=== PATIENT | female | born 1960 | race Caucasian/White ===

== ENCOUNTER 2019-11-29 07:00 | Outpatient (CLI) | payer MEDICAID, SELFPAY ==
[2019-11-29 13:14] LABS: ALT 32 U/L (14-59); AST 20 U/L (15-37); Alkaline Phosphatase 102 U/L (46-116); Anion Gap 11.1 mmol/L (3-11); BUN 34 mg/dL (7-18); Bilirubin, Total 0.4 mg/dL (0.2-1.0); CO2 23.9 mmol/L (21.0-32.0); CREATININE 2.77 mg/dL (0.55-1.02); Calcium 9.4 mg/dL (8.5-10.1); Calculated LDL 69 mg/dL (<100); Chloride 104 mmol/L (98-107); Cholesterol 154 mg/dL (<200); Estimated GFR 17.39 (mL/min/1.73m2); Glucose 96 mg/dL (74-106); HDL Cholesterol 57 mg/dL (40-60); Potassium 4.7 mmol/L (3.5-5.1); Sodium 139 mmol/L (136-145); TSH 0.34 uIU/mL (0.36-3.74); Triglyceride 143 mg/dL (<150)
[2019-11-29 13:17] LABS: COMMENT (LAB VIEW ONLY) 100.07 mg/dL
[2019-11-29 13:18] LABS: Microalb ug/mg Crea 177.1 ug/mg Cr
[2019-11-29 13:19] LABS: Hemoglobin A1C 7.1 % (3.8-5.6)
[2019-11-29 13:48] LABS: FREE T4 1.09 ng/dL (0.76-1.46)
[2019-11-29 17:48] LABS: T3, Total 135 ng/dL (97-169)
== END 2019-11-29 07:20 ==
PROVIDERS: PCP Family Medicine; Visit Provider Family Medicine
DX: E11.9 Type 2 diabetes mellitus without complications (principal); E04.2 Nontoxic multinodular goiter
CPT/HCPCS: 36415; 80053; 80061; 82043; 82570; 83036; 84439; 84443; 84480

== ENCOUNTER 2020-01-01 01:36 | Outpatient (CLI) | payer MEDICAID, SELFPAY ==
--- NOTE | 2020-01-01 13:45 | DI.MAMMO_ITS ---
EXAM: MG MAMMO SCREENING 60 MIN DUR CLINICAL HISTORY: PERSONAL H/O MALIGNANT NEOPLASM OF BREAST, Z85.3, BREAST CANCER SCREENING. COMPARISON: 2018 TECHNIQUE: Craniocaudal and mediolateral oblique Full Field Digital Mammography views of the left br east with Computer Aided Diagnosis followed by Tomosynthesis. FINDINGS: Mammography/Tomosynthesis: Breast Density - Category B - Scattered areas of fibroglandular density Masses/Architectural Distortion: None seen. Microcalcifications: No suspicious pleomorphic-type are seen. Skin Thickening/Nipple Retraction: None. IMPRESSION: 1. No evidence of malignancy is noted. 2. Unless there is more urgent need, follow-up screening mammography is recommended, as per [employer] guidelines. ACR BI-RAD Category- 1 Negative A negative radiographic report should not delay biopsy if a dominant or clinically suspicious mass is present. Up to ten percent of cancers are not identified on mammography. A negative report may reinforce clinical impression. Adenosis and dense breasts may obscure an underlying neoplasm. False positive reports average 6 to 10%. Patient will receive a letter notifying them of these results.
== END 2020-01-01 01:56 ==
PROVIDERS: PCP Family Medicine; Visit Provider Family Medicine
DX: Z12.31 Encounter for screening mammogram for malignant neoplasm of breast (principal); Z85.3 Personal history of malignant neoplasm of breast
CPT/HCPCS: 77063; 77067

== ENCOUNTER 2020-02-20 16:02 | Outpatient (REF) | payer MEDICAID, SELFPAY | END 2020-02-20 16:22 | LOC: LBN 16:02 | PROVIDERS: PCP Family Medicine; Visit Provider Surgery | DX: L72.3 Sebaceous cyst (principal) | CPT/HCPCS: 87070; 87205 ==

== ENCOUNTER 2020-05-27 03:34 | Outpatient (CLI) | payer MEDICAID, SELFPAY ==
[2020-05-27 11:50] LABS: Anion Gap 10.9 mmol/L (3-11); BUN 35 mg/dL (7-18); CO2 25.1 mmol/L (21.0-32.0); Calcium 9.3 mg/dL (8.5-10.1); Chloride 103 mmol/L (98-107); Estimated GFR 16.44 (mL/min/1.73m2); Glucose 174 mg/dL (74-106); Potassium 4.7 mmol/L (3.5-5.1); Sodium 139 mmol/L (136-145)
[2020-05-27 11:58] LABS: Hemoglobin A1C 7.1 % (3.8-5.6)
[2020-05-27 12:00] LABS: TSH 0.28 uIU/mL (0.36-3.74)
== END 2020-05-27 03:54 ==
PROVIDERS: PCP Family Medicine; Visit Provider Family Medicine
DX: E11.9 Type 2 diabetes mellitus without complications (principal); E04.2 Nontoxic multinodular goiter
CPT/HCPCS: 36415; 80048; 83036; 84443

== ENCOUNTER 2020-11-19 04:01 | Outpatient (CLI) | payer MEDICAID, SELFPAY ==
[2020-11-19 12:40] LABS: Abs Immature Grans 0.02 10^3/uL (0.0-0.06); Absolute Basophil Count 0.08 10^3/uL (0.0-0.2); Absolute Lymphocyte Count 1.55 10^3/uL (1.2-3.4); Absolute Monocyte Count 0.44 10^3/uL (0.1-0.8); Absolute Neutrophil Count 5.17 10^3/uL (1.2-6.7); Eosinophils % 5.2; HCT 36.2 % (36.0-46.0); HGB 11.4 g/dL (11.2-15.7); Immature Grans % 0.3; Lymphocytes % 20.2; MCHC 31.5 % (32.0-36.0); MCV 88.9 fL (80-95); MPV 11.9 fL (8.0-11.0); Monocytes % 5.7; Neutrophils % 67.6; Nucleated RBC 0 %; Platelet Count 249 10^3/uL (130-400); RBC 4.07 10^6/uL (3.93-5.22); RDW 13.3 % (11.7-14.6); RDW-SD 43.2 fL; WBC 7.66 10^3/uL (4.4-10.8)
[2020-11-19 12:41] LABS: Bilirubin Negative (Negative); Blood Trace-intact (Negative); Clarity Sl Cloudy (Clear); Glucose Negative (Negative); Ketones Negative (Negative); Leukocyte Esterase Large (Negative); Nitrite Positive (Negative); Urobilinogen 0.2 EU/dL (Up TO 0.2)
[2020-11-19 12:53] LABS: WBC >50 HPF (0-5)
[2020-11-19 12:54] LABS: C & S Indicated? Yes
[2020-11-19 12:59] LABS: ALT 33 U/L (14-59); AST 25 U/L (15-37); Albumin 4.1 g/dL (3.4-5.0); Alkaline Phosphatase 98 U/L (46-116); Anion Gap 13.9 mmol/L (3-11); BUN 34 mg/dL (7-18); Bilirubin, Total 0.3 mg/dL (0.2-1.0); CO2 22.1 mmol/L (21.0-32.0); CREATININE 3.06 mg/dL (0.55-1.02); Calcium 9.4 mg/dL (8.5-10.1); Calculated LDL 70 mg/dL (<100); Chloride 105 mmol/L (98-107); Cholesterol 158 mg/dL (<200); Estimated GFR 15.45 (mL/min/1.73m2); Glucose 113 mg/dL (74-106); HDL Cholesterol 56 mg/dL (40-60); Potassium 4.8 mmol/L (3.5-5.1); Sodium 141 mmol/L (136-145); TSH 0.01 uIU/mL (0.36-3.74); Total Protein 8.1 g/dL (6.4-8.2); Triglyceride 161 mg/dL (<150)
[2020-11-19 13:08] LABS: COMMENT (LAB VIEW ONLY) 94.84 mg/dL
[2020-11-19 13:10] LABS: Microalb ug/mg Crea 288.7 ug/mg Cr
== END 2020-11-19 04:21 ==
PROVIDERS: PCP Family Medicine; Visit Provider Family Medicine
DX: E11.9 Type 2 diabetes mellitus without complications (principal); E03.9 Hypothyroidism, unspecified; N18.9 Chronic kidney disease, unspecified
CPT/HCPCS: 36415; 80053; 80061; 87077; 81003; 81015; 82043; 82570; 83036; 84443; 85025; 87086; 87186

== ENCOUNTER 2021-01-28 03:29 | Outpatient (CLI) | payer MEDICAID, SELFPAY ==
[2021-01-28 11:37] LABS: Abs Immature Grans 0.05 10^3/uL (0.0-0.06); Absolute Basophil Count 0.07 10^3/uL (0.0-0.2); Absolute Eosinophil Count 0.27 10^3/uL (0.0-0.7); Absolute Lymphocyte Count 1.29 10^3/uL (1.2-3.4); Absolute Monocyte Count 0.46 10^3/uL (0.1-0.8); Absolute Neutrophil Count 7.28 10^3/uL (1.2-6.7); Basophils % 0.7; Eosinophils % 2.9; HCT 36.2 % (36.0-46.0); HGB 11.4 g/dL (11.2-15.7); Immature Grans % 0.5; Lymphocytes % 13.7; MCH 28.5 pg (27.0-33.0); MCHC 31.5 % (32.0-36.0); MCV 90.5 fL (80-95); MPV 10.5 fL (8.0-11.0); Monocytes % 4.9; Neutrophils % 77.3; Nucleated RBC 0 %; Platelet Count 327 10^3/uL (130-400); RDW 13.8 % (11.7-14.6); RDW-SD 45.9 fL; WBC 9.42 10^3/uL (4.4-10.8)
[2021-01-28 13:11] LABS: ALT 29 U/L (14-59); AST 21 U/L (15-37); Alkaline Phosphatase 116 U/L (46-116); BUN 40 mg/dL (7-18); Bilirubin, Total 0.3 mg/dL (0.2-1.0); CREATININE 2.9 mg/dL (0.55-1.02); Calcium 9.9 mg/dL (8.5-10.1); Chloride 108 mmol/L (98-107); Estimated GFR 16.44 (mL/min/1.73m2); Glucose 104 mg/dL (74-106); Potassium 5.8 mmol/L (3.5-5.1); Sodium 142 mmol/L (136-145); Total Protein 8.4 g/dL (6.4-8.2)
[2021-01-28 13:25] LABS: PHOSPHORUS 4.5 mg/dL (2.6-4.7); Uric Acid 8.4 mg/dL (2.6-6.0)
[2021-01-29 09:10] LABS: Parathyroid Hormone,Intact 57 pg/mL (19-88)
== END 2021-01-28 03:30 | disposition home or self-care (01) ==
LOC: LBO 03:30
PROVIDERS: PCP Family Medicine; Visit Provider Internal Medicine Nephrology
DX: N18.4 Chronic kidney disease, stage 4 (severe) (principal); E11.9 Type 2 diabetes mellitus without complications; N13.8 Other obstructive and reflux uropathy
CPT/HCPCS: 36415; 80053; 83970; 84100; 84550; 85025

== ENCOUNTER 2021-02-16 01:06 | Outpatient (CLI) | payer MEDICAID, SELFPAY ==
--- NOTE | 2021-02-16 07:00 | DI.US_ITS ---
EXAM: US RENAL CLINICAL HISTORY: CHRONIC KIDNEY DISEASE,N18.4 TECHNIQUE: Ultrasound of both kidneys performed using standard protocol. COMPARISON: CT ABD PELVIS WO CONTRAST from 02/11/2017 FINDINGS: RIGHT KIDNEY: Measures 9 cm in length. No cysts evident. There is some uniform cortical thinning No intrarenal calculi nor hydronephrosis. LEFT KIDNEY: Measures 8.6 cm in length. No cysts evident. There is some uniform cortical thinning. No intrarenal calculi nor hydonephrosis. URINARY BLADDER: Prevoid volume is 347 cc Postvoid volume is 14.3 cc There is a Reyes catheter in urinary bladder. Ureterovesical jets: Right ureterovesical jet was identified. Left was not. IMPRESSION: 1. Both kidneys appear mildly atrophic with symmetrical cortical thinning and slightly decreased siz e. 2. No cysts or solid masses seen in either kidney. No obvious calculi evident. No hydronephrosis. 3. there is a Reyes catheter in the urinary bladder. DATA REPOSITORY:
== END 2021-02-16 01:26 ==
PROVIDERS: PCP Family Medicine; Visit Provider Family Medicine
DX: N18.4 Chronic kidney disease, stage 4 (severe) (principal); N26.1 Atrophy of kidney (terminal)
CPT/HCPCS: 76770

== ENCOUNTER 2021-03-26 02:32 | Outpatient (CLI) | payer MEDICAID, SELFPAY ==
[2021-03-26 13:16] LABS: Anion Gap 12.4 mmol/L (3-11); BUN 42 mg/dL (7-18); CO2 22.6 mmol/L (21.0-32.0); Calcium 9.4 mg/dL (8.5-10.1); Chloride 106 mmol/L (98-107); Estimated GFR 15.76 (mL/min/1.73m2); Glucose 119 mg/dL (74-106); Sodium 141 mmol/L (136-145); Uric Acid 8.8 mg/dL (2.6-6.0)
[2021-03-26 13:30] LABS: Vitamin D 25 Total 14.6 ng/mL (30-100)
== END 2021-03-26 02:33 | disposition home or self-care (01) ==
LOC: LOS 02:33
PROVIDERS: PCP Family Medicine; Visit Provider Family Medicine
DX: N18.4 Chronic kidney disease, stage 4 (severe) (principal); M10.9 Gout, unspecified; E55.9 Vitamin D deficiency, unspecified
CPT/HCPCS: 36415; 80048; 82306; 84550

== ENCOUNTER 2021-06-03 03:16 | Outpatient (CLI) | payer MEDICAID, SELFPAY ==
[2021-06-03 13:21] LABS: Anion Gap 14.3 mmol/L (3-11); BUN 37 mg/dL (7-18); CO2 20.7 mmol/L (21.0-32.0); CREATININE 3.1 mg/dL (0.55-1.02); Calcium 9.5 mg/dL (8.5-10.1); Chloride 105 mmol/L (98-107); Estimated GFR 15.18 (mL/min/1.73m2); Glucose 141 mg/dL (74-106); Potassium 4.8 mmol/L (3.5-5.1); Sodium 140 mmol/L (136-145); TSH 0.02 uIU/mL (0.36-3.74); Uric Acid 7.3 mg/dL (2.6-6.0)
== END 2021-06-03 03:17 | disposition home or self-care (01) ==
LOC: LOS 03:17
PROVIDERS: PCP Family Medicine; Visit Provider Family Medicine
DX: E11.9 Type 2 diabetes mellitus without complications (principal); E04.2 Nontoxic multinodular goiter; E55.9 Vitamin D deficiency, unspecified; N18.4 Chronic kidney disease, stage 4 (severe); M10.9 Gout, unspecified
CPT/HCPCS: 36415; 80048; 82306; 83036; 84443; 84550

== ENCOUNTER 2021-07-24 02:38 | Outpatient (CLI) | payer MEDICAID, SELFPAY ==
[2021-07-24 10:25] LABS: Source Nasal/Nares
[2021-07-24 13:56] LABS: COVID-19 PCR Negative (Negative)
== END 2021-07-24 02:39 | disposition home or self-care (01) ==
LOC: LBO 02:38
PROVIDERS: PCP Family Medicine; Visit Provider Surgery
DX: Z20.822 Contact with and (suspected) exposure to COVID-19 (principal); Z01.818 Encounter for other preprocedural examination
CPT/HCPCS: 87635

== ENCOUNTER 2021-07-27 06:02 | Day surgery (SDC) | payer MEDICAID, SELFPAY ==
--- NOTE | 2021-07-26 18:28 | ANES.PREOP_ITS ---
General Info Date of Service Date Performed: 07/27/21 Height: 5 ft 3 in Weight: 72.802 kg Body Mass Index (BMI): 28.4 Surgical Procedure: Operation Date: 07/27/21 07:35 Proposed Procedures Side Surgeon p Colonoscopy Tessie Shane MD Meds Allergies and Home Medications Allergies Allergy/AdvReac Type Severity Reaction Status Date / Time amoxicillin [From Augmentin] AdvReac Intermediate Severe Verified 07/24/21 13:23 dry mouth clavulanic acid AdvReac Intermediate Severe Verified 07/24/21 13:23 [From Augmentin] dry mouth Sulfa (Sulfonamide AdvReac Intermediate SLURRED Verified 07/24/21 13:23 Antibiotics) SPEECH, DIZZY Home Medication Medication Instructions Recorded Blood Glucose Test #100 02/15/13 Lancets 1 ea MISCELLANEOUS DAILY #100 ea 02/15/13 aspirin [Aspir-81] 81 mg PO DAILY #100 tablet. 01/29/17 enalapril maleate 5 mg tablet 5 mg PO DAILY #90 tab-cap 10/08/20 amitriptyline 100 mg tablet 100 mg PO DAILY #90 tab-cap 04/27/21 amlodipine 10 mg tablet 10 mg PO DAILY #90 tab-cap 04/27/21 glipizide 5 mg tablet 5 mg PO DAILY #90 tab-cap 04/27/21 pravastatin 80 mg tablet 80 mg PO DAILY #90 tab-cap 04/27/21 allopurinol 100 mg tablet 50 mg PO DAILY #90 tab 06/08/21 cholecalciferol (vitamin D3) 25 50 mcg PO DAILY #180 cap 06/08/21 mcg (1,000 unit) capsule levothyroxine 88 mcg tablet 88 mcg PO DAILY #30 tab 06/08/21 bisacodyl 5 mg tablet,delayed 5 mg PO ONCE #4 tab 06/26/21 release polyethylene glycol 3350 17 238 g PO ONCE #238 g 06/26/21 gram/dose oral powder Current Visit Medications: Current Medications Generic Name Dose Route Start Last Admin Trade Name Freq PRN Reason Stop Dose Admin Sodium Chloride 500 mls @ 30 mls/hr 07/24/21 14:30 Saline 500ml Bag IV INFUSION STARR Ringer's Solution 1,000 mls @ 80 mls/hr 07/27/21 06:00 IV 08/23/21 23:59 INFUSION STARR IV Miscellaneous Supplies 1 each 07/27/21 06:00 Iv Access IV 08/23/21 23:59 DIRECTED STARR Sodium Chloride 0 ml 07/27/21 06:00 Normal Saline Flush 10 Ml Syr IV 08/23/21 23:59 PRN PRN Sodium Chloride 0 ml 07/27/21 06:00 Normal Saline 10 Ml Vial IJ 08/23/21 23:59 DIRECTED PRN Sterile Water 0 ml 07/27/21 06:00 Water,Injection,Sterile 10 Ml Vial IJ 08/23/21 23:59 DIRECTED PRN PFSH Active Problems Active Problems: Problem Status Onset Code Positive colorectal cancer screening using Cologuard test R19.5 Hyperuricemia E79.0 Hypothyroidism E03.9 Vitamin D deficiency E55.9 CKD (chronic kidney disease) stage 4, GFR 15-29 ml/min N18.4 Malignant neoplasm of right breast in female, estrogen receptor positive C50.911, Z17.0 Infected sebaceous cyst of skin L72.3, L08.9 Urinary retention 02/08/17 R33.9 Multinodular goiter 02/26/18 E04.2 Intramural leiomyoma of uterus 05/05/17 D25.1 Hyperlipidemia 02/21/13 E78.5 History of tobacco use Z87.891 Gout M10.9 Essential hypertension I10 Erythromelalgia 01/09/15 I73.81 Diabetes mellitus E11.9 Chronic kidney disease, unspecified N18.9 Acute renal failure superimposed on chronic kidney disease 02/04/17 N17.9, N18.9 Urinary retention R33.9 Medical History Medical History Chronic kidney disease CKD (chronic kidney disease) stage 4, GFR 15-29 ml/min Diabetes Erythromelalgia Gout Hyperlipidemia Hypertension Hyperuricemia Hypothyroidism Infected sebaceous cyst of skin Leiomyoma of uterus Malignant neoplasm of right breast in female, estrogen receptor positive [facility] biopsy: invasive ductal carcinoma/ductal carcinoma in situ - Urinary retention Vitamin D deficiency Tobacco Smoking/Tobacco Use Status: Former Tobacco Use Passive smoking exposure: Yes Second hand exposure: Yes Alcohol Alcohol Intake: never Substance Use Substance use: Never Substance use type: does not use Vital Signs and Lab Results Lab Results Blood Type / Crossmatch: No Data to Display Complete Blood Count: No Data to Display Complete Metabolic Panel: No Data to Display Liver Function Panel: No Data to Display Coagulation Panel: No Data to Display Cardiac Panel: No Data to Display Arterial Blood Gas: No Data to Display Venous Blood Gas: No Data to Display Pancreas Panel: No Data to Display Thyroid Panel: No Data to Display Infectious Disease: Coronavirus (COVID-19)(PCR) Negative (Negative) 07/24/21 08:37 07/24/21 Coronavirus 2019 Source Nasal/Nares 07/24/21 08:37 07/24/21 Blood Cultures: No Data to Display Toxicology Panel: No Data to Display Anesthesia Assessment and Plan Anesthesia History Personal History: No History of Anesthesia Complications Family History: No Family History of Anesthesia Complications Exercise Tolerance Exercise Tolerance: Metabolic Equivalents>4 Cardiac & Pulmonary Exam Cardiac Exam: Normal S1/S2 Heart Sounds Pulmonary Exam: Clear Bilateral Breath Sounds Airway Exam Known Difficult Airway: No Mallampati Class: 3 Mouth Opening: Narrow (< 3cm) Thyromental Distance: Less than 3 cm Neck Range of Motion: Full ROM Neck Circumference: Normal Teeth Condition: Removable Dentures/Plates Upper ASA Classification ASA Score: ASA 3 Emergency Case?: No NPO Status NPO Status: NPO Clears >2 hours, Solids >8 hours Anesthesia Plan Resuscitation Status: Full Code Anesthesia Technique: General Anesthesia Airway Planned: Natural Airway Monitors Used: Standard Monitors Preoperative Comments:: 61 yo female for colonoscopy due to positive cologuard and constipation. Sig PMHx: CKD (GFR 15), HTN (enalapril/amlodipine), DM (glipizide), hypothyroid (on replacement) Plan: propofol.
--- NOTE | 2021-07-27 06:28 | W.COLOREPORT ---
Colonoscopy Report Date of procedure: 07/27/21 Pre-op diagnosis general: Positive Cologuard Post-op diagnosis procedure note: other (diverticulosis and polyp) Procedure: Colonoscopy with polypectomy Surgeon: Tessie Shane Anesthesia Type: General:No Airway (Geo Montoya, STARLA) Estimated blood loss (mL): 3 Pathology: other (sigmoid colon polyp) Complications: None Disposition: same day Indications: The patient is here for Colonoscopy pre-op following a (+) colo-guard. She has no family history of colon cancer. She has had chronic constipation. -Discussed colonoscopy bowel prep as well as the procedure. Discussed possible complications of the procedure to include bleeding, pain, perforation, missed small lesion/polyp, sore throat, aspiration and adverse reaction to the medications. Questions were answered to patient?s satisfaction. No guarantees were implied or given. Prep: Miralax/Dulcolax Procedure Start Time: 07:24 Procedure End Time: 07:54 Retraction Time: 13 minutes Findings: Severe bhatia-diverticulosis One small sessile polyp in the sigmoid colon Procedure Description: After informed consent was obtained the patient was taken to the procedure room and placed in a left decubitous position. Monitors were applied and a time out was done. The patients name, date of , procedure, allergies to medications and metal in their body was reviewed. The patient was then sedated. Once sedated and comfortable a rectal exam was done. External exam was normal. Internal exam revealed a normal sphincter tone and no palpable masses. The scope was then introduced and retro-flexed. No internal hemorrhoids, polyps or masses were identified on retro-flexion. The scope was then advanced to the cecum with some difficulty due to a tortuous colon and severe diverticulosis. The ileocecal vlave and appendiceal orifice were identified. The prep was adequate. The scope was then slowly retracted over 13 minutes back into the rectum. Polyps were removed with cold forceps in the sigmoid colon. There was severe bhatia- diverticulosis noted. The scope was removed and the patient was woken up and taken back to Same day surgery in stable condition. The patient tolerated the procedure well and there were no immediate complications. Follow up: The patient should follow up in 5-10 years unless they develop changes in bowel habits or other new gastrointestinal complaints.
[2021-07-27 06:29] VITALS: BP 109/61; PULSE 93; RESP 18; TEMP 36.5; O2SAT 97
--- NOTE | 2021-07-27 06:29 | W.PM.DSUDISC ---
Discharge Plan Disposition Patient Disposition: HOME Condition: Good Discharge Details Reason For Visit: Colonoscopy Attending Provider: Tessie Shane Primary Care Provider: Agustina Jasso Home Meds and New Rx's Prescriptions: Continued allopurinol 100 mg tablet 50 mg PO DAILY Qty: 90 RF: 1 levothyroxine 88 mcg tablet 88 mcg PO DAILY Qty: 30 RF: 2 cholecalciferol (vitamin D3) 25 mcg (1,000 unit) capsule 50 mcg PO DAILY Qty: 180 RF: 4 (DME) Blood Glucose Test 1 EACH strip 1 ea Miscellaneous DAILY Qty: 100 RF: 4 LANCETS 1 EACH EACH 1 ea Miscellaneous DAILY Qty: 100 RF: 4 enalapril maleate 5 mg tablet 5 mg PO DAILY Qty: 90 RF: 3 amitriptyline 100 mg tablet 100 mg PO DAILY Qty: 90 RF: 4 amlodipine 10 mg tablet 10 mg PO DAILY Qty: 90 RF: 4 glipizide 5 mg tablet 5 mg PO DAILY Qty: 90 RF: 4 pravastatin 80 mg tablet 80 mg PO DAILY Qty: 90 RF: 4 aspirin [Aspir-81] 81 MG tablet,delayed release (DR/EC) 81 mg PO DAILY Qty: 100 RF: 0 Discontinued polyethylene glycol 3350 17 gram/dose powder 238 g PO ONCE Qty: 238 RF: 0 bisacodyl [Dulcolax (bisacodyl)] 5 mg tablet,delayed release (DR/EC) 5 mg PO ONCE Qty: 4 RF: 0 Discharge Instructions Instructions: Diverticulosis (DC) Additional Instructions: Findings: severe diverticulosis one polyp Follow up: depends on final pathology. I will send a letter. Please call if you develop: fevers >101.5 Nausea or Vomiting Abdominal pain that is not transient Rectal bleeding that is more then a tbsp A hard abdomen and inability to pass gas DAY SURGERY UNIT POST ENDOSCOPY INSTRUCTIONS Instructions for everyone who is given Anesthesia: For your safety, please do the following for the next 24 Hours: a. Do not drive or operate dangerous equipment b. Do not drink alcohol beverages or use any recreational drugs for the first 24 hours or while taking pain medications. The medications in your body may have a reaction that can be dangerous. c. Do not make any important decisions or sign any important papers 1. Generally there are no restrictions on your activity after a day or so has gone by, but you may feel a bit fatigued for a few days. 2. After you arrive home you may have a light meal and return to a normal diet as you can tolerate it without feeling sick to your stomach. 3. After surgery, you may feel pain or discomfort. This should be only transient, but if it persists please contact your doctor. 4. If there are any questions regarding the findings of your procedure, please feel free to contact your doctor. 6. If you are unable to contact your doctor with a problem, contact the hospital at [phone]. 7. Continue all your regular medications unless directed otherwise. I understand the above instructions and have no questions. Signature of Patient or Responsible Adult Escort Date/Time Name of Responsible Adult Escort Signature of Nurse Date/Time Activity:: Activity as Tolerated Diet:: high fiber diet Discharge Orders Discharge Orders: Discharge Order (Routine); Ordered 07/27/21 Ordered By: Tessie Shane
[2021-07-27 06:45] VITALS: BMI 28.4
[2021-07-27] MEDS: Lactated Ringers 1,000 ML 30 ML IV (06:48)
--- NOTE | 2021-07-27 07:49 | BOWEL_PTH ---
PATIENT: Olinda Villalobos LOC: [facility] U#:[id number] AGE/SX: 61/F ROOM: RE07/27/[address]: Tessie Shane MD : 1960 BED: DIS: 07/27/2021 SPEC #: [id number] RECD: 07/27/21 12:49 STATUS: AUBREE REOsmani #: [id number] MIROSLAVA: 07/27/21 07:[address]: Tessie Shane DEPT: Surgical Specimen RECD BY: Fatmata Garcia ENTERED: 07/27/21 12:51 SP TYPE: Bowel OTHR DR: Agustina Jasso MD Tissues: 1 - BIOPSY BOWEL Procedures: GROSS AND MICRO LEVEL 4 Comments: [id number]
[2021-07-27 08:00] VITALS: BP 104/57; PULSE 85; RESP 18; TEMP 36.5; O2SAT 93
--- NOTE | 2021-07-27 08:11 | W.ANESPOSTOP ---
Postoperative Evaluation Date, Time and Location Date Performed: 07/27/21 Time Performed: 08:12 Patient Location: Day Surgery Unit Vital Signs Most Recent Imported Vital Signs: Most Recent Vital Signs Temp Pulse Resp BP Pulse Ox 36.5 C 85 18 104/57 L 93 07/27/21 08:00 07/27/21 08:00 07/27/21 08:00 07/27/21 08:00 07/27/21 08:00 Pain Score Most Recent Pain Score: Most Recent Pain Score Pain Level 0 07/27/21 08:00 Assessment Mental Status: Awake (Alert & Oriented to Patient Baseline) Airway and Respiratory Function: Patent airway with normal (patient baseline) respiratory exam Cardiovascular Function: Hemodynamically Stable Hydration Status: Adequately Hydrated Nausea & Vomiting: No Nausea or Vomiting Pain: Pt. Denies Any Pain Peripheral Nerve Block: Patient did not receive a nerve block
[2021-07-27 08:25] VITALS: BP 113/61; PULSE 80; RESP 18; TEMP 36.5; O2SAT 96
== END 2021-07-27 09:05 | disposition home or self-care (01) ==
PROVIDERS: PCP Family Medicine; Visit Provider Surgery
PROC: 0DJD8ZZ Inspection of Lower Intestinal Tract, Via Natural or Artificial Opening Endoscopic (ICD-10-PCS; CPT 45378; principal; 2021-07-27 07:30)
DX: Z12.11 Encounter for screening for malignant neoplasm of colon (principal); R19.5 Other fecal abnormalities; K63.5 Polyp of colon; K57.30 Diverticulosis of large intestine without perforation or abscess without bleeding
CPT/HCPCS: 45380; 88305; J2001

== ENCOUNTER 2021-08-11 03:18 | Inpatient (IN) | payer MEDICAID, SELFPAY ==
[2021-08-11] VITALS (150 sets, daily range): BP systolic 81–124; BP diastolic 31–93; PULSE 84–144; RESP 14–40; TEMP 35.9–36.6; O2SAT 91–100
--- NOTE | 2021-08-11 | DI.CT_ITS ---
Exam(s) CT CHEST/ABD/PEL WO EXAM: CT CHEST/ABD/PEL WO CLINICAL HISTORY: hypotensive, recent procedure, abd pain. ? aorta disection. TECHNIQUE: Imaging Protocol: Axial computed tomography images with coronal and sagittal reformatted images were created and reviewed CONTRAST MATERIAL: Intravenous: none Oral: None COMPARISON: CT ABD PELVIS WO CONTRAST from 02/11/2017 FINDINGS: CHEST: There appears to been right mastectomy. LUNGS: Mild infiltrate in the posterior basal segment of the left lower lobe. No other pulmonary fin dings. There are no pleural effusions. No significant focal findings in trachea and mainstem bronch i. MEDIASTINUM: No obvious hilar nor mediastinal adenopathy. Visualized thyroid unremarkable. CARDIAC: Heart size is normal. There is no pericardial effusion.Coronary artery calcification noted. Caliber thoracic aorta is within normal limits. OSSEOUS: Subtle area of lucency in the posterior aspect of the left 6 rib. Also multiple lucencies a nd sclerotic densities within the spinal column vertebrae. Suspicious for possible metastatic diseas e. ABDOMEN: Motion artifact There is no ascites. LIVER: There are no obvious focal hepatic lesions evident of this noninfused study. GALLBLADDER/BILIARY: Small gallstones noted. No evidence of gallbladder wall edema nor pericholecyst ic fluid. CBD is not dilated. PANCREAS: Blurred from motion artifact but no obvious focal findings. SPLEEN: Spleen is not enlarged. No obvious intrasplenic lesions. ADRENALS: There are no significant adrenal masses. KIDNEYS: Mild hydronephrosis and hydroureter again noted, unchanged. No cysts nor obvious solid mass es in the kidneys. No calculi. Vascular calcification in the right kidney is again noted. The uret ers are dilated. No calculi seen at the ureterovesical junctions. A suprapubic catheter is noted in the urinary bladder. ABDOMINAL AORTA: Calcified but not enlarged. LYMPH NODES: There is no retroperitoneal nor para-aortic adenopathy. ABDOMINAL WALL/GI: No evidence of significant anterior abdominal wall nor inguinal hernia. No evidence of bowel obstruction. PELVIS: LYMPH NODES: There is no intrapelvic nor inguinal adenopathy. GI: No evidence of appendicitis.There are multiple sigmoid diverticuli but no evidence of obvious acu te diverticulitis. URINARY BLADDER: Suprapubic catheter is noted. REPRODUCTIVE: Age appropriate. No abnormal adnexal masses. No free fluid. OSSEOUS: Sclerosis noted in multiple vertebral bodies, including L5, L2, T10, and T11. Most probably metastatic. IMPRESSION: 1. Quality of this study somewhat limited by motion artifact. 2. There is evidence of previous right mastectomy. Mild infiltrate is noted in the left lower lobe, not associated with pleural effusions. There are no pulmonary nodules nor intrathoracic adenopathy. 3. Cholelithiasis. No dilatation of the biliary tree 4. Chronic dilatation of the urinary tracts. Suprapubic catheter is noted in the urinary bladder. Bladder is mildly distended. 5. Diverticulosis but no evidence of acute diverticulitis. 6. There appears to be diffuse metastatic osseous disease. RADIATION DOSE DELIVERED: 1,634.16mGy.cm Total DLP DATA REPOSITORY: All CT scans at this facility are submitted to the National Radiology Data Registry (NRDR) Dose Index Registry (DIR) with the [employer] (ACR). RADIATION OPTIMIZATION: All CT scans at this facility use at least one of these dose optimization te chniques: automated exposure control; mA and/or kV adjustment per patient size (includes targeted exa ms where dose is matched to clinical indication); or iterative reconstruction.
--- NOTE | 2021-08-11 | DI.US_ITS ---
Exam(s) US ABDOMEN EXAM: US ABDOMEN CLINICAL HISTORY: Severe hepatic steatosis TECHNIQUE: Ultrasound of complete upper abdomen performed using standard protocol. COMPARISON: No exams were available for comparison FINDINGS: There is no ascites evident. LIVER: Liver is hyperechoic indicating steatosis. No discrete focal hepatic lesions evident GALLBLADDER/BILIARY: Multiple small mobile gallstones.. Gallbladder wall is not thickened or [place] us. There is no pericholecystic fluid. The common hepatic duct isnot dilated, measuring 3-4mm at the level of jonh hepatis. PANCREAS: There is no evidence of pancreatic mass nor dilatation of the pancreatic duct. SPLEEN: The spleen is not enlarged and there are no intrasplenic lesions evident. KIDNEYS:Kidneys exhibit normal size with no evidence of solid mass, calculus, nor hydronephrosis. No cortical cysts evident. ABDOMINAL AORTA: There is no evidence of abdominal aortic aneurysm. IVC: Normal diameter where visualized. IMPRESSION: 1. Cholelithiasis. There are multiple mobile small gallstones in the gallbladder lumen. No gallbla dder wall edema or pericholecystic fluid. No dilatation of the CBD. Patient was apparently not tend er over this area during scanning today. 2. Hepatic steatosis. Correlation appropriate hepatic blood work is recommended. 3. There is no ascites. DATA REPOSITORY:
--- NOTE | 2021-08-11 03:00 | RT.EKG_ITS ---
APPROVED REPORT Exam: Resting ECG Reason for Exam: altered mental status Patient Location: E HR:89 bpm ECG Measurements Heart Rate 89 AXIS GA 271 P 22 QRSd 111 QRS 45 QT 375 T 44 QTc 456 Conclusion Sinus rhythm...normal P axis, V-rate 60- 99 Prolonged GA interval...GA >220, V-rate 50- 90 Low voltage, extremity leads...all extremity leads <0.5mV Physician: no stemi
--- NOTE | 2021-08-11 03:30 | DI.CT_ITS ---
Exam(s) CT HEAD WO EXAM: CT HEAD WO CLINICAL HISTORY: fall, hit head altered. TECHNIQUE: Imaging Protocol: Axial computed tomography images with coronal and sagittal reformatted images were created and reviewed COMPARISON: No exams were available for comparison FINDINGS: There are no skull fractures nor fluid in the visualized paranasal sinuses. There is no evidence of intracranial hemorrhage, mass effect, or shift of midline structures. There are no extra-axial fluid collections. The ventricles are not enlarged or shifted and there is no blo od within the ventricular system nor within the basal cisterns. IMPRESSION: No acute intracranial findings on this noninfused CT scan of the brain. RADIATION DOSE DELIVERED: 724.24mGy.cm Total DLP DATA REPOSITORY: All CT scans at this facility are submitted to the National Radiology Data Registry (NRDR) Dose Index Registry (DIR) with the [employer] (ACR). RADIATION OPTIMIZATION: All CT scans at this facility use at least one of these dose optimization te chniques: automated exposure control; mA and/or kV adjustment per patient size (includes targeted exa ms where dose is matched to clinical indication); or iterative reconstruction.
[2021-08-11 03:50] LABS: Lactate 0.6 mmol/L (0.6-1.4)
[2021-08-11 03:50] LABS: Source Nasal/Nares
[2021-08-11 04:01] LABS: Abs Immature Grans 0.12 10^3/uL (0.0-0.06); Absolute Basophil Count 0.02 10^3/uL (0.0-0.2); Absolute Eosinophil Count 0.01 10^3/uL (0.0-0.7); Absolute Lymphocyte Count 0.36 10^3/uL (1.2-3.4); Absolute Monocyte Count 0.63 10^3/uL (0.1-0.8); Absolute Neutrophil Count 6.52 10^3/uL (1.2-6.7); Basophils % 0.3; Eosinophils % 0.1; Immature Grans % 1.6; Lymphocytes % 4.7; MCHC 31.4 % (32.0-36.0); MCV 92.5 fL (80-95); MPV 10.1 fL (8.0-11.0); Monocytes % 8.2; Neutrophils % 85.1; Nucleated RBC 0 %; Platelet Count 261 10^3/uL (130-400); RDW 14.5 % (11.7-14.6); WBC 7.66 10^3/uL (4.4-10.8)
[2021-08-11 04:03] LABS: HGB 5.8 g/dL (11.2-15.7)
[2021-08-11 04:04] LABS: HCT 18.5 % (36.0-46.0)
--- NOTE | 2021-08-11 04:09 | ED.GENADUL_ITS ---
Discharge Plan Disposition Patient Disposition: [facility] INPATIENT Condition: Serious Discharge Details Clinical Impression: Acute anemia, Hypomagnesemia, Hypokalemia, Hypocalcemia, Hypoalbuminemia, Weakness, Altered mental status, Hypovolemic shock, Bone lesion Primary Care Provider: Agustina Jasso ED Provider: Yuri Cole Home Meds and New Rx's Prescriptions: No Action allopurinol 100 mg tablet 50 mg PO DAILY Qty: 90 RF: 1 levothyroxine 88 mcg tablet 88 mcg PO DAILY Qty: 30 RF: 2 cholecalciferol (vitamin D3) 25 mcg (1,000 unit) capsule 50 mcg PO DAILY Qty: 180 RF: 4 (DME) Blood Glucose Test 1 EACH strip 1 ea Miscellaneous DAILY Qty: 100 RF: 4 LANCETS 1 EACH EACH 1 ea Miscellaneous DAILY Qty: 100 RF: 4 enalapril maleate 5 mg tablet 5 mg PO DAILY Qty: 90 RF: 3 amitriptyline 100 mg tablet 100 mg PO DAILY Qty: 90 RF: 4 amlodipine 10 mg tablet 10 mg PO DAILY Qty: 90 RF: 4 glipizide 5 mg tablet 5 mg PO DAILY Qty: 90 RF: 4 pravastatin 80 mg tablet 80 mg PO DAILY Qty: 90 RF: 4 aspirin [Aspir-81] 81 MG tablet,delayed release (DR/EC) 81 mg PO DAILY Qty: 100 RF: 0 Medical Decision Making This is a 61-year-old female with a past medical history of previous breast cancer in the right breast with subsequent removal, chronic kidney disease, chronic indwelling suprapubic Reyes catheter, high cholesterol, hypothyroidism, diabetes, who takes a daily aspirin, who presents today for evaluation of altered mental status. Patient had a colonoscopy about 2 weeks ago. states that since then she has not had a single bowel movement. She has not been eating much at all throughout the day, but has been drinking water. He also states that over the last 3 days she has gotten in balance, and has had difficulty ambulating. She has been confused, and stating nonsensical things. He also states that she has fallen twice, is uncertain if she hit her head. Yesterday she had fallen and was in the shower for 4 hours. Patient is not on any blood thinners aside for daily aspirin. Patient has no complaints of chest pain, headache, or abdominal pain whatsoever. No vomiting. states that she has never been like this before. No other complaints at this time. No other modifying factors. Physical exam is notably unremarkable. No abdominal tenderness, suprapubic catheter is in place, no evidence of cranial trauma. Minimal crackle in the bases of the lung. Upon EMS arrival the patient's blood pressure was in the 70s. She was given [address] here, and this brought her up to the mid 80s for systolic BP. Heart rate is in the 90s to low 100s. Uncertain as to the exact cause of her symptoms. Bedside ultrasound was performed at arrival, there is no large pericardial effusion. Ejection fraction appears to be appropriate. Inferior vena cava is 1 to 1.5 cm, with minimal collapse with inspiration. It does appear to be an atypical finding around the patient's aorta and IVC in general. Uncertain as to what the etiology is on ultrasound. With the patient's recent colonoscopy and concern for atypical intra-abdominal pathology including perforation but this appears unlikely given her lack of tenderness. Dissection is on the differential but this would certainly be atypical with her lack of pain. Pulses are intact in her lower extremities. We will rehydrate, perform laboratory work-up, get a CT scan of the head to evaluate for acute process as well as the abdomen and pelvis. Will monitor closely and reassess. Infectious etiology is also in the differential, we will check for Covid and potential pneumonia with the crackles that she has. 4:46 AM Laboratory work-up is returned, patient's hemoglobin is notably diminished compared to normal, hemoglobin is 5.8. Patient has been typed and screened and will give 2 units of PRBCs now. Platelets are stable. INR slightly elevated at 1.6, PTT high at 52, and PT high at 15. Lactate is normal though. Potassium elevated at 2.6, notable chronic renal insufficiency with a creatinine of 2.8 and GFR of 17. Calcium is low at 5.1 however the patient's albumin is 1.5 which would lead to a calculated calcium of 7.1. Ammonia unremarkable, troponin unremarkable, TSH notably low at 0.03, pending free T4. proBNP normal suggesting no evidence of significant heart strain from PE. The patient's low hemoglobin, the diagnosis certainly she has 2 intra-abdominal GI bleed. Less likely PE. With the patient atrocious renal function, CTA would not be appropriate currently as she has become hemodynamically stable. We will get a CT scan of the head chest abdomen pelvis without contrast, monitor closely and reassess. Blood pressure is now in the high 90s systolic. 6:04 AM Electrolytes are being actively repleted. The patient has been given 2 units of PRBCs. With blood products, multiple electrolytes, and the need for additional fluids, the decision was made to place a right IJ central line. Discussed risks and benefits were discussed with the patient as well as her . They agreed to the plan. Central line was placed without complication. CT scan of the head is negative for acute process, CT of the abdomen and pelvis demonstrates some patchy sclerotic changes in the thoracic, lumbar vertebra. No significant abnormality otherwise CT scan. No clear evidence but because of the patient's anemia. Rectal exam demonstrates no stool. Patient has not had a bowel movement or bloody bowel movements or melena. I suspect most likely has evaluated small contained internal primary GI bleed. Patient blood pressure is now stabilized to the low 100s systolic. Will admit to the ICU for further management. Discussed the case with Dr. Poon. He agrees with the assessment and plan. I have extensively reviewed the treatment plan with the patient. I have addressed all patient concerns at this time. I have also discussed the plan with the admitting physician and they agree with the current assessment and plan and have agreed to assume responsibility for the patient. All parties demonstrate verbal understanding and agreement with our assessment and plan at this time. The documentation in this chart was dictated using [employer] dictation software. Please excuse any dictation errors. FINDINGS: Lungs: Dependent subsegmental atelectasis. Pleuroparenchymal scarring in left lung base. Pleural spaces: Unremarkable. No pneumothorax. No pleural effusion. Heart: Heart normal in size.There are coronary artery calcifications. No pericardial effusion.There is diminished attenuation of the cardiac chambers in comparison to the myocardium which can be seen with anemia. Correlate clinically. Aorta: No aortic aneurysm. Lymph nodes: No adenopathy. Diaphragm: Small hiatal hernia. Elevated right hemidiaphragm. Bones/joints: New, patchy sclerotic change in several vertebrae.The spine demonstrates mild degenerative changes at multiple levels. Soft tissues: Prior at least partial right mastectomy. IMPRESSION: 1. Anemia suspected. 2. Coronary artery disease. 3. Hiatal hernia. 4. Prior at least partial right mastectomy. 5. New, patchy sclerotic change in several thoracolumbar vertebrae. Blastic metastases are a differential consideration in the proper clinical setting. Correlate clinically FINDINGS: Tubes, catheters and devices: Suprapubic bladder catheter again demonstrated. Liver: There is diffuse decrease in hepatic parenchymal density, consistent with severe fatty infiltration. Minimal hepatomegaly. No mass. Gallbladder and bile ducts: Gallstones. No biliary ductal dilatation. Pancreas: Normal. No ductal dilation. Spleen: Normal. No splenomegaly. Adrenal glands: Normal. No mass. Kidneys and ureters: No radiopaque renal or ureteric calculi. Renal pelves remain prominent. No hydronephrosis. Stomach and bowel: No dilated loops of small bowel or colonic dilatation. Scattered colonic diverticula. There is a moderate to large amount of stool in right colon. Appendix: No evidence of appendicitis. Intraperitoneal space: Unremarkable. No free air. No significant fluid collection. Vasculature: Atherosclerosis. No abdominal aortic aneurysm. Lymph nodes: Unremarkable. No enlarged lymph nodes. Urinary bladder: Minimally distended without wall thickening. Reproductive: Retroverted uterus. Bones/joints: Patchy sclerosis in several vertebrae.The spine demonstrates mild degenerative changes at multiple levels. Soft tissues: No retroperitoneal or abdominal wall hematomas. IMPRESSION: 1. Urinary bladder is minimally distended. Correlate clinically for possible obstructed suprapubic tube. 2. Severe hepatic steatosis. 3. Hepatomegaly. 4. Gallstones. 5. Colonic diverticula. Thank you for allowing us to participate in the care of your patient. Dictated and Authenticated by: Galen Magana DO 08/11/2021 5:29 AM Eastern Time ([place] & [place]) FINDINGS: Brain: Normal. No hemorrhage. Unremarkable white matter. No mass effect. Cerebral ventricles: No ventriculomegaly. Paranasal sinuses: Visualized sinuses are unremarkable. No fluid levels. Mastoid air cells: Visualized mastoid air cells are well aerated. Bones/joints: Unremarkable. No acute fracture. Soft tissues: Unremarkable. IMPRESSION: No acute intracranial abnormality. ASSESSMENT: ASPECTS ([place] Stroke Program Early CT Score) is 10. Thank you for allowing us to participate in the care of your patient. Dictated and Authenticated by: Galen Magana DO 08/11/2021 4:55 AM Eastern Time ([place] & [place]) FINDINGS: Tubes, catheters and devices: Small bore right central line tip projects over superior cavoatrial junction. Lungs: Scarring and/or subsegmental atelectasis in lower left lung. No consolidation. Pleural spaces: Unremarkable. No pleural effusion. No pneumothorax. Heart/Mediastinum: Unremarkable. No cardiomegaly. Bones/joints: Unremarkable. IMPRESSION: No acute findings. Thank you for allowing us to participate in the care of your patient. Dictated and Authenticated by: Galen Magana DO 08/11/2021 6:01 AM Eastern Time ([place] & [place]) HPI General Date/Time Provider Initiated Documentation: 08/11/21 03:42 . HPI Narrative: This is a 61-year-old female with a past medical history of previous breast cancer in the right breast with subsequent removal, chronic kidney disease, chronic indwelling suprapubic Reyes catheter, high cholesterol, hypothyroidism, diabetes, who takes a daily aspirin, who presents today for evaluation of altered mental status. Patient had a colonoscopy about 2 weeks ago. states that since then she has not had a single bowel movement. She has not been eating much at all throughout the day, but has been drinking water. He also states that over the last 3 days she has gotten in balance, and has had difficulty ambulating. She has been confused, and stating nonsensical things. He also states that she has fallen twice, is uncertain if she hit her head. Yesterday she had fallen and was in the shower for 4 hours. Patient is not on any blood thinners aside for daily aspirin. Patient has no complaints of chest pain, headache, or abdominal pain whatsoever. No vomiting. states that she has never been like this before. No other complaints at this time. No other modifying factors. Related Data Home Medications Medication Instructions Recorded Confirmed Blood Glucose Test #100 02/15/13 08/11/21 Lancets 1 ea MISCELLANEOUS DAILY #100 ea 02/15/13 08/11/21 aspirin [Aspir-81] 81 mg PO DAILY #100 tablet. 01/29/17 08/11/21 enalapril maleate 5 mg tablet 5 mg PO DAILY #90 tab-cap 10/08/20 08/11/21 amitriptyline 100 mg tablet 100 mg PO DAILY #90 tab-cap 04/27/21 08/11/21 amlodipine 10 mg tablet 10 mg PO DAILY #90 tab-cap 04/27/21 08/11/21 glipizide 5 mg tablet 5 mg PO DAILY #90 tab-cap 04/27/21 08/11/21 pravastatin 80 mg tablet 80 mg PO DAILY #90 tab-cap 04/27/21 08/11/21 allopurinol 100 mg tablet 50 mg PO DAILY #90 tab 06/08/21 08/11/21 cholecalciferol (vitamin D3) 25 50 mcg PO DAILY #180 cap 06/08/21 08/11/21 mcg (1,000 unit) capsule levothyroxine 88 mcg tablet 88 mcg PO DAILY #30 tab 06/08/21 08/11/21 Previous Rx's Medication Instructions Recorded aspirin [Aspir-81] 81 mg PO DAILY #100 tablet. 01/29/17 enalapril maleate 5 mg tablet 5 mg PO DAILY #90 tab-cap 10/08/20 amitriptyline 100 mg tablet 100 mg PO DAILY #90 tab-cap 04/27/21 amlodipine 10 mg tablet 10 mg PO DAILY #90 tab-cap 04/27/21 glipizide 5 mg tablet 5 mg PO DAILY #90 tab-cap 04/27/21 pravastatin 80 mg tablet 80 mg PO DAILY #90 tab-cap 04/27/21 allopurinol 100 mg tablet 50 mg PO DAILY #90 tab 06/08/21 cholecalciferol (vitamin D3) 25 50 mcg PO DAILY #180 cap 06/08/21 mcg (1,000 unit) capsule levothyroxine 88 mcg tablet 88 mcg PO DAILY #30 tab 06/08/21 Allergies Allergy/AdvReac Type Severity Reaction Status Date / Time amoxicillin [From Augmentin] AdvReac Intermediate Severe Verified 08/11/21 03:26 dry mouth clavulanic acid AdvReac Intermediate Severe Verified 08/11/21 03:26 [From Augmentin] dry mouth Sulfa (Sulfonamide AdvReac Intermediate SLURRED Verified 08/11/21 03:26 Antibiotics) SPEECH, DIZZY General Stated Complaint: GenMedical XUAN: 2 Review of Systems All systems reviewed & are unremarkable except as noted in HPI and below PFSH Medical History Chronic kidney disease CKD (chronic kidney disease) stage 4, GFR 15-29 ml/min Diabetes Erythromelalgia Gout Hyperlipidemia Hypertension Hyperuricemia Hypothyroidism Infected sebaceous cyst of skin Leiomyoma of uterus Malignant neoplasm of right breast in female, estrogen receptor positive [facility] [place]: invasive ductal carcinoma/ductal carcinoma in situ - Urinary retention Vitamin D deficiency Surgical History History of suprapubic catheter Hx of breast lump removal R , entire breast Hx of thyroidectomy Family History Mother , 86 age Diabetes Hypertension Father , 67 age Cancer Sister , 63 Heart disease Sister , 55 age Dementia Brother , 59 age Cancer Lung Cancer Brother , 69 age Diabetes Heart disease Hypertension Daughter No problems noted. Daughter No problems noted. Social History Smoking/Tobacco Use Status: Former Tobacco Use tobacco type: cigarettes Quit Date: 05/31/11 Second Hand Exposure: Yes Smoking risk assessment performed?: Yes Alcohol Intake: never Drug use: Never Substance use type: does not use Household members: spouse Housing: house Communication Needs: None Do you need help understanding health information?: Never Pets and animals: No Sexually active: No Do you think of yourself as: straight/heterosexual Current gender identity: female What is your relationship status?: How often do you talk on the phone with friends or family?: twice per week How often do you get together with friends or relatives?: twice per week Do you belong to any clubs or organized social groups?: no Panel score (0-1 are the most socially isolated patients): 2 What type of physical activity do you participate in: none Seatbelt use: always Helmet use: No Drive intox 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 3.ENT: Atraumatic external nose and ears. Moist MM. Neck: Symmetric, trachea midline, No thyromegaly. 4.CVS: +S1/S2, No murmurs or gallops. Peripheral pulses 2+ and equal in all extremities. Brisk capillary refill in all extremities. 5.RESP: Unlabored respiratory effort. Mild crackles in the bases 6.GI: Soft, Nontender/Nondistended, No hepatosplenomegaly. No guarding or rebound. Suprapubic Reyes catheter is in place 7.MSK: Normocephalic/Atraumatic, Extremities w/o deformity or ttp No cyanosis or clubbing, Normal movement of all extremities 8.Skin: Warm, Dry. No rashes or lesions. 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 Sensation grossly intact, no focal neurologic deficits. 10.Psych: (AAO) x3. Appropriate mood and affect Course Vital Signs Vital signs: Vital Signs Temperature 36.5 C 08/11/21 03:17 Pulse 91 H 08/11/21 03:17 Respiratory Rate 20 08/11/21 03:17 Blood Pressure 87/43 L 08/11/21 03:17 Pulse Oximetry 99 08/11/21 03:17 Temperature 36.5 C 08/11/21 03:17 Temperature Source Temporal Artery Scan 08/11/21 03:17 Pulse 88 08/11/21 03:46 Pulse 89 08/11/21 03:50 Respiratory Rate 24 08/11/21 03:50 Respiratory Effort Non-Labored 08/11/21 03:30 Respiratory Depth Normal 08/11/21 03:30 Respiratory Pattern Normal 08/11/21 03:30 Blood Pressure 106/55 L 08/11/21 03:46 Blood Pressure Mean 65 08/11/21 03:46 Blood Pressure Position Supine 08/11/21 03:17 Pulse Oximetry 100 08/11/21 03:50 Oxygen Delivery Method Room Air 08/11/21 03:17 Oxygen Flow Rate 0 08/11/21 03:17 Pain Level 0 08/11/21 03:17 Lab/Test Results Lab/Test Results: 08/11/21 03:43 Blood Blood Culture - Pending 08/11/21 03:37 Blood Blood Culture - Pending Laboratory Tests Range/Units 08/11/21 08/11/21 08/11/21 03:43 03:43 03:44 WBC (4.4-10.8) 10^3/uL 7.66 RBC (3.93-5.22) 10^6/uL 2.00 L Hgb (11.2-15.7) g/dL 5.8 L* Hct (36.0-46.0) % 18.5 L* MCV (80-95) fL 92.5 MCH (27.0-33.0) pg 29.0 MCHC (32.0-36.0) % 31.4 L RDW (11.7-14.6) % 14.5 Plt Count (130-400) 10^3/uL 261 MPV (8.0-11.0) fL 10.1 Immature Gran % 1.6 Neutrophils % 85.1 Lymphocytes % 4.7 Monocytes % 8.2 Eosinophils % 0.1 Basophils % 0.3 Nucleated RBC % % 0 Absolute Neutrophils (1.2-6.7) 10^3/uL 6.52 Absolute Lymphocytes (1.2-3.4) 10^3/uL 0.36 L Absolute Monocytes (0.1-0.8) 10^3/uL 0.63 Absolute Eosinophils (0.0-0.7) 10^3/uL 0.01 Absolute Basophils (0.0-0.2) 10^3/uL 0.02 VBG Lactate (0.6-1.4) mmol/L 0.6 COVID-19 Source Nasal/Nares Crossmatch Range/Units 08/11/21 04:03 WBC (4.4-10.8) 10^3/uL RBC (3.93-5.22) 10^6/uL Hgb (11.2-15.7) g/dL Hct (36.0-46.0) % MCV (80-95) fL MCH (27.0-33.0) pg MCHC (32.0-36.0) % RDW (11.7-14.6) % Plt Count (130-400) 10^3/uL MPV (8.0-11.0) fL Immature Gran % Neutrophils % Lymphocytes % Monocytes % Eosinophils % Basophils % Nucleated RBC % % Absolute Neutrophils (1.2-6.7) 10^3/uL Absolute Lymphocytes (1.2-3.4) 10^3/uL Absolute Monocytes (0.1-0.8) 10^3/uL Absolute Eosinophils (0.0-0.7) 10^3/uL Absolute Basophils (0.0-0.2) 10^3/uL VBG Lactate (0.6-1.4) mmol/L COVID-19 Source Crossmatch See Detail Procedures Central Line Placement Right IJ: Time Out Performed: Yes Patient Placed on Monitor/Pulse Ox: Yes MD Prep: mask, gown and gloves Central Line Prep: Chlorhexidine scrub Local Anesthetic: Lidocaine 1% Amount of anesthesia used (mL): 3 Ultrasound Used for Placement: Yes Central Line Lumen Inserted: triple Post Procedure: good blood return, all ports aspirated, flushed, capped and sutured in place with 3-0 nylon Post Procedure X-Ray: tip of catheter in good position Patient Tolerated Procedure: well Complications: none Critical Care Time Critical Care Time Critical Care Time: Yes Total Critical Care Time: 45 Attestation: Upon my evaluation, this patient had a high probability of imminent or life-threatening deterioration, which required my direct attention, intervention, and personal management. I have personally provided 45 minutes of critical care time exclusive of time spent on separately billable procedures. Time includes review of laboratory data, radiology results, discussion with consultants, and monitoring for potential decompensation. Interventions were performed as documented.
[2021-08-11 04:15] LABS: Bilirubin Negative (Negative); Blood Trace-lysed (Negative); Clarity Sl Cloudy (Clear); Glucose Negative (Negative); Ketones Negative (Negative); Leukocyte Esterase Small (Negative); Nitrite Positive (Negative); Urobilinogen 0.2 EU/dL (Up TO 0.2)
[2021-08-11 04:16] LABS: Ammonia < 10 umol/L (11-32)
[2021-08-11 04:17] LABS: ALT 11 U/L (14-59); AST 34 U/L (15-37); Albumin 1.5 g/dL (3.4-5.0); Alkaline Phosphatase 74 U/L (46-116); Anion Gap 15.9 mmol/L (3-11); Anisocytosis 1+; BUN 50 mg/dL (7-18); Bilirubin, Total 0.2 mg/dL (0.2-1.0); CO2 11.1 mmol/L (21.0-32.0); CREATININE 2.8 mg/dL (0.55-1.02); Chloride 116 mmol/L (98-107); Estimated GFR 17.07 (mL/min/1.73m2); Glucose 95 mg/dL (74-106); NT-proBNP 249 pg/mL (<300); Poikilocytes 2+; Sodium 143 mmol/L (136-145); TSH (W/Ref FT4) 0.03 uIU/mL (0.36-3.74); Total Protein 4.4 g/dL (6.4-8.2)
[2021-08-11 04:19] LABS: INR 1.6 (0.9-1.1); PTT Activated 52.3 sec (21.0-27.5); Prothrombin Time 15.5 sec (9.3-11.0)
[2021-08-11 04:22] LABS: Bacteria Few HPF (Negative); Epithelial Cells Few HPF (Negative)
[2021-08-11 04:23] LABS: C & S Indicated? Yes; Casts Negative LPF (Negative); Crystals Negative HPF (Negative); Mucus Negative (Negative)
[2021-08-11 04:24] LABS: Calcium 5.1 mg/dL (8.5-10.1); Troponin I < 0.05 ng/mL (<0.06)
[2021-08-11 04:25] LABS: Potassium 2.6 mmol/L (3.5-5.1)
[2021-08-11 04:43] LABS: COVID-19 PCR Negative (Negative)
[2021-08-11 04:54] LABS: Magnesium 1.1 mg/dL (1.8-2.4)
--- NOTE | 2021-08-11 04:56 | DI.VRAD_ITS ---
Addendum created by Galen Magana DO on 08/11/2021 4:59:41 AM EDT: THIS REPORT CONTAINS FINDINGS THAT MAY BE CRITICAL TO PATIENT CARE. The findings were verbally communicated via telephone conference with Dr. Cole 08/11/2021 4:58 AM EDT. The findings were acknowledged and understood. Reportedly, patient has had several falls recently. Lab studies demonstrate the presence of anemia. Initial report created on 08/11/2021 4:55:43 AM EDT: PROCEDURE INFORMATION: Exam: CT Head Without Contrast Exam date and time: 08/11/2021 3:41 AM Age: 61 years old Clinical indication: Injury or trauma; Blunt trauma (contusions or hematomas); Consciousness not specified; Altered mental status/memory loss; Confusion or disorientation; Injury date: 08/11/21; Injury details: Fall, hit head altered TECHNIQUE: Imaging protocol: Computed tomography of the head without contrast. Radiation optimization: All CT scans at this facility use at least one of these dose optimization techniques: automated exposure control; mA and/or kV adjustment per patient size (includes targeted exams where dose is matched to clinical indication); or iterative reconstruction. Other technique: STROKE PROTOCOL was implemented. COMPARISON: No relevant prior studies available. FINDINGS: Brain: Normal. No hemorrhage. Unremarkable white matter. No mass effect. Cerebral ventricles: No ventriculomegaly. Paranasal sinuses: Visualized sinuses are unremarkable. No fluid levels. Mastoid air cells: Visualized mastoid air cells are well aerated. Bones/joints: Unremarkable. No acute fracture. Soft tissues: Unremarkable. IMPRESSION: No acute intracranial abnormality. ASSESSMENT: ASPECTS ([place] Stroke Program Early CT Score) is 10. Dictated and Authenticated by: Galen Magana MD. Ordering:SCOOTER Welch MD
[2021-08-11] MEDS: POTASSIUM CHLORIDE 20 MEQ/100 ML BAG 25 MEQ IVPB (05:04)
[2021-08-11 05:11] LABS: FREE T4 1.15 ng/dL (0.76-1.46)
[2021-08-11] MEDS: MAGNESIUM SULFATE 2 GM/50 ML BAG IVPB ×2 (05:12→10:58)
--- NOTE | 2021-08-11 05:29 | DI.VRAD_ITS ---
PROCEDURE INFORMATION: Exam: CT Chest Without Contrast; Diagnostic Exam date and time: 08/11/2021 4:28 AM Age: 61 years old Clinical indication: Other: AMS, hypotension, ; prior surgery; Surgery date: 6+ months; Surgery type: Suprapubic cath, breast lumpectomy; Patient HX: AMS, hypotensive, recent colonoscopy procedure, abd pain. ? Aorta dissection. Without contrast due to labs TECHNIQUE: Imaging protocol: Diagnostic computed tomography of the chest without contrast. Radiation optimization: All CT scans at this facility use at least one of these dose optimization techniques: automated exposure control; mA and/or kV adjustment per patient size (includes targeted exams where dose is matched to clinical indication); or iterative reconstruction. COMPARISON: CT ABD PELVIS WO CONTRAST 02/11/2017 9:18 AM FINDINGS: Lungs: Dependent subsegmental atelectasis. Pleuroparenchymal scarring in left lung base. Pleural spaces: Unremarkable. No pneumothorax. No pleural effusion. Heart: Heart normal in size.There are coronary artery calcifications. No pericardial effusion.There is diminished attenuation of the cardiac chambers in comparison to the myocardium which can be seen with anemia. Correlate clinically. Aorta: No aortic aneurysm. Lymph nodes: No adenopathy. Diaphragm: Small hiatal hernia. Elevated right hemidiaphragm. Bones/joints: New, patchy sclerotic change in several vertebrae.The spine demonstrates mild degenerative changes at multiple levels. Soft tissues: Prior at least partial right mastectomy. Other findings: The PROCEDURE INFORMATION: IMPRESSION: 1. Anemia suspected. 2. Coronary artery disease. 3. Hiatal hernia. 4. Prior at least partial right mastectomy. 5. New, patchy sclerotic change in several thoracolumbar vertebrae. Blastic metastases are a differential consideration in the proper clinical setting. Correlate clinically. PROCEDURE INFORMATION: Exam: CT Abdomen And Pelvis Without Contrast Exam date and time: 08/11/2021 4:28 AM Age: 61 years old Clinical indication: Other: AMS, hypotension, ; prior surgery; Surgery date: 6+ months; Surgery type: Suprapubic cath, breast lumpectomy; Patient HX: AMS, hypotensive, recent colonoscopy procedure, abd pain. ? Aorta dissection. Without contrast due to labs TECHNIQUE: Imaging protocol: Computed tomography of the abdomen and pelvis without contrast. Radiation optimization: All CT scans at this facility use at least one of these dose optimization techniques: automated exposure control; mA and/or kV adjustment per patient size (includes targeted exams where dose is matched to clinical indication); or iterative reconstruction. COMPARISON: CT ABD PELVIS WO CONTRAST 02/11/2017 9:18 AM FINDINGS: Tubes, catheters and devices: Suprapubic bladder catheter again demonstrated. Liver: There is diffuse decrease in hepatic parenchymal density, consistent with severe fatty infiltration. Minimal hepatomegaly. No mass. Gallbladder and bile ducts: Gallstones. No biliary ductal dilatation. Pancreas: Normal. No ductal dilation. Spleen: Normal. No splenomegaly. Adrenal glands: Normal. No mass. Kidneys and ureters: No radiopaque renal or ureteric calculi. Renal pelves remain prominent. No hydronephrosis. Stomach and bowel: No dilated loops of small bowel or colonic dilatation. Scattered colonic diverticula. There is a moderate to large amount of stool in right colon. Appendix: No evidence of appendicitis. Intraperitoneal space: Unremarkable. No free air. No significant fluid collection. Vasculature: Atherosclerosis. No abdominal aortic aneurysm. Lymph nodes: Unremarkable. No enlarged lymph nodes. Urinary bladder: Minimally distended without wall thickening. Reproductive: Retroverted uterus. Bones/joints: Patchy sclerosis in several vertebrae.The spine demonstrates mild degenerative changes at multiple levels. Soft tissues: No retroperitoneal or abdominal wall hematomas. IMPRESSION: 1. Urinary bladder is minimally distended. Correlate clinically for possible obstructed suprapubic tube. 2. Severe hepatic steatosis. 3. Hepatomegaly. 4. Gallstones. 5. Colonic diverticula. Dictated and Authenticated by: Galen Magana MD. Ordering:SCOOTER Welch MD
--- NOTE | 2021-08-11 05:31 | DI.RAD_ITS ---
Exam(s) XR PORTABLE CHEST AP POST LINE EXAM: XR PORTABLE CHEST AP POST LINE CLINICAL HISTORY: central line placement. TECHNIQUE: 2D digital imaging was performed. COMPARISON: CR CHEST 2 VIEWS PA,LAT from 01/30/2018 FINDINGS: Heart size is upper normal. The mediastinum is not widened. Distal tip of the right supra clavi in central line is in the upper RA Right lung is clear. There is some mild infiltrate in the left lower lobe. No pleural effusions. N o pneumothorax. IMPRESSION: There is mild infiltrate in the left lower lobe. No pleural effusions. Distal tip of central line is in the upper right atrium. DATA REPOSITORY: RADIATION DOSE DELIVERED: All CT scans at this facility use at least one of these dose optimization techniques: automated exposure control; mA and/or kV adjustment per patient size (includes targeted e xams where dose is matched to clinical indication); or iterative reconstruction.
--- NOTE | 2021-08-11 06:01 | DI.VRAD_ITS ---
PROCEDURE INFORMATION: Exam: XR Chest Exam date and time: 08/11/2021 5:33 AM Age: 61 years old Clinical indication: Other vascular access device placement or adjustment; Patient HX: Central line placement TECHNIQUE: Imaging protocol: XR of the chest. Views: 1 view. COMPARISON: CT CHEST/ABD/PEL WO 08/11/2021 4:45 AM FINDINGS: Tubes, catheters and devices: Small bore right central line tip projects over superior cavoatrial junction. Lungs: Scarring and/or subsegmental atelectasis in lower left lung. No consolidation. Pleural spaces: Unremarkable. No pleural effusion. No pneumothorax. Heart/Mediastinum: Unremarkable. No cardiomegaly. Bones/joints: Unremarkable. IMPRESSION: No acute findings. Dictated and Authenticated by: Galen Magana MD. Ordering:SCOOTER Welch MD
--- NOTE | 2021-08-11 06:03 | NUR.NOTE ---
Nursing Note: Dr. Poon at bedside to evaluate patient for admission.
--- NOTE | 2021-08-11 06:20 | HPE_ITS ---
Date of service: 08/11/21 Time of Service: 06:20 Assessment and Plan Assessment and plan (1) Hypotension: Status: Acute Assessment and plan: Hypotension, appears to be a matter of hypovolemia, whether from inanition, anemia or both. No suggestion of infectious or cardiogenic cause. Has responded well to fluids.The anemia in turn is the most striking finding but unclear yet whether this acute or subacute; no evidence of bleed at this point but the acute presentation suggests this possibility. The l ow normal bili would tend to exclude hemolysis. The various electrolyte abnormalities are likely nutritional in origin. The elevated INR and low albumin are likely too nutritional in origin as the n ormal bili would exclude primary liver failure. The low TSH is evidently overcorrection of known hypothyroid as she is on supplements. The sclerotic vertebral lesions are possible manifestation of metastatic disease, possibly responsible or related to the variety of other issues. Finally I note the h/o dysphagia to solids and I wonder if an esophageal lesion may be responsible for all, and perhaps bleeding. Plan: 1. Anemia: stool guiacs, consider EGD; check retics, iron studies, transfuse, t rend H/H 2. Electrolytes: replace and trend 3. INR: trial vitamin K 4. TSH: hold Synthroid 5. Vertebral lesions: consider IR for biopsy or bone scan History of Present Illness History of Present Illness Chief Complaint: weakness Narrative: 61 female here with several days of weakness, confusion, trouble walking. On arrival EMS reported BP in 60s per ER. Got 1L IVF en route with increase BP 80s. In ER findings of note for initial BP 80s, pulse approx 100; Hct 18 (last known 36 01/18); K 2.6, Mg 1.5, Ca 5.1 (corrects to 7.4), T Bili 0.2. INR 1.6, Albumin 1.5, TSH 0.03. CT chest and abdomen of note for several sclerotic vertebral lesions and fatty liver. Patient has or is receiving K, Mg and pRBC at this time. Patient does report some dyphagia to solids for over a year. No abd pain, no melena. Had colonoscopy 2 weeks ago, no BM since, or very little. States she has lost 10 pounds over last few weeks. States she is feeling better at this time, back to herself. Review of Systems All systems reviewed & are unremarkable except as noted in HPI and below PFSH Medical History Chronic kidney disease CKD (chronic kidney disease) stage 4, GFR 15-29 ml/min Diabetes Erythromelalgia Gout Hyperlipidemia Hypertension Hyperuricemia Hypothyroidism Infected sebaceous cyst of skin Leiomyoma of uterus Malignant neoplasm of right breast in female, estrogen receptor positive [facility] [place] biopsy: invasive ductal carcinoma/ductal carcinoma in situ - Urinary retention Vitamin D deficiency Surgical History History of suprapubic catheter Hx of breast lump removal R , entire breast Hx of thyroidectomy Family History Mother , 86 age Diabetes Hypertension Father , 67 age Cancer Sister , 63 Heart disease Sister , 55 age Dementia Brother , 59 age Cancer Lung Cancer Brother , 69 age Diabetes Heart disease Hypertension Daughter No problems noted. Daughter No problems noted. Social History Smoking/Tobacco Use Status: Former Tobacco Use tobacco type: cigarettes Quit Date: 05/31/11 Second Hand Exposure: Yes Smoking risk assessment performed?: Yes Alcohol Intake: never Drug use: Never Substance use type: does not use Household members: spouse Housing: house Communication Needs: None Do you need help understanding health information?: Never Pets and animals: No Sexually active: No Do you think of yourself as: straight/heterosexual Current gender identity: female What is your relationship status?: How often do you talk on the phone with friends or family?: twice per week How often do you get together with friends or relatives?: twice per week Do you belong to any clubs or organized social groups?: no Panel score (0-1 are the most socially isolated patients): 2 What type of physical activity do you participate in: none Seatbelt use: always Helmet use: No Drive intox or ride w/intox automation driver: No Do you feel safe at home: Yes Do you feel safe in your relationship?: Yes Meds Allergies and Home Medications Allergies Allergy/AdvReac Type Severity Reaction Status Date / Time amoxicillin [From Augmentin] AdvReac Intermediate Severe Verified 08/11/21 03:26 dry mouth clavulanic acid AdvReac Intermediate Severe Verified 08/11/21 03:26 [From Augmentin] dry mouth Sulfa (Sulfonamide AdvReac Intermediate SLURRED Verified 08/11/21 03:26 Antibiotics) SPEECH, DIZZY Home Medications Medication Instructions Recorded Confirmed Type Blood Glucose Test #100 02/15/13 08/11/21 History Lancets 1 ea MISCELLANEOUS DAILY #100 ea 02/15/13 08/11/21 History aspirin [Aspir-81] 81 mg PO DAILY #100 tablet. 01/29/17 08/11/21 Rx enalapril maleate 5 mg tablet 5 mg PO DAILY #90 tab-cap 10/08/20 08/11/21 Rx amitriptyline 100 mg tablet 100 mg PO DAILY #90 tab-cap 04/27/21 08/11/21 Rx amlodipine 10 mg tablet 10 mg PO DAILY #90 tab-cap 04/27/21 08/11/21 Rx glipizide 5 mg tablet 5 mg PO DAILY #90 tab-cap 04/27/21 08/11/21 Rx pravastatin 80 mg tablet 80 mg PO DAILY #90 tab-cap 04/27/21 08/11/21 Rx allopurinol 100 mg tablet 50 mg PO DAILY #90 tab 06/08/21 08/11/21 Rx cholecalciferol (vitamin D3) 25 50 mcg PO DAILY #180 cap 06/08/21 08/11/21 Rx mcg (1,000 unit) capsule levothyroxine 88 mcg tablet 88 mcg PO DAILY #30 tab 06/08/21 08/11/21 Rx Exam Narrative Exam Narrative: 107/48, 88, afebrile, 20 97% RA. HEENT atraumatic; neck supple; lungs clear; heart RRR; abdomen soft and NT; extremities w/o edema; rectal no stool, glove heme negative; neuro Ox3, lucid, moves all 4s Results Labs Result diagrams: 08/11/21 03:43 08/11/21 03:43 Labs: Laboratory Results - last 24 hr 08/11/21 08/11/21 08/11/21 03:40 03:43 03:43 WBC RBC Hgb Hct MCV MCH MCHC RDW Plt Count MPV Immature Gran % Neutrophils % Lymphocytes % Monocytes % Eosinophils % Basophils % Nucleated RBC % Absolute Neutrophils Absolute Lymphocytes Absolute Monocytes Absolute Eosinophils Absolute Basophils RBC Morphology Poikilocytosis Anisocytosis PT INR APTT VBG Lactate Sodium 143 Potassium 2.6 L* Chloride 116 H Carbon Dioxide 11.1 L Anion Gap 15.9 H BUN 50 H Creatinine 2.8 H Estimated GFR/1.73 m2 17.07 Glucose 95 Calcium 5.1 L* Magnesium 1.1 L Total Bilirubin 0.2 AST 34 ALT 11 L Alkaline Phosphatase 74 Ammonia < 10 L Troponin I < 0.05 NT-Pro-B Natriuret Pep 249 Total Protein 4.4 L Albumin 1.5 L TSH 0.03 L Free T4 1.15 Urine Color Urine Clarity Urine pH Ur Specific Stella Urine Protein Urine Ketones Urine Blood Urine Nitrite Urine Bilirubin Urine Urobilinogen Ur Leukocyte Esterase Urine RBC Urine WBC Ur Epithelial Cells Urine Crystals Urine Bacteria Urine Casts Urine Mucus Ur Culture Indicated? Urine Glucose COVID-19 Source SARS-CoV-2 (PCR) Patient ABO/Rh Antibody Screen Crossmatch 08/11/21 08/11/21 08/11/21 03:43 03:43 03:43 WBC 7.66 RBC 2.00 L Hgb 5.8 L* Hct 18.5 L* MCV 92.5 MCH 29.0 MCHC 31.4 L RDW 14.5 Plt Count 261 MPV 10.1 Immature Gran % 1.6 Neutrophils % 85.1 Lymphocytes % 4.7 Monocytes % 8.2 Eosinophils % 0.1 Basophils % 0.3 Nucleated RBC % 0 Absolute Neutrophils 6.52 Absolute Lymphocytes 0.36 L Absolute Monocytes 0.63 Absolute Eosinophils 0.01 Absolute Basophils 0.02 RBC Morphology See Below Poikilocytosis 2+ Anisocytosis 1+ PT 15.5 H INR 1.6 H APTT 52.3 H VBG Lactate 0.6 Sodium Potassium Chloride Carbon Dioxide Anion Gap BUN Creatinine Estimated GFR/1.73 m2 Glucose Calcium Magnesium Total Bilirubin AST ALT Alkaline Phosphatase Ammonia Troponin I NT-Pro-B Natriuret Pep Total Protein Albumin TSH Free T4 Urine Color Urine Clarity Urine pH Ur Specific Stella Urine Protein Urine Ketones Urine Blood Urine Nitrite Urine Bilirubin Urine Urobilinogen Ur Leukocyte Esterase Urine RBC Urine WBC Ur Epithelial Cells Urine Crystals Urine Bacteria Urine Casts Urine Mucus Ur Culture Indicated? Urine Glucose COVID-19 Source SARS-CoV-2 (PCR) Patient ABO/Rh Antibody Screen Crossmatch 08/11/21 08/11/21 08/11/21 03:44 03:50 04:10 WBC RBC Hgb Hct MCV MCH MCHC RDW Plt Count MPV Immature Gran % Neutrophils % Lymphocytes % Monocytes % Eosinophils % Basophils % Nucleated RBC % Absolute Neutrophils Absolute Lymphocytes Absolute Monocytes Absolute Eosinophils Absolute Basophils RBC Morphology Poikilocytosis Anisocytosis PT INR APTT VBG Lactate Sodium Potassium Chloride Carbon Dioxide Anion Gap BUN Creatinine Estimated GFR/1.73 m2 Glucose Calcium Magnesium Total Bilirubin AST ALT Alkaline Phosphatase Ammonia Troponin I NT-Pro-B Natriuret Pep Total Protein Albumin TSH Free T4 Urine Color Yellow Urine Clarity Sl Cloudy Urine pH 6.0 Ur Specific Stella 1.020 Urine Protein Trace H Urine Ketones Negative Urine Blood Trace-lysed H Urine Nitrite Positive H Urine Bilirubin Negative Urine Urobilinogen 0.2 Ur Leukocyte Esterase Small H Urine RBC 10-20 H Urine WBC 3-5 Ur Epithelial Cells Few Urine Crystals Negative Urine Bacteria Few Urine Casts Negative Urine Mucus Negative Ur Culture Indicated? Yes Urine Glucose Negative COVID-19 Source Nasal/Nares SARS-CoV-2 (PCR) Negative Patient ABO/Rh O Positive Antibody Screen NEGATIVE Crossmatch See Detail Last Vital Signs Temp 36.5 C 08/11/21 06:10 Pulse 90 08/11/21 06:15 Resp 22 08/11/21 06:15 BP 112/52 L 08/11/21 06:15 Pulse Ox 98 08/11/21 06:15
[2021-08-11] MEDS: PHYTONADIONE 10 MG in Normal Saline 50 ML 200 MG IVPB (07:18)
[2021-08-11] MEDS: POTASSIUM CHLORIDE/0.9% NACL 1,000 ML 125 MEQ IV (07:52)
--- NOTE | 2021-08-11 08:25 | INITIAL_ITS ---
- If Service Date Differs Date of service: 08/11/21 Time of Service: 08:25 Care Management Initial Assess REASON FOR HOSPITALIZATION:: hypotension and anemia PAST MEDICAL HISTORY/PAST SURGICAL HISTORY:: Medical History . Chronic kidney disease. CKD (chronic kidney disease) stage 4, GFR 15-29 ml/min. Diabetes. Erythromelalgia. Gout. Hyperlipidemia. Hypertension. Hyperuricemia. Hypothyroidism. Infected sebaceous cyst of skin. Leiomyoma of uterus. Malignant neoplasm of right breast in female, estrogen receptor positive. [facility] [place] invasive ductal carcinoma/ductal carcinoma in situ -. Urinary retention. Vitamin D deficiency. Surgical History . History of suprapubic catheter. Hx of breast lump removal. R , entire breast. Hx of thyroidectomy PREVIOUS FUNCTIONAL STATUS/SOCIAL/FAMILY SUPPORTS:: Olinda lives in [place], [place] with her Jose. They have 4 children and 6 grandchildren, all living in the area. She describes her family as close and supportive. 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 She is independent at baseline and continues to drive. She does not use any assistive devices nor does she receive any community services. CURRENT FUNCTIONAL STATUS:: Olinda was sitting up in bed when CM met with her. She had only arrived in the unit a couple of hours before but when asked, Olinda stated that she is doing OK. She does not seem to have a good understanding of her medical history. She was unable to identify why she has a suprapubic tube, in place for 9 years, or why she gets blood transfusions on an outpatient basis. Olinda informed CM that she will be glad to get some answers about what is going on with her. She did ask when she could have something to drink but she is currently NPO. ADVANCE DIRECTIVES:: Olinda does not have advanced directives and is not interested in completing them. Has patient been provided with info about the portal/API?: Yes Did the patient sign up for the portal?: No CODE STATUS:: Full Code INSURANCE COVERAGE / FINANCIAL ISSUES:: Medicaid CURRENT HOME/COMMUNITY SERVICES/EQUIPMENT:: none currently. PRIMARY CARE PHYSICIAN:: Agustina Jasso POTENTIAL DISCHARGE NEEDS:: Follow up with PCP and plan of care PATIENT/FAMILY EDUCATION NEEDS:: Review of discharge instructions, medications, activity, follow up plan, Ask Me Three TRANSPORTATION:: via private vehicle PLAN:: Olinda will likely be discharged home when medically cleared. It is unclear at this time if she will need any home health services or possibly transfer to tertiary care as it is very early in her hospital stay. She will follow up with her community providers and discharge plan of care and transport with family. CM will continue to support Olinda and assess for ongoing discharge concerns.
--- NOTE | 2021-08-11 08:32 | W.PULMCC ---
General Date of Service Date of service: 08/11/21 Time of Service: 08:15 Reason for Admission to ICU: Anemia, Hypotension Assessment and Plan Assessment and plan (1) Hypotension: Status: Acute Qualifiers: Hypotension type: hypotension due to hypovolemia Qualified Code(s): I95.89 - Other hypotension; E86.1 - Hypovolemia (2) Acute anemia: Status: Acute (3) Hypomagnesemia: Status: Acute (4) Hypokalemia: Status: Acute (5) Hypocalcemia: Status: Acute (6) Hypoalbuminemia: Status: Acute (7) Weakness: Status: Acute (8) Gout: Status: Acute Qualifiers: Chronicity: chronic Gout etiology: unspecified cause Gout site: unspecified site Presence of tophus: without tophus Qualified Code(s): [id number] - Chronic gout, unspecified, without tophus (tophi) (9) Multinodular goiter: Status: Acute (10) CKD (chronic kidney disease) stage 4, GFR 15-29 ml/min: Status: Acute (11) Bone lesion: Status: Acute Assessment and plan: This is a 61-year-old female with history of breast cancer status post lumpectomy without chemo or radiation in 2018 as well as CKD 4 in the setting of an obstructive uropathy and a recent negative colonoscopy who presents with anemia to 5.8 (baseline of 11). She does have some electrolyte abnormalities as well as a CAT scan showing several vertebral bone lesions that are concerning for malignancy. She does not have an obvious source of bleeding at this time however a UA will be performed. She will need to be further evaluated regarding these bony lesions. She does have hemorrhagic shock with a low blood pressure and hopefully this will resolve once she receives full resuscitation with blood products and fluids. Recommendations Pulmonary: No acute concerns Incentive spirometer Cardiac: h/o HTN - hold anti-hypertensives for now Hemorrhagic shock - s/p 2 U PRBC - repeat H/H q8 hr until stability achieved - unclear etiology - agree with LR 125cc/hr Renal: CKD 4 due to obstructive uropathy - monitor UOP closely - may need to match UOP with IVF Obstructive uropathy with suprapubic catheter - s/p catheter change on 07/29/21 and again today by urology - agree with UA Hypomagnesemia - replete to 2.0 Hypokalemia - replete to 4.0 Hypocalcemia - corrected calcium is 7.10 - she is s.p thyroidectomy so her parathyroid glands could be compromised, but her levels were previously normal. - recommend obtaining PTH level, vitamin D level, SPEP, UPEP - s/p replacement with IV calcium - repeat Ca, Mg, Phos and electrolytes q8hrs until stable - spot urine calcium I&O: Intake & Output 08/08/21 08/09/21 08/10/21 08/11/21 23:59 23:59 23:59 23:59 Intake Total 261.000 / 261.000 Output Total 850 / 850 Balance -589.000 / -589.000 Weight 68.039 kg Daily Fluid Goal:: even to slightly positive GI Nutrition: OK for PO diet Infectious Disease: No acute concerns, no clear signs of infection - UA to be checked - on empiric ceftriaxone Hematologic: Anemia - s/p 2 UPRBC - as above check H/H q8hrs until stable - if a total of 6 U PRBC has been given please also give 6 U FFP and 1 bag of platelets - s/p vitamin K Coagulopathy - can consider a thromboelastogram (TEG) Neurologic: Falls - CT head clear - would recommend MRI brain given bony lesions seen (small brain lesions can be easily missed on CT head) Endocrine: Diabetes - hold PO diabetes meds - SSI for coverage - fingersticks q6hr if not eating, qchs if eating Lines: R IJ CVC suprapubic catheter Prophylaxis: SCD's for DVT ppx given anemia of unknown cause on Protonix Code Status: Resuscitation Status Full Code Subjective Critical and life-threatening events over the past 24 hours: This is a 61-year-old female with a history of stage I right-sided breast cancer status post lumpectomy in February 2018 (ER positive, HER-2 negative, negative sentinel lymph node). Required chemotherapy or radiation for this malignancy. She also has a history of a total thyroidectomy for a benign multinodular goiter in March 2020 maintained on thyroxine. She [place] [facility] [place] kidney disease as well as being status post suprapubic catheter in 2015 when she presented with bilateral hydronephrosis, RAMYA, bladder outlet obstruction. Per this note the catheter is changed monthly. The last time there is documentation of her catheter being changed is July 29, 2021. 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 The patient tells me today that she receives monthly infusions however I do not see evidence of this in the charts and I am wondering if she is confused this with monthly catheter changes. The patient states she started feeling dizzy and fell this morning which is what prompted her to visit the emergency department. She was found to have hemoglobin of 5.8 with her last most recent hemoglobin being 11.4 in December 2020. She denied weight loss to me however going through her history in April 2020 she weighed 75 kg and today is weighing in at 68 kg. She had a recent positive Cologuard test which prompted her to have a colonoscopy completed. She had a colonoscopy completed June 26, 2021 and no masses or lesions were seen. She had a CT of her chest abdomen and pelvis performed which did show a small infiltrate in the left lower lobe with no nodules or adenopathy however did show osseous disease that was thought to be metastatic in appearance. On my assessment of the imaging the infiltrates seen in the left lower lobe is more consistent with linear atelectasis, I do not believe this to be an infectious infiltrate. Agree there is no hilar or mediastinal lymphadenopathy pulmonary nodules that I can see. I am also able to visualize sclerotic lesions in the vertebral bodies of T10, T9 11, L2 and L5. At the time of my assessment the patient had received 1 unit packed red blood cells and stated she was feeling much improved. She denies pain anywhere. She denies seeing blood from her suprapubic catheter. She denies any bloody bowel movements or hematemesis. Exam Const General: no acute distress Nutritional Appearance: well nourished [facility] Head: normocephalic Ears: external ears normal and no periauricular adenopathy General nose exam: nasal mucous membranes and turbinates normal Face and sinus: sinuses nontender Mouth: oropharynx normal and moist mucous membranes Teeth and gingiva: dentition normal Eyes General: appearance normal, both eyes and all related structures Pupils: PERRL Neck Neck: normal visual inspection and no lymphadenopathy Chest Chest: normal inspection of the chest Resp Effort & Inspection: normal respiratory effort Auscultation: clear to auscultation bilaterally, no rales, no rhonchi and no wheezes Cardio Rate: regular rate Rhythm: regular rhythm Heart Sounds: S1 normal, S2 normal and no murmurs Pulses: radial pulses present bilaterally GI Inspection: normal to inspection Palpation: soft Skin General skin exam: no rashes or lesions noted Neuro General: patient alert, patient awake and patient oriented x3 Extrem General: no clubbing, cyanosis or edema Psych Mental Status: mental status grossly normal Affect: normal affect Attitude: cooperative Most Recent VS/Results Last Vital Signs Temp 36.6 C 08/11/21 07:55 Pulse 89 08/11/21 07:55 Resp 18 08/11/21 07:55 BP 107/41 L 08/11/21 07:55 Pulse Ox 92 08/11/21 07:55 Laboratory Results - last 24 hr 08/11/21 08/11/21 08/11/21 03:40 03:43 03:43 WBC RBC Hgb Hct MCV MCH MCHC RDW Plt Count MPV Reticulocyte % (Auto) Immature Gran % Neutrophils % Lymphocytes % Monocytes % Eosinophils % Basophils % Nucleated RBC % Absolute Neutrophils Absolute Lymphocytes Absolute Monocytes Absolute Eosinophils Absolute Basophils RBC Morphology Poikilocytosis Anisocytosis PT INR APTT VBG Lactate Sodium 143 Potassium 2.6 L* Chloride 116 H Carbon Dioxide 11.1 L Anion Gap 15.9 H BUN 50 H Creatinine 2.8 H Estimated GFR/1.73 m2 17.07 Glucose 95 Calcium 5.1 L* Magnesium 1.1 L Total Bilirubin 0.2 AST 34 ALT 11 L Alkaline Phosphatase 74 Ammonia < 10 L Troponin I < 0.05 NT-Pro-B Natriuret Pep 249 Total Protein 4.4 L Albumin 1.5 L TSH 0.03 L Free T4 1.15 Urine Color Urine Clarity Urine pH Ur Specific [place] Urine Protein Urine Ketones Urine Blood Urine Nitrite Urine Bilirubin Urine Urobilinogen Ur Leukocyte Esterase Urine RBC Urine WBC Ur Epithelial Cells Urine Crystals Urine Bacteria Urine Casts Urine Mucus Ur Culture Indicated? Urine Glucose COVID-19 Source SARS-CoV-2 (PCR) Patient ABO/Rh Antibody Screen Crossmatch 08/11/21 08/11/21 08/11/21 03:43 03:43 03:43 WBC 7.66 RBC 2.00 L Hgb 5.8 L* Hct 18.5 L* MCV 92.5 MCH 29.0 MCHC 31.4 L RDW 14.5 Plt Count 261 MPV 10.1 Reticulocyte % (Auto) Immature Gran % 1.6 Neutrophils % 85.1 Lymphocytes % 4.7 Monocytes % 8.2 Eosinophils % 0.1 Basophils % 0.3 Nucleated RBC % 0 Absolute Neutrophils 6.52 Absolute Lymphocytes 0.36 L Absolute Monocytes 0.63 Absolute Eosinophils 0.01 Absolute Basophils 0.02 RBC Morphology See Below Poikilocytosis 2+ Anisocytosis 1+ PT 15.5 H INR 1.6 H APTT 52.3 H VBG Lactate 0.6 Sodium Potassium Chloride Carbon Dioxide Anion Gap BUN Creatinine Estimated GFR/1.73 m2 Glucose Calcium Magnesium Total Bilirubin AST ALT Alkaline Phosphatase Ammonia Troponin I NT-Pro-B Natriuret Pep Total Protein Albumin TSH Free T4 Urine Color Urine Clarity Urine pH Ur Specific [place] Urine Protein Urine Ketones Urine Blood Urine Nitrite Urine Bilirubin Urine Urobilinogen Ur Leukocyte Esterase Urine RBC Urine WBC Ur Epithelial Cells Urine Crystals Urine Bacteria Urine Casts Urine Mucus Ur Culture Indicated? Urine Glucose COVID-19 Source SARS-CoV-2 (PCR) Patient ABO/Rh Antibody Screen Crossmatch 08/11/21 08/11/21 08/11/21 03:43 03:44 03:50 WBC RBC Hgb Hct MCV MCH MCHC RDW Plt Count MPV Reticulocyte % (Auto) 1.0 Immature Gran % Neutrophils % Lymphocytes % Monocytes % Eosinophils % Basophils % Nucleated RBC % Absolute Neutrophils Absolute Lymphocytes Absolute Monocytes Absolute Eosinophils Absolute Basophils RBC Morphology Poikilocytosis Anisocytosis PT INR APTT VBG Lactate Sodium Potassium Chloride Carbon Dioxide Anion Gap BUN Creatinine Estimated GFR/1.73 m2 Glucose Calcium Magnesium Total Bilirubin AST ALT Alkaline Phosphatase Ammonia Troponin I NT-Pro-B Natriuret Pep Total Protein Albumin TSH Free T4 Urine Color Yellow Urine Clarity Sl Cloudy Urine pH 6.0 Ur Specific [place] 1.020 Urine Protein Trace H Urine Ketones Negative Urine Blood Trace-lysed H Urine Nitrite Positive H Urine Bilirubin Negative Urine Urobilinogen 0.2 Ur Leukocyte Esterase Small H Urine RBC 10-20 H Urine WBC 3-5 Ur Epithelial Cells Few Urine Crystals Negative Urine Bacteria Few Urine Casts Negative Urine Mucus Negative Ur Culture Indicated? Yes Urine Glucose Negative COVID-19 Source Nasal/Nares SARS-CoV-2 (PCR) Negative Patient ABO/Rh Antibody Screen Crossmatch 08/11/21 04:10 WBC RBC Hgb Hct MCV MCH MCHC RDW Plt Count MPV Reticulocyte % (Auto) Immature Gran % Neutrophils % Lymphocytes % Monocytes % Eosinophils % Basophils % Nucleated RBC % Absolute Neutrophils Absolute Lymphocytes Absolute Monocytes Absolute Eosinophils Absolute Basophils RBC Morphology Poikilocytosis Anisocytosis PT INR APTT VBG Lactate Sodium Potassium Chloride Carbon Dioxide Anion Gap BUN Creatinine Estimated GFR/1.73 m2 Glucose Calcium Magnesium Total Bilirubin AST ALT Alkaline Phosphatase Ammonia Troponin I NT-Pro-B Natriuret Pep Total Protein Albumin TSH Free T4 Urine Color Urine Clarity Urine pH Ur Specific [place] Urine Protein Urine Ketones Urine Blood Urine Nitrite Urine Bilirubin Urine Urobilinogen Ur Leukocyte Esterase Urine RBC Urine WBC Ur Epithelial Cells Urine Crystals Urine Bacteria Urine Casts Urine Mucus Ur Culture Indicated? Urine Glucose COVID-19 Source SARS-CoV-2 (PCR) Patient ABO/Rh O Positive Antibody Screen NEGATIVE Crossmatch See Detail Review of Systems All systems reviewed & are unremarkable except as noted in HPI and below Time spent with patient Time spent in Critical Care: 45 Time spent in Critical care included: Coordination of care, Chart review, Documenting critically ill care, Time at immediate bedside and Discussing critically ill care with other medical staff
--- NOTE | 2021-08-11 08:32 | W.PM.PROGNOT ---
Date of Service Date of service: 08/11/21 Time of Service: 12:51 Assessment and Plan Assessment and plan (1) Acute on chronic blood loss anemia: Status: Acute Assessment and plan: Suspect upper GI source. Discussing with general surgery - the patient has RAMYA on CKD, probably related to hypoperfusion. The patient is not actively bleeding out - I think it would be acceptable to wait to perform the EGD once Cr is better/she is fully rescucitated. Continue PPI/Carafate. (2) Hypotension: Status: Acute Assessment and plan: LIkely due to symptomatic anemia. Will reassess after transfusion of the 2 units pRBCs and continue IVF. Qualifiers: Hypotension type: hypotension due to hypovolemia Qualified Code(s): I95.89 - Other hypotension; E86.1 - Hypovolemia (3) Coagulopathy: Status: Acute Assessment and plan: S/p Vitamin K. The patient has evidence of hepatic steatosis on CT. Obtain US RUQ. (4) Hepatic steatosis: Status: Acute Assessment and plan: As above Also check hepatitis panel. (5) Acute kidney injury superimposed on chronic kidney disease: Status: Acute Assessment and plan: In setting of hypotension/anemia/hypoperfusion. Continue IVF. 2 units pRBCs transfused so far today. Monitor I/O's, daily weights. Will try to match Ins and outs. (6) UTI (urinary tract infection): Status: Acute Assessment and plan: Continue empiric ceftriaxone. Suprapubic catheter replaced. (7) Hypoalbuminemia: Status: Acute Assessment and plan: ?due to liver dysfunction vs lossess in the urine. Check urine and serum protein electrophoresis. (8) Hypokalemia: Status: Acute Assessment and plan: Replete. Replace magnesium. (9) Hypomagnesemia: Status: Acute Assessment and plan: Replete. Recheck in am (10) Lesion of vertebra: Status: Acute Assessment and plan: Metastatic disease in multiple vertebral bodies suspected based on appearance of CT. Await bone scan. Also check urine and serum protein electropharesis (11) DVT prophylaxis: Status: Acute Assessment and plan: SCDs Chemical DVT prophylaxis is contraindicated in setting of suspected GI bleeding (12) Discharge planning issues: Status: Acute Assessment and plan: Full code Keep in ICU Total Critical Care Time [address] Perla Subjective Subjective Interval history since last seen: Just arrived from ER from this morning. Feels better. Denies dizziness, chest pain, shortness of breath, nausea, vomiting, abdominal pain. States her last BM was 1.5 weeks ago and was red. Receiving her 2nd unit pRBCs. SBP up to 110s now, up from the 90s when she first arrived. Afebrile. jerky/ataxic movements in bed noted by the nursing. R IJ CVL in place Exam Narrative Exam Narrative: General: Pleasant middle-aged female who appears somewhat forgetful, A&Ox3 HEENT: EOMI, MMM Heart: RRR, no m/r/g Lungs: CTAB Abdomen: soft, nontender, nondistended Extremities: no edema BLE's Objective Last Vital Signs Temp 36.6 C 08/11/21 07:55 Pulse 89 08/11/21 07:55 Resp 18 08/11/21 07:55 BP 107/41 L 08/11/21 07:55 Pulse Ox 92 08/11/21 07:55 Laboratory Results - last 24 hr 08/11/21 08/11/21 08/11/21 03:40 03:43 03:43 WBC RBC Hgb Hct MCV MCH MCHC RDW Plt Count MPV Reticulocyte % (Auto) Immature Gran % Neutrophils % Lymphocytes % Monocytes % Eosinophils % Basophils % Nucleated RBC % Absolute Neutrophils Absolute Lymphocytes Absolute Monocytes Absolute Eosinophils Absolute Basophils RBC Morphology Poikilocytosis Anisocytosis PT INR APTT VBG Lactate Sodium 143 Potassium 2.6 L* Chloride 116 H Carbon Dioxide 11.1 L Anion Gap 15.9 H BUN 50 H Creatinine 2.8 H Estimated GFR/1.73 m2 17.07 Glucose 95 Calcium 5.1 L* Magnesium 1.1 L Total Bilirubin 0.2 AST 34 ALT 11 L Alkaline Phosphatase 74 Ammonia < 10 L Troponin I < 0.05 NT-Pro-B Natriuret Pep 249 Total Protein 4.4 L Albumin 1.5 L TSH 0.03 L Free T4 1.15 Urine Color Urine Clarity Urine pH Ur Specific [place] Urine Protein Urine Ketones Urine Blood Urine Nitrite Urine Bilirubin Urine Urobilinogen Ur Leukocyte Esterase Urine RBC Urine WBC Ur Epithelial Cells Urine Crystals Urine Bacteria Urine Casts Urine Mucus Ur Culture Indicated? Urine Glucose COVID-19 Source SARS-CoV-2 (PCR) Patient ABO/Rh Antibody Screen Crossmatch 08/11/21 08/11/21 08/11/21 03:43 03:43 03:43 WBC 7.66 RBC 2.00 L Hgb 5.8 L* Hct 18.5 L* MCV 92.5 MCH 29.0 MCHC 31.4 L RDW 14.5 Plt Count 261 MPV 10.1 Reticulocyte % (Auto) Immature Gran % 1.6 Neutrophils % 85.1 Lymphocytes % 4.7 Monocytes % 8.2 Eosinophils % 0.1 Basophils % 0.3 Nucleated RBC % 0 Absolute Neutrophils 6.52 Absolute Lymphocytes 0.36 L Absolute Monocytes 0.63 Absolute Eosinophils 0.01 Absolute Basophils 0.02 RBC Morphology See Below Poikilocytosis 2+ Anisocytosis 1+ PT 15.5 H INR 1.6 H APTT 52.3 H VBG Lactate 0.6 Sodium Potassium Chloride Carbon Dioxide Anion Gap BUN Creatinine Estimated GFR/1.73 m2 Glucose Calcium Magnesium Total Bilirubin AST ALT Alkaline Phosphatase Ammonia Troponin I NT-Pro-B Natriuret Pep Total Protein Albumin TSH Free T4 Urine Color Urine Clarity Urine pH Ur Specific [place] Urine Protein Urine Ketones Urine Blood Urine Nitrite Urine Bilirubin Urine Urobilinogen Ur Leukocyte Esterase Urine RBC Urine WBC Ur Epithelial Cells Urine Crystals Urine Bacteria Urine Casts Urine Mucus Ur Culture Indicated? Urine Glucose COVID-19 Source SARS-CoV-2 (PCR) Patient ABO/Rh Antibody Screen Crossmatch 08/11/21 08/11/21 08/11/21 03:43 03:44 03:50 WBC RBC Hgb Hct MCV MCH MCHC RDW Plt Count MPV Reticulocyte % (Auto) 1.0 Immature Gran % Neutrophils % Lymphocytes % Monocytes % Eosinophils % Basophils % Nucleated RBC % Absolute Neutrophils Absolute Lymphocytes Absolute Monocytes Absolute Eosinophils Absolute Basophils RBC Morphology Poikilocytosis Anisocytosis PT INR APTT VBG Lactate Sodium Potassium Chloride Carbon Dioxide Anion Gap BUN Creatinine Estimated GFR/1.73 m2 Glucose Calcium Magnesium Total Bilirubin AST ALT Alkaline Phosphatase Ammonia Troponin I NT-Pro-B Natriuret Pep Total Protein Albumin TSH Free T4 Urine Color Yellow Urine Clarity Sl Cloudy Urine pH 6.0 Ur Specific [place] 1.020 Urine Protein Trace H Urine Ketones Negative Urine Blood Trace-lysed H Urine Nitrite Positive H Urine Bilirubin Negative Urine Urobilinogen 0.2 Ur Leukocyte Esterase Small H Urine RBC 10-20 H Urine WBC 3-5 Ur Epithelial Cells Few Urine Crystals Negative Urine Bacteria Few Urine Casts Negative Urine Mucus Negative Ur Culture Indicated? Yes Urine Glucose Negative COVID-19 Source Nasal/Nares SARS-CoV-2 (PCR) Negative Patient ABO/Rh Antibody Screen Crossmatch 08/11/21 04:10 WBC RBC Hgb Hct MCV MCH MCHC RDW Plt Count MPV Reticulocyte % (Auto) Immature Gran % Neutrophils % Lymphocytes % Monocytes % Eosinophils % Basophils % Nucleated RBC % Absolute Neutrophils Absolute Lymphocytes Absolute Monocytes Absolute Eosinophils Absolute Basophils RBC Morphology Poikilocytosis Anisocytosis PT INR APTT VBG Lactate Sodium Potassium Chloride Carbon Dioxide Anion Gap BUN Creatinine Estimated GFR/1.73 m2 Glucose Calcium Magnesium Total Bilirubin AST ALT Alkaline Phosphatase Ammonia Troponin I NT-Pro-B Natriuret Pep Total Protein Albumin TSH Free T4 Urine Color Urine Clarity Urine pH Ur Specific [place] Urine Protein Urine Ketones Urine Blood Urine Nitrite Urine Bilirubin Urine Urobilinogen Ur Leukocyte Esterase Urine RBC Urine WBC Ur Epithelial Cells Urine Crystals Urine Bacteria Urine Casts Urine Mucus Ur Culture Indicated? Urine Glucose COVID-19 Source SARS-CoV-2 (PCR) Patient ABO/Rh O Positive Antibody Screen NEGATIVE Crossmatch See Detail
[2021-08-11] MEDS: Senna TAB 1 TAB PO (09:02)
[2021-08-11] MEDS: Allopurinol 100 MG TAB 50 MG PO (09:03)
[2021-08-11] MEDS: Docusate Sodium 100 MG CAP PO ×2 (09:03→19:50)
[2021-08-11] MEDS: Pantoprazole 40 MG VIAL IVP (09:03)
[2021-08-11] MEDS: Normal Saline Flush 10 ML SYR ×3 (09:04→19:02)
[2021-08-11] MEDS: cefTRIAXone 1 GM/50 ML BAG IVPB (09:05)
[2021-08-11] MEDS: POTASSIUM CHLORIDE 20 MEQ/100 ML BAG 50 MEQ IVPB ×3 (09:05→13:21)
--- NOTE | 2021-08-11 09:08 | UCONE_ITS ---
Date of service: 08/11/21 Time of Service: 09:59 Assessment and Plan Assessment and plan (1) Urinary retention: Status: Chronic Assessment and plan: We will readjust her catheter change appointment to dimple mijares today's catheter change History of Present Illness Narrative: Chief complaint:: Urinary retention Olinda is a 61-year-old female with history of urinary retention. She is maintained by using a suprapubic catheter. Her most recent catheter change was 07/29/2021. I have been asked to change her catheter while she is an inpatient. She is here with hypotension and anemia. [facility] Medical History (Updated 08/11/21 @ 14:47 by Alice Manuel DO) Chronic kidney disease CKD (chronic kidney disease) stage 4, GFR 15-29 ml/min Diabetes Erythromelalgia Gout Hyperlipidemia Hypertension Hyperuricemia Hypothyroidism Infected sebaceous cyst of skin Leiomyoma of uterus Malignant neoplasm of right breast in female, estrogen receptor positive [facility] [place] biopsy: invasive ductal carcinoma/ductal carcinoma in situ - Urinary retention Vitamin D deficiency Surgical History History of suprapubic catheter Hx of breast lump removal R , entire breast Hx of thyroidectomy Family History Mother , 86 age Diabetes Hypertension Father , 67 age Cancer Sister , 63 Heart disease Sister , 55 age Dementia Brother , 59 age Cancer Lung Cancer Brother , 69 age Diabetes Heart disease Hypertension Daughter No problems noted. Daughter No problems noted. Social History Smoking/Tobacco Use Status: Former Tobacco Use tobacco type: cigarettes Quit Date: 05/31/11 Second Hand Exposure: Yes Smoking risk assessment performed?: Yes Alcohol Intake: never Drug use: Never Substance use type: does not use Household members: spouse Housing: house Communication Needs: None Do you need help understanding health information?: Never Pets and animals: No Sexually active: No Do you think of yourself as: straight/heterosexual Current gender identity: female What is your relationship status?: How often do you talk on the phone with friends or family?: twice per week How often do you get together with friends or relatives?: twice per week Do you belong to any clubs or organized social groups?: no Panel score (0-1 are the most socially isolated patients): 2 What type of physical activity do you participate in: none Seatbelt use: always Helmet use: No 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 Do you feel safe at home: Yes Do you feel safe in your relationship?: Yes Results Last Vital Signs Temp 36.6 C 08/11/21 07:55 Pulse 89 08/11/21 07:55 Resp 18 08/11/21 07:55 BP 107/41 L 08/11/21 07:55 Pulse Ox 92 08/11/21 07:55 Labs Result diagrams: 08/11/21 11:05 08/11/21 11:05 Labs: Laboratory Results - last 24 hr 08/11/21 08/11/21 08/11/21 03:40 03:43 03:43 WBC RBC Hgb Hct MCV MCH MCHC RDW Plt Count MPV Reticulocyte % (Auto) Immature Gran % Neutrophils % Lymphocytes % Monocytes % Eosinophils % Basophils % Nucleated RBC % Absolute Neutrophils Absolute Lymphocytes Absolute Monocytes Absolute Eosinophils Absolute Basophils RBC Morphology Poikilocytosis Anisocytosis PT INR APTT VBG Lactate Sodium 143 Potassium 2.6 L* Chloride 116 H Carbon Dioxide 11.1 L Anion Gap 15.9 H BUN 50 H Creatinine 2.8 H Estimated GFR/1.73 m2 17.07 Glucose 95 Calcium 5.1 L* Magnesium 1.1 L Total Bilirubin 0.2 AST 34 ALT 11 L Alkaline Phosphatase 74 Ammonia < 10 L Troponin I < 0.05 NT-Pro-B Natriuret Pep 249 Total Protein 4.4 L Albumin 1.5 L TSH 0.03 L Free T4 1.15 Urine Color Urine Clarity Urine pH Ur Specific [place] Urine Protein Urine Ketones Urine Blood Urine Nitrite Urine Bilirubin Urine Urobilinogen Ur Leukocyte Esterase Urine RBC Urine WBC Ur Epithelial Cells Urine Crystals Urine Bacteria Urine Casts Urine Mucus Ur Culture Indicated? Urine Glucose COVID-19 Source SARS-CoV-2 (PCR) Patient ABO/Rh Antibody Screen Crossmatch 08/11/21 08/11/21 08/11/21 03:43 03:43 03:43 WBC 7.66 RBC 2.00 L Hgb 5.8 L* Hct 18.5 L* MCV 92.5 MCH 29.0 MCHC 31.4 L RDW 14.5 Plt Count 261 MPV 10.1 Reticulocyte % (Auto) Immature Gran % 1.6 Neutrophils % 85.1 Lymphocytes % 4.7 Monocytes % 8.2 Eosinophils % 0.1 Basophils % 0.3 Nucleated RBC % 0 Absolute Neutrophils 6.52 Absolute Lymphocytes 0.36 L Absolute Monocytes 0.63 Absolute Eosinophils 0.01 Absolute Basophils 0.02 RBC Morphology See Below Poikilocytosis 2+ Anisocytosis 1+ PT 15.5 H INR 1.6 H APTT 52.3 H VBG Lactate 0.6 Sodium Potassium Chloride Carbon Dioxide Anion Gap BUN Creatinine Estimated GFR/1.73 m2 Glucose Calcium Magnesium Total Bilirubin AST ALT Alkaline Phosphatase Ammonia Troponin I NT-Pro-B Natriuret Pep Total Protein Albumin TSH Free T4 Urine Color Urine Clarity Urine pH Ur Specific [place] Urine Protein Urine Ketones Urine Blood Urine Nitrite Urine Bilirubin Urine Urobilinogen Ur Leukocyte Esterase Urine RBC Urine WBC Ur Epithelial Cells Urine Crystals Urine Bacteria Urine Casts Urine Mucus Ur Culture Indicated? Urine Glucose COVID-19 Source SARS-CoV-2 (PCR) Patient ABO/Rh Antibody Screen Crossmatch 08/11/21 08/11/21 08/11/21 03:43 03:44 03:50 WBC RBC Hgb Hct MCV MCH MCHC RDW Plt Count MPV Reticulocyte % (Auto) 1.0 Immature Gran % Neutrophils % Lymphocytes % Monocytes % Eosinophils % Basophils % Nucleated RBC % Absolute Neutrophils Absolute Lymphocytes Absolute Monocytes Absolute Eosinophils Absolute Basophils RBC Morphology Poikilocytosis Anisocytosis PT INR APTT VBG Lactate Sodium Potassium Chloride Carbon Dioxide Anion Gap BUN Creatinine Estimated GFR/1.73 m2 Glucose Calcium Magnesium Total Bilirubin AST ALT Alkaline Phosphatase Ammonia Troponin I NT-Pro-B Natriuret Pep Total Protein Albumin TSH Free T4 Urine Color Yellow Urine Clarity Sl Cloudy Urine pH 6.0 Ur Specific [place] 1.020 Urine Protein Trace H Urine Ketones Negative Urine Blood Trace-lysed H Urine Nitrite Positive H Urine Bilirubin Negative Urine Urobilinogen 0.2 Ur Leukocyte Esterase Small H Urine RBC 10-20 H Urine WBC 3-5 Ur Epithelial Cells Few Urine Crystals Negative Urine Bacteria Few Urine Casts Negative Urine Mucus Negative Ur Culture Indicated? Yes Urine Glucose Negative COVID-19 Source Nasal/Nares SARS-CoV-2 (PCR) Negative Patient ABO/Rh Antibody Screen Crossmatch 08/11/21 04:10 WBC RBC Hgb Hct MCV MCH MCHC RDW Plt Count MPV Reticulocyte % (Auto) Immature Gran % Neutrophils % Lymphocytes % Monocytes % Eosinophils % Basophils % Nucleated RBC % Absolute Neutrophils Absolute Lymphocytes Absolute Monocytes Absolute Eosinophils Absolute Basophils RBC Morphology Poikilocytosis Anisocytosis PT INR APTT VBG Lactate Sodium Potassium Chloride Carbon Dioxide Anion Gap BUN Creatinine Estimated GFR/1.73 m2 Glucose Calcium Magnesium Total Bilirubin AST ALT Alkaline Phosphatase Ammonia Troponin I NT-Pro-B Natriuret Pep Total Protein Albumin TSH Free T4 Urine Color Urine Clarity Urine pH Ur Specific [place] Urine Protein Urine Ketones Urine Blood Urine Nitrite Urine Bilirubin Urine Urobilinogen Ur Leukocyte Esterase Urine RBC Urine WBC Ur Epithelial Cells Urine Crystals Urine Bacteria Urine Casts Urine Mucus Ur Culture Indicated? Urine Glucose COVID-19 Source SARS-CoV-2 (PCR) Patient ABO/Rh O Positive Antibody Screen NEGATIVE Crossmatch See Detail Change Bladder Catheter Procedure performed by: Fozia Lance Indication for procedure: Urinary retention Informed consent given: Yes Consent signed: No Position of patient: supine Inplace catheter size (Fr): 16 Inplace catheter type: supra pubic Water amount removed from catheter balloon: 10 cc Catheter removed: without difficulty Catheter intact: Yes Sterilizing agent: Yes Type of anesthesia: topical gel Catheter size (Fr): 16 Catheter type: supra pubic Lubrication: Yes Catheter inserted: without difficulty Volume instilled into catheter balloon: 10 cc Amount of urine out: 15 Urine color: yellow Urine clarity: clear Clots present: No Catheter attached to: bedside drainage bag Patient tolerated procedure: well Complications: No Text: This procedure was performed under my supervision.
[2021-08-11 11:19] LABS: HCT 29.4 % (36.0-46.0); HGB 9.5 g/dL (11.2-15.7)
[2021-08-11 11:32] LABS: Anion Gap 13.6 mmol/L (3-11); BUN 72 mg/dL (7-18); CO2 15.4 mmol/L (21.0-32.0); Calcium 8.7 mg/dL (8.5-10.1); Chloride 106 mmol/L (98-107); Glucose 119 mg/dL (74-106); Potassium 4.9 mmol/L (3.5-5.1); Sodium 135 mmol/L (136-145)
[2021-08-11 11:41] LABS: CREATININE 4.3 mg/dL (0.55-1.02)
[2021-08-11 13:20] LABS: Anion Gap 16.1 mmol/L (3-11); BUN 73 mg/dL (7-18); CO2 14.9 mmol/L (21.0-32.0); Calcium 8.5 mg/dL (8.5-10.1); Chloride 106 mmol/L (98-107); Estimated GFR 10.13 (mL/min/1.73m2); Glucose 115 mg/dL (74-106); Potassium 5.3 mmol/L (3.5-5.1); Sodium 137 mmol/L (136-145)
[2021-08-11 13:22] LABS: CREATININE 4.4 mg/dL (0.55-1.02)
--- NOTE | 2021-08-11 14:15 | SCONE_ITS ---
Date of service: 08/11/21 Time of Service: 14:15 Assessment and Plan Assessment and plan (1) Acute kidney injury superimposed on chronic kidney disease: Status: Acute Assessment and plan: I did d/w Dr. Shane. cont PPI plan on EGD in pm 10. consent signed Informed consent is obtained for the procedural (explained in simple layman's terms that the pt and/or family could understand) explaining risks vs benefits and alternatives to the procedure and consequences if we do not do the procedure and need/rational for the procedure. Risks include but are not limited to: bleeding, infection, perforation of esophagus, stomach, colon, small intestines, bronchus or trachea, or PTX. This would necessitate emergency surgery to repair the damage w/ possible ostomy; and other associated complications w/ the required surgery. Also complications of anesthesia including aspiration, [place]/CVA/. (2) Acute on chronic blood loss anemia: Status: Acute (3) Hypoalbuminemia: Status: Acute (4) UTI (urinary tract infection): Status: Acute (5) Hepatic steatosis: Status: Acute (6) Coagulopathy: Status: Acute (7) Diabetes mellitus: Status: Acute (8) Essential hypertension: Status: Acute (9) History of tobacco use: Status: Acute (10) Gout: Status: Acute Qualifiers: Gout site: unspecified site Gout etiology: unspecified cause Chronicity: chronic Presence of tophus: without tophus Qualified Code(s): [id number] - Chronic gout, unspecified, without tophus (tophi) (11) Hyperlipidemia: Status: Acute (12) Multinodular goiter: Status: Acute (13) Positive colorectal cancer screening using Cologuard test: Status: Acute (14) CKD (chronic kidney disease) stage 4, GFR 15-29 ml/min: Status: Acute (15) Malignant neoplasm of right breast in female, estrogen receptor positive: Status: Acute (16) Hyperkalemia, diminished renal excretion: Status: Acute History of Present Illness Narrative: Patient seen at the request of the hospitalist service regarding acute GI bleed. Patient presented in the ER with hypotension and confusion. She ws found to have a HGB of 5.9. She does have chronic anemia/CKD- stage4. She says she is on chronic steriods, but I don't see that in the chart. As I am seeing, her BP's are in the 90's. She is denying any abdominal pain,H/I, etc. She is still feeling week adn dizzy. She has a hx of chronic constipation. She is not throwing up any blood. She is not having black tarry stools or bight red blood per rectum. Abdomen is soft and non tender case was reviewed w/ Dr. Kirby and anesthesia. Consults Consult date: 08/11/21 Requesting physician: Sammie Pearce Review of Systems All systems reviewed & are unremarkable except as noted in HPI and below PFSH Medical History (Updated 08/11/21 @ 14:47 by Alice Manuel DO) Chronic kidney disease CKD (chronic kidney disease) stage 4, GFR 15-29 ml/min Diabetes Erythromelalgia Gout Hyperlipidemia Hypertension Hyperuricemia Hypothyroidism Infected sebaceous cyst of skin Leiomyoma of uterus Malignant neoplasm of right breast in female, estrogen receptor positive [facility] [place] biopsy: invasive ductal carcinoma/ductal carcinoma in situ - Urinary retention Vitamin D deficiency Surgical History History of suprapubic catheter Hx of breast lump removal R , entire breast Hx of thyroidectomy Family History Mother , 86 age Diabetes Hypertension Father , 67 age Cancer Sister , 63 Heart disease Sister , 55 age Dementia Brother , 59 age Cancer Lung Cancer Brother , 69 age Diabetes Heart disease Hypertension Daughter No problems noted. Daughter No problems noted. Social History Smoking/Tobacco Use Status: Former Tobacco Use tobacco type: cigarettes Quit Date: 05/31/11 Second Hand Exposure: Yes Smoking risk assessment performed?: Yes Alcohol Intake: never Drug use: Never Substance use type: does not use Household members: spouse Housing: house Communication Needs: None Do you need help understanding health information?: Never Pets and animals: No Sexually active: No Do you think of yourself as: straight/heterosexual Current gender identity: female What is your relationship status?: How often do you talk on the phone with friends or family?: twice per week How often do you get together with friends or relatives?: twice per week Do you belong to any clubs or organized social groups?: no Panel score (0-1 are the most socially isolated patients): 2 What type of physical activity do you participate in: none Seatbelt use: always Helmet use: No 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 Do you feel safe at home: Yes Do you feel safe in your relationship?: Yes Exam Const General: disheveled and ill appearing Nutritional Appearance: cachectic Other: pt has a pronounced tremor Resp Effort & Inspection: normal respiratory effort and able to speak in complete sentences Auscultation: clear to auscultation bilaterally Cardio Rate: regular rate Rhythm: regular rhythm GI Palpation: soft and nontender Auscultation: normal bowel sounds Results Last Vital Signs Temp 36.2 C L 08/11/21 13:05 Pulse 91 H 08/11/21 13:05 Resp 22 08/11/21 13:05 BP 98/49 L 08/11/21 13:05 Pulse Ox 97 08/11/21 13:05 Labs Result diagrams: 08/11/21 11:05 08/11/21 11:05 Labs: Laboratory Results - last 24 hr 08/11/21 08/11/21 08/11/21 03:40 03:43 03:43 WBC RBC Hgb Hct MCV MCH MCHC RDW Plt Count MPV Reticulocyte % (Auto) Immature Gran % Neutrophils % Lymphocytes % Monocytes % Eosinophils % Basophils % Nucleated RBC % Absolute Neutrophils Absolute Lymphocytes Absolute Monocytes Absolute Eosinophils Absolute Basophils RBC Morphology Poikilocytosis Anisocytosis PT INR APTT VBG Lactate Sodium 143 Potassium 2.6 L* Chloride 116 H Carbon Dioxide 11.1 L Anion Gap 15.9 H BUN 50 H Creatinine 2.8 H Estimated GFR/1.73 m2 17.07 Glucose 95 Calcium 5.1 L* Magnesium 1.1 L Total Bilirubin 0.2 AST 34 ALT 11 L Alkaline Phosphatase 74 Ammonia < 10 L Troponin I < 0.05 NT-Pro-B Natriuret Pep 249 Total Protein 4.4 L Albumin 1.5 L TSH 0.03 L Free T4 1.15 Urine Color Urine Clarity Urine pH Ur Specific [place] Urine Protein Urine Ketones Urine Blood Urine Nitrite Urine Bilirubin Urine Urobilinogen Ur Leukocyte Esterase Urine RBC Urine WBC Ur Epithelial Cells Urine Crystals Urine Bacteria Urine Casts Urine Mucus Ur Culture Indicated? Urine Glucose COVID-19 Source SARS-CoV-2 (PCR) Patient ABO/Rh Antibody Screen Crossmatch 08/11/21 08/11/21 08/11/21 03:43 03:43 03:43 WBC 7.66 RBC 2.00 L Hgb 5.8 L* Hct 18.5 L* MCV 92.5 MCH 29.0 MCHC 31.4 L RDW 14.5 Plt Count 261 MPV 10.1 Reticulocyte % (Auto) Immature Gran % 1.6 Neutrophils % 85.1 Lymphocytes % 4.7 Monocytes % 8.2 Eosinophils % 0.1 Basophils % 0.3 Nucleated RBC % 0 Absolute Neutrophils 6.52 Absolute Lymphocytes 0.36 L Absolute Monocytes 0.63 Absolute Eosinophils 0.01 Absolute Basophils 0.02 RBC Morphology See Below Poikilocytosis 2+ Anisocytosis 1+ PT 15.5 H INR 1.6 H APTT 52.3 H VBG Lactate 0.6 Sodium Potassium Chloride Carbon Dioxide Anion Gap BUN Creatinine Estimated GFR/1.73 m2 Glucose Calcium Magnesium Total Bilirubin AST ALT Alkaline Phosphatase Ammonia Troponin I NT-Pro-B Natriuret Pep Total Protein Albumin TSH Free T4 Urine Color Urine Clarity Urine pH Ur Specific [place] Urine Protein Urine Ketones Urine Blood Urine Nitrite Urine Bilirubin Urine Urobilinogen Ur Leukocyte Esterase Urine RBC Urine WBC Ur Epithelial Cells Urine Crystals Urine Bacteria Urine Casts Urine Mucus Ur Culture Indicated? Urine Glucose COVID-19 Source SARS-CoV-2 (PCR) Patient ABO/Rh Antibody Screen Crossmatch 08/11/21 08/11/21 08/11/21 03:43 03:44 03:50 WBC RBC Hgb Hct MCV MCH MCHC RDW Plt Count MPV Reticulocyte % (Auto) 1.0 Immature Gran % Neutrophils % Lymphocytes % Monocytes % Eosinophils % Basophils % Nucleated RBC % Absolute Neutrophils Absolute Lymphocytes Absolute Monocytes Absolute Eosinophils Absolute Basophils RBC Morphology Poikilocytosis Anisocytosis PT INR APTT VBG Lactate Sodium Potassium Chloride Carbon Dioxide Anion Gap BUN Creatinine Estimated GFR/1.73 m2 Glucose Calcium Magnesium Total Bilirubin AST ALT Alkaline Phosphatase Ammonia Troponin I NT-Pro-B Natriuret Pep Total Protein Albumin TSH Free T4 Urine Color Yellow Urine Clarity Sl Cloudy Urine pH 6.0 Ur Specific [place] 1.020 Urine Protein Trace H Urine Ketones Negative Urine Blood Trace-lysed H Urine Nitrite Positive H Urine Bilirubin Negative Urine Urobilinogen 0.2 Ur Leukocyte Esterase Small H Urine RBC 10-20 H Urine WBC 3-5 Ur Epithelial Cells Few Urine Crystals Negative Urine Bacteria Few Urine Casts Negative Urine Mucus Negative Ur Culture Indicated? Yes Urine Glucose Negative COVID-19 Source Nasal/Nares SARS-CoV-2 (PCR) Negative Patient ABO/Rh Antibody Screen Crossmatch 08/11/21 08/11/21 08/11/21 04:10 11:05 11:05 WBC RBC Hgb 9.5 L D Hct 29.4 L D MCV MCH MCHC RDW Plt Count MPV Reticulocyte % (Auto) Immature Gran % Neutrophils % Lymphocytes % Monocytes % Eosinophils % Basophils % Nucleated RBC % Absolute Neutrophils Absolute Lymphocytes Absolute Monocytes Absolute Eosinophils Absolute Basophils RBC Morphology Poikilocytosis Anisocytosis PT INR APTT VBG Lactate Sodium 135 L Potassium 4.9 D Chloride 106 Carbon Dioxide 15.4 L Anion Gap 13.6 H BUN 72 H D Creatinine 4.3 H* D Estimated GFR/1.73 m2 10.40 Glucose 119 H Calcium 8.7 Magnesium Total Bilirubin AST ALT Alkaline Phosphatase Ammonia Troponin I NT-Pro-B Natriuret Pep Total Protein Albumin TSH Free T4 Urine Color Urine Clarity Urine pH Ur Specific [place] Urine Protein Urine Ketones Urine Blood Urine Nitrite Urine Bilirubin Urine Urobilinogen Ur Leukocyte Esterase Urine RBC Urine WBC Ur Epithelial Cells Urine Crystals Urine Bacteria Urine Casts Urine Mucus Ur Culture Indicated? Urine Glucose COVID-19 Source SARS-CoV-2 (PCR) Patient ABO/Rh O Positive Antibody Screen NEGATIVE Crossmatch See Detail 08/11/21 11:05 WBC RBC Hgb Hct MCV MCH MCHC RDW Plt Count MPV Reticulocyte % (Auto) Immature Gran % Neutrophils % Lymphocytes % Monocytes % Eosinophils % Basophils % Nucleated RBC % Absolute Neutrophils Absolute Lymphocytes Absolute Monocytes Absolute Eosinophils Absolute Basophils RBC Morphology Poikilocytosis Anisocytosis PT INR APTT VBG Lactate Sodium 137 Potassium 5.3 H Chloride 106 Carbon Dioxide 14.9 L Anion Gap 16.1 H BUN 73 H Creatinine 4.4 H* Estimated GFR/1.73 m2 10.13 Glucose 115 H Calcium 8.5 Magnesium Total Bilirubin AST ALT Alkaline Phosphatase Ammonia Troponin I NT-Pro-B Natriuret Pep Total Protein Albumin TSH Free T4 Urine Color Urine Clarity Urine pH Ur Specific [place] Urine Protein Urine Ketones Urine Blood Urine Nitrite Urine Bilirubin Urine Urobilinogen Ur Leukocyte Esterase Urine RBC Urine WBC Ur Epithelial Cells Urine Crystals Urine Bacteria Urine Casts Urine Mucus Ur Culture Indicated? Urine Glucose COVID-19 Source SARS-CoV-2 (PCR) Patient ABO/Rh Antibody Screen Crossmatch
[2021-08-11] MEDS: Lactated Ringers 1,000 ML 1000 ML IV (14:39)
--- NOTE | 2021-08-11 14:41 | CHAPLAIN ---
Slo was visiting with her and daughter when I visited. She was pleasant, but seemed unsure about what to make of my visit. I explained that I try to check in with most patients, so they know there are chaplains available to them. Her told me they live in [place]. I will continue to visit.
[2021-08-11 19:12] LABS: HCT 33.9 % (36.0-46.0)
--- NOTE | 2021-08-11 19:19 | NUR.NOTE ---
Pt said she lost her pen in her blankets, I helped her look for it but there was no pen to be found. There was a pen on the shelf and she said yes. I handed her the pen and Pt then said she now had to find the check she had to write.
[2021-08-11] MEDS: Lactated Ringers 1,000 ML 125 ML IV (23:23)
[2021-08-12] VITALS (95 sets, daily range): BP systolic 71–118; BP diastolic 33–65; PULSE 83–102; RESP 12–39; TEMP 36.2–37.2; O2SAT 93–98
--- NOTE | 2021-08-12 | DI.MRI_ITS ---
Exam(s) MR BRAIN WO EXAM: MR BRAIN WO CLINICAL HISTORY: concern for metastatic disease TECHNIQUE: Multiplanar multisequence MRI of the brain was performed. COMPARISON: CT CT HEAD WO from 08/11/2021 FINDINGS: Images are degraded by motion artifact. CEREBRAL PARENCHYMA: There is no evidence of intracranial hemorrhage, mass effect, or shift of midline structures. There are no extra-axial fluid collections. Ventricles are not enlarged or shifted. There is no significant focal signal abnormality in the cerebellar hemispheres nor within the samantha, m idbrain, and thalami. On FLAIR imaging there is a small subcentimeter focus of white matter signal abnormality adjacent to the frontal horn of the right lateral ventricle. This is a nonspecific finding. There is no significant focal signal abnormality evident on diffusion imaging to suggest acute ischem ic event. Diffusion imaging: No evidence of restricted motion PITUITARY GLAND: No mass nor parasellar abnormality. No obvious abnormality in the cavernous sinuses. FLOW VOIDS: The expected flow void are noted. No evidence of obvious aneurysm nor obvious vascular ma lformation. PARANASAL SINUSES: The visualized paranasal sinuses appear unremarkable. No obvious finding ORBITS: No obvious findings. IMPRESSION: Study is limited by motion artifact. For, no obvious acute intracranial findings on this noninfused MRI scan of the brain. DATA REPOSITORY:
[2021-08-12] MEDS: Normal Saline Flush 10 ML SYR (01:26)
[2021-08-12 07:28] LABS: INR 1.1 (0.9-1.1); Prothrombin Time 11.1 sec (9.3-11.0)
--- NOTE | 2021-08-12 07:30 | W.PULMCC ---
General Date of Service Date of service: 08/12/21 Time of Service: 07:30 Reason for Admission to ICU: Anemia, Hypotension Assessment and Plan Assessment and plan (1) Hypotension: Status: Acute Qualifiers: Hypotension type: hypotension due to hypovolemia Qualified Code(s): I95.89 - Other hypotension; E86.1 - Hypovolemia (2) Acute anemia: Status: Acute (3) Hypomagnesemia: Status: Acute (4) Hypokalemia: Status: Acute (5) Hypocalcemia: Status: Acute (6) Hypoalbuminemia: Status: Acute (7) Weakness: Status: Acute (8) Gout: Status: Acute Qualifiers: Chronicity: chronic Gout etiology: unspecified cause Gout site: unspecified site Presence of tophus: without tophus Qualified Code(s): [id number].[id number] - Chronic gout, unspecified, without tophus (tophi) (9) Multinodular goiter: Status: Acute (10) CKD (chronic kidney disease) stage 4, GFR 15-29 ml/min: Status: Acute (11) Bone lesion: Status: Acute Assessment and plan: This is a 61-year-old female with history of breast cancer status post lumpectomy without chemo or radiation in 2018 as well as CKD 4 in the setting of an obstructive uropathy and a recent negative colonoscopy who presents with anemia to 5.8 (baseline of 11). She does have some electrolyte abnormalities as well as a CAT scan showing several vertebral bone lesions that are concerning for malignancy. She does not have an obvious source of bleeding at this time however a UA will be performed. She will need to be further evaluated regarding these bony lesions. Her hemorrhagic shock has resolved with resuscitation of blood products and fluids. She did develop RAMYA on her CKD. That is likely a result of her transient hypotension that has improved today. She is planned for an EGD, and bone scan today. Recommendations Pulmonary: No acute concerns Incentive spirometer Cardiac: h/o HTN - hold anti-hypertensives for now Hemorrhagic shock - s/p 2 U PRBC - can walk back H/H to q12hr given stability and can change to daily tomorrow is stable today - unclear etiology - agree with LR 125cc/hr to achieve even fluid status - can likely be stopped tomorrow morning Renal: CKD 4 due to obstructive uropathy - monitor UOP closely - match UOP with IVF Obstructive uropathy with suprapubic catheter - s/p catheter change on 08/11/21 Hypomagnesemia - replete to 2.0 Hypokalemia - replete to 4.0 Hypocalcemia, resolved - pending PTH level, vitamin D level, SPEP, UPEP - s/p replacement with IV calcium - repeat Ca, Mg, Phos and electrolytes q8hrs until stable - spot urine calcium pending I&O: Intake & Output 08/09/21 08/10/21 08/11/21 08/12/21 23:59 23:59 23:59 23:59 Intake Total 2981.834 / 2981.834 Output Total 3550 / 3550 1000 / 1000 Balance -568.166 / -568.166 -1000 / -1000 Weight 77.7 kg 77.9 kg Daily Fluid Goal:: Even - would D/C fluids if she begins to become positive GI Nutrition: NPO for EGD - can resume diet afterwards Date of Last Bowel Movement: 08/05/21 Infectious Disease: Complicated UTI vs bladder colonization - on ceftriaxone - urine cultures pending - prior K. pneumoniae UTI sensitive to ceftriaxone - given chronic bladder catheter she may be colonized with bacteria that are not causing pathologic infection, however given her clinical picture would still treat her Hematologic: Anemia - s/p 2 UPRBC - H/H q12 hrs and then daily tomorrow if remains stable - if a total of 6 U PRBC has been given please also give 6 U FFP and 1 bag of platelets - s/p vitamin K Coagulopathy - can consider a thromboelastogram (TEG) Neurologic: Falls - CT head clear - would recommend MRI brain given bony lesions seen (small brain lesions can be easily missed on CT head) Visual hallucinations - could be delerium vs metastatic disease? - again recommend MRI brain to further assess this Endocrine: Diabetes - hold PO diabetes meds - SSI for coverage - fingersticks q6hr if not eating, qchs if eating Lines: R IJ CVC suprapubic catheter Prophylaxis: SCD's for DVT pps given anemia and possible bleed on Protonix Code Status: Resuscitation Status Full Code Subjective Critical and life-threatening events over the past 24 hours: Olinda states she is doing well this morning. She denies any pain or trouble breathing. She does state that she is seeing things such as squirrels. She believes these truly be present. I did explain to her that although they seem real to her they are not real to everyone else, she seemed to understand this. Exam Const General: no acute distress Nutritional Appearance: well nourished [facility] Head: normocephalic Ears: external ears normal and no periauricular adenopathy General nose exam: nasal mucous membranes and turbinates normal Face and sinus: sinuses nontender Mouth: oropharynx normal and moist mucous membranes Teeth and gingiva: dentition normal Eyes General: appearance normal, both eyes and all related structures Pupils: PERRL Neck Neck: normal visual inspection and no lymphadenopathy Chest Chest: normal inspection of the chest Resp Effort & Inspection: normal respiratory effort Auscultation: rales on the right, no rhonchi and no wheezes Cardio Rate: regular rate Rhythm: regular rhythm Heart Sounds: S1 normal, S2 normal and no murmurs Pulses: radial pulses present bilaterally GI Inspection: normal to inspection Palpation: soft Skin General skin exam: no rashes or lesions noted Neuro General: patient alert, patient awake and patient oriented x3 Extrem General: no clubbing, cyanosis or edema Psych Mental Status: mental status grossly normal Affect: normal affect Attitude: cooperative Most Recent VS/Results Last Vital Signs Temp 36.8 C 08/12/21 04:15 Pulse 90 08/12/21 04:15 Resp 18 08/12/21 06:10 BP 94/44 L 08/12/21 04:15 Pulse Ox 93 08/12/21 05:10 Laboratory Results - last 24 hr 08/11/21 08/11/21 08/11/21 04:10 11:05 11:05 Hgb 9.5 L D Hct 29.4 L D Sodium 135 L Potassium 4.9 D Chloride 106 Carbon Dioxide 15.4 L Anion Gap 13.6 H BUN 72 H D Creatinine 4.3 H* D Estimated GFR/1.73 m2 10.40 Glucose 119 H Calcium 8.7 Patient ABO/Rh O Positive Antibody Screen NEGATIVE Crossmatch See Detail 08/11/21 08/11/21 11:05 19:00 Hgb 11.0 L Hct 33.9 L Sodium 137 Potassium 5.3 H Chloride 106 Carbon Dioxide 14.9 L Anion Gap 16.1 H BUN 73 H Creatinine 4.4 H* Estimated GFR/1.73 m2 10.13 Glucose 115 H Calcium 8.5 Patient ABO/Rh Antibody Screen Crossmatch Review of Systems All systems reviewed & are unremarkable except as noted in HPI and below
[2021-08-12 07:34] LABS: Anion Gap 12.9 mmol/L (3-11); BUN 53 mg/dL (7-18); CO2 18.1 mmol/L (21.0-32.0); CREATININE 3.2 mg/dL (0.55-1.02); Calcium 9.2 mg/dL (8.5-10.1); Chloride 108 mmol/L (98-107); Estimated GFR 14.63 (mL/min/1.73m2); Glucose 79 mg/dL (74-106); Potassium 4.4 mmol/L (3.5-5.1); Sodium 139 mmol/L (136-145)
[2021-08-12 07:38] LABS: Magnesium 2.8 mg/dL (1.8-2.4)
[2021-08-12 07:40] LABS: PHOSPHORUS 4.5 mg/dL (2.6-4.7)
[2021-08-12] MEDS: Lactated Ringers 1,000 ML 125 ML IV (07:48)
[2021-08-12] MEDS: Normal Saline Flush 10 ML SYR IVP (07:48)
[2021-08-12] MEDS: Pantoprazole 40 MG VIAL IVP (07:49)
[2021-08-12] MEDS: cefTRIAXone 1 GM/50 ML BAG IVPB (07:50)
[2021-08-12 08:06] LABS: Abs Immature Grans 0.17 10^3/uL (0.0-0.06); Absolute Basophil Count 0.05 10^3/uL (0.0-0.2); Absolute Lymphocyte Count 0.86 10^3/uL (1.2-3.4); Absolute Monocyte Count 0.89 10^3/uL (0.1-0.8); Basophils % 0.5; Eosinophils % 1.6; HCT 33.6 % (36.0-46.0); HGB 10.8 g/dL (11.2-15.7); Immature Grans % 1.6; Lymphocytes % 8.3; MCH 28.1 pg (27.0-33.0); MCHC 32.1 % (32.0-36.0); MCV 87.5 fL (80-95); MPV 10.8 fL (8.0-11.0); Monocytes % 8.6; Neutrophils % 79.4; Nucleated RBC 0 %; Platelet Count 405 10^3/uL (130-400); RBC 3.84 10^6/uL (3.93-5.22); RDW 15.9 % (11.7-14.6); RDW-SD 51.1 fL; WBC 10.31 10^3/uL (4.4-10.8)
[2021-08-12 08:12] LABS: Absolute Eosinophil Count 0.16 10^3/uL (0.0-0.7); Absolute Neutrophil Count 8.19 10^3/uL (1.2-6.7)
--- NOTE | 2021-08-12 08:29 | W.PM.PROGNOT ---
Date of Service Date of service: 08/12/21 Time of Service: 11:22 Assessment and Plan Assessment and plan (1) Acute on chronic blood loss anemia: Status: Acute Assessment and plan: Suspect upper GI source. s/p 2 units pRBCs yesterday. H/H now stable. Expect EGD this afternoon. Continue PPI/Carafate. (2) Hypotension: Status: Resolved Assessment and plan: Likely due to symptomatic anemia. Continue IVF as BPs are not yet at baseline. Qualifiers: Hypotension type: hypotension due to hypovolemia Qualified Code(s): I95.89 - Other hypotension; E86.1 - Hypovolemia (3) Encephalopathy acute: Status: Acute Assessment and plan: Ruling out metastatic disease - MRI brain is getting done today. Continue treatment of UTI. (4) Coagulopathy: Status: Acute Assessment and plan: S/p Vitamin K. The patient has evidence of hepatic steatosis on CT. Obtain US RUQ. (5) Hepatic steatosis: Status: Acute Assessment and plan: As above Evidence of cholelithiasis, but no cholecystitis. Await hepatitis panel. LFTs wnl. (6) Acute kidney injury superimposed on chronic kidney disease: Status: Resolved Assessment and plan: Creatinine is back to baseline. I wonder if the large UOP could be due to diuresing phase of ATN due to hypotension/anemia/hypoperfusion. Monitor I/O's, daily weights. Continue IVF, trying to match ins and outs. (7) UTI (urinary tract infection): Status: Acute Assessment and plan: Continue empiric ceftriaxone. Suprapubic catheter replaced. Blood cultures are with NGTD. (8) Hypoalbuminemia: Status: Acute Assessment and plan: ?due to liver dysfunction vs lossess in the urine. Await urine and serum protein electrophoresis. (9) Hypokalemia: Status: Resolved Assessment and plan: Recheck in am. (10) Hypomagnesemia: Status: Resolved Assessment and plan: Recheck in am (11) Lesion of vertebra: Status: Acute Assessment and plan: Metastatic disease in multiple vertebral bodies suspected based on appearance of CT. Await bone scan. Also check urine and serum protein electropharesis (12) DVT prophylaxis: Status: Acute Assessment and plan: Patient refuses SCDs. Trial TEDs. Chemical DVT prophylaxis is contraindicated in setting of suspected GI bleeding (13) Discharge planning issues: Status: Acute Assessment and plan: Full code Can likely transfer out of the ICU later today - preferably after the EGD. Total Critical Care Time 35 minutes. Subjective Subjective Interval history since last seen: No bleeding but also no BM. Getting a suppository today. The patient has been hallucinating. Per nursing, this is getting better. Denies dizziness, headache, chest pain, shortness of breath, nausea, abdominal pain. Getting bone scan/MRI brain. Depending on her BP, she might also get an EGD. SBPs were in the 90s this morning - now up to 110s. Cr back to baseline. UOP 3200 cc yesterday (-420 cc overall). Exam Narrative Exam Narrative: General: Pleasant middle-aged female who appears somewhat forgetful, A&Ox3 (thinks it's 08/10 and not 08/12/21), tremulous, talks about moving images on the wallpaper (when there is no wallpaper in the room). HEENT: EOMI, MMM Heart: RRR, no m/r/g Lungs: crackles L base (L side was dependent on the time of the exam) Abdomen: soft, nontender, nondistended Extremities: no edema BLE's Objective Last Vital Signs Temp 36.8 C 08/12/21 04:15 Pulse 90 08/12/21 04:15 Resp 18 08/12/21 06:10 BP 94/44 L 08/12/21 04:15 Pulse Ox 93 08/12/21 05:10 Laboratory Results - last 24 hr 08/11/21 08/11/21 08/11/21 04:10 11:05 11:05 WBC RBC Hgb 9.5 L D Hct 29.4 L D MCV MCH MCHC RDW Plt Count MPV Immature Gran % Neutrophils % Lymphocytes % Monocytes % Eosinophils % Basophils % Nucleated RBC % Absolute Neutrophils Absolute Lymphocytes Absolute Monocytes Absolute Eosinophils Absolute Basophils PT INR Sodium 135 L Potassium 4.9 D Chloride 106 Carbon Dioxide 15.4 L Anion Gap 13.6 H BUN 72 H D Creatinine 4.3 H* D Estimated GFR/1.73 m2 10.40 Glucose 119 H Calcium 8.7 Phosphorus Magnesium Patient ABO/Rh O Positive Antibody Screen NEGATIVE Crossmatch See Detail 08/11/21 08/11/21 08/12/21 11:05 19:00 06:05 WBC RBC Hgb 11.0 L Hct 33.9 L MCV MCH MCHC RDW Plt Count MPV Immature Gran % Neutrophils % Lymphocytes % Monocytes % Eosinophils % Basophils % Nucleated RBC % Absolute Neutrophils Absolute Lymphocytes Absolute Monocytes Absolute Eosinophils Absolute Basophils PT INR Sodium 137 Potassium 5.3 H Chloride 106 Carbon Dioxide 14.9 L Anion Gap 16.1 H BUN 73 H Creatinine 4.4 H* Estimated GFR/1.73 m2 10.13 Glucose 115 H Calcium 8.5 Phosphorus Magnesium 2.8 H Patient ABO/Rh Antibody Screen Crossmatch 08/12/21 08/12/21 08/12/21 06:05 06:05 06:05 WBC RBC Hgb Hct MCV MCH MCHC RDW Plt Count MPV Immature Gran % Neutrophils % Lymphocytes % Monocytes % Eosinophils % Basophils % Nucleated RBC % Absolute Neutrophils Absolute Lymphocytes Absolute Monocytes Absolute Eosinophils Absolute Basophils PT 11.1 H D INR 1.1 Sodium 139 Potassium 4.4 Chloride 108 H Carbon Dioxide 18.1 L Anion Gap 12.9 H BUN 53 H D Creatinine 3.2 H D Estimated GFR/1.73 m2 14.63 Glucose 79 Calcium 9.2 Phosphorus 4.5 Magnesium Patient ABO/Rh Antibody Screen Crossmatch 08/12/21 06:05 WBC 10.31 D RBC 3.84 L Hgb 10.8 L Hct 33.6 L MCV 87.5 MCH 28.1 MCHC 32.1 RDW 15.9 H Plt Count 405 H MPV 10.8 Immature Gran % 1.6 Neutrophils % 79.4 Lymphocytes % 8.3 Monocytes % 8.6 Eosinophils % 1.6 Basophils % 0.5 Nucleated RBC % 0 Absolute Neutrophils 8.19 H Absolute Lymphocytes 0.86 L Absolute Monocytes 0.89 H Absolute Eosinophils 0.16 Absolute Basophils 0.05 PT INR Sodium Potassium Chloride Carbon Dioxide Anion Gap BUN Creatinine Estimated GFR/1.73 m2 Glucose Calcium Phosphorus Magnesium Patient ABO/Rh Antibody Screen Crossmatch
--- NOTE | 2021-08-12 08:30 | DI.NM_ITS ---
Exam(s) NM BONE SCAN 3 PHASE EXAM: NM BONE SCAN 3 PHASE CLINICAL HISTORY: sclerotic vertebral lseions, h/o breast cancer. TECHNIQUE: Injected Dose: 20 mCi Tc-99m MDP COMPARISON: CR,XR XR PORTABLE CHEST AP POST LINE from 08/11/2021 CR,XR XR PORTABLE CHEST AP POST LINE from 08/11/[address] CHEST/ABD/PEL WO from 08/11/2021 FINDINGS: Immediate [id number] phase: No abnormal findings. No focal hyperemia. Equilibrium images: No abnormal uptake Delayed images: There is a focus of increased uptake in the subtrochanteric region of the left hip, suspicious for po ssible metastatic lesion. Plain from this area recommended. Also subtle focus of increased uptake in the mid aspect of the opposite-right femur, possibly signifi cant. There are no areas of osseous uptake in the lower extremities below this level. In the lower lumbar spine there is uptake seen on the left side which does correspond to some bony fi ndings at this level on recent CT scan but there is sacralization of the L5 segment at this level on this may be related to altered biomechanics and degenerative change in this facet joint. Other areas higher up of abnormal findings on the recent CT scan do not appear to exhibit significant uptake in the lumbar spine on this nuclear study. However, on the right side of T9 there is a small focus of i ncreased uptake corresponds to 1 of the findings on recent CT scan possibly significant. Respect to the rib cages, there appears to be very subtle increased uptake seen in the multiple poste rior left-sided ribs. There very subtle sclerotic findings in these ribs on the recent CT scan. IMPRESSION: 1. There 2 levels of findings on this nuclear scan... Firstly, there is concerning focus of increased uptake in the subtrochanteric region of the left hip and more subtle focus of increased uptake in the midshaft of the right femur. Plain films of these 2 areas should be performed as the next step. 2. Very subtle findings on nuclear bone scan in the spine and rib cages; those in the spine less deyanira n expected, given the findings on the CT scan. DATA REPOSITORY:
[2021-08-12] MEDS: Lactated Ringers 1,000 ML 1000 ML IV (09:00)
--- NOTE | 2021-08-12 09:07 | IN_ITS ---
Date of service: 08/12/21 Time of Service: 10:59 PT Notes Visit Reasons: Anemia,Hypotension Physical Therapy Inpatient Initial Evaluation Date: 08/12/2021 Referring Doctor: Sammie Pearce MD PT Orders: PT CONSULT: Limited ability Precautions: Fall. Standard. Activity as tolerated. Lymphedema alert on the R upper extremity. Patient Profile/Admitting Diagnosis: Patient ia a 61-year-old female who presented to the ED on 08/11/2021 due to difficulty with GI bleed, hypotension, and confusion. Patient is diagnosed with hypotension, anemia, and vertebral lesions. Social History/Home Situation: Lives with in a private home. Independent with all mobility ADLs prior to admission without AD. Equipment Owned/DME: [facility] Subjective: Agreeable to PT consult. Expresses how she has not been out of bed and now feels so weak. Denies headache, chest pain, and dizziness. Did report some shakiness while walking. Objective: General Observation: Supine in bed. Telemetry monitoring. Central line in place. Reyes catheter in place. Mental Status: Alert and oriented as to person. Unsure about today's date and time. Unable to tell where she was when asked. Able to pay attention, focus, and respond appropriately. Pain: Denies ROM: Right Upper Extremity: Shoulder Flexion WFL. Shoulder abduction WFL. Elbow flexion WFL. Wrist flexion WFL. Functional opening and closing of hand WFL. Left Upper Extremity: Shoulder Flexion WFL. Shoulder abduction WFL. Elbow flexion WFL. Wrist flexion WFL. Functional opening and closing of hand WFL. Right Lower Extremity: Hip flexion WFL. Hip abduction WFL. Knee flexion WFL. Ankle dorsiflexion WFL. Ankle plantarflexion WFL. Left Lower Extremity: Hip flexion WFL. Hip abduction WFL. Knee flexion WFL. Ankle dorsiflexion WFL. Ankle plantarflexion WFL. Strength: Right Upper Extremity: Shoulder flexors 4/5. Shoulder abductors 4/5. Elbow flexors 4/5. Elbow extensors 4/5. Deicer Element Winder Machine strong. Left Upper Extremity: Shoulder flexors 4/5. Shoulder abductors 4/5. Elbow flexors 4/5. Elbow extensors 4/5. Deicer Element Winder Machine strong. Right Lower Extremity: Hip flexors 4/5. Hip abductors 4/5. Knee flexors 4/5. Knee extensors 4/5. Ankle dorsiflexors 4/5. Ankle plantarflexors 4/5. Left Lower Extremity: Hip flexors 4/5. Hip abductors 4/5. Knee flexors 4/5. Knee extensors 4/5. Ankle dorsiflexors 4/5. Ankle plantarflexors 4/5. Bed Mobility/Transfers: Supine to sit contact-guard assist with HOB at 45? Sit to stand contact-guard assist Stand to sit contact-guard assist you are Bed to reclining chair contact-guard assist Gait: Instructed patient with level surface ambulation of 8 steps forward and 8 steps backward requiring contact guard assist. Kary decreased. Step height decreased. Step length decreased. Appeared considerably unstable for her first walk after staying quite long in bed. Balance: Static Sitting: Normal Dynamic Sitting: Normal patient will highly benefit from use of straight cane in order to increase mobility, increase stability, maximize activity tolerance, and reduce overall fall risk at discharge destination. Static Standing: Dynamic Standing: Special Tests: Mobility Limitations Standardized Measure [facility] AM-PAC 6 clicks Basic Mobility Inpatient Short Form: Raw Score: 18 CMS Score: 47% deficit Informed Consent/Education: Patient was instructed in purpose of PT consult and plan of care. Agreeable to proceed with established PT POC to achieve personal goals. Assessment: Patient demonstrates generalized weakness, impaired balance, and significant functional mobility decline requiring with all transfers and ambulation task performance. Patient presents with clinical signs and symptoms consistent with current/admitting diagnoses that have resulted to mobility limitations, gait instability, generalized weakness, and overall ADL decline as demonstrated by the following impairment level findings: 1. Decreased strength to B UE/LE major muscle groups 2. Impaired sitting/standing balance 3. Impaired activity tolerance 4. Shortness of breath 5. Fatigue Impairments are contributing to the following functional limitations: 1. Decline in bed mobility skills 2. Decline in transfer skills 3. Difficulty with ambulation without assistive device and physical assistance 4. Increased completion time for mobility ADL performance 5. Increased risk for falls 6. Difficulty with managing steps alone safely Patient is assessed [place] a 14407 moderate complexity based on the following: History: 61-year-old female with past medical history as indicated above Examination: Demonstrable impairment in strength, balance, and mobility level with underlying impairments and functional limitations as exhibited above as well as deficit score of 47% utilizing the [facility] Mobility Inpatient Short Form Presentation: Evolving Decision Makin moderate complexity Goals: Goals X1 week 1. Supine-Sit independent 2. Sit-Supine independent 3. Sit-Stand independent 4. Stand-Sit independent with FWW 5. Bed-Chair independent with FWW 6. Chair-Bed independent with FWW 7. Independent gait on level surface with use of FWW for at least 200 feet without report of pain nor dyspnea 8. Independent stair negotiation while holding onto B rails for at least 5 steps without report of pain nor dyspnea 9. Good static and dynamic standing balance/tolerance Plan of Care/Treatment Plan: 1-2x/day, 7 days/week x 1 week. Plan of care has been reviewed with the CAGE MAKER MACHINE providing the service under Physical Therapy direction. Initiate Physical Therapy intervention for pain management as needed, strengthening, bed mobility, transfers, gait, stairs, balance training, and use of assistive device. DISCHARGE RECOMMENDATIONS: Patient will benefit from home health PT services in order to progress mobility level using least restrictive assistive ambulatory d evice, assess home safety, identify additional equipment needs, and establish a functional maintenance program that will increase ability of patient to remain at home. TREATMENT CODE/TIME: 80597 x 20 minutes, 75776 x 12 minutes beginning at 9:07 AM. Thank you for the opportunity to participate in the care of this patient. Oanh Bolivar PT, DPT, CLT [facility] [place], [place]
[2021-08-12] MEDS: Bisacodyl 10 MG SUPP PR (11:05)
--- NOTE | 2021-08-12 11:21 | PDOC.CMPRO ---
- If Service Date Differs Date of service: 08/12/21 Time of Service: 11:21 Care Management Progress Note S/O:Olinda has been hallucinating all day per provider. CM was unable to meet with her as she has been gone for tests much of the day. Olinda's H&H has stabilized and there is no evidence of bleeding. She remains somewhat hypotensive however with systolic pressures between 71 and 110, with most in the low 90's. She has been moved from the ICU to the Med-Surg unit. Olinda had a bone scan today to rule out bony metastasis as there is some question of this on prior studies. A: Olinda is a 61 year old woman admitted on 08/11/21 with Anemia and hypotension P:Olinda will likely be discharged home when medically cleared. It is unclear at this time if she will need any home health services or possibly transfer to tertiary care as it is very early in her hospital stay. She will follow up with her community providers and discharge plan of care and transport with family. CM will continue to support Olinda and assess for ongoing discharge concerns.
[2021-08-12] MEDS: LORazepam 2 MG/ML VIAL 0.5 MG IVP ×2 (12:56→18:00)
[2021-08-12 13:37] LABS: COMMENT (LAB VIEW ONLY) 123.68 mg/dL; Prot/Crea Ur Ratio 0.42
--- NOTE | 2021-08-12 15:57 | W.PM.PROGNOT ---
Date of Service Date of service: 08/12/21 Time of Service: 15:57 Assessment and Plan Assessment and plan (1) Acute anemia: Status: Acute Assessment and plan: Hgb has been stable. Due to her continued hypotension this am we decided to wait at least another day before attempting an EGD. She is on the schedule for tomorrow Will order some Miralax daily to help with constipation NPO after breakfast Subjective Subjective Interval history since last seen: Mrs Fritz has been hallucinating all day today. When I went to see her she was crying. She is overwhelmed with all the tests that were done today. He BP was low this morning in the 90's. It is slightly better this afternoon. Her Hgb has been stable No BM today. Patient states she hasn't had a BM in a while. CT scan shows some stool in the cecum and ascending colon. No stool in the descending or sigmoid colon. Exam GI Inspection: normal to inspection Palpation: soft, no hepatosplenomegaly, nontender and No ascites Auscultation: normal bowel sounds Objective Last Vital Signs Temp 97.2 F L 08/12/21 11:10 Pulse 86 08/12/21 11:14 Resp 24 08/12/21 12:00 BP 110/54 L 08/12/21 11:14 Pulse Ox 98 08/12/21 11:05 Laboratory Results - last 24 hr 08/11/21 08/11/21 08/11/21 03:50 04:10 19:00 WBC RBC Hgb 11.0 L Hct 33.9 L MCV MCH MCHC RDW Plt Count MPV Immature Gran % Neutrophils % Lymphocytes % Monocytes % Eosinophils % Basophils % Nucleated RBC % Absolute Neutrophils Absolute Lymphocytes Absolute Monocytes Absolute Eosinophils Absolute Basophils PT INR Sodium Potassium Chloride Carbon Dioxide Anion Gap BUN Creatinine Estimated GFR/1.73 m2 Glucose Calcium Phosphorus Magnesium Ur Random Creatinine 123.68 U Random Total Protein 52.0 U [place] Prot/Creat Ratio 0.42 Crossmatch See Detail 08/12/21 08/12/21 08/12/21 06:05 06:05 06:05 WBC RBC Hgb Hct MCV MCH MCHC RDW Plt Count MPV Immature Gran % Neutrophils % Lymphocytes % Monocytes % Eosinophils % Basophils % Nucleated RBC % Absolute Neutrophils Absolute Lymphocytes Absolute Monocytes Absolute Eosinophils Absolute Basophils PT INR Sodium 139 Potassium 4.4 Chloride 108 H Carbon Dioxide 18.1 L Anion Gap 12.9 H BUN 53 H D Creatinine 3.2 H D Estimated GFR/1.73 m2 14.63 Glucose 79 Calcium 9.2 Phosphorus 4.5 Magnesium 2.8 H Ur Random Creatinine U Random Total Protein U [place] Prot/Creat Ratio Crossmatch 08/12/21 08/12/21 06:05 06:05 WBC 10.31 D RBC 3.84 L Hgb 10.8 L Hct 33.6 L MCV 87.5 MCH 28.1 MCHC 32.1 RDW 15.9 H Plt Count 405 H MPV 10.8 Immature Gran % 1.6 Neutrophils % 79.4 Lymphocytes % 8.3 Monocytes % 8.6 Eosinophils % 1.6 Basophils % 0.5 Nucleated RBC % 0 Absolute Neutrophils 8.19 H Absolute Lymphocytes 0.86 L Absolute Monocytes 0.89 H Absolute Eosinophils 0.16 Absolute Basophils 0.05 PT 11.1 H D INR 1.1 Sodium Potassium Chloride Carbon Dioxide Anion Gap BUN Creatinine Estimated GFR/1.73 m2 Glucose Calcium Phosphorus Magnesium Ur Random Creatinine U Random Total Protein U [place] Prot/Creat Ratio Crossmatch
[2021-08-12 16:42] LABS: Albumin 45.2 % (55.8-66.1); Comment (See Note)
[2021-08-12] MEDS: OLANZapine 10 MG VIAL 5 MG IM (19:11)
[2021-08-12] MEDS: Water,Injection,Sterile 10 ML VIAL (19:11)
--- NOTE | 2021-08-12 21:11 | NUR.NOTE ---
Nursing Note: encouraged Rehana (daughter) to call and give us 30 mins notice when she gets ahold of a device that can facetime/zoom- she reports she thinks her sister will be bring her cell tomorrow and will call to let us know when she has access to facetime.
[2021-08-13] VITALS (9 sets, daily range): BP systolic 101–137; BP diastolic 58–88; PULSE 79–110; RESP 15–20; TEMP 36.5–37; O2SAT 95–99; BMI 30.4
[2021-08-13] MEDS: Lactated Ringers 1,000 ML 125 ML IV (03:03)
[2021-08-13 05:01] LABS: Vitamin D 25 Total 38.3 ng/mL (30-100)
[2021-08-13] MEDS: Levothyroxine 88 MCG TAB PO (06:35)
[2021-08-13 07:55] LABS: Abs Immature Grans 0.22 10^3/uL (0.0-0.06); Absolute Basophil Count 0.08 10^3/uL (0.0-0.2); Absolute Eosinophil Count 0.31 10^3/uL (0.0-0.7); Absolute Lymphocyte Count 1.14 10^3/uL (1.2-3.4); Absolute Monocyte Count 0.69 10^3/uL (0.1-0.8); Absolute Neutrophil Count 5.76 10^3/uL (1.2-6.7); Eosinophils % 3.8; HCT 34.1 % (36.0-46.0); Immature Grans % 2.7; Lymphocytes % 13.9; MCH 27.8 pg (27.0-33.0); MCHC 32.3 % (32.0-36.0); MCV 86.3 fL (80-95); MPV 10.3 fL (8.0-11.0); Monocytes % 8.4; Neutrophils % 70.2; Nucleated RBC 0 %; Platelet Count 428 10^3/uL (130-400); RBC 3.95 10^6/uL (3.93-5.22); RDW 15.5 % (11.7-14.6); RDW-SD 49.1 fL
[2021-08-13 08:04] LABS: Anion Gap 10.8 mmol/L (3-11); BUN 34 mg/dL (7-18); CO2 23.2 mmol/L (21.0-32.0); CREATININE 2.1 mg/dL (0.55-1.02); Calcium 9.4 mg/dL (8.5-10.1); Chloride 108 mmol/L (98-107); Estimated GFR 23.79 (mL/min/1.73m2); Glucose 66 mg/dL (74-106); Magnesium 1.9 mg/dL (1.8-2.4); Potassium 4.2 mmol/L (3.5-5.1); Sodium 142 mmol/L (136-145)
[2021-08-13] MEDS: Pantoprazole 40 MG VIAL IVP (08:16)
[2021-08-13] MEDS: Normal Saline 500 ML 100 ML IV (08:17)
[2021-08-13] MEDS: cefTRIAXone 1 GM/50 ML BAG IVPB (08:17)
[2021-08-13] MEDS: Normal Saline Flush 10 ML SYR IVP ×3 (08:17→20:15)
[2021-08-13 09:13] LABS: Calcium (Random Urine) 2.5 mg/dL (See Note)
--- NOTE | 2021-08-13 09:16 | PDOC.CMPRO ---
- If Service Date Differs Date of service: 08/13/21 Time of Service: 09:16 Care Management Progress Note S/O:Olinda was sitting up in a chair, waiting to go downstairs for her EGD, when CM met with her. She was calmer and much more alert and interactive today. She stated that she is feeling pretty good . CM discussed discharge plans with Olinda and she stated she did not feel she would need home health or any additional help at home. She informed CM that she had seen PT yesterday and felt that she had done well. Their assessment indicated that she could benefit from PT. A: Olinda is a 61 year old woman admitted on 08/11/21 with Anemia and hypotension P:Olinda will likely be discharged home when medically cleared. PT has recommended home health PT but Olinda is not interested at this time.She will follow up with her community providers and discharge plan of care and transport with family. CM will continue to support Olinda and assess for ongoing discharge concerns.
[2021-08-13 09:36] LABS: Immunotyping, Serum (See Note)
--- NOTE | 2021-08-13 10:16 | NUR.NOTE ---
Nursing Note: At 1000 on 08/13/21, this RN returned a call from Jeanie, the pt.'s daughter. Pt.'s daughter was updated regarding pt.'s mentation (decreased confusion/hallucinations), VS, pain level, head to toe assessment, plan of care, etc. Pt.'s daughter presented with a few questions that were answered. RN will reassess as necessary. At 1012 on 08/13/21, this RN returned a call from Rehana, the pt.'s daughter. Rehana was informed that the RN had just updated Jeanie and asked what the pt.'s daughter would like to be updated on. Pt.'s daughter stated, I guess I just want to know what's going on. Pt.'s daughter was updated regarding pt.'s mentation (decreased confusion/hallucinations), VS, pain level, head to toe assessment, plan of care, etc. Pt.'s daughter presented with a few questions that were answered. RN will reassess as necessary.
[2021-08-13] MEDS: DEXTROSE 5%-LACTATED RINGERS 1,000 ML 125 ML IV ×2 (10:27→18:13)
--- NOTE | 2021-08-13 10:46 | ANES.PREOP_ITS ---
General Info Date of Service Date Performed: 08/13/21 Height: 5 ft 3 in Weight: 77.9 kg Body Mass Index (BMI): 30.4 Surgical Procedure: Operation Date: 08/13/21 13:05 Proposed Procedures Side Surgeon p Gastroscopy Tessie Shane MD Meds Allergies and Home Medications Allergies Allergy/AdvReac Type Severity Reaction Status Date / Time amoxicillin [From Augmentin] AdvReac Intermediate Severe Verified 08/11/21 03:26 dry mouth clavulanic acid AdvReac Intermediate Severe Verified 08/11/21 03:26 [From Augmentin] dry mouth Sulfa (Sulfonamide AdvReac Intermediate SLURRED Verified 08/11/21 03:26 Antibiotics) SPEECH, DIZZY Home Medication Medication Instructions Recorded Blood Glucose Test #100 02/15/13 Lancets 1 ea MISCELLANEOUS DAILY #100 ea 02/15/13 aspirin [Aspir-81] 81 mg PO DAILY #100 tablet. 01/29/17 enalapril maleate 5 mg tablet 5 mg PO DAILY #90 tab-cap 10/08/20 amitriptyline 100 mg tablet 100 mg PO DAILY #90 tab-cap 04/27/21 amlodipine 10 mg tablet 10 mg PO DAILY #90 tab-cap 04/27/21 glipizide 5 mg tablet 5 mg PO DAILY #90 tab-cap 04/27/21 pravastatin 80 mg tablet 80 mg PO DAILY #90 tab-cap 04/27/21 allopurinol 100 mg tablet 50 mg PO DAILY #90 tab 06/08/21 cholecalciferol (vitamin D3) 25 50 mcg PO DAILY #180 cap 06/08/21 mcg (1,000 unit) capsule levothyroxine 88 mcg tablet 88 mcg PO DAILY #30 tab 06/08/21 Current Visit Medications: Current Medications Generic Name Dose Route Start Last Admin Trade Name Freq PRN Reason Stop Dose Admin Allopurinol 50 mg 08/11/21 08:30 08/13/21 08:17 Allopurinol 100 Mg Tab PO Not Given DAILY STARR Bisacodyl 5 mg 08/11/21 08:34 Bisacodyl 5 Mg Tabec PO DAILY PRN PRN Dimethicone/Zinc Oxide 0 gm 08/11/21 06:48 Lian Protect Cream 142 Gm Tube TP PRN PRN Docusate Sodium 100 mg 08/11/21 20:00 08/13/21 08:17 Docusate Sodium 100 Mg Cap PO Not Given BID STARR Ceftriaxone Sodium/Dextrose 1 gm in 50 mls @ 100 mls/hr 08/11/21 08:00 08/13/21 08:47 Rocephin IVPB Infused Q24H STARR Infusion Dextrose/Lactated Ringer's 1,000 mls @ 125 mls/hr 08/13/21 09:30 08/13/21 10:27 Dextrose 5%-Lr IV 125 mls/hr INFUSION STARR Administration Sodium Chloride 500 mls @ 0 mls/hr 08/13/21 10:36 08/13/21 09:17 Saline 500ml Bag IV 0 mls/hr PRN PRN Infusion As Directed Levothyroxine Sodium 88 mcg 08/13/21 06:00 08/13/21 06:35 Levothyroxine 88 Mcg Tab PO 88 mcg DAILY@0600 STARR Administration Pantoprazole Sodium 40 mg 08/11/21 08:00 08/13/21 08:16 Pantoprazole 40 Mg Vial IVP 40 mg Q24H STARR Administration Pravastatin Sodium 80 mg 08/12/21 20:00 08/12/21 19:57 Pravastatin 40 Mg Tab PO Not Given QPM [facility] Sennosides 1 tab 08/11/21 08:34 Senna Tab PO BID PRN PRN Sodium Chloride 0 ml 08/12/21 01:23 08/13/21 09:42 Normal Saline Flush 10 Ml Syr IVP 10 ml PRN PRN Administration PFSH Active Problems Active Problems: Problem Status Onset Code Encephalopathy acute G93.40 Hyperkalemia, diminished renal excretion E87.5 Discharge planning issues Z02.9 DVT prophylaxis Z29.9 Lesion of vertebra M89.9 Hypoalbuminemia E88.09 UTI (urinary tract infection) N39.0 Acute kidney injury superimposed on chronic kidney disease N17.9, N18.9 Hepatic steatosis K76.0 Coagulopathy D68.9 Acute on chronic blood loss anemia D62 Hypotension I95.9 Acute anemia D64.9 Hypomagnesemia E83.42 Hypokalemia E87.6 Hypocalcemia E83.51 Hypoalbuminemia E88.09 Weakness R53.1 Altered mental status R41.82 Hypovolemic shock R57.1 Bone lesion M89.9 Inflammatory polyps Urinary retention R33.9 Acute renal failure superimposed on chronic kidney disease 04/07/17 N17.9, N18.9 Chronic kidney disease, unspecified N18.9 Diabetes mellitus E11.9 Erythromelalgia 01/09/15 I73.81 Essential hypertension I10 Gout M10.9 History of tobacco use Z87.891 Hyperlipidemia 02/21/13 E78.5 Intramural leiomyoma of uterus 05/05/17 D25.1 Multinodular goiter 02/26/18 E04.2 Urinary retention 02/08/17 R33.9 Positive colorectal cancer screening using Cologuard test R19.5 Hyperuricemia E79.0 Hypothyroidism E03.9 Vitamin D deficiency E55.9 CKD (chronic kidney disease) stage 4, GFR 15-29 ml/min N18.4 Malignant neoplasm of right breast in female, estrogen receptor positive C50.911, Z17.0 Infected sebaceous cyst of skin L72.3, L08.9 Medical History Medical History (Updated 08/12/21 @ 11:39 by Sammie Pearce MD) Chronic kidney disease CKD (chronic kidney disease) stage 4, GFR 15-29 ml/min Diabetes Erythromelalgia Gout Hyperlipidemia Hypertension Hyperuricemia Hypothyroidism Infected sebaceous cyst of skin Leiomyoma of uterus Malignant neoplasm of right breast in female, estrogen receptor positive [facility] biopsy: invasive ductal carcinoma/ductal carcinoma in situ - Urinary retention Vitamin D deficiency Surgical History Surgical History History of suprapubic catheter Hx of breast lump removal R , entire breast Hx of thyroidectomy Tobacco Smoking/Tobacco Use Status: Former Tobacco Use Passive smoking exposure: Yes Second hand exposure: Yes Alcohol Alcohol Intake: never Substance Use Substance use: Never Substance use type: does not use Vital Signs and Lab Results Vital Signs Most Recent Vital Signs in EMR: Most Recent Vital Signs Temp Pulse Resp BP Pulse Ox 37.0 C 85 18 111/63 95 08/13/21 07:33 08/13/21 07:33 08/13/21 07:33 08/13/21 07:33 08/13/21 07:33 Lab Results Result Diagrams: 08/13/21 07:15 08/13/21 07:15 Blood Type / Crossmatch: Patient ABO/Rh O Positive 08/11/21 04:10 08/11/21 Antibody Screen NEGATIVE 08/11/21 04:10 08/11/21 Crossmatch See Detail 08/11/21 04:10 08/11/21 Complete Blood Count: White Blood Count 8.20 10^3/uL (4.4-10.8) 08/13/21 07:15 08/13/21 Red Blood Count 3.95 10^6/uL (3.93-5.22) 08/13/21 07:15 08/13/21 Hemoglobin 11.0 g/dL (11.2-15.7) L 08/13/21 07:15 08/13/21 Hematocrit 34.1 % (36.0-46.0) L 08/13/21 07:15 08/13/21 Platelet Count 428 10^3/uL (130-400) H 08/13/21 07:15 08/13/21 Venous Blood Lactate 0.6 mmol/L (0.6-1.4) 08/11/21 03:43 08/11/21 Complete Metabolic Panel: Sodium Level 142 mmol/L (136-145) 08/13/21 07:15 08/13/21 Potassium Level 4.2 mmol/L (3.5-5.1) 08/13/21 07:15 08/13/21 Chloride Level 108 mmol/L (98-107) H 08/13/21 07:15 08/13/21 Carbon Dioxide Level 23.2 mmol/L (21.0-32.0) 08/13/21 07:15 08/13/21 Blood Urea Nitrogen 34 mg/dL (7-18) H 08/13/21 07:15 08/13/21 Creatinine 2.1 mg/dL (0.55-1.02) H 08/13/21 07:15 08/13/21 Estimated GFR/1.73 m2 23.79 (mL/min/1.73m2) 08/13/21 07:15 08/13/21 Magnesium Level 1.9 mg/dL (1.8-2.4) 08/13/21 07:15 08/13/21 Calcium Level 9.4 mg/dL (8.5-10.1) 08/13/21 07:15 08/13/21 Albumin 1.5 g/dL (3.4-5.0) L 08/11/21 03:43 08/11/21 Glucose Level 66 mg/dL (74-106) L 08/13/21 07:15 08/13/21 Liver Function Panel: Alanine Aminotransferase (ALT/SGPT) 11 U/L (14-59) L 08/11/21 03:43 08/11/21 Aspartate Amino Transf (AST/SGOT) 34 U/L (15-37) 08/11/21 03:43 08/11/21 Coagulation Panel: INR International Normalized Ratio 1.1 (0.9-1.1) 08/12/21 06:05 08/12/21 Prothrombin Time 11.1 sec (9.3-11.0) H 08/12/21 06:05 08/12/21 Activated Partial Thromboplast Time 52.3 sec (21.0-27.5) H 08/11/21 03:43 08/11/21 Cardiac Panel: Troponin I < 0.05 ng/mL (<0.06) 08/11/21 03:43 08/11/21 CH-Yry-F-Type Natriuretic Peptide 249 pg/mL (<300) 08/11/21 03:43 08/11/21 Arterial Blood Gas: No Data to Display Venous Blood Gas: No Data to Display Pancreas Panel: No Data to Display Thyroid Panel: Thyroid Stimulating Hormone (TSH) 0.03 uIU/mL (0.36-3.74) L 08/11/21 03:43 08/11/21 Infectious Disease: Coronavirus (COVID-19)(PCR) Negative (Negative) 08/11/21 03:44 08/11/21 Coronavirus 2019 Source Nasal/Nares 08/11/21 03:44 08/11/21 Hepatitis B Surface Antigen Pending 08/12/21 06:05 08/12/21 Hepatitis C Antibody Pending 08/12/21 06:05 08/12/21 Blood Cultures: No Data to Display Toxicology Panel: No Data to Display Imaging and Studies Imaging and Studies EKG Summary: 07/2021: Sinus rhythm, prolonged DC. Anesthesia Assessment and Plan Anesthesia History Personal History: No History of Anesthesia Complications Family History: No Family History of Anesthesia Complications Exercise Tolerance Exercise Tolerance: Metabolic Equivalents>4 Pertinent Negatives Pertinent Negatives: No Symptoms of GERD, No Major Cardiovascular Symptoms or Complaints, No Major Pulmonary Symptoms or Complaints and No History of CVA/TIA Cardiac & Pulmonary Exam Cardiac Exam: Normal S1/S2 Heart Sounds Pulmonary Exam: Clear Bilateral Breath Sounds Airway Exam Known Difficult Airway: No Mallampati Class: 3 Mouth Opening: Narrow (< 3cm) Thyromental Distance: Less than 3 cm Neck Range of Motion: Full ROM Neck Circumference: Normal Teeth Condition: Removable Dentures/Plates Upper ASA Classification ASA Score: ASA 3 Emergency Case?: No NPO Status NPO Status: NPO Clears >2 hours, Solids >8 hours Anesthesia Plan Resuscitation Status: Full Code Anesthesia Technique: General Anesthesia Airway Planned: Natural Airway Monitors Used: Standard Monitors Preoperative Comments:: 61 yo female with ? UGIB for EGD. Currently in pt with anemia, hypotension, has received 2 units PRBC. Sig PMHx: CKD (GFR 15), HTN (enalapril/amlodipine), DM (glipizide), hypothyroid (on replacement), breast cancer (lumpectomy). Plan: Propofol.
[2021-08-13 11:16] LABS: HBs Antibody, Qual Negative (See Note); HBs Antibody, Quant 6.6 mIU/mL (See Note); Hepatitis B Core Antibody Negative (Negative); Hepatitis B surface Ag Negative (Negative); Hepatitis C Ab w Rflx HCV PCR Negative (Negative)
--- NOTE | 2021-08-13 13:18 | ENDO_ITS ---
Date of service: 08/13/21 Time of Service: 13:18 Endoscopy Report DATE OF PROCEDURE: 08/13/21 PRE-OP DIAGNOSIS: Anemia POST-OP DIAGNOSIS: same (gastritis and esophagitis) PROCEDURE: EGD SURGEON: Tessie Shane ANESTHESIA TYPE: General:No Airway ESTIMATED BLOOD LOSS: 0 PATHOLOGY: none sent COMPLICATIONS: None DISPOSITION: PACU INDICATIONS: Mrs Fritz was admitted to the hospital for anemia and UTI. She was hypotensive on admission. An EGD was recommended. Risks, benefits and complications were reviewed. Questions were entertained and answered to her satisfaction and she wished to proceed. FINDINGS: GAstritis and esophagitis PROCEDURE DESCRIPTION: After informed consent was obtained the patient was take to the operating room and placed in a supine position. Monitors were applied and a time out was done. The patients name, date of , procedure type, allergies to medications and metal in their body was reviewed. A bite block was placed and the patient was sedated. Once sedated and comfortable the gastroscope was advanced through the oropharynx which was grossly normal into the esophagus. The proximal and mid- esophagus were normal. In the distal esophagus there was moderate inflammation noted. The scope was advanced into the stomach and through the pylorus into the 3rd portion of the duodenum. The 3rd and second portion of the duodenum were normal. There was moderate inflammation in the 1st portion of the duodenum. The scope was retracted back into the stomach. There was moderate inflammation of the stomach. There was one ulcer noted at the pylorus. There was no evidence of bleeding. NO clots were noted. The scope was retroflexed. The cardia and fundus were noted to be normal. There was no hiatal hernia noted. The scope was retracted back into the esophagus. The Z line was slightly irregular. The GE junction was at 37 cm. The scope was removed and the patient was woken up and taken back to [facility] in stable condition. Follow up: NO signs of acute bleeding. Patient just underwent a colonoscopy in july. She should have another EGD in 1-2 months to make sure the inflammati on has resolved and the ulcer has fully healed. If there is continued bleeding then would recommend referal for capsule endoscopy. Patient also with possible lytic lesions in her bone which could cause anemia as well.
[2021-08-13 13:26] LABS: Parathyroid Hormone,Intact 21 pg/mL (19-88)
--- NOTE | 2021-08-13 14:10 | W.ANESPOSTOP ---
Postoperative Evaluation Date, Time and Location Date Performed: 08/13/21 Time Performed: 14:00 Patient Location: Med/Surg Vital Signs Most Recent Imported Vital Signs: Most Recent Vital Signs Temp Pulse Resp BP Pulse Ox 36.5 C 80 15 125/69 97 08/13/21 13:38 08/13/21 13:38 08/13/21 13:38 08/13/21 13:38 08/13/21 13:38 Pain Score Most Recent Pain Score: Most Recent Pain Score Pain Level 0 08/13/21 13:38 Assessment Mental Status: Awake (Alert & Oriented to Patient Baseline) Airway and Respiratory Function: Patent airway with normal (patient baseline) respiratory exam Cardiovascular Function: Hemodynamically Stable Hydration Status: Adequately Hydrated Nausea & Vomiting: No Nausea or Vomiting Pain: Pt. Denies Any Pain Peripheral Nerve Block: Patient did not receive a nerve block
[2021-08-13] MEDS: CIPROFLOXACIN 200 MG/100 ML BAG 100 MG IVPB (18:13)
--- NOTE | 2021-08-13 18:43 | W.PM.PROGNOT ---
Date of Service Date of service: 08/13/21 Time of Service: 18:44 Assessment and Plan Assessment and plan (1) Acute on chronic blood loss anemia: Status: Acute Assessment and plan: Suspect upper GI source, but no active bleeding was seen today. Will need to follow up with general surgery as outpatient for repeat EGD. Continue PPI/carafate. H/H stable. s/p 2 units pRBCs on this admission. (2) Hypotension: Status: Resolved Assessment and plan: D/c IVF. Qualifiers: Hypotension type: hypotension due to hypovolemia Qualified Code(s): I95.89 - Other hypotension; E86.1 - Hypovolemia (3) Encephalopathy acute: Status: Acute Assessment and plan: MRI brain negative (but done without contrast). Discussed urine C&S with microbiology: the patient is likely growing an enterobactor. For this reason, abx were changed to ciprofloxacin. Mental status is better today and this did precede the antibiotic change. (4) Coagulopathy: Status: Acute Assessment and plan: S/p Vitamin K. The patient has evidence of hepatic steatosis on CT and US. No other suspicious findings noted. (5) Hepatic steatosis: Status: Acute Assessment and plan: As above Evidence of cholelithiasis, but no cholecystitis. Await hepatitis panel. LFTs wnl. (6) Acute kidney injury superimposed on chronic kidney disease: Status: Resolved Assessment and plan: Creatinine is back to baseline. D/c IVF. (7) UTI (urinary tract infection): Status: Acute Assessment and plan: As above - enterobacter suspected. Abx changed to cipro. Suprapubic catheter replaced. Blood cultures are with NGTD. (8) Hypoalbuminemia: Status: Acute Assessment and plan: ?due to liver dysfunction vs lossess in the urine. Await urine and serum protein electrophoresis. (9) Hypokalemia: Status: Resolved Assessment and plan: Recheck in am. (10) Hypomagnesemia: Status: Resolved Assessment and plan: Recheck in am (11) Lesion of vertebra: Status: Acute Assessment and plan: Metastatic disease in multiple vertebral bodies suspected based on appearance of CT. These were not as prominent as expected on bone scan. Will need outpatient follow up. Await results urine and serum protein electropharesis. Also obtain XR of L hip and R femur as requested by radiology. (12) DVT prophylaxis: Status: Acute Assessment and plan: Patient refuses SCDs. TEDs Chemical DVT prophylaxis is contraindicated in setting of suspected GI bleeding (13) Discharge planning issues: Status: Acute Assessment and plan: Full code Anticipate discharge home tomorrow Subjective Subjective Interval history since last seen: The patient's mentation has completely cleared today. She is not having any more hallucinations. Denies dizziness, chest pain, shortness of breath, nausea. She had an EGD today which showed esophagitis, gastritis, mild duodenitis with a small ulcer, none of which was bleeding. She will need to follow up for a repeat upper endoscopy after discharge. Exam Narrative Exam Narrative: General: Pleasant middle-aged female, A&Ox3, feeling much better HEENT: EOMI, MMM Heart: RRR, no m/r/g Lungs: CTAB, dry cough Abdomen: soft, nontender, nondistended Extremities: no edema BLE's Objective Last Vital Signs Temp 36.5 C 08/13/21 14:55 Pulse 85 08/13/21 15:08 Resp 16 08/13/21 14:55 BP 125/70 08/13/21 14:55 Pulse Ox 96 08/13/21 14:55 Laboratory Results - last 24 hr 08/11/21 08/11/21 08/11/21 03:43 03:50 11:05 WBC RBC Hgb Hct MCV MCH MCHC RDW Plt Count MPV Immature Gran % Neutrophils % Lymphocytes % Monocytes % Eosinophils % Basophils % Nucleated RBC % Absolute Neutrophils Absolute Lymphocytes Absolute Monocytes Absolute Eosinophils Absolute Basophils Sodium Potassium Chloride Carbon Dioxide Anion Gap BUN Creatinine Estimated GFR/1.73 m2 Glucose Calcium Magnesium Total Protein (PEP) 6.0 L Albumin % (PEP) 45.2 L Hmoti-3-Qcithtvil (%) 10.9 H Dtvlq-8-Gmoeppavw (%) 16.3 H Beta Globulins (%) 14.2 H Gamma Globulins (%) 13.4 M-Wilbur % Not Applicable PEP Comment (See Note) 25-OH Vitamin D Total PTH Intact Ur Random Calcium 2.5 Serum Immunofixation (See Note) Hep Bs Antigen Hep Bs Antibody Hep Bs Antibody, Quant Hep B Core Total Ab Hepatitis C Antibody Path Cons Comment SEE COMMENT 08/11/21 08/12/21 08/12/21 11:05 06:05 06:05 WBC RBC Hgb Hct MCV MCH MCHC RDW Plt Count MPV Immature Gran % Neutrophils % Lymphocytes % Monocytes % Eosinophils % Basophils % Nucleated RBC % Absolute Neutrophils Absolute Lymphocytes Absolute Monocytes Absolute Eosinophils Absolute Basophils Sodium Potassium Chloride Carbon Dioxide Anion Gap BUN Creatinine Estimated GFR/1.73 m2 Glucose Calcium Magnesium Total Protein (PEP) Albumin % (PEP) Uaqwx-0-Vemimlabq (%) Celvg-3-Ayqkjxefc (%) Beta Globulins (%) Gamma Globulins (%) M-Wilbur % PEP Comment 25-OH Vitamin D Total 38.3 PTH Intact 21 Ur Random Calcium Serum Immunofixation Hep Bs Antigen Negative Hep Bs Antibody Negative Hep Bs Antibody, Quant 6.6 Hep B Core Total Ab Negative Hepatitis C Antibody Negative Path Cons Comment 08/13/21 08/13/21 07:15 07:15 WBC 8.20 RBC 3.95 Hgb 11.0 L Hct 34.1 L MCV 86.3 MCH 27.8 MCHC 32.3 RDW 15.5 H Plt Count 428 H MPV 10.3 Immature Gran % 2.7 Neutrophils % 70.2 Lymphocytes % 13.9 Monocytes % 8.4 Eosinophils % 3.8 Basophils % 1.0 Nucleated RBC % 0 Absolute Neutrophils 5.76 Absolute Lymphocytes 1.14 L Absolute Monocytes 0.69 Absolute Eosinophils 0.31 Absolute Basophils 0.08 Sodium 142 Potassium 4.2 Chloride 108 H Carbon Dioxide 23.2 Anion Gap 10.8 BUN 34 H D Creatinine 2.1 H D Estimated GFR/1.73 m2 23.79 Glucose 66 L Calcium 9.4 Magnesium 1.9 Total Protein (PEP) Albumin % (PEP) Jpwce-9-Eipepjjcb (%) Qjgsg-4-Rqfuxvzsq (%) Beta Globulins (%) Gamma Globulins (%) M-Wilbur % PEP Comment 25-OH Vitamin D Total PTH Intact Ur Random Calcium Serum Immunofixation Hep Bs Antigen Hep Bs Antibody Hep Bs Antibody, Quant Hep B Core Total Ab Hepatitis C Antibody Path Cons Comment Objective Narrative Objective Narrative: Bone scan: 1. There 2 levels of findings on this nuclear scan... Firstly, there is concerning focus of increased uptake in the subtrochanteric region of the left hip and more subtle focus of increased uptake in the midshaft of the right femur. Plain films of these 2 areas should be performed as the next step. 2. Very subtle findings on nuclear bone scan in the spine and rib cages; those in the spine less than expected, given the findings on the CT scan.
--- NOTE | 2021-08-13 19:56 | PT.INTREAT ---
Date of service: 08/13/21 Time of Service: 11:27 PT Notes Visit Reasons: Anemia,Hypotension Inpatient Physical Therapy Treatment Note [facility] Date: 08/13/2021 PRECAUTIONS: Activity as tolerated SUBJECTIVE: Olinda states that she is no longer confused, although does have questions regarding her treatment, as she does not have complete recall of the past several days. She states that she feels she is at her functional baseline at this time. OBJECTIVE: PAIN: No c/o pain BED MOBILITY/TRANSFERS Sit-stand: S Stand-sit: S GAIT Assistive Device: FWW No AD Weight bearing: Full Assist: S with FWW SBA without AD Distance: 30' with FWW 200' without AD Deviation: Minimal path deviation x1 without AD ASSESSMENT: Patient demonstrates tolerated session well without complaint. She was able to tolerate a progression in gait distance without assistive device support and with SBA. PLAN: Continue with general conditioning for improved mobility. TREATMENT CODE/TIME: 19 minutes; 11389 (11:27)
[2021-08-13] MEDS: Pravastatin 40 MG TAB 80 MG PO (20:12)
[2021-08-13] MEDS: Docusate Sodium 100 MG CAP PO (20:13)
[2021-08-14 00:06] VITALS: BP 127/74; PULSE 100; RESP 18; TEMP 36.8; O2SAT 96
[2021-08-14 03:31] VITALS: BP 123/74; PULSE 89; RESP 18; TEMP 36.6; O2SAT 97
[2021-08-14] MEDS: Normal Saline Flush 10 ML SYR IVP ×4 (05:19→08:54)
[2021-08-14] MEDS: CIPROFLOXACIN 200 MG/100 ML BAG 100 MG IVPB (05:19)
[2021-08-14] MEDS: Levothyroxine 88 MCG TAB PO (05:20)
[2021-08-14 07:31] LABS: Absolute Basophil Count 0.07 10^3/uL (0.0-0.2); Absolute Eosinophil Count 0.35 10^3/uL (0.0-0.7); Absolute Lymphocyte Count 1.27 10^3/uL (1.2-3.4); Absolute Monocyte Count 0.62 10^3/uL (0.1-0.8); Eosinophils % 4.8; HCT 34.8 % (36.0-46.0); HGB 11.2 g/dL (11.2-15.7); Immature Grans % 2.7; Lymphocytes % 17.4; MCH 27.9 pg (27.0-33.0); MCHC 32.2 % (32.0-36.0); MCV 86.6 fL (80-95); MPV 9.9 fL (8.0-11.0); Monocytes % 8.5; Neutrophils % 65.6; Nucleated RBC 0 %; Platelet Count 411 10^3/uL (130-400); RBC 4.02 10^6/uL (3.93-5.22); RDW 15.6 % (11.7-14.6); RDW-SD 49.7 fL; WBC 7.31 10^3/uL (4.4-10.8)
[2021-08-14 07:40] LABS: Anion Gap 7.6 mmol/L (3-11); BUN 28 mg/dL (7-18); CO2 27.4 mmol/L (21.0-32.0); Calcium 9.2 mg/dL (8.5-10.1); Chloride 105 mmol/L (98-107); Estimated GFR 25.16 (mL/min/1.73m2); Glucose 120 mg/dL (74-106); Magnesium 1.6 mg/dL (1.8-2.4); Potassium 3.9 mmol/L (3.5-5.1); Sodium 140 mmol/L (136-145)
[2021-08-14 07:44] VITALS: BP 123/72; PULSE 79; RESP 18; TEMP 36; O2SAT 95
[2021-08-14] MEDS: Pantoprazole 40 MG VIAL IVP (07:45)
[2021-08-14] MEDS: Allopurinol 100 MG TAB 50 MG PO (07:46)
[2021-08-14] MEDS: Docusate Sodium 100 MG CAP PO (07:46)
--- NOTE | 2021-08-14 08:34 | DI.RAD_ITS ---
Exam(s) XR HIP LT COMPLETE AP PELVIS EXAM: XR HIP LT COMPLETE AP PELVIS INDICATION: suspicious finding on bone scan. COMPARISON: CT CT CHEST/ABD/PEL WO from 08/11/[address] CHEST/ABD/PEL WO from 08/11/2021 NM NM BONE SCAN 3 PHASE from 08/12/2021 NM NM BONE SCAN 3 PHASE from 08/12/2021 TECHNIQUE: 2D digital imaging was performed. FINDINGS: Sclerotic focus inferior right ilium. No visible abnormality in the left proximal femur. Mild bilat eral acetabular spurring. IMPRESSION: Sclerotic focus inferior right ilium. No visible abnormality in the proximal left femur. DATA REPOSITORY: RADIATION DOSE DELIVERED: C
--- NOTE | 2021-08-14 08:34 | DI.RAD_ITS ---
Exam(s) XR FEMUR RT EXAM: XR FEMUR RT CLINICAL HISTORY: suspicious area on bone scan. TECHNIQUE: 2D digital imaging was performed. COMPARISON: CT CT CHEST/ABD/PEL WO from 08/11/[address] CHEST/ABD/PEL WO from 08/11/2021 NM NM BONE SCAN 3 PHASE from 08/12/2021 FINDINGS: BONES: No acute fracture is present. No bony destructive lesion is seen. Sclerotic area above the ri ght acetabulum. Visualized portion of knee and hip joints are unremarkable. SOFT TISSUE: Vascular calcification. IMPRESSION: Unremarkable radiographs of the right femur. Sclerotic focus lower right ilium. DATA REPOSITORY: RADIATION DOSE DELIVERED:
[2021-08-14] MEDS: MAGNESIUM SULFATE 2 GM/50 ML BAG IVPB (08:54)
[2021-08-14] MEDS: Magnesium Oxide 400 MG TAB PO (08:55)
--- NOTE | 2021-08-14 10:55 | PDOC.CMPRO ---
- If Service Date Differs Date of service: 08/14/21 Time of Service: 10:55 Care Management Progress Note S/O:Olinda A: Olinda is a 61 year old woman admitted on 08/11/21 with Anemia and hypotension P:Olinda will likely be discharged home when medically cleared. PT has recommended home health PT but Olinda is not interested at this time.She will follow up with her community providers and discharge plan of care and transport with family. CM will continue to support Olinda and assess for ongoing discharge concerns.
[2021-08-14 14:09] VITALS: BP 116/67; PULSE 76; RESP 18; TEMP 36.4; O2SAT 94
--- NOTE | 2021-08-14 14:22 | W.PM.DS.N ---
Date of service: 08/14/21 Time of Service: 14:23 DS: Diagnosis Discharge Diagnosis (1) Acute on chronic blood loss anemia: Status: Acute (2) UTI (urinary tract infection): Status: Acute Asessment and Plan: Due to GNR, present on admission, associated with a suprapubic catheter. (3) Hypotension: Status: Resolved (4) Encephalopathy acute: Status: Resolved (5) Coagulopathy: Status: Acute (6) Hepatic steatosis: Status: Resolved (7) Acute kidney injury superimposed on chronic kidney disease: Status: Resolved (8) Hypoalbuminemia: Status: Acute (9) Hypokalemia: Status: Resolved (10) Hypomagnesemia: Status: Resolved (11) Lesion of vertebra: Status: Acute (12) COVID-19 ruled out by laboratory testing: Status: Ruled-out Discharge Plan Disposition Patient Disposition: HOME Condition: Serious Discharge Details Reason For Visit: Anemia,Hypotension Admit Date/Time: 08/11/21 06:48 Admit Provider: Kelvin Poon Attending Provider: Kelvin Poon [facility] Course: Ms Villalobos is a 61 year old female with PMHx of frequent UTI's s/p suprapubic catheter, as well as h/o breast cancer thought to be in remission prior to this admission, NIDDM2, hypertension, who was admitted to [facility] ICU under the hospitalist service with sypmtomatic anemia and hemoglobin of 5.8. The patient reported seeing a very small amount of bright red blood per rectum a week and a half prior to admission, at the time of her last BM, as she reports frequent constipation. Of note, she had a colonoscopy with polypectomy on 07/27/21. She was admitted to the ICU for closer monitoring while receiving IVF and blood as she was hypotensive. She required a total of 2 units of pRBCs. Etiology of her bleeding was felt to be more likely upper GI bleed, and she was treated with IV protonix and carafate. She never had active bleeding on this admission. She underwent an EGD which revealed mild esophagitis, gastritis, duodenitis and a small non-bleeding duodenal ulcer. No biopsies were done, but she will need outpatient follow up with general surgery for a repeat EGD. Referral to Dr Shane is being sent. She was also found to have a UTI, and her suprapubic catheter was exchanged. She was treated with IV ceftriaxone. Her urine C&S grew two different GNR, the speciation and sensitivities of which are not available at the time of discharge. The patient was having hallucinations during her admission. Per my discussion with microbiology lab, she likely has an enterobacter growing in her urine, and empirically, before the culture results became final, she was switched to ciprofloxacin. With this change, her mental status did normalize. The patient is being discharged home with ciprofloxacin for 6 more days. Finally, her imaging on admission revealed diffuse metastatic osseous disease. Bone scan was obtained, in follow up of which XR of L hip and R femur were done, but results are not yet available. The patient will need follow up with oncology for these findings. Due to her confusion, we did obtain an MRI of the brain (without contrast due to her renal function). This was negative for metastatic disease to the brain. It is also possible that the patient's hallucinations were due to the patient's withdrawal from amitriptyline which was held while the patient was awaiting an EGD. It is being restarted at a lower dose at the time of discharge, and PCP is asked to titrate the dose up to control her symptoms in an outpatient settings. The patient never required BP medications on this admission and they are being held on discharge. Care for patient as well as completion of her discharge summary on day of discharge took 60 minutes. Home Meds and New Rx's Prescriptions: New magnesium oxide 400 mg (241.3 mg magnesium) Tablet 400 mg PO BID Qty: 20 RF: 0 docusate sodium [Colace] 100 mg Capsule 100 mg PO BID Qty: 60 RF: 0 sennosides [Senokot] 8.6 mg Tablet 8.6 mg PO BID Qty: 60 RF: 0 ciprofloxacin HCl [Cipro] 250 mg tablet 250 mg PO BID Qty: 12 RF: 0 amitriptyline 25 mg tablet 25 mg PO QHS Qty: 30 RF: 0 omeprazole 40 mg capsule,delayed release(DR/EC) 40 mg PO BID Qty: 30 RF: 0 bisacodyl [Dulcolax (bisacodyl)] 5 mg tablet,delayed release (DR/EC) 5 mg PO .q48h prn Qty: 10 RF: 0 Continued allopurinol 100 mg tablet 50 mg PO DAILY Qty: 90 RF: 1 levothyroxine 88 mcg tablet 88 mcg PO DAILY Qty: 30 RF: 2 cholecalciferol (vitamin D3) 25 mcg (1,000 unit) capsule 50 mcg PO DAILY Qty: 180 RF: 4 (DME) Blood Glucose Test 1 EACH strip 1 ea Miscellaneous DAILY Qty: 100 RF: 4 LANCETS 1 EACH EACH 1 ea Miscellaneous DAILY Qty: 100 RF: 4 glipizide 5 mg tablet 5 mg PO DAILY Qty: 90 RF: 4 pravastatin 80 mg tablet 80 mg PO DAILY Qty: 90 RF: 4 Discontinued enalapril maleate 5 mg tablet 5 mg PO DAILY Qty: 90 RF: 3 amitriptyline 100 mg tablet 100 mg PO DAILY Qty: 90 RF: 4 amlodipine 10 mg tablet 10 mg PO DAILY Qty: 90 RF: 4 aspirin [Aspir-81] 81 MG tablet,delayed release (DR/EC) 81 mg PO DAILY Qty: 100 RF: 0 Discharge Instructions Instructions: Ciprofloxacin (By mouth), Omeprazole (By mouth), Peptic Ulcer (DC), Constipation (DC), Diet for Stomach Ulcers and Gastritis (ED), Anemia (DC), Urinary Tract Infection in Older Adults (DC) Additional Instructions: Return to the hospital with any fever, bleeding, chest pain, or shortness of breath. Follow up with your PCP, with oncology, and with general surgery. Stand Alone Forms: Nursing Discharge Form Referrals: HEMATOLOGY/ONC,[facility] [place] [OTHER] - Agustina Jasso MD [Primary Care Provider] - 08/26/21 8:40 am Tessie Shane MD [ [facility] STAFF PHYSICIAN] - Activity:: Activity as Tolerated Equipment/Supplies:: No Equipment Needed Diet:: bland low acid Discharge Orders Discharge Orders: Discharge Order (Routine); Ordered 08/14/21 Ordered By: Sammie Pearce DS: Summary Time Spent with Patient providing and/or coordinating discharge services: Greater than 30 minutes Status at Discharge Functional status at discharge: independent ambulation Overall status at discharge: patient is back to baseline Mental Status: mental status grossly normal Speech and Movement: speech and movement normal Mood: congruent mood Affect: normal affect Exam Narrative Exam Narrative: General: Pleasant middle-aged female, A&Ox3, feeling much better HEENT: EOMI, MMM Heart: RRR, no m/r/g Lungs: CTAB Abdomen: soft, nontender, nondistended Extremities: no edema BLE's Psych Mental Status: mental status grossly normal Speech and Movement: speech and movement normal Mood: congruent mood Affect: normal affect DS: Data Vitals/I&O Vitals and I&O: Vital Signs Temperature 36.4 C L 08/14/21 14:09 Temperature Source Tympanic 08/14/21 14:09 Pulse 76 08/14/21 14:09 Pulse Rhythm Regular 08/14/21 08:20 Pulse 83 08/12/21 23:00 Respiratory Rate 18 08/14/21 14:09 Respiratory Effort Non-Labored 08/14/21 08:20 Respiratory Depth Normal 08/14/21 08:20 Respiratory Pattern Normal 08/14/21 08:20 Blood Pressure 116/67 08/14/21 14:09 Blood Pressure Mean 69 08/12/21 14:35 Blood Pressure Position Sitting 08/12/21 04:15 Pulse Oximetry 94 08/14/21 14:09 Oxygen Delivery Method Room Air 08/14/21 14:09 Oxygen Flow Rate 0 08/14/21 14:09 Pain Level 0 08/14/21 14:09 Comment 08/13/21 14:55 Intake & Output 08/13/21 08/14/21 08/14/21 23:59 11:59 23:59 Intake Total 1917.916 / 2703.750 Output Total 1500 / 3450 1160 / 1160 Balance 417.916 / -746.250 -1160 / -1160 Weight 67.6 kg Intake: IV 877.916 / 1663.750 Oral 1040 / 1040 Output: Urine 1500 / 3450 1150 / 1150 Stool Other: Urine Color Pale Pale Yellow Yellow Urine Appearance Clear Clear Sediment Stool Occult Blood Negative Stool Size Small Stool Characteristics Formed Data Completed and Pending Completed studies during hospitalization [Text1]: US RUQ: 1. Cholelithiasis. There are multiple mobile small gallstones in the gallbladder lumen. No gallbladder wall edema or pericholecystic fluid. No dilatation of the CBD. Patient was apparently not tender over this area during scanning today. 2. Hepatic steatosis. Correlation appropriate hepatic blood work is recommended. 3. There is no ascites. CT chest/abdomen/pelvis: 1. Quality of this study somewhat limited by motion artifact. 2. There is evidence of previous right mastectomy. Mild infiltrate is noted in the left lower lobe, not associated with pleural effusions. There are no pulmonary nodules nor intrathoracic adenopathy. 3. Cholelithiasis. No dilatation of the biliary tree 4. Chronic dilatation of the urinary tracts. Suprapubic catheter is noted in the urinary bladder. Bladder is mildly distended. 5. Diverticulosis but no evidence of acute diverticulitis. 6. There appears to be diffuse metastatic osseous disease. CT head w/o contrast: No acute intracranial findings on this noninfused CT scan of the brain. CXR: There is mild infiltrate in the left lower lobe. No pleural effusions. Distal tip of central line is in the upper right atrium. MRI brain; Study is limited by motion artifact. For, no obvious acute intracranial findings on this noninfused MRI scan of the brain. Bone scan: 1. There 2 levels of findings on this nuclear scan... Firstly, there is concerning focus of increased uptake in the subtrochanteric region of the left hip and more subtle focus of increased uptake in the midshaft of the right femur. Plain films of these 2 areas should be performed as the next step. 2. Very subtle findings on nuclear bone scan in the spine and rib cages; those in the spine less than expected, given the findings on the CT scan. Pending studies at discharge: Reads on XR L hip and R femur Urine culture results (2 different GNR, clinically responding to ciprofloxacin). Labs on day of discharge: Labs from last 24 hours 08/14/21 08/14/21 07:10 07:10 WBC 7.31 RBC 4.02 Hgb 11.2 Hct 34.8 L MCV 86.6 MCH 27.9 MCHC 32.2 RDW 15.6 H Plt Count 411 H MPV 9.9 Immature Gran % 2.7 Neutrophils % 65.6 Lymphocytes % 17.4 Monocytes % 8.5 Eosinophils % 4.8 Basophils % 1.0 Nucleated RBC % 0 Absolute Neutrophils 4.80 Absolute Lymphocytes 1.27 Absolute Monocytes 0.62 Absolute Eosinophils 0.35 Absolute Basophils 0.07 Sodium 140 Potassium 3.9 Chloride 105 Carbon Dioxide 27.4 Anion Gap 7.6 BUN 28 H Creatinine 2.0 H Estimated GFR/1.73 m2 25.16 Glucose 120 H Calcium 9.2 Magnesium 1.6 L Preliminary micro results at discharge 08/11/21 03:50 Urine Culture - Preliminary Urine - Reflex from Ua Gram Negative Evelio Gram Negative Evelio#2 08/11/21 05:15 Blood Culture - Preliminary Blood NO GROWTH 72 HOURS 08/11/21 03:43 Blood Culture - Preliminary Blood NO GROWTH 72 HOURS [facility] Medical History (Updated 08/14/21 @ 15:19 by Sammie Pearce MD) Chronic kidney disease CKD (chronic kidney disease) stage 4, GFR 15-29 ml/min Diabetes Erythromelalgia Gout Hyperlipidemia Hypertension Hyperuricemia Hypothyroidism Infected sebaceous cyst of skin Leiomyoma of uterus Malignant neoplasm of right breast in female, estrogen receptor positive [facility] biopsy: invasive ductal carcinoma/ductal carcinoma in situ - Urinary retention Vitamin D deficiency Surgical History History of suprapubic catheter Hx of breast lump removal R , entire breast Hx of thyroidectomy Family History Mother , 86 age Diabetes Hypertension Father , 67 age Cancer Sister , 63 Heart disease Sister , 55 age Dementia Brother , 59 age Cancer Lung Cancer Brother , 69 age Diabetes Heart disease Hypertension Daughter No problems noted. Daughter No problems noted. Social History Smoking/Tobacco Use Status: Former Tobacco Use tobacco type: cigarettes Quit Date: 05/31/11 Second Hand Exposure: Yes Smoking risk assessment performed?: Yes Alcohol Intake: never Drug use: Never Substance use type: does not use Household members: spouse Housing: house Communication Needs: None Do you need help understanding health information?: Never Pets and animals: No Sexually active: No Do you think of yourself as: straight/heterosexual Current gender identity: female What is your relationship status?: How often do you talk on the phone with friends or family?: twice per week How often do you get together with friends or relatives?: twice per week Do you belong to any clubs or organized social groups?: no Panel score (0-1 are the most socially isolated patients): 2 What type of physical activity do you participate in: none Seatbelt use: always Helmet use: No Drive intox or ride w/intox inventory associate and driver: No Do you feel safe at home: Yes Do you feel safe in your relationship?: Yes
[2021-08-14 15:53] LABS: Albumin, Urine % 27.2 %; Globulins, Urine % 72.8 %; Immunotyping, Urine (See Note); Total Protein Urine 32 mg/dL (See Note); Total Protein, Urine 24hrs 1024 mg/24hrs (<150); Urine Volume 3200 mL
--- NOTE | 2021-08-14 17:03 | PDOC.CMDIS ---
- If Service Date Differs Date of service: 08/14/21 Time of Service: 17:03 LACE Index Scoring Tool - Questions: Length of Stay (in days): 3 Acuity (Admit via E.D.?): Yes Comorbidities: Diabetes w/o Complication, Any Tumor, Liver or Renal Disease E.D. Visits: 1 - Answers: Total Score: 12 Risk of Readmission: High Risk Care Management Discharge Reason for Hospitalization: hypotension and anemia Discharge Plan: Olinda will be discharged home with no new services. PT has recommended home health PT but Olinda is not interested at this time.She will follow up with her community providers and discharge plan of care and transport with family. Patient/Family Education Needs: Review of discharge instructions, medications, activity, follow up plan, Ask Me Three
--- NOTE | 2021-08-18 17:56 | INDS_ITS ---
Date of service: 08/18/21 PT Notes Visit Reasons: Anemia,Hypotension Physical Therapy Inpatient Discharge Summary Date: 08/18/2021 Date of service: 08/12/2021 through 08/13/2021 This is a clinical summary of care provided for the duration of dates listed above. No charge was made in the completion of this documentation. Referring Doctor: Sammie Pearce MD PT Orders: PT CONSULT: Limited ability Precautions: Fall. Standard. Activity as tolerated. Lymphedema alert on the R upper extremity. Patient Profile/Admitting Diagnosis: Patient ia a 61-year-old female who presented to the ED on 08/11/2021 due to difficulty with GI bleed, hypotension, and confusion. Patient is diagnosed with hypotension, anemia, and vertebral lesions. Social History/Home Situation: Lives with in a private home. Independent with all mobility ADLs prior to admission without AD. Equipment Owned/DME: FWW Subjective: NT. See most recent [employer]OU[employer] M[employer]IS[employer] OPERATOR notes. Objective: General Observation: NT. See most recent [employer]OU[employer] M[employer]ISER OPERATOR notes. Mental Status: NT. See most recent [employer]OU[employer] MORTISER OPERATOR notes. Pain: NT. See most recent [employer]OU[employer] MORTISER OPERATOR notes. ROM: Right Upper Extremity: Shoulder Flexion WFL. Shoulder abduction WFL. Elbow flexion WFL. Wrist flexion WFL. Functional opening and closing of hand WFL. Left Upper Extremity: Shoulder Flexion WFL. Shoulder abduction WFL. Elbow flexion WFL. Wrist flexion WFL. Functional opening and closing of hand WFL. Right Lower Extremity: Hip flexion WFL. Hip abduction WFL. Knee flexion WFL. Ankle dorsiflexion WFL. Ankle plantarflexion WFL. Left Lower Extremity: Hip flexion WFL. Hip abduction WFL. Knee flexion WFL. Ankle dorsiflexion WFL. Ankle plantarflexion WFL. Strength: Right Upper Extremity: Shoulder flexors 4/5. Shoulder abductors 4/5. Elbow flexors 4/5. Elbow extensors 4/5. Healthcare Management Consultant strong. Left Upper Extremity: Shoulder flexors 4/5. Shoulder abductors 4/5. Elbow fl exors 4/5. Elbow extensors 4/5. Healthcare Management Consultant strong. Right Lower Extremity: Hip flexors 4/5. Hip abductors 4/5. Knee flexors 4/5. Knee extensors 4/5. Ankle dorsiflexors 4/5. Ankle plantarflexors 4/5. Left Lower Extremity: Hip flexors 4/5. Hip abductors 4/5. Knee flexors 4/5. Knee extensors 4/5. Ankle dorsiflexors 4/5. Ankle plantarflexors 4/5. Bed Mobility/Transfers: Supine to sit supervision Sit to stand supervision Stand to sit supervision Bed to reclining supervision Gait: Instructed patient with level surface ambulation of 30 feet requiring supervision. Kary decreased. Step height decreased. Step length decreased. Balance: Static Sitting: Normal Dynamic Sitting: Normal Static Standing: Fair Dynamic Standing: Fair Assessment: Patient demonstrates generalized weakness, impaired balance, and significant functional mobility decline requiring FWW with all transfers and ambulation task performance. Patient presents with clinical signs and symptoms consistent with current/admitting diagnoses that have resulted to mobility limitations, gait instability, generalized weakness, and overall ADL decline as demonstrated by the following impairment level findings: 1. Decreased strength to B UE/LE major muscle groups 2. Impaired sitting/standing balance 3. Impaired activity tolerance 4. Shortness of breath 5. Fatigue Impairments are contributing to the following functional limitations: 1. Decline in bed mobility skills 2. Decline in transfer skills 3. Difficulty with ambulation without assistive device and physical assistance 4. Increased completion time for mobility ADL performance 5. Increased risk for falls 6. Difficulty with managing steps alone safely Goals: Goals X1 week NOT MET 1. Supine-Sit independent NOT MET 2. Sit-Supine independent NOT MET 3. Sit-Stand independent NOT MET 4. Stand-Sit independent with FWW NOT MET 5. Bed-Chair independent with FWW NOT MET 6. Chair-Bed independent with FWW NOT MET 7. Independent gait on level surface with use of FWW for at least 200 feet without report of pain nor dyspnea NOT MET 8. Independent stair negotiation while holding onto B rails for at least 5 steps without report of pain nor dyspnea NOT MET 9. Good static and dynamic standing balance/tolerance NOT MET DISCHARGE RECOMMENDATIONS: Patient will benefit from home health PT services in order to progress mobility level using least restrictive assistive ambulatory device, assess home safety, identify additional equipment needs, and establish a functional maintenance program that will increase ability of patient to remain at home. TREATMENT CODE/TIME: PR Thank you for the opportunity to participate in the care of this patient. Oanh Boilvar PT, DPT, CLT [facility] [place], [place]
== END 2021-08-14 16:58 | disposition home or self-care (01) | DRG 698 ==
LOC: ER 07:50 → ICU 07:55 → MS 08-12 15:48 → ICU 08-12 16:17 → MS 08-13 00:02
PROVIDERS: Internal Medicine; Student in an Organized Health Care Education/Training Program; Surgery; Admitting Provider General Practice; Emergency Provider Student in an Organized Health Care Education/Training Program; PCP Family Medicine; Visit Provider General Practice
PROC: 0DJ68ZZ Inspection of Stomach, Via Natural or Artificial Opening Endoscopic (ICD-10-PCS; CPT 43235; principal; 2021-08-13 13:00)
DX: T83.510A Infection and inflammatory reaction due to cystostomy catheter, initial encounter (principal); K25.4 Chronic or unspecified gastric ulcer with hemorrhage; K29.61 Other gastritis with bleeding; K29.81 Duodenitis with bleeding; D62 Acute posthemorrhagic anemia; N18.4 Chronic kidney disease, stage 4 (severe); N17.9 Acute kidney failure, unspecified; C79.51 Secondary malignant neoplasm of bone; D68.9 Coagulation defect, unspecified; G93.40 Encephalopathy, unspecified; N39.0 Urinary tract infection, site not specified; Z85.3 Personal history of malignant neoplasm of breast; Z93.50 Unspecified cystostomy status; E78.00 Pure hypercholesterolemia, unspecified; E11.22 Type 2 diabetes mellitus with diabetic chronic kidney disease; Z79.82 Long term (current) use of aspirin; E86.1 Hypovolemia; E78.5 Hyperlipidemia, unspecified; I12.9 Hypertensive chronic kidney disease with stage 1 through stage 4 chronic kidney disease, or unspecified chronic kidney disease; R33.9 Retention of urine, unspecified; E55.9 Vitamin D deficiency, unspecified; I73.81 Erythromelalgia; Z87.891 Personal history of nicotine dependence; Z20.822 Contact with and (suspected) exposure to COVID-19; I95.89 Other hypotension; K76.0 Fatty (change of) liver, not elsewhere classified; E83.42 Hypomagnesemia; N13.9 Obstructive and reflux uropathy, unspecified; E83.51 Hypocalcemia; E89.0 Postprocedural hypothyroidism; E88.09 Other disorders of plasma-protein metabolism, not elsewhere classified; M1A.9XX0 Chronic gout, unspecified, without tophus (tophi); E87.5 Hyperkalemia; K59.09 Other constipation; R44.1 Visual hallucinations; K20.90 Esophagitis, unspecified without bleeding; B96.89 Other specified bacterial agents as the cause of diseases classified elsewhere
CPT/HCPCS: 43235; 51705; 36415; 36430; 36556; 36591; 71045; 71250; 73552; 80048; 80053; 82306; 84156; 84166; 86335; 86704; 86706; 86803; 86850; 86900; 86901; 86920; 87040; 87077; 87340; 87635; 93005; 96365; 96366; 96367; 96368; 97162; 97530; 99291; 70450; 70551; 73502; 74176; 76700; 78315; 81003; 81015; 81050; 82140; 82340; 82565; 83605; 83735; 83880; 83970; 84100; 84165; 84439; 84443; 84484; 85014; 85018; 85025; 85045; 85610; 85730; 86320; 87086; 87186; 93010; 99223; 99233; 99239; J0610; J0696; J0744; J2001; J2060; J3430; J3480; P9016

== ENCOUNTER 2021-10-09 01:00 | Outpatient (CLI) | payer MEDICAID, SELFPAY ==
[2021-10-09 14:25] LABS: Source Nasal/Nares
[2021-10-10 00:36] LABS: COVID-19 PCR Negative (Negative)
== END 2021-10-09 01:01 | disposition home or self-care (01) ==
LOC: LBO 01:00
PROVIDERS: PCP Family Medicine; Visit Provider Surgery
DX: Z20.822 Contact with and (suspected) exposure to COVID-19 (principal); Z01.818 Encounter for other preprocedural examination
CPT/HCPCS: 87635

== ENCOUNTER 2021-10-12 07:13 | Day surgery (SDC) | payer MEDICAID, SELFPAY ==
--- NOTE | 2021-10-12 06:20 | W.ANESPRE ---
General Info Date of Service Date Performed: 10/12/21 Height: 5 ft 3 in Weight: 69.4 kg Body Mass Index (BMI): 27.1 Surgical Procedure: Operation Date: 10/12/21 08:20 Proposed Procedures Side Surgeon p Gastroscopy Tessie Shane MD Meds Allergies and Home Medications Allergies Allergy/AdvReac Type Severity Reaction Status Date / Time amoxicillin [From Augmentin] AdvReac Intermediate Severe Verified 10/12/21 07:28 dry mouth clavulanic acid AdvReac Intermediate Severe Verified 10/12/21 07:28 [From Augmentin] dry mouth Sulfa (Sulfonamide AdvReac Intermediate SLURRED Verified 10/12/21 07:28 Antibiotics) SPEECH, DIZZY Home Medication Medication Instructions Recorded Blood Glucose Test #100 02/15/13 Lancets 1 ea MISCELLANEOUS DAILY #100 ea 02/15/13 glipizide 5 mg tablet 5 mg PO DAILY #90 tab-cap 04/27/21 pravastatin 80 mg tablet 80 mg PO DAILY #90 tab-cap 04/27/21 allopurinol 100 mg tablet 50 mg PO DAILY #90 tab 06/08/21 cholecalciferol (vitamin D3) 25 50 mcg PO DAILY #180 cap 06/08/21 mcg (1,000 unit) capsule bisacodyl [Dulcolax (bisacodyl)] 5 mg PO .q48h prn #10 tab 08/14/21 docusate sodium [Colace] 100 mg PO BID #60 cap 08/14/21 sennosides [Senokot] 8.6 mg PO BID #60 tab 08/14/21 levothyroxine 75 mcg capsule 75 mcg PO DAILY #30 cap 08/26/21 omeprazole 40 mg capsule,delayed 40 mg PO DAILY #60 cap 08/26/21 release amitriptyline 25 mg tablet 25 mg PO QHS #30 tab 09/07/21 enalapril maleate 5 mg tablet 5 mg PO DAILY #30 tab 09/23/21 magnesium oxide 400 mg (241.3 mg 400 mg PO BID #60 tab 09/23/21 magnesium) tablet Current Visit Medications: Current Medications Generic Name Dose Route Start Last Admin Trade Name Freq PRN Reason Stop Dose Admin Ringer's Solution 1,000 mls @ 80 mls/hr 10/12/21 06:00 IV 11/08/21 23:59 INFUSION [facility] IV Miscellaneous Supplies 1 each 10/12/21 06:00 Iv Access IV 11/08/21 23:59 DIRECTED STARR Sodium Chloride 0 ml 10/12/21 06:00 Normal Saline Flush 10 Ml Syr IV 11/08/21 23:59 PRN PRN Sodium Chloride 0 ml 10/12/21 06:00 Normal Saline 10 Ml Vial IJ 11/08/21 23:59 DIRECTED PRN Sterile Water 0 ml 10/12/21 06:00 Water,Injection,Sterile 10 Ml Vial IJ 11/08/21 23:59 DIRECTED PRN PFSH Active Problems Active Problems: Problem Status Onset Code Sepsis due to gram-negative UTI A41.50, N39.0 Encephalopathy acute G93.40 Hyperkalemia, diminished renal excretion E87.5 Lesion of vertebra M89.9 Hypoalbuminemia E88.09 UTI (urinary tract infection) N39.0 Acute kidney injury superimposed on chronic kidney disease N17.9, N18.9 Hepatic steatosis K76.0 Coagulopathy D68.9 Acute on chronic blood loss anemia D62 Hypotension I95.9 Hypomagnesemia E83.42 Hypokalemia E87.6 Hypocalcemia E83.51 Hypoalbuminemia E88.09 Hypovolemic shock R57.1 Bone lesion M89.9 Inflammatory polyps ~07/2021 Urinary retention R33.9 Acute renal failure superimposed on chronic kidney disease 02/04/17 N17.9, N18.9 Chronic kidney disease, unspecified N18.9 Diabetes mellitus E11.9 Erythromelalgia 01/09/15 I73.81 Essential hypertension I10 Gout M10.9 History of tobacco use Z87.891 Hyperlipidemia 02/21/13 E78.5 Intramural leiomyoma of uterus 05/05/17 D25.1 Multinodular goiter 02/26/18 E04.2 Urinary retention 02/08/17 R33.9 Positive colorectal cancer screening using Cologuard test R19.5 Hypothyroidism E03.9 Vitamin D deficiency E55.9 CKD (chronic kidney disease) stage 4, GFR 15-29 ml/min N18.4 Malignant neoplasm of right breast in female, estrogen receptor positive C50.911, Z17.0 Medical History Medical History Chronic kidney disease CKD (chronic kidney disease) stage 4, GFR 15-29 ml/min Diabetes Erythromelalgia Essential hypertension Gout Hepatic steatosis Hyperlipidemia Hypothyroidism Inflammatory polyps (~07/2021) Intramural leiomyoma of uterus (05/05/17) Leiomyoma of uterus Malignant neoplasm of right breast in female, estrogen receptor positive [facility] [place] biopsy: invasive ductal carcinoma/ductal carcinoma in situ - Multinodular goiter (02/26/18) [facility] [place] 02-16-2018 / tx= total thyroidectomy to be scheduled after tx of breast cancer - one nodule displaces left cartotid and causes tracheal compression (pt is asymptomatic) Urinary retention Vitamin D deficiency Surgical History Surgical History History of colonoscopy (~07/2021) History of suprapubic catheter Hx of breast lump removal R , entire breast Hx of thyroidectomy Tobacco Smoking/Tobacco Use Status: Former Tobacco Use Passive smoking exposure: Yes Second hand exposure: Yes Alcohol Alcohol Intake: never Substance Use Substance use: Never Substance use type: does not use Vital Signs and Lab Results Vital Signs Most Recent Vital Signs in EMR: Temp Pulse Resp BP Pulse Ox 36.7 C 92 H 18 161/86 H 97 10/12/21 07:42 10/12/21 07:42 10/12/21 07:42 10/12/21 07:42 10/12/21 07:42 Lab Results Blood Type / Crossmatch: No Data to Display Complete Blood Count: No Data to Display Complete Metabolic Panel: No Data to Display Liver Function Panel: No Data to Display Coagulation Panel: No Data to Display Cardiac Panel: No Data to Display Arterial Blood Gas: No Data to Display Venous Blood Gas: No Data to Display Pancreas Panel: No Data to Display Thyroid Panel: No Data to Display Infectious Disease: Coronavirus (COVID-19)(PCR) Negative (Negative) 10/09/21 10:53 10/09/21 Coronavirus 2019 Source Nasal/Nares 10/09/21 10:53 10/09/21 Blood Cultures: No Data to Display Toxicology Panel: No Data to Display Imaging and Studies Imaging and Studies Study information below may be from another EMR and interpreted by another provider. Please see original notes in EMR for more complete details. EKG Summary: 07/2021: Sinus rhythm, prolonged NH. Anesthesia Assessment and Plan Anesthesia History Personal History: No History of Anesthesia Complications Family History: No Family History of Anesthesia Complications Exercise Tolerance Exercise Tolerance: Metabolic Equivalents>4 Cardiac & Pulmonary Exam Cardiac Exam: Normal S1/S2 Heart Sounds Pulmonary Exam: Clear Bilateral Breath Sounds Implantable Cardiac Device Does patient have a Pacemaker or an ICD?: No Airway Exam Known Difficult Airway: No Mallampati Class: 3 Mouth Opening: Narrow (< 3cm) Thyromental Distance: Less than 3 cm Neck Range of Motion: Full ROM Neck Circumference: Normal Teeth Condition: Removable Dentures/Plates Upper ASA Classification ASA Score: ASA 2 Emergency Case?: No NPO Status NPO Status: NPO Clears >2 hours, Solids >8 hours Anesthesia Plan Resuscitation Status: Full Code Anesthesia Technique: General Anesthesia Airway Planned: Natural Airway Monitors Used: Standard Monitors Preoperative Comments:: 61 yo female with anemia and gastric ulcer. here for follow up EGD to see if ulcer has healed. Sig PMHx: CKD (GFR 15), HTN (enalapril/amlodipine), DM (glipizide), hypothyroid (on replacement), breast cancer (lumpectomy). Previous Anes: EGD with 50 of prop, and gtt at 200. Plan: Propofol.
--- NOTE | 2021-10-12 06:33 | HPE_ITS ---
Date of service: 10/12/21 Time of Service: 08:01 Assessment and Plan Assessment and plan (1) Anemia: Status: Chronic Assessment and plan: Ms Villalobos is a 58-year-old female who was admitted to the hospital with severe anemia and sepsis due to a urinary tract infection. She underwent upper endoscopy which showed some mild gastritis and a small ulcer. No active bleeding was identified. She had just undergone a colonoscopy a couple weeks prior to that. The patient never had melena or hematochezia. She has been on omeprazole 40 mg twice daily since admission to the hospital. Recommended a follow-up upper endoscopy just to make sure that her ulcer has healed. Risks, benefits and complications were reviewed with her as well as the procedure itself. Risks, benefits and complications have been reviewed. Complications include but are not limited to bleeding, pain, perforation, sore throat, aspiration, and adverse reaction to the medications. Questions were entertained and answered to their satisfaction and they wished to proceed. No guarantees were given or implied. Proceed with EGD under sedation Qualifiers: Anemia type: iron deficiency Iron deficiency anemia type: unspecified iron deficiency Qualified Code(s): D50.9 - Iron deficiency anemia, unspecified History of Present Illness Narrative: Ms Villalobos is back to see me today after being discharged from the hospital for a urinary tract infection and severe anemia. She underwent an upper endoscopy on August 13 which showed some gastritis and a small ulcer. There was no active bleeding at the time. The patient never had melena or hematochezia before or while in the hospital. She had undergone a colonoscopy in July of this year. The colonoscopy showed 1 polyp and some diverticulosis. She is feeling well at this time. She is not having any abdominal pain. She does not have any GERD symptoms. She continues to take omeprazole 40 mg twice a day as prescribed in the hospital. She is also being worked up for them some possible lytic lesions in her bone noted on CT scan. A referral was sent to oncology regarding these. She has not yet heard from oncology. I reviewed with the patient the upper endoscopy results. I am still not sure that her gastritis and small ulcer were the reason for a hemoglobin of 5.2 on admission. Because she did have an ulcer I do think it would be worthwhile doin g another upper endoscopy and this time do some biopsies to rule out H. pylori. I did review with the patient reasons for somebody to be anemic. Blood loss is the #1 cause but again she had a colonoscopy a couple of weeks prior to her admission which was really normal except for 1 polyp. She never had any melena or hematochezia. Her upper endoscopy really showed some mild inflammation and a small ulcer which I do not think caused her hemoglobin to drop like this. The other 2 reasons would be that she is breaking down her blood faster than she can make it or that her bone marrow is no longer making the blood cells. No changes since she was seen in the office Review of Systems Constitutional Constitutional: Denies fever(s) Cardiovascular Cardiovascular: Denies chest pain, Denies chest pain at rest, Denies irregular heart rhythm, Denies dyspnea and Denies dyspnea on exertion Respiratory Respiratory: Denies cough, Denies dyspnea and Denies dyspnea on exertion Gastrointestinal Gastrointestinal: Reports as per HPI Genitourinary Genitourinary: Denies dysuria, Denies urinary incontinence and Denies urinary urgency Endocrine Endocrine: Reports system reviewed and no additional complaints, except as documented Hematologic/Lymphatic Hematologic/Lymphatic: Denies easy bruising and Denies lymphadenopathy PFSH All Active Problems Anemia (Chronic) Sepsis due to gram-negative UTI (Acute) Hyperkalemia, diminished renal excretion (Acute) Lesion of vertebra (Acute) Hypoalbuminemia (Acute) UTI (urinary tract infection) (Acute) Coagulopathy (Acute) Acute on chronic blood loss anemia (Acute) Hypocalcemia (Acute) Hypoalbuminemia (Acute) Hypovolemic shock (Acute) Bone lesion (Acute) Urinary retention (Chronic) Acute renal failure superimposed on chronic kidney disease (Acute 02/04/17) Chronic kidney disease, unspecified (Acute) Diabetes mellitus (Acute) Erythromelalgia (Acute 01/09/15) Gout (Acute) History of tobacco use (Acute) Hyperlipidemia (Acute 02/21/13) Urinary retention (Acute 02/08/17) Positive colorectal cancer screening using Cologuard test (Acute) Medical History Chronic kidney disease CKD (chronic kidney disease) stage 4, GFR 15-29 ml/min Diabetes Erythromelalgia Essential hypertension Gout Hepatic steatosis Hyperlipidemia Hypothyroidism Inflammatory polyps (~07/2021) Intramural leiomyoma of uterus (05/05/17) Leiomyoma of uterus Malignant neoplasm of right breast in female, estrogen receptor positive [facility] [place]: invasive ductal carcinoma/ductal carcinoma in situ - Multinodular goiter (02/26/18) [facility] [place] 02-16-2018 / tx= total thyroidectomy to be scheduled after tx of breast cancer - one nodule displaces left cartotid and causes tracheal compression (pt is asymptomatic) Urinary retention Vitamin D deficiency Surgical History History of colonoscopy (~07/2021) History of suprapubic catheter Hx of breast lump removal R , entire breast Hx of thyroidectomy Family History Mother , 86 age Diabetes Hypertension Father , 67 age Cancer Sister , 63 Heart disease Sister , 55 age Dementia Brother , 59 age Cancer Lung Cancer Brother , 69 age Diabetes Heart disease Hypertension Daughter No problems noted. Daughter No problems noted. Social History Smoking/Tobacco Use Status: Former Tobacco Use tobacco type: cigarettes Quit Date: 05/31/11 Second Hand Exposure: Yes Smoking risk assessment performed?: Yes Alcohol Intake: never Drug use: Never Substance use type: does not use Household members: spouse Housing: house Communication Needs: None Do you need help understanding health information?: Never Pets and animals: No Sexually active: No Do you think of yourself as: straight/heterosexual Current gender identity: female What is your relationship status?: How often do you talk on the phone with friends or family?: twice per week How often do you get together with friends or relatives?: twice per week Do you belong to any clubs or organized social groups?: no Panel score (0-1 are the most socially isolated patients): 2 What type of physical activity do you participate in: none Seatbelt use: always Helmet use: No 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 Do you feel safe at home: Yes Do you feel safe in your relationship?: Yes Meds Allergies and Home Medications Allergies Allergy/AdvReac Type Severity Reaction Status Date / Time amoxicillin [From Augmentin] AdvReac Intermediate Severe Verified 10/12/21 07:28 dry mouth clavulanic acid AdvReac Intermediate Severe Verified 10/12/21 07:28 [From Augmentin] dry mouth Sulfa (Sulfonamide AdvReac Intermediate SLURRED Verified 10/12/21 07:28 Antibiotics) SPEECH, DIZZY Home Medications Medication Instructions Recorded Confirmed Type Blood Glucose Test #100 02/15/13 10/09/21 History Lancets 1 ea MISCELLANEOUS DAILY #100 ea 02/15/13 10/09/21 History glipizide 5 mg tablet 5 mg PO DAILY #90 tab-cap 04/27/21 10/12/21 Rx pravastatin 80 mg tablet 80 mg PO DAILY #90 tab-cap 04/27/21 10/12/21 Rx allopurinol 100 mg tablet 50 mg PO DAILY #90 tab 06/08/21 10/12/21 Rx cholecalciferol (vitamin D3) 25 50 mcg PO DAILY #180 cap 06/08/21 10/12/21 Rx mcg (1,000 unit) capsule bisacodyl [Dulcolax (bisacodyl)] 5 mg PO .q48h prn #10 tab 08/14/21 10/12/21 Rx docusate sodium [Colace] 100 mg PO BID #60 cap 08/14/21 10/12/21 Rx sennosides [Senokot] 8.6 mg PO BID #60 tab 08/14/21 10/12/21 Rx levothyroxine 75 mcg capsule 75 mcg PO DAILY #30 cap 08/26/21 10/12/21 Rx omeprazole 40 mg capsule,delayed 40 mg PO DAILY #60 cap 08/26/21 10/12/21 Rx release amitriptyline 25 mg tablet 25 mg PO QHS #30 tab 09/07/21 10/12/21 Rx enalapril maleate 5 mg tablet 5 mg PO DAILY #30 tab 09/23/21 10/12/21 Rx magnesium oxide 400 mg (241.3 mg 400 mg PO BID #60 tab 09/23/21 10/12/21 Rx magnesium) tablet Exam Const General: healthy appearing and comfortable Resp Effort & Inspection: normal respiratory effort Auscultation: clear to auscultation bilaterally Cardio Rate: regular rate Rhythm: regular rhythm Heart Sounds: no click, no gallops and no murmurs
--- NOTE | 2021-10-12 06:37 | ENDO_ITS ---
Date of service: 10/12/21 Time of Service: 08:29 Endoscopy Report DATE OF PROCEDURE: 10/12/21 PRE-OP DIAGNOSIS: Gastric ulcer, anemia POST-OP DIAGNOSIS: other (mild inflammation) PROCEDURE: EGD with biopsies SURGEON: Tessie Shane ANESTHESIA TYPE: General:No Airway (Geo Montoya CRNA) ESTIMATED BLOOD LOSS: 2 PATHOLOGY: other (Duodenum bx, antrum bx, GE junction bx) COMPLICATIONS: None DISPOSITION: same day INDICATIONS: Ms Villalobos is a 58-year-old female who was admitted to the hospital with severe anemia and sepsis due to a urinary tract infection. She underwent upper endoscopy which showed some mild gastritis and a small ulcer. No active bleeding was identified. She had just undergone a colonoscopy a couple weeks prior to that. The patient never had melena or hematochezia. She has been on omeprazole 40 mg twice daily since admission to the hospital. Recommended a follow-up upper endoscopy just to make sure that her ulcer has healed. Risks, benefits and complications were reviewed with her as well as the procedure itself. Risks, benefits and complications have been reviewed. Complications include but are not limited to bleeding, pain, perforation, sore throat, aspiration, and adverse reaction to the medications. Questions were entertained and answered to their satisfaction and they wished to proceed. No guarantees were given or implied. Proceed with EGD under sedation FINDINGS: Mild inflammation of the duodenum and antrum some retained food in the antrum PROCEDURE DESCRIPTION: After informed consent was obtained the patient was take to the procedure room and placed in a supine position. Monitors were applied and a time out was done. The patients name, date of , procedure type, allergies to medications and metal in their body was reviewed. A bite block was placed and the patient was sedated. Once sedated and comfortable the gastroscope was advanced through the oropharynx which was grossly normal into the esophagus. The proximal and mid- esophagus were normal. In the distal esophagus there was mild noted. The scope was advanced into the stomach and through the pylorus into the 3rd portion of the duodenum. The duodenum was noted to have mild inflammation. Biopsies were done. The scope was retracted back into the stomach. There was some retained food and mild inflammation. Biopsies were done to rule out H. pylori. There were no ulcers. The scope was retroflexed. The cardia and fundus were noted to be normal. There was no hiatal hernia noted. The scope was retracted back into the esophagus and biopsies were done of the GE junction to rule out Hawkins's. The Z line was regular. The GE junction was at 35 cm. The scope was removed and the patient was woken up and taken back to [facility] in stable condition. Follow up: I will call with results. Continue on current PPI
--- NOTE | 2021-10-12 06:38 | W.PM.DSUDISC ---
Discharge Plan Disposition Patient Disposition: HOME Condition: Good Discharge Details Reason For Visit: EGD Attending Provider: Tessie Shane Primary Care Provider: Remi Guillen Home Meds and New Rx's Prescriptions: Continued allopurinol 100 mg tablet 50 mg PO DAILY Qty: 90 RF: 1 cholecalciferol (vitamin D3) 25 mcg (1,000 unit) capsule 50 mcg PO DAILY Qty: 180 RF: 4 levothyroxine 75 mcg capsule 75 mcg PO DAILY Qty: 30 RF: 3 omeprazole 40 mg capsule,delayed release(DR/EC) 40 mg PO DAILY Qty: 60 RF: 3 enalapril maleate 5 mg tablet 5 mg PO DAILY Qty: 30 RF: 3 magnesium oxide 400 mg (241.3 mg magnesium) tablet 400 mg PO BID Qty: 60 RF: 0 (DME) Blood Glucose Test 1 EACH strip 1 ea Miscellaneous DAILY Qty: 100 RF: 4 LANCETS 1 EACH EACH 1 ea Miscellaneous DAILY Qty: 100 RF: 4 glipizide 5 mg tablet 5 mg PO DAILY Qty: 90 RF: 4 pravastatin 80 mg tablet 80 mg PO DAILY Qty: 90 RF: 4 amitriptyline 25 mg tablet 25 mg PO QHS Qty: 30 RF: 2 docusate sodium [Colace] 100 mg Capsule 100 mg PO BID Qty: 60 RF: 0 sennosides [Senokot] 8.6 mg Tablet 8.6 mg PO BID Qty: 60 RF: 0 Discontinued bisacodyl [Dulcolax (bisacodyl)] 5 mg tablet,delayed release (DR/EC) 5 mg PO .q48h prn Qty: 10 RF: 0 Discharge Instructions Additional Instructions: Findings: mild inflammation of the stomach and small bowel. NO ulcer noted Follow up: Continue with the omeprazole I will call you with results. No bleeding Please call if you develop: fevers >101.5 Nausea or Vomiting Abdominal pain that is not transient Rectal bleeding that is more then a tbsp A hard abdomen and inability to pass gas DAY SURGERY UNIT POST ENDOSCOPY INSTRUCTIONS Instructions for everyone who is given Anesthesia: For your safety, please do the following for the next 24 Hours: a. Do not drive or operate dangerous equipment b. Do not drink alcohol beverages or use any recreational drugs for the first 24 hours or while taking pain medications. The medications in your body may have a reaction that can be dangerous. c. Do not make any important decisions or sign any important papers 1. Generally there are no restrictions on your activity after a day or so has gone by, but you may feel a bit fatigued for a few days. 2. After you arrive home you may have a light meal and return to a normal diet as you can tolerate it without feeling sick to your stomach. 3. After surgery, you may feel pain or discomfort. This should be only transient, but if it persists please contact your doctor. 4. If there are any questions regarding the findings of your procedure, please feel free to contact your doctor. 6. If you are unable to contact your doctor with a problem, contact the hospital at [phone]. 7. Continue all your regular medications unless directed otherwise. I understand the above instructions and have no questions. Signature of Patient or Responsible Adult Escort Date/Time Name of Responsible Adult Escort Signature of Nurse Date/Time Activity:: Activity as Tolerated Diet:: As Tolerated Discharge Orders Discharge Orders: Discharge Order (Routine); Ordered 10/12/21 Ordered By: Tessie Shane DS: Diagnosis Discharge Diagnosis (1) Anemia: Status: Chronic
[2021-10-12 07:42] VITALS: BP 161/86; PULSE 92; RESP 18; TEMP 36.7; O2SAT 97
[2021-10-12 08:02] VITALS: BMI 27.1
[2021-10-12] MEDS: Lactated Ringers 1,000 ML 80 ML IV (08:02)
--- NOTE | 2021-10-12 08:20 | STOM_PTH ---
PATIENT: Olinda Villalobos LOC: [facility] U#:[id number] AGE/SX: 61/F ROOM: RE10/12/[address]: Tessie Shane MD : 1960 BED: DIS: 10/12/2021 SPEC #: [id number] RECD: 10/12/21 12:36 STATUS: AUBREE RE #: [id number] MIROSLAVA: 10/12/21 08:[address]: Tessie Shane DEPT: Surgical Specimen RECD BY: Fatmata Garcia ENTERED: 10/12/21 12:38 SP TYPE: STOMACH OTHR DR: Remi Guillen Tissues: 1 - BIOPSY BOWEL 2 - STOMACH BIOPSY 3 - STOMACH BIOPSY 4 - ESOPHAGUS BIOPSY Procedures: GROSS AND MICRO LEVEL 4 Comments: [id number]
[2021-10-12 08:30] VITALS: BP 130/80; PULSE 96; RESP 18; TEMP 36.9; O2SAT 95
--- NOTE | 2021-10-12 08:59 | W.ANESPOSTOP ---
Postoperative Evaluation Date, Time and Location Date Performed: 10/12/21 Time Performed: 08:45 Patient Location: Day Surgery Unit Vital Signs Most Recent Imported Vital Signs: Most Recent Vital Signs Temp Pulse Resp BP Pulse Ox 36.9 C 96 H 18 130/80 95 10/12/21 08:30 10/12/21 08:30 10/12/21 08:30 10/12/21 08:30 10/12/21 08:30 Pain Score Most Recent Pain Score: Most Recent Pain Score Pain Level 0 10/12/21 08:30 Assessment Mental Status: Awake (Alert & Oriented to Patient Baseline) Airway and Respiratory Function: Patent airway with normal (patient baseline) respiratory exam Cardiovascular Function: Hemodynamically Stable Hydration Status: Adequately Hydrated Nausea & Vomiting: No Nausea or Vomiting Pain: Pt. Denies Any Pain Peripheral Nerve Block: Patient did not receive a nerve block
[2021-10-12 09:00] VITALS: BP 154/85; PULSE 76; RESP 18; TEMP 36.5; O2SAT 99
[2021-10-12 09:07] LABS: HCT 33.9 % (36.0-46.0); HGB 10.8 g/dL (11.2-15.7); MCH 28.8 pg (27.0-33.0); MCHC 31.9 % (32.0-36.0); MCV 90.4 fL (80-95); MPV 10.1 fL (8.0-11.0); Nucleated RBC 0 %; Platelet Count 220 10^3/uL (130-400); RBC 3.75 10^6/uL (3.93-5.22); RDW 14.4 % (11.7-14.6); RDW-SD 47.2 fL; WBC 2.49 10^3/uL (4.4-10.8)
[2021-10-12 09:53] LABS: Absolute Neutrophil Count 1.17 10^3/uL (1.2-6.7)
[2021-10-12 09:54] LABS: Absolute Eosinophil Count 0.22 10^3/uL (0.0-0.7); Absolute Lymphocyte Count 0.95 10^3/uL (1.2-3.4); Absolute Monocyte Count 0.15 10^3/uL (0.1-0.8); Atypical Lymphocytes % 9; Diff Comment Manual Differential; RBC Morphology Normal
[2021-10-12 10:04] LABS: ALT 15 U/L (14-59); AST 13 U/L (15-37); Albumin 3.5 g/dL (3.4-5.0); Alkaline Phosphatase 132 U/L (46-116); Anion Gap 7.5 mmol/L (3-11); BUN 31 mg/dL (7-18); Bilirubin, Total 0.3 mg/dL (0.2-1.0); CO2 27.5 mmol/L (21.0-32.0); CREATININE 2.4 mg/dL (0.55-1.02); Calcium 8.8 mg/dL (8.5-10.1); Chloride 105 mmol/L (98-107); Estimated GFR 20.39 (mL/min/1.73m2); Glucose 176 mg/dL (74-106); Potassium 4.8 mmol/L (3.5-5.1); Sodium 140 mmol/L (136-145); TSH 3.74 uIU/mL (0.36-3.74); Total Protein 7.1 g/dL (6.4-8.2); Uric Acid 5.6 mg/dL (2.6-6.0)
[2021-10-13 15:10] LABS: Cancer Ag 15-3 35 U/mL (<30)
== END 2021-10-12 09:29 | disposition home or self-care (01) ==
LOC: SUR 07:14
PROVIDERS: Internal Medicine Hematology & Oncology; PCP Family Medicine; Visit Provider Surgery
PROC: 0DJ68ZZ Inspection of Stomach, Via Natural or Artificial Opening Endoscopic (ICD-10-PCS; CPT 43235; principal; 2021-10-12 08:15)
DX: Z09 Encounter for follow-up examination after completed treatment for conditions other than malignant neoplasm; D50.9 Iron deficiency anemia, unspecified; Z87.11 Personal history of peptic ulcer disease; E11.22 Type 2 diabetes mellitus with diabetic chronic kidney disease; N18.4 Chronic kidney disease, stage 4 (severe); I12.9 Hypertensive chronic kidney disease with stage 1 through stage 4 chronic kidney disease, or unspecified chronic kidney disease; Z85.3 Personal history of malignant neoplasm of breast; E89.0 Postprocedural hypothyroidism; K31.89 Other diseases of stomach and duodenum; K21.00 Gastro-esophageal reflux disease with esophagitis, without bleeding
CPT/HCPCS: 43239; 36415; 80053; 86304; 88305; 84443; 84550; 85025; 86300; J2704

== ENCOUNTER 2021-10-26 11:19 | Outpatient (CLI) | payer MEDICAID, SELFPAY ==
[2021-10-26 10:59] LABS: Absolute Eosinophil Count 0.07 10^3/uL (0.0-0.7); Absolute Lymphocyte Count 1.16 10^3/uL (1.2-3.4); MCH 30.1 pg (27.0-33.0); MCHC 33.3 % (32.0-36.0); MCV 90.4 fL (80-95); MPV 9.2 fL (8.0-11.0); Nucleated RBC 0 %; Platelet Count 226 10^3/uL (130-400); RBC 3.65 10^6/uL (3.93-5.22); RDW-SD 46.5 fL; WBC 2.19 10^3/uL (4.4-10.8)
[2021-10-26 11:14] LABS: Bands % 1
[2021-10-26 11:15] LABS: Absolute Basophil Count 0.07 10^3/uL (0.0-0.2); Diff Comment Manual Differential; RBC Morphology Normal
[2021-10-26 11:51] LABS: ALT 20 U/L (14-59); AST 16 U/L (15-37); Albumin 3.9 g/dL (3.4-5.0); Alkaline Phosphatase 133 U/L (46-116); Anion Gap 12.8 mmol/L (3-11); BUN 35 mg/dL (7-18); Bilirubin, Total 0.4 mg/dL (0.2-1.0); CO2 24.2 mmol/L (21.0-32.0); CREATININE 2.5 mg/dL (0.55-1.02); Chloride 102 mmol/L (98-107); Estimated GFR 19.45 (mL/min/1.73m2); Glucose 179 mg/dL (74-106); Potassium 4.3 mmol/L (3.5-5.1); Sodium 139 mmol/L (136-145); Total Protein 7.7 g/dL (6.4-8.2)
[2021-10-26 12:04] LABS: TSH 6.97 uIU/mL (0.36-3.74)
[2021-10-28 11:02] LABS: Cancer Ag 15-3 37 U/mL (<30)
== END 2021-10-26 11:20 | disposition home or self-care (01) ==
PROVIDERS: Family Medicine; PCP Family Medicine; Visit Provider Internal Medicine Hematology & Oncology
DX: E03.9 Hypothyroidism, unspecified (principal); C50.911 Malignant neoplasm of unspecified site of right female breast
CPT/HCPCS: 36415; 80048; 80053; 86304; 84443; 85025; 86300; 86301

== ENCOUNTER 2021-11-09 04:21 | Outpatient (CLI) | payer MEDICAID, SELFPAY ==
[2021-11-09 08:54] LABS: Absolute Basophil Count 0.09 10^3/uL (0.0-0.2); HCT 33.4 % (36.0-46.0); HGB 10.7 g/dL (11.2-15.7); MCH 30.6 pg (27.0-33.0); MCV 95.4 fL (80-95); MPV 9.8 fL (8.0-11.0); Nucleated RBC 0 %; Platelet Count 342 10^3/uL (130-400); RDW 16.6 % (11.7-14.6); WBC 2.27 10^3/uL (4.4-10.8)
[2021-11-09 09:08] LABS: Absolute Eosinophil Count 0.11 10^3/uL (0.0-0.7); Absolute Lymphocyte Count 1.04 10^3/uL (1.2-3.4); Absolute Monocyte Count 0.07 10^3/uL (0.1-0.8); Absolute Neutrophil Count 0.95 10^3/uL (1.2-6.7); Atypical Lymphocytes % 4; Diff Comment Manual Differential; RBC Morphology Normal
[2021-11-09 09:37] LABS: ALT 20 U/L (14-59); AST 16 U/L (15-37); Albumin 4.2 g/dL (3.4-5.0); Alkaline Phosphatase 138 U/L (46-116); Anion Gap 10.4 mmol/L (3-11); BUN 41 mg/dL (7-18); Bilirubin, Total 0.3 mg/dL (0.2-1.0); CO2 26.6 mmol/L (21.0-32.0); CREATININE 3.2 mg/dL (0.55-1.02); Calcium 9.2 mg/dL (8.5-10.1); Chloride 102 mmol/L (98-107); Estimated GFR 14.63 (mL/min/1.73m2); Glucose 134 mg/dL (74-106); Potassium 4.2 mmol/L (3.5-5.1); Sodium 139 mmol/L (136-145)
[2021-11-09 09:47] LABS: ALT 19 U/L (14-59); Calculated LDL 105 mg/dL (<100); Cholesterol 215 mg/dL (<200); HDL Cholesterol 64 mg/dL (40-60); Magnesium 2.2 mg/dL (1.8-2.4); TSH 9.42 uIU/mL (0.36-3.74); Triglyceride 230 mg/dL (<150)
[2021-11-09 10:18] LABS: FREE T4 0.91 ng/dL (0.76-1.46)
[2021-11-10 17:30] LABS: Cancer Ag 15-3 38 U/mL (<30)
== END 2021-11-09 04:22 | disposition home or self-care (01) ==
LOC: LBO 04:22
PROVIDERS: PCP Family Medicine; Visit Provider Internal Medicine Hematology & Oncology
DX: E03.9 Hypothyroidism, unspecified (principal); E78.5 Hyperlipidemia, unspecified; N18.4 Chronic kidney disease, stage 4 (severe); C50.911 Malignant neoplasm of unspecified site of right female breast
CPT/HCPCS: 36415; 80048; 80053; 80061; 86304; 83735; 84439; 84443; 84460; 85025; 86300

== ENCOUNTER 2021-11-23 03:34 | Outpatient (CLI) | payer MEDICAID, SELFPAY ==
[2021-11-23 11:05] LABS: Absolute Basophil Count 0.07 10^3/uL (0.0-0.2); Absolute Eosinophil Count 0.07 10^3/uL (0.0-0.7); Absolute Lymphocyte Count 0.98 10^3/uL (1.2-3.4); Absolute Monocyte Count 0.28 10^3/uL (0.1-0.8); Absolute Neutrophil Count 1.32 10^3/uL (1.2-6.7); Basophils % 2.6; Eosinophils % 2.6; HCT 31.2 % (36.0-46.0); HGB 10.6 g/dL (11.2-15.7); MCV 94.3 fL (80-95); MPV 9.7 fL (8.0-11.0); Monocytes % 10.3; Neutrophils % 48.5; Nucleated RBC 0 %; RBC 3.31 10^6/uL (3.93-5.22); RDW 17.4 % (11.7-14.6); RDW-SD 59.7 fL; WBC 2.72 10^3/uL (4.4-10.8)
[2021-11-23 11:08] LABS: Platelet Count 179 10^3/uL (130-400)
[2021-11-23 11:33] LABS: ALT 18 U/L (14-59); AST 14 U/L (15-37); Albumin 4.1 g/dL (3.4-5.0); Alkaline Phosphatase 120 U/L (46-116); BUN 37 mg/dL (7-18); Bilirubin, Total 0.4 mg/dL (0.2-1.0); CREATININE 2.7 mg/dL (0.55-1.02); Calcium 9.1 mg/dL (8.5-10.1); Chloride 103 mmol/L (98-107); Glucose 112 mg/dL (74-106); Potassium 4.1 mmol/L (3.5-5.1); Sodium 138 mmol/L (136-145); Total Protein 8.2 g/dL (6.4-8.2)
[2021-11-24 18:10] LABS: Cancer Ag 15-3 38 U/mL (<30)
== END 2021-11-23 03:35 | disposition home or self-care (01) ==
LOC: LBO 03:34
PROVIDERS: PCP Family Medicine; Visit Provider Internal Medicine Hematology & Oncology
DX: C50.911 Malignant neoplasm of unspecified site of right female breast (principal)
CPT/HCPCS: 36415; 80053; 86304; 85025; 86300

== ENCOUNTER 2021-12-07 03:37 | Outpatient (CLI) | payer MEDICAID, SELFPAY ==
[2021-12-07 11:07] LABS: HCT 30.5 % (36.0-46.0); HGB 10.2 g/dL (11.2-15.7); MCH 33.1 pg (27.0-33.0); MCHC 33.4 % (32.0-36.0); MPV 9.5 fL (8.0-11.0); Nucleated RBC 0 %; Platelet Count 367 10^3/uL (130-400); RBC 3.08 10^6/uL (3.93-5.22); RDW 18.1 % (11.7-14.6); RDW-SD 65.8 fL; WBC 2.82 10^3/uL (4.4-10.8)
[2021-12-07 11:20] LABS: Absolute Basophil Count 0.17 10^3/uL (0.0-0.2); Absolute Eosinophil Count 0.06 10^3/uL (0.0-0.7); Absolute Lymphocyte Count 1.02 10^3/uL (1.2-3.4); Absolute Monocyte Count 0.06 10^3/uL (0.1-0.8); Absolute Neutrophil Count 1.52 10^3/uL (1.2-6.7); Atypical Lymphocytes % 5; Diff Comment Manual Differential; RBC Morphology Normal
[2021-12-07 12:09] LABS: ALT 21 U/L (14-59); AST 19 U/L (15-37); Albumin 4.1 g/dL (3.4-5.0); Alkaline Phosphatase 127 U/L (46-116); Anion Gap 11.1 mmol/L (3-11); BUN 47 mg/dL (7-18); Bilirubin, Total 0.3 mg/dL (0.2-1.0); CO2 25.9 mmol/L (21.0-32.0); CREATININE 3.2 mg/dL (0.55-1.02); Calcium 9.3 mg/dL (8.5-10.1); Chloride 104 mmol/L (98-107); Estimated GFR 14.63 (mL/min/1.73m2); Glucose 120 mg/dL (74-106); Potassium 4.6 mmol/L (3.5-5.1); Sodium 141 mmol/L (136-145)
[2021-12-08 16:44] LABS: Cancer Ag 15-3 42 U/mL (<30)
== END 2021-12-07 03:38 | disposition home or self-care (01) ==
LOC: LBO 03:37
PROVIDERS: PCP Family Medicine; Visit Provider Internal Medicine Hematology & Oncology
DX: C50.911 Malignant neoplasm of unspecified site of right female breast (principal)
CPT/HCPCS: 36415; 80053; 86304; 85025; 86300

== ENCOUNTER 2021-12-17 02:32 | Outpatient (CLI) | payer MEDICAID, SELFPAY ==
[2021-12-17 10:16] LABS: Absolute Monocyte Count 0.11 10^3/uL (0.1-0.8); HCT 28.4 % (36.0-46.0); HGB 9.6 g/dL (11.2-15.7); MCH 33.6 pg (27.0-33.0); MCHC 33.8 % (32.0-36.0); MCV 99.3 fL (80-95); MPV 9.6 fL (8.0-11.0); Nucleated RBC 0 %; Platelet Count 201 10^3/uL (130-400); RBC 2.86 10^6/uL (3.93-5.22); RDW 17.3 % (11.7-14.6); RDW-SD 62.8 fL; WBC 2.13 10^3/uL (4.4-10.8)
[2021-12-17 10:30] LABS: Absolute Basophil Count 0.04 10^3/uL (0.0-0.2); Absolute Eosinophil Count 0.04 10^3/uL (0.0-0.7); Absolute Lymphocyte Count 1.26 10^3/uL (1.2-3.4); Absolute Neutrophil Count 0.68 10^3/uL (1.2-6.7); Atypical Lymphocytes % 2; Diff Comment Manual Differential; RBC Morphology Normal
[2021-12-17 10:31] LABS: ALT 22 U/L (14-59); AST 20 U/L (15-37); Albumin 3.8 g/dL (3.4-5.0); Alkaline Phosphatase 117 U/L (46-116); Anion Gap 9.3 mmol/L (3-11); BUN 36 mg/dL (7-18); Bilirubin, Total 0.4 mg/dL (0.2-1.0); CO2 24.7 mmol/L (21.0-32.0); CREATININE 2.9 mg/dL (0.55-1.02); Calcium 9.2 mg/dL (8.5-10.1); Chloride 104 mmol/L (98-107); Estimated GFR 16.39 (mL/min/1.73m2); Glucose 190 mg/dL (74-106); Potassium 4.3 mmol/L (3.5-5.1); Sodium 138 mmol/L (136-145)
[2021-12-19 11:13] LABS: Cancer Ag 15-3 38 U/mL (<30)
== END 2021-12-17 02:33 | disposition home or self-care (01) ==
LOC: LBO 02:33
PROVIDERS: PCP Family Medicine; Visit Provider Internal Medicine Hematology & Oncology
DX: C50.911 Malignant neoplasm of unspecified site of right female breast (principal)
CPT/HCPCS: 36415; 80053; 86304; 85025; 86300

== ENCOUNTER 2021-12-22 03:58 | Outpatient (CLI) | payer MEDICAID, SELFPAY ==
[2021-12-22 09:28] LABS: Abs Immature Grans 0.01 10^3/uL (0.0-0.06); Absolute Basophil Count 0.12 10^3/uL (0.0-0.2); Absolute Eosinophil Count 0.08 10^3/uL (0.0-0.7); Absolute Lymphocyte Count 0.98 10^3/uL (1.2-3.4); Absolute Monocyte Count 0.36 10^3/uL (0.1-0.8); Basophils % 3.7; Eosinophils % 2.5; HCT 30.1 % (36.0-46.0); HGB 10.5 g/dL (11.2-15.7); Immature Grans % 0.3; Lymphocytes % 30.2; MCH 34.7 pg (27.0-33.0); MCHC 34.9 % (32.0-36.0); MCV 99.3 fL (80-95); MPV 9.6 fL (8.0-11.0); Monocytes % 11.1; Neutrophils % 52.2; Nucleated RBC 0 %; Platelet Count 199 10^3/uL (130-400); RBC 3.03 10^6/uL (3.93-5.22); RDW 17.3 % (11.7-14.6); RDW-SD 62.1 fL; WBC 3.25 10^3/uL (4.4-10.8)
[2021-12-22 09:40] LABS: ALT 22 U/L (14-59); AST 19 U/L (15-37); Alkaline Phosphatase 119 U/L (46-116); Anion Gap 11.7 mmol/L (3-11); BUN 30 mg/dL (7-18); Bilirubin, Total 0.5 mg/dL (0.2-1.0); CO2 24.3 mmol/L (21.0-32.0); CREATININE 2.5 mg/dL (0.55-1.02); Calcium 9.2 mg/dL (8.5-10.1); Chloride 104 mmol/L (98-107); Estimated GFR 19.45 (mL/min/1.73m2); Glucose 166 mg/dL (74-106); Potassium 4.1 mmol/L (3.5-5.1); Sodium 140 mmol/L (136-145)
[2021-12-22 09:55] LABS: Total Protein 8.2 g/dL (6.4-8.2)
[2021-12-23 14:12] LABS: Cancer Ag 15-3 43 U/mL (<30)
== END 2021-12-22 03:59 | disposition home or self-care (01) ==
LOC: LBO 03:59
PROVIDERS: PCP Family Medicine; Visit Provider Internal Medicine Hematology & Oncology
DX: C50.911 Malignant neoplasm of unspecified site of right female breast (principal)
CPT/HCPCS: 36415; 80053; 86304; 85025; 86300

== ENCOUNTER 2021-12-29 00:15 | Outpatient (CLI) | payer MEDICAID, SELFPAY ==
--- NOTE | 2021-12-29 09:47 | DI.MAMMO_ITS ---
Exam(s) MG MAMMO SCREENING 60 MIN DUR EXAM: MG MAMMO SCREENING 60 MIN DUR CLINICAL HISTORY: breast cancer screening,personal h/o breast ca,z85.3. TECHNIQUE: Craniocaudal and mediolateral oblique Full Field Digital Mammography views of the left br east with Computer Aided Diagnosis followed by Tomosynthesis. COMPARISON: Comparison with prior examinations. FINDINGS: Mammography/Tomosynthesis: The patient is status post right mastectomy. Masses/Architectural Distortion: None seen. Microcalcifictions: No suspicious pleomorphic-type are seen. Skin Thickening/Nipple Retraction: None. IMPRESSION: 1. No evidence of malignancy is noted. 2. Unless there is more urgent need, follow-up screening mammography is recommended, as per [place] [employer] guidelines. 3. The findings were discussed with the patient on the date of the examination. BI-RADS Category 1 - Negative Breast Density - Category B - Scattered areas of fibroglandular density Breast density Category C or D implies that the patient has dense breast tissue. Dense breast tissue can make it harder to find cancer on a mammogram. Dense breast tissue is also associated with an incr eased risk of breast cancer. This information about the result of the mammogram report was provided to the patient to raise their awareness. Use this report when you speak with the patient about their risks for breast cancer, which includes their family history. At that time, you may recommend additional screening tests (Ultrasoun d or MRI) as these tests may add significant information. A negative radiographic report should not delay biopsy if a dominant or clinically suspicious mass is present. Up to ten percent of cancers are not identified on mammography. A negative report may reinforce clinical impression. Adenosis and dense breasts may obscure an underlying neoplasm. False positive reports average 6 to 10%. Patient will receive a letter notifying them of these results.
== END 2021-12-29 00:35 ==
PROVIDERS: PCP Family Medicine; Visit Provider Family Medicine
DX: Z12.31 Encounter for screening mammogram for malignant neoplasm of breast (principal); Z85.3 Personal history of malignant neoplasm of breast; Z90.11 Acquired absence of right breast and nipple
CPT/HCPCS: 77063; 77067

== ENCOUNTER 2021-12-29 03:31 | Outpatient (CLI) | payer MEDICAID, SELFPAY ==
[2021-12-29 10:46] LABS: Abs Immature Grans 0.01 10^3/uL (0.0-0.06); Absolute Basophil Count 0.18 10^3/uL (0.0-0.2); Absolute Eosinophil Count 0.16 10^3/uL (0.0-0.7); Absolute Lymphocyte Count 1.14 10^3/uL (1.2-3.4); Absolute Monocyte Count 0.17 10^3/uL (0.1-0.8); Absolute Neutrophil Count 1.83 10^3/uL (1.2-6.7); Basophils % 5.2; Eosinophils % 4.6; HGB 10.2 g/dL (11.2-15.7); Immature Grans % 0.3; Lymphocytes % 32.7; MCH 34.2 pg (27.0-33.0); MCV 100.7 fL (80-95); MPV 9.4 fL (8.0-11.0); Monocytes % 4.9; Neutrophils % 52.3; Nucleated RBC 0 %; Platelet Count 302 10^3/uL (130-400); RBC 2.98 10^6/uL (3.93-5.22); RDW 17.2 % (11.7-14.6); WBC 3.49 10^3/uL (4.4-10.8)
[2021-12-29 12:05] LABS: ALT 21 U/L (14-59); AST 21 U/L (15-37); Albumin 4.3 g/dL (3.4-5.0); Alkaline Phosphatase 125 U/L (46-116); Anion Gap 11.7 mmol/L (3-11); BUN 42 mg/dL (7-18); Bilirubin, Total 0.5 mg/dL (0.2-1.0); CO2 24.3 mmol/L (21.0-32.0); CREATININE 3.1 mg/dL (0.55-1.02); Calcium 9.6 mg/dL (8.5-10.1); Chloride 102 mmol/L (98-107); Estimated GFR 15.18 (mL/min/1.73m2); Glucose 119 mg/dL (74-106); Potassium 4.5 mmol/L (3.5-5.1); Sodium 138 mmol/L (136-145); Total Protein 8.1 g/dL (6.4-8.2)
[2021-12-31 10:08] LABS: Cancer Ag 15-3 42 U/mL (<30)
== END 2021-12-29 03:32 | disposition home or self-care (01) ==
LOC: LBO 03:31
PROVIDERS: PCP Family Medicine; Visit Provider Internal Medicine Hematology & Oncology
DX: C50.911 Malignant neoplasm of unspecified site of right female breast (principal)
CPT/HCPCS: 36415; 80053; 86304; 85025; 86300

== ENCOUNTER 2022-01-04 04:27 | Outpatient (CLI) | payer MEDICAID, SELFPAY ==
[2022-01-04 11:44] LABS: HCT 28.3 % (36.0-46.0); HGB 9.7 g/dL (11.2-15.7); MCH 35.1 pg (27.0-33.0); MCHC 34.3 % (32.0-36.0); MCV 102.5 fL (80-95); MPV 9.6 fL (8.0-11.0); Nucleated RBC 0 %; Platelet Count 332 10^3/uL (130-400); RBC 2.76 10^6/uL (3.93-5.22); RDW 16.7 % (11.7-14.6); RDW-SD 62.9 fL; WBC 2.54 10^3/uL (4.4-10.8)
[2022-01-04 12:03] LABS: Absolute Basophil Count 0.08 10^3/uL (0.0-0.2); Absolute Eosinophil Count 0.03 10^3/uL (0.0-0.7); Absolute Monocyte Count 0.15 10^3/uL (0.1-0.8); Absolute Neutrophil Count 0.99 10^3/uL (1.2-6.7); Atypical Lymphocytes % 9
[2022-01-04 12:04] LABS: Diff Comment Manual Differential; RBC Morphology Normal
[2022-01-04 13:13] LABS: ALT 25 U/L (14-59); AST 22 U/L (15-37); Alkaline Phosphatase 119 U/L (46-116); Anion Gap 11.6 mmol/L (3-11); BUN 37 mg/dL (7-18); Bilirubin, Total 0.4 mg/dL (0.2-1.0); CO2 26.4 mmol/L (21.0-32.0); CREATININE 2.9 mg/dL (0.55-1.02); Calcium 9.4 mg/dL (8.5-10.1); Chloride 107 mmol/L (98-107); Estimated GFR 16.39 (mL/min/1.73m2); Glucose 112 mg/dL (74-106); Potassium 4.9 mmol/L (3.5-5.1); Sodium 145 mmol/L (136-145); Total Protein 7.8 g/dL (6.4-8.2)
[2022-01-05 16:31] LABS: Cancer Ag 15-3 40 U/mL (<30)
== END 2022-01-04 04:28 | disposition home or self-care (01) ==
LOC: LBO 04:27
PROVIDERS: PCP Family Medicine; Visit Provider Internal Medicine Hematology & Oncology
DX: C50.911 Malignant neoplasm of unspecified site of right female breast (principal)
CPT/HCPCS: 36415; 80053; 86304; 85025; 86300

== ENCOUNTER 2022-01-11 01:31 | Outpatient (CLI) | payer MEDICAID, SELFPAY ==
[2022-01-11 11:47] LABS: HCT 27.2 % (36.0-46.0); HGB 9.4 g/dL (11.2-15.7); MCH 35.7 pg (27.0-33.0); MCHC 34.6 % (32.0-36.0); MCV 103.4 fL (80-95); MPV 9.5 fL (8.0-11.0); Nucleated RBC 0 %; Platelet Count 226 10^3/uL (130-400); RBC 2.63 10^6/uL (3.93-5.22); RDW 16.4 % (11.7-14.6); RDW-SD 62.2 fL; WBC 2.31 10^3/uL (4.4-10.8)
[2022-01-11 12:05] LABS: ALT 23 U/L (14-59); AST 19 U/L (15-37); Albumin 3.8 g/dL (3.4-5.0); Alkaline Phosphatase 121 U/L (46-116); BUN 37 mg/dL (7-18); Bilirubin, Total 0.5 mg/dL (0.2-1.0); CREATININE 3.1 mg/dL (0.55-1.02); Calcium 8.7 mg/dL (8.5-10.1); Chloride 105 mmol/L (98-107); Estimated GFR 15.18 (mL/min/1.73m2); Glucose 203 mg/dL (74-106); Potassium 4.1 mmol/L (3.5-5.1); Sodium 140 mmol/L (136-145); Total Protein 7.7 g/dL (6.4-8.2)
[2022-01-11 12:10] LABS: Absolute Neutrophil Count 1.13 10^3/uL (1.2-6.7)
[2022-01-11 12:11] LABS: Absolute Basophil Count 0.12 10^3/uL (0.0-0.2); Absolute Eosinophil Count 0.09 10^3/uL (0.0-0.7); Absolute Lymphocyte Count 0.92 10^3/uL (1.2-3.4); Absolute Monocyte Count 0.05 10^3/uL (0.1-0.8); Atypical Lymphocytes % 6; Diff Comment Manual Differential; Macrocytosis 2+
[2022-01-12 18:09] LABS: Cancer Ag 15-3 39 U/mL (<30)
== END 2022-01-11 01:32 | disposition home or self-care (01) ==
LOC: LBO 01:31
PROVIDERS: PCP Family Medicine; Visit Provider Internal Medicine Hematology & Oncology
DX: C50.911 Malignant neoplasm of unspecified site of right female breast (principal)
CPT/HCPCS: 36415; 80053; 86304; 85025; 86300

== ENCOUNTER 2022-01-14 03:41 | Outpatient (CLI) | payer MEDICAID, SELFPAY ==
[2022-01-14 08:59] LABS: Abs Immature Grans 0.01 10^3/uL (0.0-0.06); Absolute Monocyte Count 0.12 10^3/uL (0.1-0.8); HCT 27.6 % (36.0-46.0); HGB 9.7 g/dL (11.2-15.7); MCH 36.1 pg (27.0-33.0); MCHC 35.1 % (32.0-36.0); MCV 102.6 fL (80-95); MPV 9.8 fL (8.0-11.0); Nucleated RBC 0 %; Platelet Count 192 10^3/uL (130-400); RBC 2.69 10^6/uL (3.93-5.22); RDW 16.1 % (11.7-14.6); RDW-SD 59.4 fL; WBC 2.31 10^3/uL (4.4-10.8)
[2022-01-14 09:14] LABS: ALT 24 U/L (14-59); AST 24 U/L (15-37); Albumin 3.9 g/dL (3.4-5.0); Alkaline Phosphatase 117 U/L (46-116); Anion Gap 11.9 mmol/L (3-11); BUN 33 mg/dL (7-18); Bilirubin, Total 0.6 mg/dL (0.2-1.0); CO2 23.1 mmol/L (21.0-32.0); CREATININE 2.9 mg/dL (0.55-1.02); Calcium 9.1 mg/dL (8.5-10.1); Chloride 106 mmol/L (98-107); Estimated GFR 16.39 (mL/min/1.73m2); Glucose 140 mg/dL (74-106); Potassium 4.3 mmol/L (3.5-5.1); Sodium 141 mmol/L (136-145)
[2022-01-14 09:28] LABS: Absolute Basophil Count 0.16 10^3/uL (0.0-0.2); Absolute Eosinophil Count 0.07 10^3/uL (0.0-0.7); Absolute Neutrophil Count 1.29 10^3/uL (1.2-6.7); Atypical Lymphocytes % 1; Diff Comment Manual Differential; RBC Morphology Normal
[2022-01-15 14:58] LABS: Cancer Ag 15-3 43 U/mL (<30)
== END 2022-01-14 03:42 | disposition home or self-care (01) ==
LOC: LBO 03:41
PROVIDERS: PCP Family Medicine; Visit Provider Internal Medicine Hematology & Oncology
DX: C50.911 Malignant neoplasm of unspecified site of right female breast (principal)
CPT/HCPCS: 36415; 80053; 86304; 85025; 86300

== ENCOUNTER 2022-02-15 15:03 | Outpatient (CLI) | payer MEDICAID, SELFPAY ==
[2022-02-15 15:11] LABS: HCT 23.6 % (36.0-46.0); MCH 36.9 pg (27.0-33.0); MCHC 33.9 % (32.0-36.0); MCV 108.8 fL (80-95); MPV 9.7 fL (8.0-11.0); Platelet Count 150 10^3/uL (130-400); RBC 2.17 10^6/uL (3.93-5.22); RDW 13.7 % (11.7-14.6); RDW-SD 53.2 fL
[2022-02-15 15:37] LABS: WBC 1.91 10^3/uL (4.4-10.8)
[2022-02-15 15:42] LABS: Absolute Eosinophil Count 0.06 10^3/uL (0.0-0.7); Absolute Lymphocyte Count 0.61 10^3/uL (1.2-3.4); Absolute Monocyte Count 0.21 10^3/uL (0.1-0.8); Absolute Neutrophil Count 1.03 10^3/uL (1.2-6.7); Anisocytosis 1+; Diff Comment Manual Differential; Macrocytosis 1+; Microcytosis 1+
[2022-02-15 15:49] LABS: ALT 22 U/L (14-59); AST 18 U/L (15-37); Albumin 3.3 g/dL (3.4-5.0); Alkaline Phosphatase 101 U/L (46-116); Anion Gap 9.2 mmol/L (3-11); BUN 32 mg/dL (7-18); Bilirubin, Total 0.4 mg/dL (0.2-1.0); CO2 24.8 mmol/L (21.0-32.0); CREATININE 2.7 mg/dL (0.55-1.02); Calcium 8.8 mg/dL (8.5-10.1); Chloride 105 mmol/L (98-107); Estimated GFR 17.74 (mL/min/1.73m2); Glucose 205 mg/dL (74-106); Potassium 3.9 mmol/L (3.5-5.1); Sodium 139 mmol/L (136-145); Total Protein 7.4 g/dL (6.4-8.2)
[2022-02-17 18:43] LABS: Cancer Ag 15-3 48 U/mL (<30)
== END 2022-02-15 15:04 | disposition home or self-care (01) ==
LOC: LBO 15:06
PROVIDERS: PCP Family Medicine; Visit Provider Internal Medicine Hematology & Oncology
DX: C80.1 Malignant (primary) neoplasm, unspecified (principal); C79.81 Secondary malignant neoplasm of breast
CPT/HCPCS: 36415; 80053; 86304; 85025; 86300

== ENCOUNTER 2022-02-15 15:25 | Outpatient (REF) | payer MEDICAID, SELFPAY | END 2022-02-15 15:26 | disposition home or self-care (01) | LOC: LBN 15:25 | PROVIDERS: PCP Family Medicine; Visit Provider Internal Medicine Hematology & Oncology ==

== ENCOUNTER 2022-03-03 00:25 | Outpatient (CLI) | payer MEDICAID, SELFPAY ==
--- NOTE | 2022-03-03 | DI.NM_ITS ---
Exam(s) NM BONE SCAN WHOLE BODY GRP EXAM: [place] BONE SCAN WHOLE BODY GRP CLINICAL HISTORY: METASTATIC BREAST CA, C50.919, ASSESS TREATMENT RESPONSE. TECHNIQUE: Injected Dose: 25 mCi Tc-99m MDP Delayed Images: 2-3 hours. COMPARISON: CT CT HEAD WO from 08/11/[address] CHEST/ABD/PEL WO from 08/11/2021 MR MR BRAIN WO from 08/12/2021 NM NM BONE SCAN 3 PHASE from 08/12/2021 CR XR FEMUR RT from 08/14/2021 CR XR HIP LT COMPLETE AP PELVIS from 08/14/2021 FINDINGS: There is increased activity in the frontal region of the skull, not definitely changed from prior. 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 Scoliosis and degenerative changes are not ed in the spine. There is increased activity in the lower lumbar spine and upper sacrum which is mor e prominent when compared with the previous exam. Previously noted activity in the thoracic spine ap pears less evident when compared to the prior exam. The focus of increased activity in the subtrocha nteric region of the left femur is less evident on today's exam. There is increased activity around the left in the suspicious for degenerative changes. There is vaguely patchy increased activity in m ultiple ribs, not significantly changed.. Bilateral renal excretion is identified. IMPRESSION: Increase in activity in the lower lumbar spine and sacrum compared with prior. Decreased activity in the proximal left femur. DATA REPOSITORY:
== END 2022-03-03 00:45 ==
PROVIDERS: PCP Family Medicine; Visit Provider Internal Medicine Hematology & Oncology
DX: C50.911 Malignant neoplasm of unspecified site of right female breast (principal); M85.88 Other specified disorders of bone density and structure, other site
CPT/HCPCS: 78306

== ENCOUNTER 2022-03-15 03:20 | Outpatient (CLI) | payer MEDICAID, SELFPAY ==
[2022-03-15 09:22] LABS: HGB 8.9 g/dL (11.2-15.7); MCH 36.9 pg (27.0-33.0); MCHC 34.2 % (32.0-36.0); MCV 108 fL (80-95); MPV 10.6 fL (8.0-11.0); Platelet Count 171 10^3/uL (130-400); RBC 2.41 10^6/uL (3.93-5.22); RDW-SD 54.9 fL
[2022-03-15 09:30] LABS: WBC 1.89 10^3/uL (4.4-10.8)
[2022-03-15 09:38] LABS: ALT 23 U/L (14-59); AST 20 U/L (15-37); Absolute Basophil Count 0.06 10^3/uL (0.0-0.2); Absolute Eosinophil Count 0.08 10^3/uL (0.0-0.7); Absolute Lymphocyte Count 0.62 10^3/uL (1.2-3.4); Absolute Monocyte Count 0.13 10^3/uL (0.1-0.8); Absolute Neutrophil Count 0.93 10^3/uL (1.2-6.7); Albumin 3.7 g/dL (3.4-5.0); Alkaline Phosphatase 101 U/L (46-116); Anion Gap 13.4 mmol/L (3-11); BUN 41 mg/dL (7-18); Bilirubin, Total 0.4 mg/dL (0.2-1.0); CO2 20.6 mmol/L (21.0-32.0); CREATININE 2.9 mg/dL (0.55-1.02); Calcium 8.6 mg/dL (8.5-10.1); Chloride 106 mmol/L (98-107); Estimated GFR 16.34 (mL/min/1.73m2); Glucose 122 mg/dL (74-106); Potassium 4.6 mmol/L (3.5-5.1); Sodium 140 mmol/L (136-145); Total Protein 7.7 g/dL (6.4-8.2)
[2022-03-15 09:39] LABS: Diff Comment Manual Differential; Other Cells % 4; RBC Morphology Normal
[2022-03-15 09:59] LABS: Hemoglobin A1C 6.8 % (<5.7)
[2022-03-15 10:14] LABS: COMMENT (LAB VIEW ONLY) 169.18 mg/dL; Microalb ug/mg Crea 235.3 ug/mg Cr
[2022-03-15 10:36] LABS: ALT 25 U/L (14-59); Calculated LDL 50 mg/dL (<100); Cholesterol 124 mg/dL (<200); HDL Cholesterol 41 mg/dL (40-60); TSH (W/Ref FT4) 0.02 uIU/mL (0.36-3.74); Triglyceride 168 mg/dL (<150)
[2022-03-15 11:11] LABS: FREE T4 1.48 ng/dL (0.76-1.46)
[2022-03-18 12:39] LABS: Cancer Ag 15-3 54 U/mL (<30)
== END 2022-03-15 03:21 | disposition home or self-care (01) ==
LOC: LBO 03:20
PROVIDERS: PCP Family Medicine; Visit Provider Internal Medicine Hematology & Oncology
DX: C50.911 Malignant neoplasm of unspecified site of right female breast (principal)
CPT/HCPCS: 36415; 80053; 80061; 86304; 82043; 82570; 83036; 84439; 84443; 84460; 85025; 86300

== ENCOUNTER 2022-03-18 03:44 | Outpatient (CLI) | payer MEDICAID, SELFPAY ==
[2022-03-18 08:33] LABS: Abs Immature Grans 0.02 10^3/uL (0.0-0.06); Absolute Lymphocyte Count 0.71 10^3/uL (1.2-3.4); Absolute Monocyte Count 0.28 10^3/uL (0.1-0.8); Absolute Neutrophil Count 1.47 10^3/uL (1.2-6.7); Basophils % 3.7; Eosinophils % 3.7; HCT 25.8 % (36.0-46.0); HGB 8.7 g/dL (11.2-15.7); Immature Grans % 0.7; Lymphocytes % 26.5; MCH 36.7 pg (27.0-33.0); MCHC 33.7 % (32.0-36.0); MCV 109 fL (80-95); MPV 9.7 fL (8.0-11.0); Monocytes % 10.4; Platelet Count 162 10^3/uL (130-400); RBC 2.37 10^6/uL (3.93-5.22); RDW-SD 55.3 fL; WBC 2.68 10^3/uL (4.4-10.8)
[2022-03-18 08:46] LABS: ALT 24 U/L (14-59); AST 19 U/L (15-37); Albumin 3.5 g/dL (3.4-5.0); Alkaline Phosphatase 106 U/L (46-116); Anion Gap 11.7 mmol/L (3-11); BUN 31 mg/dL (7-18); Bilirubin, Total 0.4 mg/dL (0.2-1.0); CO2 22.3 mmol/L (21.0-32.0); CREATININE 2.6 mg/dL (0.55-1.02); Calcium 8.7 mg/dL (8.5-10.1); Chloride 105 mmol/L (98-107); Estimated GFR 18.53 (mL/min/1.73m2); Glucose 127 mg/dL (74-106); Potassium 4.1 mmol/L (3.5-5.1); Sodium 139 mmol/L (136-145); Total Protein 7.5 g/dL (6.4-8.2)
[2022-03-19 13:25] LABS: Cancer Ag 15-3 54 U/mL (<30)
== END 2022-03-18 03:45 | disposition home or self-care (01) ==
LOC: LBO 03:44
PROVIDERS: PCP Family Medicine; Visit Provider Internal Medicine Hematology & Oncology
DX: C50.911 Malignant neoplasm of unspecified site of right female breast (principal)
CPT/HCPCS: 36415; 80053; 86304; 85025; 86300

== ENCOUNTER 2022-04-01 02:54 | Outpatient (CLI) | payer MEDICAID, SELFPAY ==
[2022-04-01 11:18] LABS: HCT 26.7 % (36.0-46.0); HGB 9.2 g/dL (11.2-15.7); MCH 36.8 pg (27.0-33.0); MCHC 34.5 % (32.0-36.0); MCV 107 fL (80-95); MPV 9.9 fL (8.0-11.0); Platelet Count 268 10^3/uL (130-400); RDW 13.4 % (11.7-14.6); RDW-SD 52.7 fL; WBC 2.54 10^3/uL (4.4-10.8)
[2022-04-01 11:49] LABS: Absolute Eosinophil Count 0.13 10^3/uL (0.0-0.7); Absolute Lymphocyte Count 0.99 10^3/uL (1.2-3.4); Absolute Monocyte Count 0.08 10^3/uL (0.1-0.8); Absolute Neutrophil Count 1.22 10^3/uL (1.2-6.7); Atypical Lymphocytes % 2; Diff Comment Manual Differential; Other Cells % 1; RBC Morphology Normal
[2022-04-01 11:54] LABS: ALT 16 U/L (14-59); AST 7 U/L (15-37); Albumin 3.7 g/dL (3.4-5.0); Alkaline Phosphatase 101 U/L (46-116); Anion Gap 12.1 mmol/L (3-11); BUN 29 mg/dL (7-18); Bilirubin, Total 0.5 mg/dL (0.2-1.0); CO2 26.9 mmol/L (21.0-32.0); CREATININE 2.7 mg/dL (0.55-1.02); Calcium 8.5 mg/dL (8.5-10.1); Chloride 105 mmol/L (98-107); Estimated GFR 17.74 (mL/min/1.73m2); Glucose 130 mg/dL (74-106); Potassium 4.7 mmol/L (3.5-5.1); Sodium 144 mmol/L (136-145); Total Protein 7.1 g/dL (6.4-8.2)
[2022-04-02 18:43] LABS: Cancer Ag 15-3 51 U/mL (<30)
== END 2022-04-01 02:55 | disposition home or self-care (01) ==
LOC: LBO 02:54
PROVIDERS: PCP Nurse Practitioner; Visit Provider Internal Medicine Hematology & Oncology
DX: C50.911 Malignant neoplasm of unspecified site of right female breast (principal)
CPT/HCPCS: 36415; 80053; 86304; 85025; 86300

== ENCOUNTER 2022-04-15 03:57 | Outpatient (CLI) | payer MEDICAID, SELFPAY ==
[2022-04-15 10:53] LABS: Absolute Eosinophil Count 0.08 10^3/uL (0.0-0.7); HCT 28.5 % (36.0-46.0); HGB 9.9 g/dL (11.2-15.7); MCH 36.9 pg (27.0-33.0); MCHC 34.7 % (32.0-36.0); MCV 106 fL (80-95); MPV 10.7 fL (8.0-11.0); Platelet Count 148 10^3/uL (130-400); RBC 2.68 10^6/uL (3.93-5.22); RDW 14.6 % (11.7-14.6); RDW-SD 55.8 fL
[2022-04-15 11:08] LABS: ALT 19 U/L (14-59); AST 20 U/L (15-37); Albumin 3.7 g/dL (3.4-5.0); Alkaline Phosphatase 105 U/L (46-116); Anion Gap 11.3 mmol/L (3-11); BUN 26 mg/dL (7-18); Bilirubin, Total 0.6 mg/dL (0.2-1.0); CO2 23.7 mmol/L (21.0-32.0); CREATININE 2.3 mg/dL (0.55-1.02); Calcium 9.2 mg/dL (8.5-10.1); Chloride 107 mmol/L (98-107); Estimated GFR 21.35 (mL/min/1.73m2); Glucose 133 mg/dL (74-106); Potassium 4.1 mmol/L (3.5-5.1); Sodium 142 mmol/L (136-145); Total Protein 7.5 g/dL (6.4-8.2)
[2022-04-15 11:18] LABS: FREE T4 1.29 ng/dL (0.76-1.46); TSH 0.07 uIU/mL (0.36-3.74)
[2022-04-15 11:27] LABS: Absolute Basophil Count 0.06 10^3/uL (0.0-0.2); Absolute Lymphocyte Count 1.03 10^3/uL (1.2-3.4); Absolute Monocyte Count 0.18 10^3/uL (0.1-0.8); Absolute Neutrophil Count 0.56 10^3/uL (1.2-6.7); Atypical Lymphocytes % 1; WBC 1.99 10^3/uL (4.4-10.8)
[2022-04-15 11:28] LABS: Diff Comment Manual Differential; Macrocytosis 2+; Other Cells % 4
[2022-04-15 18:06] LABS: T3,Free 3.7 pg/mL (2.8-5.3)
[2022-04-16 18:36] LABS: Cancer Ag 15-3 52 U/mL (<30)
== END 2022-04-15 03:58 | disposition home or self-care (01) ==
LOC: LBO 03:57
PROVIDERS: Family Medicine; PCP Nurse Practitioner; Visit Provider Internal Medicine Hematology & Oncology
DX: E03.9 Hypothyroidism, unspecified (principal); C50.911 Malignant neoplasm of unspecified site of right female breast
CPT/HCPCS: 36415; 80048; 80053; 85027; 86304; 84439; 84443; 84481; 85025; 86300

== ENCOUNTER 2022-04-29 02:25 | Outpatient (CLI) | payer MEDICAID, SELFPAY ==
[2022-04-29 11:01] LABS: Abs Immature Grans 0.03 10^3/uL (0.0-0.06); Absolute Basophil Count 0.13 10^3/uL (0.0-0.2); Absolute Eosinophil Count 0.32 10^3/uL (0.0-0.7); Absolute Lymphocyte Count 1.17 10^3/uL (1.2-3.4); Absolute Monocyte Count 0.57 10^3/uL (0.1-0.8); Absolute Neutrophil Count 3.54 10^3/uL (1.2-6.7); Basophils % 2.3; Eosinophils % 5.6; HCT 33.2 % (36.0-46.0); HGB 11.3 g/dL (11.2-15.7); Immature Grans % 0.5; Lymphocytes % 20.3; MCH 35.5 pg (27.0-33.0); MCV 104 fL (80-95); MPV 10.8 fL (8.0-11.0); Monocytes % 9.9; Neutrophils % 61.4; Platelet Count 322 10^3/uL (130-400); RBC 3.18 10^6/uL (3.93-5.22); RDW 13.6 % (11.7-14.6); RDW-SD 52.5 fL; WBC 5.76 10^3/uL (4.4-10.8)
[2022-04-29 11:17] LABS: ALT 35 U/L (14-59); AST 29 U/L (15-37); Albumin 3.8 g/dL (3.4-5.0); Alkaline Phosphatase 107 U/L (46-116); Anion Gap 9.5 mmol/L (3-11); BUN 27 mg/dL (7-18); Bilirubin, Total 0.7 mg/dL (0.2-1.0); CO2 24.5 mmol/L (21.0-32.0); CREATININE 2.3 mg/dL (0.55-1.02); Calcium 9.2 mg/dL (8.5-10.1); Chloride 103 mmol/L (98-107); Estimated GFR 21.35 (mL/min/1.73m2); Glucose 282 mg/dL (74-106); Potassium 3.7 mmol/L (3.5-5.1); Sodium 137 mmol/L (136-145); Total Protein 7.6 g/dL (6.4-8.2)
[2022-05-04 12:08] LABS: Cancer Ag 15-3 58 U/mL (<30)
== END 2022-04-29 02:26 | disposition home or self-care (01) ==
LOC: LBO 02:25
PROVIDERS: PCP Nurse Practitioner; Visit Provider Internal Medicine Hematology & Oncology
DX: C50.911 Malignant neoplasm of unspecified site of right female breast (principal); Z17.0 Estrogen receptor positive status [ER+]
CPT/HCPCS: 36415; 80053; 86304; 85025; 86300

== ENCOUNTER 2022-05-13 09:33 | Outpatient (CLI) | payer MEDICAID, SELFPAY ==
[2022-05-13 09:55] LABS: HCT 34.4 % (36.0-46.0); HGB 11.7 g/dL (11.2-15.7); MCH 34.7 pg (27.0-33.0); MCV 102 fL (80-95); MPV 10.8 fL (8.0-11.0); Platelet Count 245 10^3/uL (130-400); RBC 3.37 10^6/uL (3.93-5.22); RDW 14.4 % (11.7-14.6); RDW-SD 54.4 fL; WBC 2.06 10^3/uL (4.4-10.8)
[2022-05-13 10:12] LABS: ALT 18 U/L (14-59); AST 19 U/L (15-37); Alkaline Phosphatase 112 U/L (46-116); Anion Gap 13.3 mmol/L (3-11); BUN 48 mg/dL (7-18); Bilirubin, Total 0.6 mg/dL (0.2-1.0); CO2 20.7 mmol/L (21.0-32.0); CREATININE 2.9 mg/dL (0.55-1.02); Calcium 9.2 mg/dL (8.5-10.1); Chloride 106 mmol/L (98-107); Estimated GFR 16.34 (mL/min/1.73m2); Glucose 159 mg/dL (74-106); Potassium 4.2 mmol/L (3.5-5.1); Sodium 140 mmol/L (136-145); Total Protein 7.8 g/dL (6.4-8.2)
[2022-05-13 10:22] LABS: Absolute Eosinophil Count 0.06 10^3/uL (0.0-0.7); Absolute Neutrophil Count 1.17 10^3/uL (1.2-6.7)
[2022-05-13 10:23] LABS: Absolute Basophil Count 0.02 10^3/uL (0.0-0.2); Diff Comment Manual Differential; RBC Morphology Normal
[2022-05-14 16:23] LABS: Cancer Ag 15-3 54 U/mL (<30)
== END 2022-05-13 09:34 | disposition home or self-care (01) ==
LOC: LBO 09:33
PROVIDERS: PCP Nurse Practitioner; Visit Provider Internal Medicine Hematology & Oncology
DX: C50.911 Malignant neoplasm of unspecified site of right female breast (principal)
CPT/HCPCS: 36415; 80053; 86304; 85025; 86300

== ENCOUNTER 2022-05-27 03:06 | Outpatient (CLI) | payer MEDICAID, SELFPAY ==
[2022-05-27 13:46] LABS: HCT 31.4 % (36.0-46.0); HGB 10.7 g/dL (11.2-15.7); MCH 34.2 pg (27.0-33.0); MCHC 34.1 % (32.0-36.0); MCV 100 fL (80-95); MPV 10.6 fL (8.0-11.0); Platelet Count 132 10^3/uL (130-400); RBC 3.13 10^6/uL (3.93-5.22); RDW-SD 54.4 fL
[2022-05-27 13:47] LABS: WBC 1.78 10^3/uL (4.4-10.8)
[2022-05-27 13:56] LABS: ALT 22 U/L (14-59); AST 20 U/L (15-37); Absolute Basophil Count 0.04 10^3/uL (0.0-0.2); Absolute Eosinophil Count 0.04 10^3/uL (0.0-0.7); Absolute Lymphocyte Count 0.71 10^3/uL (1.2-3.4); Absolute Monocyte Count 0.18 10^3/uL (0.1-0.8); Absolute Neutrophil Count 0.78 10^3/uL (1.2-6.7); Albumin 3.8 g/dL (3.4-5.0); Alkaline Phosphatase 101 U/L (46-116); Anion Gap 10.9 mmol/L (3-11); Atypical Lymphocytes % 8; BUN 30 mg/dL (7-18); Bilirubin, Total 0.4 mg/dL (0.2-1.0); CO2 23.1 mmol/L (21.0-32.0); CREATININE 2.4 mg/dL (0.55-1.02); Calcium 8.7 mg/dL (8.5-10.1); Chloride 104 mmol/L (98-107); Estimated GFR 20.32 (mL/min/1.73m2); Glucose 222 mg/dL (74-106); Potassium 3.9 mmol/L (3.5-5.1); Sodium 138 mmol/L (136-145); Total Protein 7.3 g/dL (6.4-8.2)
[2022-05-27 13:57] LABS: Diff Comment Manual Differential; Other Cells % 2; RBC Morphology Normal
[2022-05-28 12:36] LABS: Cancer Ag 15-3 46 U/mL (<30)
== END 2022-05-27 03:07 | disposition home or self-care (01) ==
LOC: LBO 03:06
PROVIDERS: Internal Medicine Hematology & Oncology; PCP Nurse Practitioner; Visit Provider Family Medicine
DX: C50.911 Malignant neoplasm of unspecified site of right female breast (principal)
CPT/HCPCS: 36415; 80053; 86304; 85025; 86300

== ENCOUNTER 2022-06-10 01:50 | Outpatient (CLI) | payer MEDICAID, SELFPAY ==
[2022-06-10 14:12] LABS: Abs Immature Grans 0.02 10^3/uL (0.0-0.06); Absolute Basophil Count 0.12 10^3/uL (0.0-0.2); Absolute Eosinophil Count 0.23 10^3/uL (0.0-0.7); Absolute Lymphocyte Count 1.35 10^3/uL (1.2-3.4); Absolute Monocyte Count 0.53 10^3/uL (0.1-0.8); Absolute Neutrophil Count 2.77 10^3/uL (1.2-6.7); Basophils % 2.4; Eosinophils % 4.6; HGB 11.9 g/dL (11.2-15.7); Immature Grans % 0.4; Lymphocytes % 26.9; MCH 33.4 pg (27.0-33.0); MCHC 33.1 % (32.0-36.0); MCV 101 fL (80-95); MPV 10.6 fL (8.0-11.0); Monocytes % 10.6; Neutrophils % 55.1; Platelet Count 290 10^3/uL (130-400); RBC 3.56 10^6/uL (3.93-5.22); RDW 15.1 % (11.7-14.6); RDW-SD 56.6 fL; WBC 5.02 10^3/uL (4.4-10.8)
[2022-06-10 14:33] LABS: ALT 29 U/L (14-59); AST 24 U/L (15-37); Albumin 3.8 g/dL (3.4-5.0); Alkaline Phosphatase 102 U/L (46-116); Anion Gap 12.7 mmol/L (3-11); BUN 30 mg/dL (7-18); Bilirubin, Total 0.6 mg/dL (0.2-1.0); CO2 23.3 mmol/L (21.0-32.0); CREATININE 2.6 mg/dL (0.55-1.02); Calcium 9.3 mg/dL (8.5-10.1); Chloride 103 mmol/L (98-107); Estimated GFR 18.53 (mL/min/1.73m2); Glucose 239 mg/dL (74-106); Potassium 4.1 mmol/L (3.5-5.1); Sodium 139 mmol/L (136-145); Total Protein 7.7 g/dL (6.4-8.2)
[2022-06-11 15:04] LABS: Cancer Ag 15-3 56 U/mL (<30)
== END 2022-06-10 01:51 | disposition home or self-care (01) ==
LOC: LBO 01:50
PROVIDERS: PCP Nurse Practitioner; Visit Provider Internal Medicine Hematology & Oncology
DX: C50.911 Malignant neoplasm of unspecified site of right female breast (principal)
CPT/HCPCS: 36415; 80053; 86304; 85025; 86300

== ENCOUNTER 2022-06-24 15:21 | Outpatient (CLI) | payer MEDICAID, SELFPAY ==
[2022-06-24 15:22] LABS: Abs Immature Grans 0.01 10^3/uL (0.0-0.06); HGB 11.5 g/dL (11.2-15.7); MCH 33.2 pg (27.0-33.0); MCHC 33.8 % (32.0-36.0); MCV 98 fL (80-95); Platelet Count 312 10^3/uL (130-400); RBC 3.46 10^6/uL (3.93-5.22); RDW 14.9 % (11.7-14.6); WBC 3.68 10^3/uL (4.4-10.8)
[2022-06-24 16:33] LABS: Absolute Basophil Count 0.04 10^3/uL (0.0-0.2); Absolute Eosinophil Count 0.55 10^3/uL (0.0-0.7); Absolute Lymphocyte Count 1.51 10^3/uL (1.2-3.4); Absolute Monocyte Count 0.07 10^3/uL (0.1-0.8); Absolute Neutrophil Count 1.47 10^3/uL (1.2-6.7); Atypical Lymphocytes % 2; Bands % 0; Diff Comment Manual Differential; Metamyelocytes % 1; RBC Morphology Normal
== END 2022-06-24 15:22 | disposition home or self-care (01) ==
LOC: LBO 15:22
PROVIDERS: PCP Nurse Practitioner; Visit Provider Internal Medicine Hematology & Oncology
DX: C79.81 Secondary malignant neoplasm of breast (principal)
CPT/HCPCS: 36415; 85025

== ENCOUNTER 2022-07-07 04:25 | Outpatient (CLI) | payer MEDICAID, SELFPAY ==
[2022-07-07 14:19] LABS: HCT 31.4 % (36.0-46.0); HGB 10.4 g/dL (11.2-15.7); MCH 32.8 pg (27.0-33.0); MCHC 33.1 % (32.0-36.0); MCV 99 fL (80-95); MPV 10.2 fL (8.0-11.0); Platelet Count 134 10^3/uL (130-400); RBC 3.17 10^6/uL (3.93-5.22); RDW 16.2 % (11.7-14.6); RDW-SD 57.1 fL; WBC 2.02 10^3/uL (4.4-10.8)
[2022-07-07 14:37] LABS: ALT 26 U/L (14-59); AST 24 U/L (15-37); Albumin 3.8 g/dL (3.4-5.0); Alkaline Phosphatase 106 U/L (46-116); Anion Gap 10.3 mmol/L (3-11); BUN 32 mg/dL (7-18); Bilirubin, Total 0.4 mg/dL (0.2-1.0); CO2 23.7 mmol/L (21.0-32.0); CREATININE 2.9 mg/dL (0.55-1.02); Calcium 9.2 mg/dL (8.5-10.1); Chloride 109 mmol/L (98-107); Estimated GFR 17.53 (mL/min/1.73m2); Glucose 174 mg/dL (74-106); Potassium 4.2 mmol/L (3.5-5.1); Sodium 143 mmol/L (136-145); Total Protein 7.7 g/dL (6.4-8.2)
[2022-07-07 14:43] LABS: Absolute Eosinophil Count 0.06 10^3/uL (0.0-0.7); Absolute Lymphocyte Count 0.97 10^3/uL (1.2-3.4); Absolute Monocyte Count 0.06 10^3/uL (0.1-0.8); Absolute Neutrophil Count 0.91 10^3/uL (1.2-6.7); Atypical Lymphocytes % 0; Bands % 0
[2022-07-07 14:44] LABS: Diff Comment Manual Differential; Metamyelocytes % 1; RBC Morphology Normal
[2022-07-08 13:25] LABS: Cancer Ag 15-3 40 U/mL (<30)
== END 2022-07-07 04:26 | disposition home or self-care (01) ==
LOC: LBO 04:25
PROVIDERS: PCP Nurse Practitioner; Visit Provider Internal Medicine Hematology & Oncology
DX: C50.911 Malignant neoplasm of unspecified site of right female breast (principal)
CPT/HCPCS: 80053; 86304; 85025; 86300

== ENCOUNTER 2022-07-22 03:48 | Outpatient (CLI) | payer MEDICAID, SELFPAY ==
[2022-07-22 14:36] LABS: Abs Immature Grans 0.03 10^3/uL (0.0-0.06); Absolute Basophil Count 0.11 10^3/uL (0.0-0.2); Absolute Eosinophil Count 0.23 10^3/uL (0.0-0.7); Absolute Lymphocyte Count 1.51 10^3/uL (1.2-3.4); Absolute Monocyte Count 0.57 10^3/uL (0.1-0.8); Absolute Neutrophil Count 3.24 10^3/uL (1.2-6.7); Basophils % 1.9; HGB 11.2 g/dL (11.2-15.7); Immature Grans % 0.5; Lymphocytes % 26.5; MCH 33.4 pg (27.0-33.0); MCHC 33.9 % (32.0-36.0); MCV 99 fL (80-95); Neutrophils % 57.1; Platelet Count 307 10^3/uL (130-400); RBC 3.35 10^6/uL (3.93-5.22); RDW 16.9 % (11.7-14.6); RDW-SD 61.1 fL; WBC 5.69 10^3/uL (4.4-10.8)
[2022-07-22 14:49] LABS: Hemoglobin A1C 7.7 % (<5.7)
[2022-07-22 14:50] LABS: ALT 34 U/L (14-59); AST 24 U/L (15-37); Albumin 3.7 g/dL (3.4-5.0); Alkaline Phosphatase 107 U/L (46-116); Anion Gap 12.5 mmol/L (3-11); BUN 35 mg/dL (7-18); Bilirubin, Total 0.5 mg/dL (0.2-1.0); CO2 24.5 mmol/L (21.0-32.0); CREATININE 2.4 mg/dL (0.55-1.02); Calcium 9.3 mg/dL (8.5-10.1); Chloride 102 mmol/L (98-107); Glucose 243 mg/dL (74-106); PHOSPHORUS 3.5 mg/dL (2.6-4.7); Potassium 3.9 mmol/L (3.5-5.1); Sodium 139 mmol/L (136-145); Total Protein 7.7 g/dL (6.4-8.2); Uric Acid 5.6 mg/dL (2.6-6.0)
[2022-07-22 16:10] LABS: Iron 61 ug/dL (50-170); Total Iron Binding Capacity 284 ug/dL (250-450); Transferrin Sat 21 % (15-50)
[2022-07-22 16:19] LABS: COMMENT (LAB VIEW ONLY) 89.04 mg/dL; PROTEIN 92.7 mg/dL; Prot/Crea Ur Ratio 1.04
[2022-07-23 09:48] LABS: Parathyroid Hormone,Intact 50 pg/mL (19-88)
[2022-07-23 15:02] LABS: Cancer Ag 15-3 49 U/mL (<30)
[2022-07-31 00:20] LABS: 25-Hydroxy D Total 49 ng/mL; 25-Hydroxy D2 <4.0 ng/mL; 25-Hydroxy D3 49 ng/mL
== END 2022-07-22 03:49 | disposition home or self-care (01) ==
LOC: LBO 03:48
PROVIDERS: Internal Medicine Nephrology; PCP Family Medicine; Visit Provider Internal Medicine Hematology & Oncology
DX: E11.22 Type 2 diabetes mellitus with diabetic chronic kidney disease (principal); I12.9 Hypertensive chronic kidney disease with stage 1 through stage 4 chronic kidney disease, or unspecified chronic kidney disease; N18.4 Chronic kidney disease, stage 4 (severe); I15.1 Hypertension secondary to other renal disorders; N28.89 Other specified disorders of kidney and ureter; N13.8 Other obstructive and reflux uropathy; C50.911 Malignant neoplasm of unspecified site of right female breast
CPT/HCPCS: 36415; 80053; 82306; 86304; 82565; 83036; 83540; 83550; 83970; 84100; 84156; 84550; 85025; 86300

== ENCOUNTER 2022-08-05 02:27 | Outpatient (CLI) | payer MEDICAID, SELFPAY ==
[2022-08-05 09:50] LABS: HCT 35.5 % (36.0-46.0); HGB 11.7 g/dL (11.2-15.7); MCH 32.6 pg (27.0-33.0); MCV 99 fL (80-95); MPV 10.1 fL (8.0-11.0); Platelet Count 296 10^3/uL (130-400); RBC 3.59 10^6/uL (3.93-5.22); RDW 16.7 % (11.7-14.6); RDW-SD 60.4 fL; WBC 2.67 10^3/uL (4.4-10.8)
[2022-08-05 10:05] LABS: ALT 20 U/L (14-59); AST 18 U/L (15-37); Albumin 3.9 g/dL (3.4-5.0); Alkaline Phosphatase 106 U/L (46-116); Anion Gap 14.3 mmol/L (3-11); BUN 39 mg/dL (7-18); Bilirubin, Total 0.7 mg/dL (0.2-1.0); CO2 20.7 mmol/L (21.0-32.0); CREATININE 2.8 mg/dL (0.55-1.02); Calcium 9.6 mg/dL (8.5-10.1); Chloride 105 mmol/L (98-107); Estimated GFR 18.29 (mL/min/1.73m2); Glucose 147 mg/dL (74-106); Sodium 140 mmol/L (136-145); Total Protein 7.8 g/dL (6.4-8.2)
[2022-08-05 10:23] LABS: Absolute Neutrophil Count 1.42 10^3/uL (1.2-6.7); Bands % 0
[2022-08-05 10:24] LABS: Absolute Eosinophil Count 0.05 10^3/uL (0.0-0.7); Absolute Lymphocyte Count 1.15 10^3/uL (1.2-3.4); Absolute Monocyte Count 0.05 10^3/uL (0.1-0.8); Atypical Lymphocytes % 1; Diff Comment Manual Differential; RBC Morphology Normal
[2022-08-06 14:19] LABS: Cancer Ag 15-3 51 U/mL (<30)
== END 2022-08-05 02:28 | disposition home or self-care (01) ==
LOC: LBO 02:27
PROVIDERS: PCP Family Medicine; Visit Provider Internal Medicine Hematology & Oncology
DX: C50.911 Malignant neoplasm of unspecified site of right female breast (principal)
CPT/HCPCS: 36415; 80053; 86304; 85025; 86300

== ENCOUNTER 2022-08-19 08:05 | Outpatient (CLI) | payer MEDICAID, SELFPAY ==
[2022-08-19 08:21] LABS: Abs Immature Grans 0.01 10^3/uL (0.0-0.06); Absolute Basophil Count 0.05 10^3/uL (0.0-0.2); Absolute Eosinophil Count 0.07 10^3/uL (0.0-0.7); Absolute Lymphocyte Count 0.77 10^3/uL (1.2-3.4); Absolute Monocyte Count 0.37 10^3/uL (0.1-0.8); Absolute Neutrophil Count 2.44 10^3/uL (1.2-6.7); Basophils % 1.3; Eosinophils % 1.9; HCT 32.7 % (36.0-46.0); Immature Grans % 0.3; Lymphocytes % 20.8; MCH 32.9 pg (27.0-33.0); MCHC 33.6 % (32.0-36.0); MCV 98 fL (80-95); Neutrophils % 65.7; Platelet Count 125 10^3/uL (130-400); RBC 3.34 10^6/uL (3.93-5.22); RDW 16.9 % (11.7-14.6); RDW-SD 61.1 fL; WBC 3.71 10^3/uL (4.4-10.8)
[2022-08-19 08:37] LABS: ALT 20 U/L (14-59); AST 21 U/L (15-37); Albumin 3.8 g/dL (3.4-5.0); Alkaline Phosphatase 98 U/L (46-116); Anion Gap 14.1 mmol/L (3-11); BUN 40 mg/dL (7-18); Bilirubin, Total 0.7 mg/dL (0.2-1.0); CO2 23.9 mmol/L (21.0-32.0); CREATININE 2.9 mg/dL (0.55-1.02); Calcium 9.4 mg/dL (8.5-10.1); Chloride 103 mmol/L (98-107); Estimated GFR 17.53 (mL/min/1.73m2); Glucose 155 mg/dL (74-106); Potassium 3.9 mmol/L (3.5-5.1); Sodium 141 mmol/L (136-145); Total Protein 8.1 g/dL (6.4-8.2)
[2022-08-20 15:56] LABS: Cancer Ag 15-3 41 U/mL (<30)
== END 2022-08-19 08:06 | disposition home or self-care (01) ==
LOC: LBO 08:05
PROVIDERS: PCP Family Medicine; Visit Provider Internal Medicine Hematology & Oncology
DX: C79.81 Secondary malignant neoplasm of breast (principal)
CPT/HCPCS: 36415; 80053; 86304; 85025; 86300

== ENCOUNTER → 2022-08-25 02:44 | Outpatient (CLI) | payer MEDICAID, SELFPAY ==
--- NOTE | 2022-08-25 | DI.NM_ITS ---
Exam(s) NM BONE SCAN WHOLE BODY GRP EXAM: [place] BONE SCAN WHOLE BODY GRP CLINICAL HISTORY: BREAST CANCER C50.811 Z17.0. COMPARISON: CR XR HIP LT COMPLETE AP PELVIS from 08/14/2021 [place] NM BONE SCAN WHOLE BODY GRP from 03/03/2022 TECHNIQUE: Whole body bone scan was performed with intravenous infusion of 18.5 millicuries of techn etium 99 labeled methylene diphosphonate. There is mildly increased uptake in the lower lumbar spine, consistent with known degenerative change s as seen on prior radiographs. Otherwise, there is no significant increased bony uptake identified on whole body images or lateral planar images of the thorax and pelvis. No significant interval bean ge in appearance comparison with examination of March 03 FINDINGS: No specific evidence of metastatic disease at this time. IMPRESSION: DATA REPOSITORY:
== END ==
PROVIDERS: PCP Family Medicine; Visit Provider Nurse Practitioner Family
DX: C50.811 Malignant neoplasm of overlapping sites of right female breast (principal)
CPT/HCPCS: 78306

== ENCOUNTER 2022-08-25 12:45 | Outpatient (CLI) | payer MEDICAID, SELFPAY ==
[2022-08-25 10:16] LABS: Abs Immature Grans 0.03 10^3/uL (0.0-0.06); Absolute Basophil Count 0.07 10^3/uL (0.0-0.2); Absolute Eosinophil Count 0.23 10^3/uL (0.0-0.7); Absolute Lymphocyte Count 1.02 10^3/uL (1.2-3.4); Absolute Monocyte Count 0.17 10^3/uL (0.1-0.8); Absolute Neutrophil Count 3.19 10^3/uL (1.2-6.7); Basophils % 1.5; Eosinophils % 4.9; HCT 30.6 % (36.0-46.0); HGB 10.1 g/dL (11.2-15.7); Immature Grans % 0.6; Lymphocytes % 21.7; MCH 32.7 pg (27.0-33.0); MCV 99 fL (80-95); MPV 9.6 fL (8.0-11.0); Monocytes % 3.6; Neutrophils % 67.7; Platelet Count 288 10^3/uL (130-400); RBC 3.09 10^6/uL (3.93-5.22); RDW 17.2 % (11.7-14.6); RDW-SD 61.6 fL; WBC 4.71 10^3/uL (4.4-10.8)
[2022-08-25 10:40] LABS: ALT 16 U/L (14-59); AST 17 U/L (15-37); Albumin 3.5 g/dL (3.4-5.0); Alkaline Phosphatase 96 U/L (46-116); BUN 36 mg/dL (7-18); Bilirubin, Total 0.5 mg/dL (0.2-1.0); CREATININE 3.1 mg/dL (0.55-1.02); Calcium 9.4 mg/dL (8.5-10.1); Chloride 105 mmol/L (98-107); Estimated GFR 16.18 (mL/min/1.73m2); Glucose 118 mg/dL (74-106); Potassium 3.8 mmol/L (3.5-5.1); Sodium 140 mmol/L (136-145); Total Protein 7.8 g/dL (6.4-8.2)
[2022-08-26 19:57] LABS: Cancer Ag 15-3 40 U/mL (<30)
== END 2022-08-25 12:46 | disposition home or self-care (01) ==
LOC: LBO 12:45
PROVIDERS: PCP Family Medicine; Visit Provider Internal Medicine Hematology & Oncology
DX: C50.911 Malignant neoplasm of unspecified site of right female breast (principal)
CPT/HCPCS: 36415; 80053; 86304; 85025; 86300

== ENCOUNTER 2022-09-16 03:17 | Outpatient (CLI) | payer MEDICAID, SELFPAY ==
[2022-09-16 07:21] LABS: HCT 29.8 % (36.0-46.0); HGB 9.9 g/dL (11.2-15.7); MCH 33.3 pg (27.0-33.0); MCHC 33.2 % (32.0-36.0); MCV 100 fL (80-95); MPV 10.2 fL (8.0-11.0); Platelet Count 156 10^3/uL (130-400); RBC 2.97 10^6/uL (3.93-5.22); RDW 17.4 % (11.7-14.6); RDW-SD 64.8 fL; WBC 2.02 10^3/uL (4.4-10.8)
[2022-09-16 07:37] LABS: ALT 25 U/L (14-59); AST 25 U/L (15-37); Albumin 3.8 g/dL (3.4-5.0); Alkaline Phosphatase 88 U/L (46-116); Anion Gap 12.8 mmol/L (3-11); BUN 36 mg/dL (7-18); Bilirubin, Total 0.6 mg/dL (0.2-1.0); CO2 22.2 mmol/L (21.0-32.0); CREATININE 3.2 mg/dL (0.55-1.02); Calcium 9.2 mg/dL (8.5-10.1); Chloride 102 mmol/L (98-107); Estimated GFR 15.58 (mL/min/1.73m2); Glucose 198 mg/dL (74-106); Potassium 3.6 mmol/L (3.5-5.1); Sodium 137 mmol/L (136-145)
[2022-09-16 08:26] LABS: Absolute Eosinophil Count 0.16 10^3/uL (0.0-0.7); Absolute Lymphocyte Count 0.69 10^3/uL (1.2-3.4); Absolute Neutrophil Count 0.97 10^3/uL (1.2-6.7); Atypical Lymphocytes % 3; Bands % 0; Diff Comment Manual Differential; RBC Morphology Normal
[2022-09-17 17:15] LABS: Cancer Ag 15-3 44 U/mL (<30)
== END 2022-09-16 03:18 | disposition home or self-care (01) ==
LOC: LBO 03:19
PROVIDERS: PCP Family Medicine; Visit Provider Internal Medicine Hematology & Oncology
DX: N18.32 Chronic kidney disease, stage 3b (principal); D63.1 Anemia in chronic kidney disease
CPT/HCPCS: 36415; 80053; 86304; 85025; 86300

== ENCOUNTER 2022-10-14 02:52 | Outpatient (CLI) | payer MEDICAID, SELFPAY ==
[2022-10-14 11:09] LABS: Abs Immature Grans 0.01 10^3/uL (0.0-0.06); Absolute Eosinophil Count 0.09 10^3/uL (0.0-0.7); Absolute Lymphocyte Count 1.09 10^3/uL (1.2-3.4); Absolute Monocyte Count 0.31 10^3/uL (0.1-0.8); Absolute Neutrophil Count 1.81 10^3/uL (1.2-6.7); Basophils % 2.9; Eosinophils % 2.6; HCT 30.9 % (36.0-46.0); HGB 10.5 g/dL (11.2-15.7); Immature Grans % 0.3; MCV 103 fL (80-95); MPV 10.2 fL (8.0-11.0); Monocytes % 9.1; Neutrophils % 53.1; Platelet Count 165 10^3/uL (130-400); RDW 15.8 % (11.7-14.6); RDW-SD 59.5 fL; WBC 3.41 10^3/uL (4.4-10.8)
[2022-10-14 11:26] LABS: ALT 20 U/L (14-59); AST 20 U/L (15-37); Albumin 4.1 g/dL (3.4-5.0); Alkaline Phosphatase 98 U/L (46-116); Anion Gap 9.8 mmol/L (3-11); BUN 37 mg/dL (7-18); Bilirubin, Total 0.5 mg/dL (0.2-1.0); CO2 26.2 mmol/L (21.0-32.0); CREATININE 2.6 mg/dL (0.55-1.02); Calcium 9.4 mg/dL (8.5-10.1); Chloride 103 mmol/L (98-107); Estimated GFR 19.99 (mL/min/1.73m2); Glucose 148 mg/dL (74-106); Potassium 3.9 mmol/L (3.5-5.1); Sodium 139 mmol/L (136-145)
[2022-10-16 11:35] LABS: Cancer Ag 15-3 45 U/mL (<30)
== END 2022-10-14 02:53 | disposition home or self-care (01) ==
PROVIDERS: PCP Family Medicine; Visit Provider Internal Medicine Hematology & Oncology
DX: N18.32 Chronic kidney disease, stage 3b (principal); D63.1 Anemia in chronic kidney disease; C50.911 Malignant neoplasm of unspecified site of right female breast
CPT/HCPCS: 36415; 80053; 86304; 85025; 86300

== ENCOUNTER 2022-11-11 04:00 | Outpatient (CLI) | payer MEDICAID, SELFPAY ==
[2022-11-11 10:35] LABS: Abs Immature Grans 0.01 10^3/uL (0.0-0.06); Absolute Basophil Count 0.11 10^3/uL (0.0-0.2); Absolute Lymphocyte Count 1.03 10^3/uL (1.2-3.4); Absolute Monocyte Count 0.22 10^3/uL (0.1-0.8); Absolute Neutrophil Count 1.08 10^3/uL (1.2-6.7); Basophils % 4.3; Eosinophils % 3.9; HCT 30.7 % (36.0-46.0); HGB 10.4 g/dL (11.2-15.7); Immature Grans % 0.4; Lymphocytes % 40.4; MCH 35.7 pg (27.0-33.0); MCHC 33.9 % (32.0-36.0); MCV 106 fL (80-95); MPV 10.3 fL (8.0-11.0); Monocytes % 8.6; Neutrophils % 42.4; Platelet Count 169 10^3/uL (130-400); RBC 2.91 10^6/uL (3.93-5.22); RDW 14.2 % (11.7-14.6); WBC 2.55 10^3/uL (4.4-10.8)
[2022-11-11 10:47] LABS: ALT 19 U/L (14-59); AST 21 U/L (15-37); Alkaline Phosphatase 111 U/L (46-116); Anion Gap 9.8 mmol/L (3-11); BUN 36 mg/dL (7-18); Bilirubin, Total 0.5 mg/dL (0.2-1.0); CO2 26.2 mmol/L (21.0-32.0); CREATININE 2.6 mg/dL (0.55-1.02); Calcium 9.4 mg/dL (8.5-10.1); Chloride 104 mmol/L (98-107); Estimated GFR 19.99 (mL/min/1.73m2); Glucose 158 mg/dL (74-106); Potassium 3.7 mmol/L (3.5-5.1); Sodium 140 mmol/L (136-145)
[2022-11-13 12:40] LABS: Cancer Ag 15-3 45 U/mL (<30)
== END 2022-11-11 04:01 | disposition home or self-care (01) ==
PROVIDERS: PCP Family Medicine; Visit Provider Internal Medicine Hematology & Oncology
DX: C50.811 Malignant neoplasm of overlapping sites of right female breast (principal); N18.32 Chronic kidney disease, stage 3b; D63.1 Anemia in chronic kidney disease
CPT/HCPCS: 36415; 80053; 86304; 85025; 86300

== ENCOUNTER 2022-12-09 13:04 | Outpatient (CLI) | payer MEDICAID, SELFPAY ==
[2022-12-09 08:34] LABS: Abs Immature Grans 0.01 10^3/uL (0.0-0.06); Absolute Basophil Count 0.06 10^3/uL (0.0-0.2); Absolute Eosinophil Count 0.07 10^3/uL (0.0-0.7); Absolute Lymphocyte Count 0.66 10^3/uL (1.2-3.4); Absolute Neutrophil Count 1.59 10^3/uL (1.2-6.7); Basophils % 2.3; Eosinophils % 2.7; HCT 31.2 % (36.0-46.0); HGB 10.5 g/dL (11.2-15.7); Immature Grans % 0.4; Lymphocytes % 25.5; MCH 35.8 pg (27.0-33.0); MCHC 33.7 % (32.0-36.0); MCV 107 fL (80-95); MPV 10.3 fL (8.0-11.0); Monocytes % 7.7; Neutrophils % 61.4; Platelet Count 188 10^3/uL (130-400); RBC 2.93 10^6/uL (3.93-5.22); RDW 13.3 % (11.7-14.6); RDW-SD 52.2 fL; WBC 2.59 10^3/uL (4.4-10.8)
[2022-12-09 08:47] LABS: ALT 18 U/L (14-59); AST 22 U/L (15-37); Albumin 3.9 g/dL (3.4-5.0); Alkaline Phosphatase 100 U/L (46-116); Anion Gap 13.3 mmol/L (3-11); BUN 35 mg/dL (7-18); Bilirubin, Total 0.7 mg/dL (0.2-1.0); CO2 23.7 mmol/L (21.0-32.0); CREATININE 2.9 mg/dL (0.55-1.02); Calcium 9.6 mg/dL (8.5-10.1); Chloride 103 mmol/L (98-107); Estimated GFR 17.53 (mL/min/1.73m2); Glucose 177 mg/dL (74-106); Potassium 4.3 mmol/L (3.5-5.1); Sodium 140 mmol/L (136-145); Total Protein 7.9 g/dL (6.4-8.2)
[2022-12-09 09:03] LABS: Diff Comment Diff Reviewed; Macrocytosis 1+
[2022-12-10 18:04] LABS: Cancer Ag 15-3 47 U/mL (<30)
== END 2022-12-09 13:05 | disposition home or self-care (01) ==
LOC: LBO 13:05
PROVIDERS: PCP Family Medicine; Visit Provider Internal Medicine Hematology & Oncology
DX: N18.32 Chronic kidney disease, stage 3b (principal); D63.1 Anemia in chronic kidney disease; C79.81 Secondary malignant neoplasm of breast
CPT/HCPCS: 36415; 80053; 86304; 85025; 86300

== ENCOUNTER 2023-01-06 03:11 | Outpatient (CLI) | payer MEDICAID, SELFPAY ==
[2023-01-06 11:39] LABS: Abs Immature Grans 0.01 10^3/uL (0.0-0.06); Absolute Basophil Count 0.07 10^3/uL (0.0-0.2); Absolute Lymphocyte Count 0.75 10^3/uL (1.2-3.4); Absolute Monocyte Count 0.25 10^3/uL (0.1-0.8); Absolute Neutrophil Count 1.07 10^3/uL (1.2-6.7); Basophils % 3.1; Eosinophils % 4.4; HCT 29.1 % (36.0-46.0); HGB 9.9 g/dL (11.2-15.7); Immature Grans % 0.4; Lymphocytes % 33.3; MCH 36.1 pg (27.0-33.0); MCV 106 fL (80-95); Monocytes % 11.1; Neutrophils % 47.7; Platelet Count 180 10^3/uL (130-400); RBC 2.74 10^6/uL (3.93-5.22); RDW 13.7 % (11.7-14.6); RDW-SD 52.9 fL; WBC 2.25 10^3/uL (4.4-10.8)
[2023-01-06 11:57] LABS: ALT 24 U/L (14-59); AST 21 U/L (15-37); Albumin 3.9 g/dL (3.4-5.0); Alkaline Phosphatase 94 U/L (46-116); Anion Gap 13.1 mmol/L (3-11); BUN 29 mg/dL (7-18); Bilirubin, Total 0.5 mg/dL (0.2-1.0); CO2 23.9 mmol/L (21.0-32.0); CREATININE 2.6 mg/dL (0.55-1.02); Calcium 9.5 mg/dL (8.5-10.1); Chloride 106 mmol/L (98-107); Estimated GFR 19.99 (mL/min/1.73m2); Glucose 203 mg/dL (74-106); Potassium 4.3 mmol/L (3.5-5.1); Sodium 143 mmol/L (136-145); Total Protein 7.6 g/dL (6.4-8.2)
[2023-01-08 14:47] LABS: Cancer Ag 15-3 45 U/mL (<30)
== END 2023-01-06 03:12 | disposition home or self-care (01) ==
LOC: LBO 03:11
PROVIDERS: PCP Family Medicine; Visit Provider Internal Medicine Hematology & Oncology
DX: C50.811 Malignant neoplasm of overlapping sites of right female breast (principal); N18.32 Chronic kidney disease, stage 3b; D63.1 Anemia in chronic kidney disease
CPT/HCPCS: 36415; 80053; 86304; 85025; 86300

== ENCOUNTER 2023-02-03 03:23 | Outpatient (CLI) | payer MEDICAID, SELFPAY ==
[2023-02-03 08:08] LABS: Abs Immature Grans 0.01 10^3/uL (0.0-0.06); Absolute Basophil Count 0.08 10^3/uL (0.0-0.2); Absolute Eosinophil Count 0.09 10^3/uL (0.0-0.7); Absolute Monocyte Count 0.27 10^3/uL (0.1-0.8); Absolute Neutrophil Count 1.32 10^3/uL (1.2-6.7); Basophils % 3.1; Eosinophils % 3.5; HCT 31.3 % (36.0-46.0); HGB 10.9 g/dL (11.2-15.7); Immature Grans % 0.4; Lymphocytes % 31.1; MCH 36.2 pg (27.0-33.0); MCHC 34.8 % (32.0-36.0); MCV 104 fL (80-95); MPV 10.2 fL (8.0-11.0); Monocytes % 10.5; Neutrophils % 51.4; Platelet Count 151 10^3/uL (130-400); RBC 3.01 10^6/uL (3.93-5.22); RDW 13.2 % (11.7-14.6); RDW-SD 49.9 fL; WBC 2.57 10^3/uL (4.4-10.8)
[2023-02-03 08:24] LABS: ALT 24 U/L (14-59); AST 19 U/L (15-37); Alkaline Phosphatase 92 U/L (46-116); BUN 25 mg/dL (7-18); Bilirubin, Total 0.6 mg/dL (0.2-1.0); CREATININE 2.6 mg/dL (0.55-1.02); Calcium 9.6 mg/dL (8.5-10.1); Chloride 105 mmol/L (98-107); Estimated GFR 19.99 (mL/min/1.73m2); Glucose 184 mg/dL (74-106); Potassium 3.9 mmol/L (3.5-5.1); Sodium 140 mmol/L (136-145); Total Protein 7.7 g/dL (6.4-8.2)
[2023-02-05 12:45] LABS: Cancer Ag 15-3 43 U/mL (<30)
== END 2023-02-03 03:24 | disposition home or self-care (01) ==
LOC: LBO 03:23
PROVIDERS: PCP Family Medicine; Visit Provider Internal Medicine Hematology & Oncology
DX: C50.919 Malignant neoplasm of unspecified site of unspecified female breast (principal); N18.30 Chronic kidney disease, stage 3 unspecified; D63.1 Anemia in chronic kidney disease
CPT/HCPCS: 36415; 80053; 86304; 85025; 86300

== ENCOUNTER 2023-02-25 00:16 | Outpatient (CLI) | payer MEDICAID, SELFPAY ==
--- NOTE | 2023-02-25 | DI.CT_ITS ---
Exam(s) CT CHEST/ABD/PEL WO EXAM: CT CHEST/ABD/PEL WO CLINICAL HISTORY: METSTATIC BREAST CA,C50.919. TECHNIQUE: Imaging Protocol: Axial computed tomography images with coronal and sagittal reformatted images were created and reviewed CONTRAST MATERIAL: Intravenous: Not administered due to poor GFR. Oral: yes COMPARISON: CT ABD PELVIS WO CONTRAST from 02/11/[address] CHEST/ABD/PEL WO from 08/11/2021 MR MR BRAIN WO from 08/12/2021 NM NM BONE SCAN WHOLE BODY GRP from 03/03/2022 NM NM BONE SCAN WHOLE BODY GRP from 08/25/2022 FINDINGS: CHEST: Tracheobronchial tree: Patent where visualized. Pulmonary parenchyma: No consolidation or dominant measurable mass. 4 millimeter nodule posterior le ft lung base unchanged from 2017. A few other scattered calcifications are noted, consistent with gr anulomas. Pleura: No effusion or pneumothorax. Lymph nodes: Within normal limits. Aorta: Thoracic portion non-dilated. Atherosclerotic calcifications. Heart: Normal size. Moderate to severe coronary artery calcifications. Bones: Scoliosis. Mixed lytic and sclerotic lesions throughout the spine. Findings are similar to p rior.No compression fractures. Soft tissues: Status post right mastectomy. ABDOMEN: Liver: Normal density. No measurable mass. Gallbladder and biliary tract: Few tiny calcified stones are noted. No gallbladder wall thickening. No biliary dilation. Pancreas: Normal density, no abnormal calcifications or inflammatory process. Spleen: Normal. Kidneys: Mildly atrophic. Improvement in previously noted bilateral renal pelvic dilatation. Normal c ontour and axis. No radiodense stones or obstructive uropathy. No suspicious masses seen. Adrenal glands: No masses seen. Aorta: Abdominal portion non-dilated. Severe atherosclerotic changes. Lymph nodes: Within normal limits. Soft tissues: Unremarkable. PELVIS: Bladder: Suprapubic catheter. Diffuse wall thickening. No visible focal mass. Bowel: Diverticulosis. No obstruction or bowel wall thickening. Peritoneal cavity: No ascites, collection or mesenteric inflammatory response. Bones: Stable appearance of mixed lytic and sclerotic lesions. Reproductive organs: Retroverted uterus with posterior fibroid. IMPRESSION: Stable appearance of sclerotic bony lesions. No other sites metastases identified. Improvement in bilateral hydronephrosis. Suprapubic catheter noted in urinary bladder. Diffuse bladde r wall thickening. RADIATION DOSE DELIVERED: 1,150.36mGy.cm Total DLP DATA REPOSITORY: All CT scans at this facility are submitted to the National Radiology Data Registry (NRDR) Dose Index Registry (DIR) with the [employer] (ACR). RADIATION OPTIMIZATION: All CT scans at this facility use at least one of these dose optimization te chniques: automated exposure control; mA and/or kV adjustment per patient size (includes targeted exa ms where dose is matched to clinical indication); or iterative reconstruction.
--- NOTE | 2023-02-25 08:30 | DI.NM_ITS ---
Exam(s) [place] BONE SCAN WHOLE BODY GRP EXAM: [place] BONE SCAN WHOLE BODY GRP CLINICAL HISTORY: METASTATIC BREAST CA,C50.919. TECHNIQUE: Injected Dose: 25 mCi Tc-99m MDP Delayed Images: 2-3 hours. COMPARISON: [facility] BONE SCAN 3 PHASE from 08/12/2021 [facility] BONE SCAN WHOLE BODY GRP from 08/25/[address] CHEST/ABD/PEL WO from 02/25/2023 FINDINGS: Skull activity is again noted. stable from prior. There is no trick activity in the region of the s acroiliac joints. There are stable increased activity in the lower lumbar spine. No new areas of ab normal labeling. IMPRESSION: 1. Stable areas of increased activity in the skull, lower lumbar spine and region of the SI joints. DATA REPOSITORY:
[2023-02-25 08:39] LABS: Abs Immature Grans 0.01 10^3/uL (0.0-0.06); Absolute Basophil Count 0.07 10^3/uL (0.0-0.2); Absolute Lymphocyte Count 0.76 10^3/uL (1.2-3.4); HCT 30.6 % (36.0-46.0); HGB 10.6 g/dL (11.2-15.7); MCH 36.1 pg (27.0-33.0); MCHC 34.6 % (32.0-36.0); MCV 104 fL (80-95); MPV 10.2 fL (8.0-11.0); Platelet Count 213 10^3/uL (130-400); RBC 2.94 10^6/uL (3.93-5.22); RDW 13.3 % (11.7-14.6); RDW-SD 50.2 fL; WBC 2.36 10^3/uL (4.4-10.8)
[2023-02-25 09:00] LABS: ALT 23 U/L (14-59); AST 21 U/L (15-37); Alkaline Phosphatase 101 U/L (46-116); Anion Gap 11.2 mmol/L (3-11); BUN 36 mg/dL (7-18); Bilirubin, Total 0.6 mg/dL (0.2-1.0); CO2 23.8 mmol/L (21.0-32.0); CREATININE 3.1 mg/dL (0.55-1.02); Calcium 9.1 mg/dL (8.5-10.1); Chloride 105 mmol/L (98-107); Estimated GFR 16.08 (mL/min/1.73m2); Glucose 161 mg/dL (74-106); Potassium 3.7 mmol/L (3.5-5.1); Sodium 140 mmol/L (136-145)
[2023-02-25] MEDS: Barium Sulfate 2% W/V-Berry Smoothie 450 ML BTL 900 ML PO (09:00)
[2023-02-25 09:29] LABS: Absolute Neutrophil Count 1.32 10^3/uL (1.2-6.7)
[2023-02-25 09:30] LABS: Absolute Eosinophil Count 0.12 10^3/uL (0.0-0.7); Absolute Monocyte Count 0.09 10^3/uL (0.1-0.8); Diff Comment Manual Differential; RBC Morphology Normal
[2023-02-28 12:10] LABS: Cancer Ag 15-3 50 U/mL (<30)
== END 2023-02-25 00:36 ==
LOC: DI 00:16
PROVIDERS: PCP Family Medicine; Visit Provider Nurse Practitioner Family
DX: C50.919 Malignant neoplasm of unspecified site of unspecified female breast (principal)
CPT/HCPCS: 71250; 78306; 80053; 86304; 74176; 85025; 86300

== ENCOUNTER 2023-03-03 01:44 | Outpatient (CLI) | payer MEDICARE, MEDICAID, SELFPAY ==
[2023-03-03 09:07] LABS: Abs Immature Grans 0.01 10^3/uL (0.0-0.06); Absolute Basophil Count 0.09 10^3/uL (0.0-0.2); Absolute Eosinophil Count 0.09 10^3/uL (0.0-0.7); Absolute Lymphocyte Count 0.96 10^3/uL (1.2-3.4); Absolute Monocyte Count 0.24 10^3/uL (0.1-0.8); Absolute Neutrophil Count 1.12 10^3/uL (1.2-6.7); Basophils % 3.6; Eosinophils % 3.6; HCT 31.5 % (36.0-46.0); HGB 11.1 g/dL (11.2-15.7); Immature Grans % 0.4; Lymphocytes % 38.2; MCH 36.9 pg (27.0-33.0); MCHC 35.2 % (32.0-36.0); MCV 105 fL (80-95); MPV 10.4 fL (8.0-11.0); Monocytes % 9.6; Neutrophils % 44.6; Platelet Count 155 10^3/uL (130-400); RBC 3.01 10^6/uL (3.93-5.22); RDW 13.2 % (11.7-14.6); RDW-SD 49.5 fL; WBC 2.51 10^3/uL (4.4-10.8)
[2023-03-03 09:17] LABS: ALT 23 U/L (14-59); AST 18 U/L (15-37); Albumin 3.9 g/dL (3.4-5.0); Alkaline Phosphatase 116 U/L (46-116); Anion Gap 9.3 mmol/L (3-11); BUN 28 mg/dL (7-18); Bilirubin, Total 0.5 mg/dL (0.2-1.0); CO2 26.7 mmol/L (21.0-32.0); CREATININE 2.6 mg/dL (0.55-1.02); Calcium 9.2 mg/dL (8.5-10.1); Chloride 105 mmol/L (98-107); Estimated GFR 19.86 (mL/min/1.73m2); Glucose 165 mg/dL (74-106); Potassium 4.1 mmol/L (3.5-5.1); Sodium 141 mmol/L (136-145); Total Protein 7.9 g/dL (6.4-8.2)
[2023-03-04 17:17] LABS: Cancer Ag 15-3 50 U/mL (<30)
== END 2023-03-03 01:45 | disposition home or self-care (01) ==
LOC: LBO 01:44
PROVIDERS: PCP Family Medicine; Visit Provider Internal Medicine Hematology & Oncology
DX: C50.811 Malignant neoplasm of overlapping sites of right female breast (principal); N18.32 Chronic kidney disease, stage 3b; D63.1 Anemia in chronic kidney disease
CPT/HCPCS: 36415; 80053; 86304; 85025; 86300

== ENCOUNTER 2023-03-31 04:34 | Outpatient (CLI) | payer MEDICARE, MEDICAID, SELFPAY ==
[2023-03-31 08:35] LABS: HCT 29.7 % (36.0-46.0); HGB 10.2 g/dL (11.2-15.7); MCH 35.9 pg (27.0-33.0); MCHC 34.3 % (32.0-36.0); MCV 105 fL (80-95); MPV 10.2 fL (8.0-11.0); Platelet Count 147 10^3/uL (130-400); RBC 2.84 10^6/uL (3.93-5.22); RDW 13.6 % (11.7-14.6); RDW-SD 52.1 fL; WBC 2.71 10^3/uL (4.4-10.8)
[2023-03-31 08:51] LABS: ALT 18 U/L (14-59); AST 19 U/L (15-37); Absolute Neutrophil Count 1.22 10^3/uL (1.2-6.7); Albumin 3.6 g/dL (3.4-5.0); Alkaline Phosphatase 92 U/L (46-116); Anion Gap 11.4 mmol/L (3-11); BUN 28 mg/dL (7-18); Bilirubin, Total 0.8 mg/dL (0.2-1.0); CO2 24.6 mmol/L (21.0-32.0); Calcium 9.1 mg/dL (8.5-10.1); Chloride 102 mmol/L (98-107); Estimated GFR 16.73 (mL/min/1.73m2); Glucose 186 mg/dL (74-106); Potassium 3.4 mmol/L (3.5-5.1); Sodium 138 mmol/L (136-145); Total Protein 7.6 g/dL (6.4-8.2)
[2023-03-31 08:52] LABS: Absolute Basophil Count 0.11 10^3/uL (0.0-0.2); Absolute Eosinophil Count 0.14 10^3/uL (0.0-0.7); Absolute Monocyte Count 0.16 10^3/uL (0.1-0.8); Atypical Lymphocytes % 1; Diff Comment Manual Differential; RBC Morphology Normal
[2023-03-31 09:13] LABS: Absolute Lymphocyte Count 1.08 10^3/uL (1.2-3.4)
[2023-04-01 18:00] LABS: Cancer Ag 15-3 47 U/mL (<30)
== END 2023-03-31 04:35 | disposition home or self-care (01) ==
LOC: LBO 04:34
PROVIDERS: PCP Family Medicine; Visit Provider Internal Medicine Hematology & Oncology
DX: C50.911 Malignant neoplasm of unspecified site of right female breast (principal); N18.32 Chronic kidney disease, stage 3b; D63.1 Anemia in chronic kidney disease
CPT/HCPCS: 36415; 80053; 86304; 85025; 86300

== ENCOUNTER → 2023-04-18 09:51 | Outpatient (BNVA) | payer MEDICARE, MEDICAID, SELFPAY | PROVIDERS: PCP Family Medicine; Referring Provider Family Medicine; Visit Provider Nurse Practitioner Gerontology | DX: Z43.5 Encounter for attention to cystostomy (principal); R33.9 Retention of urine, unspecified | CPT/HCPCS: 99211 ==

== ENCOUNTER 2023-04-28 03:48 | Outpatient (CLI) | payer MEDICARE, MEDICAID, SELFPAY ==
[2023-04-28 08:43] LABS: Abs Immature Grans 0.01 10^3/uL (0.0-0.06); HCT 30.2 % (36.0-46.0); HGB 10.4 g/dL (11.2-15.7); Immature Grans % 0.4; MCH 36.1 pg (27.0-33.0); MCHC 34.4 % (32.0-36.0); MCV 105 fL (80-95); MPV 10.6 fL (8.0-11.0); Platelet Count 149 10^3/uL (130-400); RBC 2.88 10^6/uL (3.93-5.22); RDW 13.3 % (11.7-14.6); RDW-SD 50.2 fL; WBC 2.35 10^3/uL (4.4-10.8)
[2023-04-28 08:53] LABS: ALT 18 U/L (14-59); AST 19 U/L (15-37); Albumin 3.9 g/dL (3.4-5.0); Alkaline Phosphatase 106 U/L (46-116); Anion Gap 12.4 mmol/L (3-11); BUN 26 mg/dL (7-18); Bilirubin, Total 0.7 mg/dL (0.2-1.0); CO2 25.6 mmol/L (21.0-32.0); CREATININE 2.4 mg/dL (0.55-1.02); Chloride 103 mmol/L (98-107); Estimated GFR 21.87 (mL/min/1.73m2); Glucose 143 mg/dL (74-106); Potassium 3.7 mmol/L (3.5-5.1); Sodium 141 mmol/L (136-145); Total Protein 7.9 g/dL (6.4-8.2)
[2023-04-28 09:30] LABS: RBC Morphology Normal
[2023-04-28 09:31] LABS: Absolute Eosinophil Count 0.16 10^3/uL (0.0-0.7); Absolute Monocyte Count 0.07 10^3/uL (0.1-0.8); Absolute Neutrophil Count 1.03 10^3/uL (1.2-6.7); Diff Comment Manual Differential
[2023-04-28 09:32] LABS: Absolute Basophil Count 0.14 10^3/uL (0.0-0.2); Absolute Lymphocyte Count 0.94 10^3/uL (1.2-3.4); Atypical Lymphocytes % 3
[2023-04-29 18:27] LABS: Cancer Ag 15-3 47 U/mL (<30)
== END 2023-04-28 03:49 | disposition home or self-care (01) ==
LOC: LBO 04:00
PROVIDERS: PCP Family Medicine; Visit Provider Internal Medicine Hematology & Oncology
DX: C50.911 Malignant neoplasm of unspecified site of right female breast (principal); N18.31 Chronic kidney disease, stage 3a; D63.1 Anemia in chronic kidney disease
CPT/HCPCS: 36415; 80053; 86304; 85025; 86300

== ENCOUNTER → 2023-05-16 10:03 | Outpatient (BNVA) | payer MEDICARE, MEDICAID, SELFPAY | PROVIDERS: PCP Family Medicine; Visit Provider Nurse Practitioner Gerontology | DX: Z43.5 Encounter for attention to cystostomy (principal); R33.9 Retention of urine, unspecified | CPT/HCPCS: 51705 ==

== ENCOUNTER 2023-05-26 04:01 | Outpatient (CLI) | payer MEDICARE, MEDICAID, SELFPAY ==
[2023-05-26 08:24] LABS: HCT 30.7 % (36.0-46.0); HGB 10.4 g/dL (11.2-15.7); MCH 35.7 pg (27.0-33.0); MCHC 33.9 % (32.0-36.0); MCV 106 fL (80-95); MPV 10.3 fL (8.0-11.0); Platelet Count 144 10^3/uL (130-400); RBC 2.91 10^6/uL (3.93-5.22); RDW-SD 54.1 fL; WBC 2.43 10^3/uL (4.4-10.8)
[2023-05-26 08:39] LABS: ALT 23 U/L (14-59); AST 25 U/L (15-37); Alkaline Phosphatase 92 U/L (46-116); Anion Gap 9.5 mmol/L (3-11); BUN 38 mg/dL (7-18); Bilirubin, Total 0.8 mg/dL (0.2-1.0); CO2 26.5 mmol/L (21.0-32.0); CREATININE 3.2 mg/dL (0.55-1.02); Calcium 9.2 mg/dL (8.5-10.1); Chloride 103 mmol/L (98-107); Estimated GFR 15.48 (mL/min/1.73m2); Glucose 138 mg/dL (74-106); Potassium 3.7 mmol/L (3.5-5.1); Sodium 139 mmol/L (136-145); Total Protein 7.7 g/dL (6.4-8.2)
[2023-05-26 09:15] LABS: Absolute Basophil Count 0.15 10^3/uL (0.0-0.2); Absolute Lymphocyte Count 0.85 10^3/uL (1.2-3.4); Absolute Monocyte Count 0.15 10^3/uL (0.1-0.8); Absolute Neutrophil Count 1.19 10^3/uL (1.2-6.7); Atypical Lymphocytes % 3; Diff Comment Manual Differential; Macrocytosis 2+
[2023-05-26 09:17] LABS: Polychromasia Present
[2023-05-27 17:05] LABS: Cancer Ag 15-3 51 U/mL (<30)
== END 2023-05-26 04:02 | disposition home or self-care (01) ==
LOC: LBO 04:01
PROVIDERS: PCP Family Medicine; Visit Provider Internal Medicine Hematology & Oncology
DX: C50.411 Malignant neoplasm of upper-outer quadrant of right female breast (principal); N18.32 Chronic kidney disease, stage 3b; D63.1 Anemia in chronic kidney disease
CPT/HCPCS: 36415; 80053; 86304; 85025; 86300

== ENCOUNTER 2023-06-07 14:50 | Outpatient (REF) | payer MEDICARE, MEDICAID, SELFPAY ==
[2023-06-07 14:01] LABS: Bilirubin Negative (Negative); Blood Large (Negative); Clarity Cloudy (Clear); Glucose >=1000 mg/dL (Negative); Ketones Negative (Negative); Leukocyte Esterase Small (Negative); Nitrite Positive (Negative); Specific Gravity 1.015 (1.005-1.025); Urobilinogen 0.2 mg/dL (Up to 0.2)
[2023-06-07 14:46] LABS: WBC >50 HPF (0-5)
[2023-06-07 14:47] LABS: Bacteria Many HPF (Negative); C & S Indicated? Yes; Casts Negative LPF (Negative); Crystals Negative HPF (Negative); Epithelial Cells Negative HPF (Negative); Mucus Negative (Negative); Other Cells Negative (Negative); RBC >50 HPF (0-2)
== END 2023-06-07 14:51 | disposition home or self-care (01) ==
LOC: LBN 14:50
PROVIDERS: PCP Family Medicine; Visit Provider Family Medicine
DX: R35.0 Frequency of micturition (principal)
CPT/HCPCS: 87077; 81003; 81015; 87086; 87186

== ENCOUNTER → 2023-06-13 10:01 | Outpatient (BNVA) | payer MEDICARE, MEDICAID, SELFPAY | PROVIDERS: PCP Family Medicine; Visit Provider Nurse Practitioner Gerontology | DX: Z43.5 Encounter for attention to cystostomy (principal); R33.9 Retention of urine, unspecified | CPT/HCPCS: 99211 ==

== ENCOUNTER 2023-06-23 04:08 | Outpatient (CLI) | payer MEDICARE, MEDICAID, SELFPAY ==
[2023-06-23 08:03] LABS: HCT 29.7 % (36.0-46.0); HGB 10.2 g/dL (11.2-15.7); MCHC 34.3 % (32.0-36.0); MCV 108 fL (80-95); MPV 9.9 fL (8.0-11.0); Platelet Count 142 10^3/uL (130-400); RBC 2.76 10^6/uL (3.93-5.22); RDW 13.8 % (11.7-14.6); RDW-SD 54.8 fL
[2023-06-23 08:16] LABS: Absolute Basophil Count 0.04 10^3/uL (0.0-0.2); Absolute Eosinophil Count 0.07 10^3/uL (0.0-0.7); Absolute Lymphocyte Count 0.68 10^3/uL (1.2-3.4); Absolute Monocyte Count 0.31 10^3/uL (0.1-0.8)
[2023-06-23 08:17] LABS: Diff Comment Manual Differential; Macrocytosis 1+
[2023-06-23 08:26] LABS: ALT 18 U/L (14-59); AST 17 U/L (15-37); Albumin 3.6 g/dL (3.4-5.0); Alkaline Phosphatase 104 U/L (46-116); Anion Gap 10.3 mmol/L (3-11); BUN 39 mg/dL (7-18); Bilirubin, Total 0.5 mg/dL (0.2-1.0); CO2 24.7 mmol/L (21.0-32.0); CREATININE 3.1 mg/dL (0.55-1.02); Calcium 9.1 mg/dL (8.5-10.1); Chloride 104 mmol/L (98-107); Estimated GFR 16.08 (mL/min/1.73m2); Glucose 158 mg/dL (74-106); Potassium 4.4 mmol/L (3.5-5.1); Sodium 139 mmol/L (136-145); Total Protein 7.3 g/dL (6.4-8.2)
[2023-06-24 18:10] LABS: Cancer Ag 15-3 46 U/mL (<30)
== END 2023-06-23 04:09 | disposition home or self-care (01) ==
LOC: LBO 04:08
PROVIDERS: PCP Family Medicine; Visit Provider Internal Medicine Hematology & Oncology
DX: C50.411 Malignant neoplasm of upper-outer quadrant of right female breast (principal); N18.32 Chronic kidney disease, stage 3b; D63.1 Anemia in chronic kidney disease
CPT/HCPCS: 36415; 80053; 86304; 85025; 86300

== ENCOUNTER → 2023-07-11 09:58 | Outpatient (BNVA) | payer MEDICARE, MEDICAID, SELFPAY | PROVIDERS: PCP Family Medicine; Visit Provider Nurse Practitioner Gerontology | DX: Z43.1 Encounter for attention to gastrostomy (principal); R33.9 Retention of urine, unspecified | CPT/HCPCS: 51705 ==

== ENCOUNTER 2023-07-21 03:36 | Outpatient (CLI) | payer MEDICARE, MEDICAID, SELFPAY ==
[2023-07-21 08:11] LABS: HCT 29.1 % (36.0-46.0); HGB 9.9 g/dL (11.2-15.7); MCH 36.5 pg (27.0-33.0); MCV 107 fL (80-95); MPV 9.6 fL (8.0-11.0); Platelet Count 136 10^3/uL (130-400); RBC 2.71 10^6/uL (3.93-5.22); RDW 13.5 % (11.7-14.6); RDW-SD 52.6 fL; WBC 2.03 10^3/uL (4.4-10.8)
[2023-07-21 08:23] LABS: Absolute Basophil Count 0.08 10^3/uL (0.0-0.2); Absolute Eosinophil Count 0.06 10^3/uL (0.0-0.7); Absolute Lymphocyte Count 0.61 10^3/uL (1.2-3.4); Absolute Monocyte Count 0.18 10^3/uL (0.1-0.8); Absolute Neutrophil Count 0.99 10^3/uL (1.2-6.7); Atypical Lymphocytes % 4; Bands % 1
[2023-07-21 08:24] LABS: Diff Comment Manual Differential; Macrocytosis 2+; Other Cells % 5
[2023-07-21 08:45] LABS: ALT 24 U/L (14-59); AST 22 U/L (15-37); Albumin 3.7 g/dL (3.4-5.0); Alkaline Phosphatase 96 U/L (46-116); Anion Gap 13.4 mmol/L (3-11); BUN 39 mg/dL (7-18); Bilirubin, Total 0.6 mg/dL (0.2-1.0); CO2 24.6 mmol/L (21.0-32.0); CREATININE 3.1 mg/dL (0.55-1.02); Calcium 9.4 mg/dL (8.5-10.1); Chloride 104 mmol/L (98-107); Estimated GFR 16.08 (mL/min/1.73m2); Glucose 134 mg/dL (74-106); Potassium 3.7 mmol/L (3.5-5.1); Sodium 142 mmol/L (136-145); Total Protein 7.8 g/dL (6.4-8.2)
[2023-07-22 17:32] LABS: Cancer Ag 15-3 48 U/mL (<30)
== END 2023-07-21 03:37 | disposition home or self-care (01) ==
LOC: LBO 03:36
PROVIDERS: PCP Family Medicine; Visit Provider Internal Medicine Hematology & Oncology
DX: C50.411 Malignant neoplasm of upper-outer quadrant of right female breast (principal); N18.32 Chronic kidney disease, stage 3b; D63.1 Anemia in chronic kidney disease
CPT/HCPCS: 36415; 80053; 86304; 85025; 86300

== ENCOUNTER → 2023-08-04 09:18 | Outpatient (CLI) | payer MEDICARE, MEDICAID, SELFPAY ==
--- NOTE | 2023-08-04 | DI.NM_ITS ---
Exam(s) NM BONE SCAN WHOLE BODY GRP EXAM: [place] BONE SCAN WHOLE BODY GRP CLINICAL HISTORY: MALIGNANT NEOPLASM RT BREAST, ESTROGEN RECEPTOR +. TECHNIQUE: Injected Dose: 25 mCi Tc-99m MDP Delayed Images: 2-3 hours. COMPARISON: CT CT HEAD WO from 08/11/2021 NM NM BONE SCAN WHOLE BODY GRP from 08/25/2022 NM [place] BONE SCAN WHOLE BODY GRP from 02/25/[address] CHEST/ABD/PEL WO from 02/25/2023 FINDINGS: No significant change compared to the prior nuclear bone scan of 02/26/2020. Increased radiopharmaceutical uptake is seen in the right-side of the lower lumbar spine which I feel corresponds to the asymmetric right-sided facet arthropathy evident at L4-[address] scan of 02/25/2023. Increased uptake is also seen lower down on the left side of the lumbosacral spine, unchanged, and mo st probably corresponding to the asymmetric facet arthropathy on the left side at L5-S1 level. Uptake in the spinal column does not exhibit findings typical of osseous metastatic disease. There i s no abnormal uptake in the rib cages. Symmetrical increased uptake in both sides of the anterior skull most probably correspond to the hype rostosis frontalis interna evident on the CT scan of July 2021. No new abnormal uptake in the pelvis and hips and long bones of the lower extremities and upper extre mities. Previously present increased uptake seen in the left 5th toe is no longer seen. There is presently n o abnormal uptake in either foot. IMPRESSION: 1. All the areas of increased skeletal uptake described above correspond to benign-appearing findings on prior CT scans, as described individually above.. 2. no obvious evidence of osseous metastatic disease on this nuclear bone scan study. DATA REPOSITORY:
== END ==
PROVIDERS: PCP Family Medicine; Visit Provider Nurse Practitioner Family
DX: C50.411 Malignant neoplasm of upper-outer quadrant of right female breast (principal); Z17.0 Estrogen receptor positive status [ER+]
CPT/HCPCS: 78306

== ENCOUNTER → 2023-08-09 14:14 | Outpatient (BNVA) | payer MEDICARE, MEDICAID, SELFPAY | PROVIDERS: PCP Family Medicine; Visit Provider Nurse Practitioner Gerontology | DX: Z43.5 Encounter for attention to cystostomy (principal); R33.9 Retention of urine, unspecified | CPT/HCPCS: 99211 ==

== ENCOUNTER 2023-08-18 04:44 | Outpatient (CLI) | payer MEDICARE, MEDICAID, SELFPAY ==
[2023-08-18 09:39] LABS: Abs Immature Grans 0.02 10^3/uL (0.0-0.06); Absolute Eosinophil Count 0.12 10^3/uL (0.0-0.7); Absolute Lymphocyte Count 0.78 10^3/uL (1.2-3.4); Absolute Monocyte Count 0.29 10^3/uL (0.1-0.8); Absolute Neutrophil Count 1.26 10^3/uL (1.2-6.7); Basophils % 3.9; Eosinophils % 4.7; HCT 28.1 % (36.0-46.0); HGB 9.9 g/dL (11.2-15.7); Immature Grans % 0.8; Lymphocytes % 30.4; MCH 37.2 pg (27.0-33.0); MCHC 35.2 % (32.0-36.0); MPV 10.1 fL (8.0-11.0); Monocytes % 11.3; Neutrophils % 48.9; Platelet Count 149 10^3/uL (130-400); RBC 2.66 10^6/uL (3.93-5.22); RDW 13.4 % (11.7-14.6); RDW-SD 51.8 fL; WBC 2.57 10^3/uL (4.4-10.8)
[2023-08-18 09:48] LABS: MCV 106 fL (80-95)
[2023-08-18 09:57] LABS: ALT 21 U/L (14-59); AST 22 U/L (15-37); Albumin 3.9 g/dL (3.4-5.0); Alkaline Phosphatase 108 U/L (46-116); Anion Gap 9.8 mmol/L (3-11); BUN 31 mg/dL (7-18); Bilirubin, Total 0.7 mg/dL (0.2-1.0); CO2 25.2 mmol/L (21.0-32.0); CREATININE 2.8 mg/dL (0.55-1.02); Calcium 9.5 mg/dL (8.5-10.1); Chloride 105 mmol/L (98-107); Estimated GFR 18.17 (mL/min/1.73m2); Glucose 126 mg/dL (74-106); Potassium 3.5 mmol/L (3.5-5.1); Sodium 140 mmol/L (136-145); Total Protein 7.7 g/dL (6.4-8.2)
[2023-08-22 13:52] LABS: Cancer Ag 15-3 49 U/mL (<30)
== END 2023-08-18 04:45 | disposition home or self-care (01) ==
LOC: LBO 04:44
PROVIDERS: PCP Family Medicine; Visit Provider Internal Medicine Hematology & Oncology
DX: C50.919 Malignant neoplasm of unspecified site of unspecified female breast (principal); N18.32 Chronic kidney disease, stage 3b; D63.1 Anemia in chronic kidney disease
CPT/HCPCS: 36415; 80053; 86304; 85025; 86300

== ENCOUNTER 2023-08-24 12:57 | Outpatient (REF) | payer MEDICARE, MEDICAID, SELFPAY ==
[2023-08-24 13:10] LABS: COMMENT (LAB VIEW ONLY) 139.24 mg/dL
[2023-08-24 13:54] LABS: Microalb ug/mg Crea 697.7 ug/mg Cr
== END 2023-08-24 12:58 | disposition home or self-care (01) ==
LOC: LBN 12:57
PROVIDERS: PCP Family Medicine; Visit Provider Family Medicine
DX: E11.9 Type 2 diabetes mellitus without complications (principal)
CPT/HCPCS: 82043; 82570

== ENCOUNTER → 2023-09-05 09:52 | Outpatient (BNVA) | payer MEDICARE, MEDICAID, SELFPAY | PROVIDERS: PCP Family Medicine; Visit Provider Nurse Practitioner Gerontology | DX: Z46.6 Encounter for fitting and adjustment of urinary device (principal); R33.8 Other retention of urine | CPT/HCPCS: 51705 ==

== ENCOUNTER 2023-09-15 04:40 | Outpatient (CLI) | payer MEDICARE, MEDICAID, SELFPAY ==
[2023-09-15 13:12] LABS: Abs Immature Grans 0.01 10^3/uL (0.0-0.06); Absolute Basophil Count 0.09 10^3/uL (0.0-0.2); Absolute Monocyte Count 0.24 10^3/uL (0.1-0.8); Absolute Neutrophil Count 1.61 10^3/uL (1.2-6.7); Basophils % 3.3; Eosinophils % 3.6; HCT 30.1 % (36.0-46.0); HGB 10.6 g/dL (11.2-15.7); Immature Grans % 0.4; Lymphocytes % 25.5; MCH 36.9 pg (27.0-33.0); MCHC 35.2 % (32.0-36.0); MCV 105 fL (80-95); MPV 9.8 fL (8.0-11.0); Monocytes % 8.7; Neutrophils % 58.5; Platelet Count 147 10^3/uL (130-400); RBC 2.87 10^6/uL (3.93-5.22); RDW 13.2 % (11.7-14.6); RDW-SD 50.3 fL; WBC 2.75 10^3/uL (4.4-10.8)
[2023-09-15 13:27] LABS: ALT 18 U/L (14-59); AST 22 U/L (15-37); Albumin 3.9 g/dL (3.4-5.0); Alkaline Phosphatase 107 U/L (46-116); Anion Gap 10.3 mmol/L (3-11); BUN 34 mg/dL (7-18); Bilirubin, Total 0.6 mg/dL (0.2-1.0); CO2 25.7 mmol/L (21.0-32.0); CREATININE 2.8 mg/dL (0.55-1.02); Calcium 9.8 mg/dL (8.5-10.1); Chloride 104 mmol/L (98-107); Estimated GFR 18.17 (mL/min/1.73m2); Glucose 158 mg/dL (74-106); Potassium 3.8 mmol/L (3.5-5.1); Sodium 140 mmol/L (136-145); Total Protein 7.9 g/dL (6.4-8.2)
[2023-09-21 14:51] LABS: Cancer Ag 15-3 56 U/mL (<30)
== END 2023-09-15 04:41 | disposition home or self-care (01) ==
LOC: LBO 04:40
PROVIDERS: PCP Family Medicine; Visit Provider Internal Medicine Hematology & Oncology
DX: N18.32 Chronic kidney disease, stage 3b; D63.1 Anemia in chronic kidney disease
CPT/HCPCS: 36415; 80053; 86304; 85025; 86300

== ENCOUNTER → 2023-10-03 14:15 | Outpatient (BNVA) | payer MEDICARE, MEDICAID, SELFPAY | PROVIDERS: PCP Family Medicine; Visit Provider Nurse Practitioner Gerontology | DX: Z46.6 Encounter for fitting and adjustment of urinary device (principal); R33.8 Other retention of urine | CPT/HCPCS: 51705 ==

== ENCOUNTER 2023-10-13 02:00 | Outpatient (CLI) | payer MEDICARE, MEDICAID, SELFPAY ==
[2023-10-13 12:53] LABS: Absolute Eosinophil Count 0.09 10^3/uL (0.0-0.7); Absolute Lymphocyte Count 0.76 10^3/uL (1.2-3.4); Absolute Monocyte Count 0.24 10^3/uL (0.1-0.8); Absolute Neutrophil Count 0.98 10^3/uL (1.2-6.7); Basophils % 4.6; Eosinophils % 4.1; HCT 30.3 % (36.0-46.0); HGB 10.3 g/dL (11.2-15.7); MCH 36.9 pg (27.0-33.0); Monocytes % 11.1; Neutrophils % 45.2; Platelet Count 128 10^3/uL (130-400); RBC 2.79 10^6/uL (3.93-5.22); RDW 14.2 % (11.7-14.6); RDW-SD 55.8 fL; WBC 2.17 10^3/uL (4.4-10.8)
[2023-10-13 13:11] LABS: MCV 109 fL (80-95)
[2023-10-13 13:12] LABS: Diff Comment Diff Reviewed; RBC Morphology Normal
[2023-10-13 13:16] LABS: ALT 20 U/L (14-59); AST 20 U/L (15-37); Albumin 3.7 g/dL (3.4-5.0); Alkaline Phosphatase 99 U/L (46-116); Anion Gap 7.4 mmol/L (3-11); BUN 31 mg/dL (7-18); Bilirubin, Total 0.6 mg/dL (0.2-1.0); CO2 28.6 mmol/L (21.0-32.0); CREATININE 2.9 mg/dL (0.55-1.02); Chloride 105 mmol/L (98-107); Estimated GFR 17.42 (mL/min/1.73m2); Glucose 198 mg/dL (74-106); PHOSPHORUS 3.2 mg/dL (2.6-4.7); Potassium 3.9 mmol/L (3.5-5.1); Sodium 141 mmol/L (136-145); Total Protein 7.5 g/dL (6.4-8.2); Uric Acid 4.6 mg/dL (2.6-6.0)
[2023-10-13 23:42] LABS: Parathyroid Hormone,Intact 59 pg/mL (19-88)
== END 2023-10-13 02:01 | disposition home or self-care (01) ==
PROVIDERS: PCP Family Medicine; Visit Provider Internal Medicine Nephrology
DX: N18.4 Chronic kidney disease, stage 4 (severe) (principal)
CPT/HCPCS: 36415; 80053; 83970; 84100; 84550; 85025

== ENCOUNTER 2023-10-20 02:51 | Outpatient (CLI) | payer MEDICARE, MEDICAID, SELFPAY ==
[2023-10-20 10:25] LABS: Abs Immature Grans 0.02 10^3/uL (0.0-0.06); Absolute Basophil Count 0.11 10^3/uL (0.0-0.2); Absolute Eosinophil Count 0.13 10^3/uL (0.0-0.7); Absolute Lymphocyte Count 0.96 10^3/uL (1.2-3.4); Absolute Monocyte Count 0.38 10^3/uL (0.1-0.8); Absolute Neutrophil Count 1.35 10^3/uL (1.2-6.7); Basophils % 3.7; Eosinophils % 4.4; HCT 33.9 % (36.0-46.0); HGB 11.5 g/dL (11.2-15.7); Immature Grans % 0.7; Lymphocytes % 32.5; MCH 36.5 pg (27.0-33.0); MCHC 33.9 % (32.0-36.0); MCV 108 fL (80-95); MPV 9.5 fL (8.0-11.0); Monocytes % 12.9; Neutrophils % 45.8; Nucleated RBC 0.7 % (0.0-0.3); Platelet Count 227 10^3/uL (130-400); RBC 3.15 10^6/uL (3.93-5.22); RDW 14.3 % (11.7-14.6); RDW-SD 55.8 fL; WBC 2.95 10^3/uL (4.4-10.8)
[2023-10-20 10:53] LABS: Diff Comment RBC Morph Reviewed; Macrocytosis 1+; Polychromasia Present
[2023-10-20 11:11] LABS: ALT 59 U/L (14-59); AST 54 U/L (15-37); Albumin 3.8 g/dL (3.4-5.0); Alkaline Phosphatase 103 U/L (46-116); Anion Gap 11.6 mmol/L (3-11); BUN 30 mg/dL (7-18); Bilirubin, Total 0.8 mg/dL (0.2-1.0); CO2 26.4 mmol/L (21.0-32.0); CREATININE 2.7 mg/dL (0.55-1.02); Calcium 10.1 mg/dL (8.5-10.1); Chloride 104 mmol/L (98-107); Estimated GFR 18.98 (mL/min/1.73m2); Glucose 160 mg/dL (74-106); Potassium 3.7 mmol/L (3.5-5.1); Sodium 142 mmol/L (136-145); Total Protein 7.9 g/dL (6.4-8.2)
[2023-10-21 17:08] LABS: Cancer Ag 15-3 68 U/mL (<30)
== END 2023-10-20 02:52 | disposition home or self-care (01) ==
PROVIDERS: PCP Family Medicine; Visit Provider Nurse Practitioner Family
DX: N18.4 Chronic kidney disease, stage 4 (severe) (principal); C50.911 Malignant neoplasm of unspecified site of right female breast
CPT/HCPCS: 36415; 80053; 86304; 85025; 86300

== ENCOUNTER → 2023-11-02 08:23 | Outpatient (BNVA) | payer MEDICARE, SELFPAY | PROVIDERS: PCP Family Medicine; Visit Provider Nurse Practitioner Gerontology | DX: Z46.6 Encounter for fitting and adjustment of urinary device (principal); R33.8 Other retention of urine | CPT/HCPCS: 51705 ==

== ENCOUNTER 2023-11-10 03:20 | Outpatient (CLI) | payer MEDICARE, SELFPAY ==
[2023-11-10 10:40] LABS: Absolute Basophil Count 0.08 10^3/uL (0.0-0.2); Absolute Lymphocyte Count 0.64 10^3/uL (1.2-3.4); Absolute Monocyte Count 0.17 10^3/uL (0.1-0.8); Basophils % 3.5; Eosinophils % 4.4; HCT 35.8 % (36.0-46.0); HGB 11.9 g/dL (11.2-15.7); Lymphocytes % 27.9; MCH 35.8 pg (27.0-33.0); MCHC 33.2 % (32.0-36.0); MPV 10.5 fL (8.0-11.0); Monocytes % 7.4; Neutrophils % 56.8; Platelet Count 129 10^3/uL (130-400); RBC 3.32 10^6/uL (3.93-5.22); RDW-SD 54.4 fL; WBC 2.29 10^3/uL (4.4-10.8)
[2023-11-10 10:42] LABS: MCV 108 fL (80-95)
[2023-11-10 11:19] LABS: ALT 18 U/L (14-59); AST 23 U/L (15-37); Albumin 3.9 g/dL (3.4-5.0); Alkaline Phosphatase 107 U/L (46-116); Anion Gap 10.5 mmol/L (3-11); BUN 35 mg/dL (7-18); Bilirubin, Total 0.8 mg/dL (0.2-1.0); CO2 26.5 mmol/L (21.0-32.0); CREATININE 2.9 mg/dL (0.55-1.02); Calcium 9.8 mg/dL (8.5-10.1); Chloride 104 mmol/L (98-107); Estimated GFR 17.42 (mL/min/1.73m2); Glucose 131 mg/dL (74-106); Sodium 141 mmol/L (136-145); Total Protein 7.6 g/dL (6.4-8.2)
[2023-11-12 12:57] LABS: Cancer Ag 15-3 60 U/mL (<30)
== END 2023-11-10 03:21 | disposition home or self-care (01) ==
PROVIDERS: PCP Family Medicine; Visit Provider Nurse Practitioner Family
DX: N18.4 Chronic kidney disease, stage 4 (severe) (principal); C50.911 Malignant neoplasm of unspecified site of right female breast
CPT/HCPCS: 36415; 80053; 86300; 85025

== ENCOUNTER 2023-11-17 04:13 | Outpatient (CLI) | payer MEDICARE, SELFPAY ==
[2023-11-17 08:28] LABS: HGB 10.8 g/dL (11.2-15.7); MCH 35.3 pg (27.0-33.0); MCHC 33.8 % (32.0-36.0); MCV 105 fL (80-95); MPV 10.2 fL (8.0-11.0); Platelet Count 184 10^3/uL (130-400); RBC 3.06 10^6/uL (3.93-5.22); RDW 14.1 % (11.7-14.6); RDW-SD 53.2 fL; WBC 3.47 10^3/uL (4.4-10.8)
[2023-11-17 08:41] LABS: Absolute Eosinophil Count 0.14 10^3/uL (0.0-0.7); Absolute Monocyte Count 0.07 10^3/uL (0.1-0.8); Absolute Neutrophil Count 2.26 10^3/uL (1.2-6.7); Atypical Lymphocytes % 8; Diff Comment Manual Differential; RBC Morphology Normal
[2023-11-17 08:47] LABS: ALT 19 U/L (14-59); AST 19 U/L (15-37); Albumin 3.7 g/dL (3.4-5.0); Alkaline Phosphatase 112 U/L (46-116); Anion Gap 11.2 mmol/L (3-11); BUN 38 mg/dL (7-18); Bilirubin, Total 0.6 mg/dL (0.2-1.0); CO2 24.8 mmol/L (21.0-32.0); CREATININE 3.2 mg/dL (0.55-1.02); Calcium 9.4 mg/dL (8.5-10.1); Chloride 104 mmol/L (98-107); Estimated GFR 15.48 (mL/min/1.73m2); Glucose 132 mg/dL (74-106); Sodium 140 mmol/L (136-145); Total Protein 7.7 g/dL (6.4-8.2)
[2023-11-19 09:37] LABS: Cancer Ag 15-3 54 U/mL (<30)
== END 2023-11-17 04:14 | disposition home or self-care (01) ==
PROVIDERS: PCP Family Medicine; Visit Provider Nurse Practitioner Family
DX: N18.4 Chronic kidney disease, stage 4 (severe) (principal); C50.911 Malignant neoplasm of unspecified site of right female breast
CPT/HCPCS: 36415; 80053; 86300; 85025

== ENCOUNTER → 2023-11-28 09:47 | Outpatient (BNVA) | payer MEDICARE, SELFPAY | PROVIDERS: PCP Family Medicine; Visit Provider Nurse Practitioner Gerontology | DX: Z46.6 Encounter for fitting and adjustment of urinary device (principal); R33.8 Other retention of urine | CPT/HCPCS: 51705 ==

== ENCOUNTER 2023-12-08 02:09 | Outpatient (CLI) | payer MEDICARE, SELFPAY ==
[2023-12-08 12:00] LABS: Abs Immature Grans 0.01 10^3/uL (0.0-0.06); Absolute Basophil Count 0.11 10^3/uL (0.0-0.2); Absolute Eosinophil Count 0.08 10^3/uL (0.0-0.7); Absolute Lymphocyte Count 0.72 10^3/uL (1.2-3.4); Absolute Monocyte Count 0.21 10^3/uL (0.1-0.8); Absolute Neutrophil Count 1.29 10^3/uL (1.2-6.7); Basophils % 4.5; Eosinophils % 3.3; HCT 32.3 % (36.0-46.0); HGB 11.2 g/dL (11.2-15.7); Immature Grans % 0.4; Lymphocytes % 29.8; MCH 35.6 pg (27.0-33.0); MCHC 34.7 % (32.0-36.0); MCV 103 fL (80-95); MPV 10.1 fL (8.0-11.0); Monocytes % 8.7; Neutrophils % 53.3; Platelet Count 187 10^3/uL (130-400); RBC 3.15 10^6/uL (3.93-5.22); RDW 14.5 % (11.7-14.6); WBC 2.42 10^3/uL (4.4-10.8)
[2023-12-08 12:30] LABS: ALT 20 U/L (14-59); AST 20 U/L (15-37); Alkaline Phosphatase 92 U/L (46-116); Anion Gap 13.9 mmol/L (3-11); BUN 30 mg/dL (7-18); Bilirubin, Total 0.9 mg/dL (0.2-1.0); CO2 26.1 mmol/L (21.0-32.0); CREATININE 2.8 mg/dL (0.55-1.02); Calcium 9.6 mg/dL (8.5-10.1); Chloride 102 mmol/L (98-107); Estimated GFR 18.17 (mL/min/1.73m2); Glucose 143 mg/dL (74-106); Potassium 3.9 mmol/L (3.5-5.1); Sodium 142 mmol/L (136-145); Total Protein 7.9 g/dL (6.4-8.2)
[2023-12-09 20:11] LABS: Cancer Ag 15-3 51 U/mL (<30)
== END 2023-12-08 02:10 | disposition home or self-care (01) ==
PROVIDERS: Internal Medicine Hematology & Oncology; PCP Family Medicine; Visit Provider Nurse Practitioner Family
DX: N18.4 Chronic kidney disease, stage 4 (severe) (principal); C50.911 Malignant neoplasm of unspecified site of right female breast
CPT/HCPCS: 36415; 80053; 86300; 85025

== ENCOUNTER → 2023-12-26 09:47 | Outpatient (BNVA) | payer MEDICARE, SELFPAY | PROVIDERS: PCP Family Medicine; Visit Provider Nurse Practitioner Gerontology | DX: Z46.6 Encounter for fitting and adjustment of urinary device (principal); R33.8 Other retention of urine | CPT/HCPCS: 51705 ==

== ENCOUNTER 2024-01-05 03:25 | Outpatient (CLI) | payer MEDICARE, SELFPAY ==
[2024-01-05 13:00] LABS: Abs Immature Grans 0.01 10^3/uL (0.0-0.06); Absolute Basophil Count 0.11 10^3/uL (0.0-0.2); Absolute Eosinophil Count 0.12 10^3/uL (0.0-0.7); Absolute Lymphocyte Count 1.07 10^3/uL (1.2-3.4); Absolute Monocyte Count 0.29 10^3/uL (0.1-0.8); Absolute Neutrophil Count 1.42 10^3/uL (1.2-6.7); Basophils % 3.6; HCT 33.1 % (36.0-46.0); HGB 11.1 g/dL (11.2-15.7); Immature Grans % 0.3; Lymphocytes % 35.4; MCH 34.4 pg (27.0-33.0); MCHC 33.5 % (32.0-36.0); MCV 103 fL (80-95); MPV 10.3 fL (8.0-11.0); Monocytes % 9.6; Neutrophils % 47.1; Platelet Count 176 10^3/uL (130-400); RBC 3.23 10^6/uL (3.93-5.22); RDW 13.5 % (11.7-14.6); RDW-SD 50.7 fL; WBC 3.02 10^3/uL (4.4-10.8)
[2024-01-05 13:15] LABS: ALT 23 U/L (14-59); AST 24 U/L (15-37); Alkaline Phosphatase 106 U/L (46-116); Anion Gap 11.4 mmol/L (3-11); BUN 32 mg/dL (7-18); Bilirubin, Total 0.5 mg/dL (0.2-1.0); CO2 25.6 mmol/L (21.0-32.0); CREATININE 2.6 mg/dL (0.55-1.02); Calcium 9.6 mg/dL (8.5-10.1); Chloride 105 mmol/L (98-107); Estimated GFR 19.86 (mL/min/1.73m2); Glucose 95 mg/dL (74-106); Potassium 3.9 mmol/L (3.5-5.1); Sodium 142 mmol/L (136-145)
[2024-01-06 17:58] LABS: Cancer Ag 15-3 50 U/mL (<30)
== END 2024-01-05 03:26 | disposition home or self-care (01) ==
PROVIDERS: PCP Family Medicine; Visit Provider Nurse Practitioner Family
DX: Z17.0 Estrogen receptor positive status [ER+] (principal); C50.911 Malignant neoplasm of unspecified site of right female breast
CPT/HCPCS: 36415; 80053; 86300; 85025

== ENCOUNTER → 2024-01-23 10:01 | Outpatient (BNVA) | payer MEDICARE, SELFPAY | PROVIDERS: PCP Family Medicine; Visit Provider Nurse Practitioner Gerontology | DX: Z46.6 Encounter for fitting and adjustment of urinary device (principal); R33.8 Other retention of urine | CPT/HCPCS: 51705 ==

== ENCOUNTER → 2024-01-30 01:24 | Outpatient (CLI) | payer MEDICARE, SELFPAY ==
--- NOTE | 2024-01-30 07:30 | DI.MAMMO_ITS ---
Exam(s) MG MAMMO SCREENING 60 MIN DUR EXAM: MG MAMMO SCREENING 60 MIN DUR CLINICAL HISTORY: breast cancer screening,s/p rt mastectomy for breast ca,z85.3,r92.0 TECHNIQUE: Left full field digital CC and MLO mammographic images were obtained with 3D tomosynthesi s and utilizing computer aided detection (CAD). COMPARISON: Available for comparison. FINDINGS: The patient is status post right mastectomy. Masses/Architectural Distortion: None seen. Microcalcifications: No suspicious pleomorphic-type are seen. Skin Thickening/Nipple Retraction: None. IMPRESSION: 1. No significant interval change with no specific features of malignancy noted. 2. Unless there is more urgent need, screening mammography is recommended, as per [place] [employer] guidelines. BI-RADS Category 1 - Negative Breast Density - Category B - Scattered areas of fibroglandular density Breast density category C or D implies that the patient has dense breast tissue. Dense breast tissue is very common and is not abnormal but dense breast tissue can make it harder to find cancer on a ma mmogram. Also, dense breast tissue may increase their breast cancer risk. This information about the result of the mammogram report was provided to the patient to raise their awareness. Use this report when you speak with the patient about their risks for breast cancer, which includes their family hist ory. At that time, you may recommend for more screening tests (Ultrasound or MRI) as they might be us eful based on their risk. A negative radiographic report should not delay biopsy if a dominant or clinically suspicious mass is present. Up to ten percent of cancers are not identified on mammography. A negative report may reinforce clinical impression. Adenosis and dense breasts may obscure an underlying neoplasm. False positive reports average 6 to 10%. Patient will receive a letter notifying them of these results.
== END ==
PROVIDERS: PCP Family Medicine; Visit Provider Family Medicine
DX: Z85.3 Personal history of malignant neoplasm of breast (principal); R92.0 Mammographic microcalcification found on diagnostic imaging of breast; Z12.31 Encounter for screening mammogram for malignant neoplasm of breast
CPT/HCPCS: 77063; 77067

== ENCOUNTER 2024-02-02 04:51 | Outpatient (CLI) | payer MEDICARE, SELFPAY ==
[2024-02-02 12:41] LABS: Abs Immature Grans 0.01 10^3/uL (0.0-0.06); Absolute Basophil Count 0.07 10^3/uL (0.0-0.2); Absolute Eosinophil Count 0.09 10^3/uL (0.0-0.7); Absolute Lymphocyte Count 0.84 10^3/uL (1.2-3.4); Absolute Monocyte Count 0.22 10^3/uL (0.1-0.8); Basophils % 2.8; Eosinophils % 3.6; HCT 33.4 % (36.0-46.0); HGB 11.3 g/dL (11.2-15.7); Immature Grans % 0.4; Lymphocytes % 33.2; MCH 35.2 pg (27.0-33.0); MCHC 33.8 % (32.0-36.0); MCV 104 fL (80-95); Monocytes % 8.7; Neutrophils % 51.3; Platelet Count 162 10^3/uL (130-400); RBC 3.21 10^6/uL (3.93-5.22); RDW 13.7 % (11.7-14.6); RDW-SD 52.6 fL; WBC 2.53 10^3/uL (4.4-10.8)
[2024-02-02 13:42] LABS: ALT 21 U/L (14-59); AST 20 U/L (15-37); Albumin 3.9 g/dL (3.4-5.0); Alkaline Phosphatase 103 U/L (46-116); Anion Gap 12.2 mmol/L (3-11); BUN 36 mg/dL (7-18); Bilirubin, Total 0.6 mg/dL (0.2-1.0); CO2 26.8 mmol/L (21.0-32.0); CREATININE 2.8 mg/dL (0.55-1.02); Calcium 9.6 mg/dL (8.5-10.1); Chloride 105 mmol/L (98-107); Estimated GFR 18.17 (mL/min/1.73m2); Glucose 126 mg/dL (74-106); Potassium 3.7 mmol/L (3.5-5.1); Sodium 144 mmol/L (136-145); Total Protein 7.6 g/dL (6.4-8.2)
[2024-02-03 19:24] LABS: Cancer Ag 15-3 51 U/mL (<30)
== END 2024-02-02 04:52 | disposition home or self-care (01) ==
LOC: LBO 04:51
PROVIDERS: PCP Family Medicine; Visit Provider Internal Medicine Hematology & Oncology
DX: N18.4 Chronic kidney disease, stage 4 (severe) (principal); C50.911 Malignant neoplasm of unspecified site of right female breast
CPT/HCPCS: 36415; 80053; 86300; 85025

== ENCOUNTER → 2024-02-16 01:27 | Outpatient (CLI) | payer MEDICARE, SELFPAY ==
[2024-02-16] MEDS: Barium Sulfate 2% W/V-Berry Smoothie 450 ML BTL PO ×2 (11:07→11:08)
[2024-02-16 11:09] LABS: HGB 11.4 g/dL (11.2-15.7); MCH 34.9 pg (27.0-33.0); MCHC 33.5 % (32.0-36.0); MCV 104 fL (80-95); MPV 9.6 fL (8.0-11.0); Platelet Count 274 10^3/uL (130-400); RBC 3.27 10^6/uL (3.93-5.22); RDW 13.9 % (11.7-14.6); RDW-SD 52.4 fL; WBC 2.28 10^3/uL (4.4-10.8)
[2024-02-16 11:32] LABS: Absolute Neutrophil Count 1.28 10^3/uL (1.2-6.7)
[2024-02-16 11:33] LABS: Absolute Basophil Count 0.05 10^3/uL (0.0-0.2); Absolute Eosinophil Count 0.07 10^3/uL (0.0-0.7); Absolute Monocyte Count 0.09 10^3/uL (0.1-0.8); Atypical Lymphocytes % 6; Diff Comment Manual Differential; RBC Morphology Normal
[2024-02-16 11:34] LABS: ALT 24 U/L (14-59); AST 21 U/L (15-37); Albumin 3.9 g/dL (3.4-5.0); Alkaline Phosphatase 108 U/L (46-116); Anion Gap 12.9 mmol/L (3-11); BUN 35 mg/dL (7-18); Bilirubin, Total 0.7 mg/dL (0.2-1.0); CO2 26.1 mmol/L (21.0-32.0); CREATININE 3.4 mg/dL (0.55-1.02); Calcium 9.5 mg/dL (8.5-10.1); Chloride 105 mmol/L (98-107); Estimated GFR 14.31 (mL/min/1.73m2); Glucose 165 mg/dL (74-106); Potassium 3.9 mmol/L (3.5-5.1); Sodium 144 mmol/L (136-145); Total Protein 7.6 g/dL (6.4-8.2)
--- NOTE | 2024-02-16 13:10 | DI.CT_ITS ---
Exam(s) CT CHEST/ABD/PEL WO EXAM: CT CHEST/ABD/PEL WO CLINICAL HISTORY: C50.911,Z17.0 Rt breast CA, Mets DX evaluation, ? aortic aneurysm TECHNIQUE: Imaging Protocol: Axial computed tomography images with coronal and sagittal reformatted images were created and reviewed. Due to the patient's decreased renal function, IV contrast was not administered at that time. The pa tient did have oral contrast. COMPARISON: CT ABD PELVIS WO CONTRAST from 02/11/[address] CHEST/ABD/PEL WO from 08/11/[address] CHEST/ABD/PEL WO from 02/25/2023 FINDINGS: CHEST: Tracheobronchial tree: Patent where visualized. Pulmonary parenchyma: No consolidation or dominant measurable mass. There is a 4 mm stable nodule in the posterior aspect of the right lower lobe. Calcified granuloma are present. No new pulmonary nod ules are seen. Mediastinum and [place]: No dominant adenopathy or fluid collection. The esophagus is unremarkable. Thyroid gland: The thyroid gland is not visualized on this examination. Pleura: No effusion or pneumothorax. Heart: The heart is not dilated. Coronary artery calcifications and/or stents are present. No perica rdial effusion. Aorta: Thoracic aorta non-dilated. Atherosclerotic calcification is seen. No evidence of a thoracic aortic aneurysm. Lymph nodes: Within normal limits. Bones:Within normal limits for the patient's age. There is a stable sclerotic focus in the right carolyn um. There is a lucency seen in the L1 vertebral body which was present on the prior examination from 02/25/2023. Soft tissues: The patient has had a prior right mastectomy. ABDOMEN: Liver: Normal density. No measurable mass. Gallbladder and Biliary Tract: Cholelithiasis. No biliary ductal dilatation. Pancreas: Normal density, no abnormal calcifications or inflammatory process. Spleen: Normal. Adrenals: No masses seen. Kidneys: Mild bilateral renal cortical atrophy. No radiodense stones or obstructive uropathy. No mas ses seen. Abdominal Aorta: Abdominal portion non-dilated. Atherosclerotic calcification. No evidence of an ane urysm. Bowel: There is diverticulosis of the colon without evidence of acute diverticulitis. There is no ev idence of bowel wall thickening or obstructive obstruction. Appendix is unremarkable. Peritoneal Cavity: No ascites, collection or mesenteric inflammatory response. No free air. Lymph Nodes: Within normal limits. Bones: Within normal limits for the patient's age. There again seen sclerosis of several of vertebra l bodies most notably L2, L5 T10 and T11. These findings appears stable but osseous metastatic diseas e should be considered. Bone scan should be considered for further evaluation. Soft Tissues: Unremarkable. PELVIS: Bladder: The patient has a suprapubic catheter. There is air seen within the urinary bladder which li марина reflects catheter present. There is diffuse thickening of the wall of the urinary bladder. Reproductive Organs: Unremarkable as visualized. Lymph Nodes: Within normal limits. Bones: Within normal limits for the patient's age. IMPRESSION: 1. Noncontrast examination was performed. 2. No evidence of pulmonary metastatic disease. 3. Stable areas of osseous sclerosis. 4. Cholelithiasis. No biliary ductal dilatation. 5. Diffuse thickening of the wall of the urinary bladder. This may be chronic. Acute infection cannot be excluded. RADIATION DOSE DELIVERED: 1,288.01mGy.cm Total DLP 1,288.01mGy.cm Total DLP DATA REPOSITORY: All CT scans at this facility are submitted to the National Radiology Data Registry (NRDR) Dose Index Registry (DIR) with the [employer] (ACR). RADIATION OPTIMIZATION: All CT scans at this facility use at least one of these dose optimization te chniques: automated exposure control; mA and/or kV adjustment per patient size (includes targeted exa ms where dose is matched to clinical indication); or iterative reconstruction.
[2024-02-17 22:16] LABS: Cancer Ag 15-3 53 U/mL (<30)
== END ==
PROVIDERS: PCP Family Medicine; Visit Provider Nurse Practitioner Family
DX: C50.911 Malignant neoplasm of unspecified site of right female breast (principal); Z17.0 Estrogen receptor positive status [ER+]; K80.80 Other cholelithiasis without obstruction; N32.89 Other specified disorders of bladder
CPT/HCPCS: 71250; 80053; 86300; 74176; 85025

== ENCOUNTER → 2024-02-20 10:04 | Outpatient (BNVA) | payer MEDICARE, SELFPAY | PROVIDERS: PCP Family Medicine; Visit Provider Nurse Practitioner Gerontology | DX: Z46.6 Encounter for fitting and adjustment of urinary device (principal); R33.8 Other retention of urine | CPT/HCPCS: 51705 ==

== ENCOUNTER → 2024-02-28 02:08 | Outpatient (CLI) | payer MEDICARE, SELFPAY ==
--- NOTE | 2024-02-28 | DI.NM_ITS ---
Exam(s) [place] BONE SCAN WHOLE BODY GRP EXAM: [place] BONE SCAN WHOLE BODY GRP CLINICAL HISTORY: RT BREAST CANCER C50.811 Z17.0 CARCINOMA OF BREAST METS TO BONE C50.919. TECHNIQUE: Injected Dose: 25 mCi Tc-99m MDP Delayed Images: 2-3 hours. COMPARISON: [facility] BONE SCAN WHOLE BODY GRP from 08/04/2023 FINDINGS: Able areas mildly increased activity in the thoracic spine. Stable areas of increased activity in th e lower lumbar spine, consistent with degenerative changes. Stable activity in the skull consistent with hyperostosis frontalis interna. Bilateral renal excretion is identified. No focal area of inten se suspicious uptake is seen. IMPRESSION: 1. No evidence of metastatic disease. 2. Findings consistent with degenerative changes in the spine. DATA REPOSITORY:
== END ==
PROVIDERS: PCP Family Medicine; Visit Provider Internal Medicine Hematology & Oncology
DX: C50.811 Malignant neoplasm of overlapping sites of right female breast (principal); Z17.0 Estrogen receptor positive status [ER+]
CPT/HCPCS: 78306

== ENCOUNTER 2024-03-01 05:08 | Outpatient (CLI) | payer MEDICARE, SELFPAY ==
[2024-03-01 12:33] LABS: Absolute Basophil Count 0.09 10^3/uL (0.0-0.2); HCT 32.8 % (36.0-46.0); HGB 11.1 g/dL (11.2-15.7); MCH 35.2 pg (27.0-33.0); MCHC 33.8 % (32.0-36.0); MCV 104 fL (80-95); MPV 9.9 fL (8.0-11.0); Platelet Count 169 10^3/uL (130-400); RBC 3.15 10^6/uL (3.93-5.22); RDW 13.7 % (11.7-14.6); RDW-SD 52.5 fL; WBC 2.97 10^3/uL (4.4-10.8)
[2024-03-01 12:47] LABS: ALT 23 U/L (14-59); AST 19 U/L (15-37); Albumin 3.9 g/dL (3.4-5.0); Alkaline Phosphatase 102 U/L (46-116); Anion Gap 12.3 mmol/L (3-11); BUN 28 mg/dL (7-18); Bilirubin, Total 0.7 mg/dL (0.2-1.0); CO2 23.7 mmol/L (21.0-32.0); CREATININE 2.9 mg/dL (0.55-1.02); Calcium 9.2 mg/dL (8.5-10.1); Chloride 106 mmol/L (98-107); Estimated GFR 17.32 (mL/min/1.73m2); Glucose 145 mg/dL (74-106); Potassium 3.9 mmol/L (3.5-5.1); Sodium 142 mmol/L (136-145); Total Protein 7.6 g/dL (6.4-8.2)
[2024-03-01 12:50] LABS: Absolute Eosinophil Count 0.15 10^3/uL (0.0-0.7); Absolute Lymphocyte Count 1.25 10^3/uL (1.2-3.4); Absolute Monocyte Count 0.15 10^3/uL (0.1-0.8); Absolute Neutrophil Count 1.34 10^3/uL (1.2-6.7); Atypical Lymphocytes % 1 %; Diff Comment Manual Differential; RBC Morphology Normal
[2024-03-02 18:52] LABS: Cancer Ag 15-3 47 U/mL (<30)
== END 2024-03-01 05:09 | disposition home or self-care (01) ==
LOC: LBO 05:08
PROVIDERS: Nurse Practitioner Family; PCP Family Medicine; Visit Provider Internal Medicine Hematology & Oncology
DX: N18.4 Chronic kidney disease, stage 4 (severe) (principal); C50.911 Malignant neoplasm of unspecified site of right female breast
CPT/HCPCS: 36415; 80053; 86300; 85025

== ENCOUNTER → 2024-03-19 10:16 | Outpatient (BNVA) | payer MEDICARE, SELFPAY | PROVIDERS: PCP Family Medicine; Visit Provider Nurse Practitioner Gerontology | DX: R33.8 Other retention of urine (principal) | CPT/HCPCS: 51705 ==

== ENCOUNTER 2024-03-29 04:13 | Outpatient (CLI) | payer MEDICARE, SELFPAY ==
[2024-03-29 12:36] LABS: HGB 10.8 g/dL (11.2-15.7); MCH 35.4 pg (27.0-33.0); MCHC 33.8 % (32.0-36.0); MCV 105 fL (80-95); Platelet Count 185 10^3/uL (130-400); RBC 3.05 10^6/uL (3.93-5.22); RDW 13.6 % (11.7-14.6); WBC 2.35 10^3/uL (4.4-10.8)
[2024-03-29 12:56] LABS: ALT 19 U/L (14-59); AST 20 U/L (15-37); Alkaline Phosphatase 93 U/L (46-116); BUN 28 mg/dL (7-18); Bilirubin, Total 0.9 mg/dL (0.2-1.0); CREATININE 2.7 mg/dL (0.55-1.02); Calcium 9.2 mg/dL (8.5-10.1); Chloride 105 mmol/L (98-107); Estimated GFR 18.87 (mL/min/1.73m2); Glucose 119 mg/dL (74-106); Potassium 3.7 mmol/L (3.5-5.1); Sodium 141 mmol/L (136-145); Total Protein 7.6 g/dL (6.4-8.2)
[2024-03-29 12:59] LABS: Absolute Basophil Count 0.02 10^3/uL (0.0-0.2); Absolute Eosinophil Count 0.09 10^3/uL (0.0-0.7); Absolute Lymphocyte Count 0.82 10^3/uL (1.2-3.4); Absolute Monocyte Count 0.19 10^3/uL (0.1-0.8); Absolute Neutrophil Count 1.22 10^3/uL (1.2-6.7); Atypical Lymphocytes % 5 %; Diff Comment Manual Differential; RBC Morphology Normal
[2024-04-02 12:46] LABS: Cancer Ag 15-3 48 U/mL (<30)
== END 2024-03-29 04:14 | disposition home or self-care (01) ==
PROVIDERS: PCP Family Medicine; Visit Provider Nurse Practitioner Family
DX: C50.911 Malignant neoplasm of unspecified site of right female breast (principal); N18.4 Chronic kidney disease, stage 4 (severe); Z17.0 Estrogen receptor positive status [ER+]
CPT/HCPCS: 36415; 80053; 86300; 85025

== ENCOUNTER → 2024-04-16 09:57 | Outpatient (BNVA) | payer MEDICARE, SELFPAY | PROVIDERS: PCP Family Medicine; Visit Provider Nurse Practitioner Gerontology | DX: Z46.6 Encounter for fitting and adjustment of urinary device (principal); R33.8 Other retention of urine | CPT/HCPCS: 51705 ==

== ENCOUNTER 2024-04-26 01:32 | Outpatient (CLI) | payer MEDICARE, SELFPAY ==
[2024-04-26 13:08] LABS: Abs Immature Grans 0.01 10^3/uL (0.0-0.06); Absolute Lymphocyte Count 0.88 10^3/uL (1.2-3.4); Absolute Monocyte Count 0.18 10^3/uL (0.1-0.8); Absolute Neutrophil Count 0.94 10^3/uL (1.2-6.7); Basophils % 4.5 %; Eosinophils % 4.5 %; HCT 33.9 % (36.0-46.0); HGB 11.3 g/dL (11.2-15.7); Immature Grans % 0.5 %; Lymphocytes % 39.8 %; MCH 34.9 pg (27.0-33.0); MCHC 33.3 % (32.0-36.0); MCV 105 fL (80-95); MPV 10.1 fL (8.0-11.0); Monocytes % 8.1 %; Neutrophils % 42.6 %; Platelet Count 182 10^3/uL (130-400); RBC 3.24 10^6/uL (3.93-5.22); RDW 12.8 % (11.7-14.6); WBC 2.21 10^3/uL (4.4-10.8)
[2024-04-26 13:25] LABS: ALT 22 U/L (14-59); AST 24 U/L (15-37); Albumin 3.9 g/dL (3.4-5.0); Alkaline Phosphatase 108 U/L (46-116); Anion Gap 12.1 mmol/L (3-11); BUN 26 mg/dL (7-18); CO2 26.9 mmol/L (21.0-32.0); CREATININE 2.8 mg/dL (0.55-1.02); Calcium 9.5 mg/dL (8.5-10.1); Chloride 104 mmol/L (98-107); Estimated GFR 18.06 (mL/min/1.73m2); Glucose 209 mg/dL (74-106); Potassium 3.7 mmol/L (3.5-5.1); Sodium 143 mmol/L (136-145); Total Protein 7.6 g/dL (6.4-8.2)
[2024-04-26 13:32] LABS: Diff Comment Agrees w/ Instrument; RBC Morphology Normal
[2024-04-28 09:52] LABS: Cancer Ag 15-3 47 U/mL (<30)
== END 2024-04-26 01:33 | disposition home or self-care (01) ==
PROVIDERS: Internal Medicine Hematology & Oncology; PCP Family Medicine; Visit Provider Nurse Practitioner Family
DX: N18.4 Chronic kidney disease, stage 4 (severe) (principal); C50.911 Malignant neoplasm of unspecified site of right female breast
CPT/HCPCS: 36415; 80053; 86300; 85025

== ENCOUNTER 2024-05-02 02:26 | Outpatient (CLI) | payer MEDICARE, SELFPAY ==
[2024-05-02 10:15] LABS: Abs Immature Grans 0.03 10^3/uL (0.0-0.06); Absolute Eosinophil Count 0.16 10^3/uL (0.0-0.7); Absolute Lymphocyte Count 0.75 10^3/uL (1.2-3.4); Absolute Monocyte Count 0.34 10^3/uL (0.1-0.8); Basophils % 3.2 %; Eosinophils % 5.2 %; HCT 33.1 % (36.0-46.0); Lymphocytes % 24.4 %; MCH 35.1 pg (27.0-33.0); MCHC 33.2 % (32.0-36.0); MCV 106 fL (80-95); MPV 9.6 fL (8.0-11.0); Neutrophils % 55.2 %; Nucleated RBC 1.3 % (0.0-0.3); Platelet Count 192 10^3/uL (130-400); RBC 3.13 10^6/uL (3.93-5.22); RDW 13.8 % (11.7-14.6); RDW-SD 51.6 fL; WBC 3.08 10^3/uL (4.4-10.8)
[2024-05-02 10:59] LABS: ALT 38 U/L (14-59); AST 38 U/L (15-37); Albumin 3.8 g/dL (3.4-5.0); Alkaline Phosphatase 102 U/L (46-116); Anion Gap 9.8 mmol/L (3-11); BUN 26 mg/dL (7-18); Bilirubin, Total 0.69 mg/dL (0.2-1.0); CO2 27.2 mmol/L (21.0-32.0); Calcium 9.3 mg/dL (8.5-10.1); Chloride 105 mmol/L (98-107); Estimated GFR 16.63 (mL/min/1.73m2); Glucose 151 mg/dL (74-106); Potassium 3.9 mmol/L (3.5-5.1); Sodium 142 mmol/L (136-145); Total Protein 7.5 g/dL (6.4-8.2)
[2024-05-04 12:40] LABS: Cancer Ag 15-3 55 U/mL (<30)
== END 2024-05-02 02:27 | disposition home or self-care (01) ==
PROVIDERS: PCP Family Medicine; Visit Provider Nurse Practitioner Family
DX: N18.4 Chronic kidney disease, stage 4 (severe) (principal); C50.911 Malignant neoplasm of unspecified site of right female breast; Z17.0 Estrogen receptor positive status [ER+]
CPT/HCPCS: 36415; 80053; 86300; 85025

== ENCOUNTER → 2024-05-14 10:34 | Outpatient (BNVA) | payer MEDICARE, SELFPAY | PROVIDERS: PCP Family Medicine; Visit Provider Nurse Practitioner Gerontology | DX: R33.8 Other retention of urine (principal) | CPT/HCPCS: 51705 ==

== ENCOUNTER 2024-05-31 03:49 | Outpatient (CLI) | payer MEDICARE, SELFPAY ==
[2024-05-31 09:35] LABS: HCT 34.6 % (36.0-46.0); HGB 11.7 g/dL (11.2-15.7); MCH 34.2 pg (27.0-33.0); MCHC 33.8 % (32.0-36.0); MCV 101 fL (80-95); MPV 10.1 fL (8.0-11.0); Platelet Count 145 10^3/uL (130-400); RBC 3.42 10^6/uL (3.93-5.22); RDW 13.7 % (11.7-14.6); RDW-SD 50.2 fL; WBC 2.35 10^3/uL (4.4-10.8)
[2024-05-31 10:02] LABS: ALT 19 U/L (14-59); AST 24 U/L (15-37); Absolute Basophil Count 0.05 10^3/uL (0.0-0.2); Absolute Eosinophil Count 0.12 10^3/uL (0.0-0.7); Absolute Lymphocyte Count 0.94 10^3/uL (1.2-3.4); Absolute Monocyte Count 0.16 10^3/uL (0.1-0.8); Absolute Neutrophil Count 1.06 10^3/uL (1.2-6.7); Alkaline Phosphatase 112 U/L (46-116); Anion Gap 9.5 mmol/L (3-11); Atypical Lymphocytes % 2 %; BUN 37 mg/dL (7-18); CO2 27.5 mmol/L (21.0-32.0); CREATININE 2.9 mg/dL (0.55-1.02); Calcium 9.5 mg/dL (8.5-10.1); Chloride 106 mmol/L (98-107); Diff Comment Manual Differential; Estimated GFR 17.32 (mL/min/1.73m2); Glucose 121 mg/dL (74-106); RBC Morphology Normal; Sodium 143 mmol/L (136-145); Total Protein 7.9 g/dL (6.4-8.2)
[2024-06-01 18:11] LABS: Cancer Ag 15-3 46 U/mL (<30)
== END 2024-05-31 03:50 | disposition home or self-care (01) ==
PROVIDERS: PCP Family Medicine; Visit Provider Nurse Practitioner Family
DX: C50.911 Malignant neoplasm of unspecified site of right female breast (principal)
CPT/HCPCS: 36415; 80053; 86300; 85025

== ENCOUNTER → 2024-06-11 09:52 | Outpatient (BNVA) | payer MEDICARE, SELFPAY | PROVIDERS: PCP Family Medicine; Visit Provider Nurse Practitioner Gerontology | DX: R33.8 Other retention of urine (principal) | CPT/HCPCS: 51705 ==

== ENCOUNTER 2024-06-28 13:43 | Outpatient (CLI) | payer MEDICARE, SELFPAY ==
[2024-06-28 11:53] LABS: HCT 31.1 % (36.0-46.0); HGB 10.5 g/dL (11.2-15.7); MCH 34.4 pg (27.0-33.0); MCHC 33.8 % (32.0-36.0); MCV 102 fL (80-95); MPV 9.7 fL (8.0-11.0); Platelet Count 158 10^3/uL (130-400); RBC 3.05 10^6/uL (3.93-5.22); RDW 14.9 % (11.7-14.6); RDW-SD 55.3 fL; WBC 2.62 10^3/uL (4.4-10.8)
[2024-06-28 12:16] LABS: ALT 19 U/L (14-59); AST 25 U/L (15-37); Albumin 3.8 g/dL (3.4-5.0); Alkaline Phosphatase 89 U/L (46-116); Anion Gap 12.8 mmol/L (3-11); BUN 27 mg/dL (7-18); Bilirubin, Total 0.82 mg/dL (0.2-1.0); CO2 23.2 mmol/L (21.0-32.0); CREATININE 2.9 mg/dL (0.55-1.02); Calcium 9.4 mg/dL (8.5-10.1); Chloride 103 mmol/L (98-107); Estimated GFR 17.32 (mL/min/1.73m2); Glucose 92 mg/dL (74-106); Potassium 3.6 mmol/L (3.5-5.1); Sodium 139 mmol/L (136-145); Total Protein 7.7 g/dL (6.4-8.2)
[2024-06-28 12:17] LABS: Absolute Basophil Count 0.05 10^3/uL (0.0-0.2); Absolute Eosinophil Count 0.05 10^3/uL (0.0-0.7); Absolute Lymphocyte Count 0.76 10^3/uL (1.2-3.4); Absolute Monocyte Count 0.13 10^3/uL (0.1-0.8); Absolute Neutrophil Count 1.62 10^3/uL (1.2-6.7); Diff Comment Manual Differential; RBC Morphology Normal
[2024-06-30 09:51] LABS: Cancer Ag 15-3 44 U/mL (<30)
== END 2024-06-28 13:44 | disposition home or self-care (01) ==
LOC: LBO 13:44
PROVIDERS: PCP Family Medicine; Visit Provider Nurse Practitioner Family
DX: C50.911 Malignant neoplasm of unspecified site of right female breast (principal); N18.4 Chronic kidney disease, stage 4 (severe); Z17.0 Estrogen receptor positive status [ER+]
CPT/HCPCS: 36415; 80053; 86300; 85025

== ENCOUNTER → 2024-07-09 09:53 | Outpatient (BNVA) | payer OTHER, SELFPAY | PROVIDERS: PCP Family Medicine; Visit Provider Nurse Practitioner Gerontology | DX: R33.8 Other retention of urine (principal) | CPT/HCPCS: 51705 ==

== ENCOUNTER 2024-07-26 02:57 | Outpatient (CLI) | payer OTHER, SELFPAY ==
[2024-07-26 12:48] LABS: Abs Immature Grans 0.01 10^3/uL (0.0-0.06); Absolute Basophil Count 0.08 10^3/uL (0.0-0.2); Absolute Lymphocyte Count 0.73 10^3/uL (1.2-3.4); Absolute Monocyte Count 0.24 10^3/uL (0.1-0.8); Absolute Neutrophil Count 1.48 10^3/uL (1.2-6.7); Eosinophils % 3.8 %; HCT 30.7 % (36.0-46.0); HGB 10.6 g/dL (11.2-15.7); Immature Grans % 0.4 %; Lymphocytes % 27.7 %; MCH 35.3 pg (27.0-33.0); MCHC 34.5 % (32.0-36.0); MCV 102 fL (80-95); Monocytes % 9.1 %; Platelet Count 173 10^3/uL (130-400); RDW 15.1 % (11.7-14.6); RDW-SD 56.5 fL; WBC 2.64 10^3/uL (4.4-10.8)
[2024-07-26 13:09] LABS: ALT 22 U/L (14-59); AST 23 U/L (15-37); Albumin 3.6 g/dL (3.4-5.0); Alkaline Phosphatase 103 U/L (46-116); Anion Gap 7.6 mmol/L (3-11); BUN 27 mg/dL (7-18); Bilirubin, Total 0.51 mg/dL (0.2-1.0); CO2 27.4 mmol/L (21.0-32.0); CREATININE 2.9 mg/dL (0.55-1.02); Calcium 9.4 mg/dL (8.5-10.1); Chloride 101 mmol/L (98-107); Estimated GFR 17.32 (mL/min/1.73m2); Glucose 152 mg/dL (74-106); Potassium 3.7 mmol/L (3.5-5.1); Sodium 136 mmol/L (136-145); Total Protein 7.6 g/dL (6.4-8.2)
[2024-07-26 13:21] LABS: TSH (W/Ref FT4) 0.67 uIU/mL (0.36-3.74)
[2024-07-30 11:38] LABS: Cancer Ag 15-3 47 U/mL (<30)
== END 2024-07-26 02:58 | disposition home or self-care (01) ==
LOC: LBO 02:57
PROVIDERS: Nurse Practitioner Family; PCP Family Medicine; Visit Provider Internal Medicine Hematology & Oncology
DX: E03.9 Hypothyroidism, unspecified (principal); C50.911 Malignant neoplasm of unspecified site of right female breast
CPT/HCPCS: 36415; 80053; 86300; 84443; 85025

== ENCOUNTER → 2024-08-06 09:53 | Outpatient (BNVA) | payer OTHER, SELFPAY | PROVIDERS: PCP Family Medicine; Visit Provider Nurse Practitioner Gerontology | DX: Z46.6 Encounter for fitting and adjustment of urinary device (principal); R33.8 Other retention of urine | CPT/HCPCS: 51705 ==

== ENCOUNTER 2024-08-14 01:26 | Outpatient (CLI) | payer OTHER, SELFPAY ==
--- NOTE | 2024-08-14 | DI.NM_ITS ---
Exam(s) [place] BONE SCAN WHOLE BODY GRP EXAM: [place] BONE SCAN WHOLE BODY GRP CLINICAL HISTORY: BREAST CANCER, METS TO BONE, ? ANY CHANGE, C50.919, C79.51. TECHNIQUE: Injected Dose: 25 mCi Tc-99m MDP Delayed Images: 2-3 hours. COMPARISON: [facility] BONE SCAN 3 PHASE from 08/12/2021 [facility] BONE SCAN WHOLE BODY GRP from 03/03/2022 [facility] BONE SCAN WHOLE BODY GRP from 02/25/2023 [facility] BONE SCAN WHOLE BODY GRP from 02/28/2024 FINDINGS: Symmetric axial uptake. Bilateral renal excretion is identified. There is a new focus of increased ra diotracer uptake in the right aspect of the mid cervical spine. This may be degenerative in nature. The increased radiotracer uptake in the lower lumbar spine is less prominent compared to the prior e xamination. There is uptake in the shoulders bilaterally which is likely degenerative. There has be en no significant change in the rest of the axial or appendicular skeleton. IMPRESSION: 1. New focus of increased radiotracer uptake seen in the mid cervical spine on the right. This may r eflect facet arthropathy. 2. Otherwise, no new areas of increased radiotracer uptake are seen in the axial or appendicular spin e to suggest metastatic disease. DATA REPOSITORY:
--- NOTE | 2024-08-14 | DI.CT_ITS ---
Exam(s) CT CHEST/ABD/PEL WO EXAM: CT CHEST/ABD/PEL WO CLINICAL HISTORY: HX BREAST CANCER, METS TO BONE/ABD, ? CHANGE, C50.919, C79.51 TECHNIQUE: Imaging Protocol: Axial computed tomography images with coronal and sagittal reformatted images were created and reviewed COMPARISON: CT CT CHEST/ABD/PEL WO from 02/16/2024 FINDINGS: CHEST: Tracheobronchial tree: Patent where visualized. Pulmonary parenchyma: There is a stable 4 mm nodule in the posterior aspect of the right lower lobe ( series 2, image 167). Calcified granulomas are present. No new pulmonary nodules are seen. No foca l consolidating infiltrates are present. No architectural distortion. Mediastinum and [place]: No dominant adenopathy or fluid collection. The esophagus is unremarkable. Pleura: No effusion or pneumothorax. Heart: The heart is not dilated. Coronary artery calcifications are present. No pericardial effusion . Aorta: Thoracic aorta non-dilated. Atherosclerotic calcifications are present. Lymph nodes: Within normal limits. Bones:There again seen areas of sclerosis in the skeleton consistent with metastatic disease. The fi ndings appears stable. No acute fracture is identified. Soft tissues: The patient is status post right mastectomy. ABDOMEN: Liver: Normal density. No measurable mass. Gallbladder and Biliary Tract: Cholelithiasis. No biliary ductal dilatation. Pancreas: Normal density, no abnormal calcifications or inflammatory process. Spleen: Normal. Adrenals: No masses seen. Kidneys: Normal size, contour and axis. No radiodense stones or obstructive uropathy. No masses seen. Abdominal Aorta: Abdominal portion non-dilated. Atherosclerotic calcification is present. Bowel: There is diverticulosis of the colon but no evidence of a diverticulitis. No evidence of crystal l wall thickening or obstruction. No evidence of appendicitis. Peritoneal Cavity: No ascites, collection or mesenteric inflammatory response. No free air. Lymph Nodes: Within normal limits. Bones: Within normal limits for the patient's age. Soft Tissues: Unremarkable. PELVIS: Bladder: The patient has a suprapubic catheter. There is mild diffuse thickening of the wall of the urinary bladder. Reproductive Organs: Unremarkable as visualized. Lymph Nodes: Within normal limits. Bones: Within normal limits for the patient's age. IMPRESSION: 1. Overall, no significant change in appearance of the chest, abdomen and pelvis compared to 4. 2. Stable right lower lobe pulmonary nodule. 3. Findings consistent with osseous metastatic disease. 4. Cholelithiasis. 5. Stable mild diffuse thickening of the wall of the urinary bladder which may be chronic. Please co rrelate clinically. The patient has a suprapubic catheter. RADIATION DOSE DELIVERED: 509.94mGy.cm Total DLP 509.94mGy.cm Total DLP DATA REPOSITORY: All CT scans at this facility are submitted to the National Radiology Data Registry (NRDR) Dose Index Registry (DIR) with the [employer] (ACR). RADIATION OPTIMIZATION: All CT scans at this facility use at least one of these dose optimization te chniques: automated exposure control; mA and/or kV adjustment per patient size (includes targeted exa ms where dose is matched to clinical indication); or iterative reconstruction.
[2024-08-14] MEDS: Barium Sulfate 2% W/V-Berry Smoothie 450 ML BTL PO ×2 (11:09→11:10)
[2024-08-14 11:11] LABS: Abs Immature Grans 0.01 10^3/uL (0.0-0.06); Absolute Basophil Count 0.08 10^3/uL (0.0-0.2); Absolute Eosinophil Count 0.12 10^3/uL (0.0-0.7); Absolute Lymphocyte Count 0.59 10^3/uL (1.2-3.4); Absolute Neutrophil Count 1.58 10^3/uL (1.2-6.7); Basophils % 3.1 %; Eosinophils % 4.7 %; HCT 33.6 % (36.0-46.0); HGB 11.3 g/dL (11.2-15.7); Immature Grans % 0.4 %; Lymphocytes % 22.9 %; MCH 35.3 pg (27.0-33.0); MCHC 33.6 % (32.0-36.0); MCV 105 fL (80-95); MPV 9.9 fL (8.0-11.0); Monocytes % 7.8 %; Neutrophils % 61.1 %; Platelet Count 242 10^3/uL (130-400); RDW 14.6 % (11.7-14.6); RDW-SD 57.2 fL; WBC 2.58 10^3/uL (4.4-10.8)
[2024-08-14 11:28] LABS: ALT 9 U/L (14-59); AST 20 U/L (15-37); Albumin 3.8 g/dL (3.4-5.0); Alkaline Phosphatase 106 U/L (46-116); BUN 31 mg/dL (7-18); Bilirubin, Total 0.74 mg/dL (0.2-1.0); CREATININE 2.9 mg/dL (0.55-1.02); Calcium 9.6 mg/dL (8.5-10.1); Chloride 105 mmol/L (98-107); Estimated GFR 17.32 (mL/min/1.73m2); Glucose 110 mg/dL (74-106); Potassium 3.7 mmol/L (3.5-5.1); Sodium 143 mmol/L (136-145); Total Protein 7.8 g/dL (6.4-8.2)
[2024-08-16 16:29] LABS: Cancer Ag 15-3 57 U/mL (<30)
== END 2024-08-14 01:46 ==
LOC: DI 01:26
PROVIDERS: Nurse Practitioner Family; PCP Family Medicine; Visit Provider Internal Medicine Hematology & Oncology
DX: N18.4 Chronic kidney disease, stage 4 (severe) (principal); C50.911 Malignant neoplasm of unspecified site of right female breast; K80.00 Calculus of gallbladder with acute cholecystitis without obstruction
CPT/HCPCS: 71250; 74177; 78306; 80053; 86300; 71260; 74176; 85025

== ENCOUNTER → 2024-09-03 09:14 | Outpatient (BNVA) | payer OTHER, SELFPAY | PROVIDERS: PCP Family Medicine; Visit Provider Nurse Practitioner Gerontology | DX: Z46.6 Encounter for fitting and adjustment of urinary device (principal); R33.8 Other retention of urine | CPT/HCPCS: 51705 ==

== ENCOUNTER 2024-09-19 15:01 | Outpatient (CLI) | payer OTHER, SELFPAY ==
[2024-09-19 13:30] LABS: Abs Immature Grans 0.01 10^3/uL (0.0-0.06); Absolute Basophil Count 0.09 10^3/uL (0.0-0.2); Absolute Eosinophil Count 0.09 10^3/uL (0.0-0.7); Absolute Lymphocyte Count 0.84 10^3/uL (1.2-3.4); Absolute Monocyte Count 0.26 10^3/uL (0.1-0.8); Absolute Neutrophil Count 1.08 10^3/uL (1.2-6.7); Basophils % 3.8 %; Eosinophils % 3.8 %; HCT 32.1 % (36.0-46.0); Immature Grans % 0.4 %; Lymphocytes % 35.4 %; MCH 35.5 pg (27.0-33.0); MCHC 34.3 % (32.0-36.0); MCV 104 fL (80-95); MPV 10.3 fL (8.0-11.0); Neutrophils % 45.6 %; Platelet Count 167 10^3/uL (130-400); RDW 13.3 % (11.7-14.6); WBC 2.37 10^3/uL (4.4-10.8)
[2024-09-19 13:47] LABS: ALT 20 U/L (14-59); AST 22 U/L (15-37); Albumin 3.9 g/dL (3.4-5.0); Alkaline Phosphatase 115 U/L (46-116); Anion Gap 12.2 mmol/L (3-11); BUN 27 mg/dL (7-18); Bilirubin, Total 0.51 mg/dL (0.2-1.0); CO2 24.8 mmol/L (21.0-32.0); CREATININE 2.7 mg/dL (0.55-1.02); Calcium 9.2 mg/dL (8.5-10.1); Chloride 105 mmol/L (98-107); Estimated GFR 18.87 (mL/min/1.73m2); Glucose 98 mg/dL (74-106); Potassium 3.6 mmol/L (3.5-5.1); Sodium 142 mmol/L (136-145); Total Protein 7.7 g/dL (6.4-8.2)
[2024-09-21 09:41] LABS: Cancer Ag 15-3 45 U/mL (<30)
== END 2024-09-19 15:02 | disposition home or self-care (01) ==
LOC: LBO 15:05
PROVIDERS: PCP Family Medicine; Visit Provider Nurse Practitioner Family
DX: C50.911 Malignant neoplasm of unspecified site of right female breast (principal)
CPT/HCPCS: 36415; 80053; 86300; 85025

== ENCOUNTER 2024-10-09 15:47 | Outpatient (CLI) | payer OTHER, SELFPAY ==
[2024-10-09 15:13] LABS: Absolute Basophil Count 0.09 10^3/uL (0.0-0.2); HCT 35.5 % (36.0-46.0); HGB 11.9 g/dL (11.2-15.7); MCH 35.2 pg (27.0-33.0); MCHC 33.5 % (32.0-36.0); MCV 105 fL (80-95); MPV 10.1 fL (8.0-11.0); Platelet Count 228 10^3/uL (130-400); RBC 3.38 10^6/uL (3.93-5.22); RDW 13.5 % (11.7-14.6); RDW-SD 51.8 fL
[2024-10-09 15:27] LABS: Absolute Eosinophil Count 0.06 10^3/uL (0.0-0.7); Absolute Lymphocyte Count 0.78 10^3/uL (1.2-3.4); Absolute Monocyte Count 0.12 10^3/uL (0.1-0.8); Absolute Neutrophil Count 1.86 10^3/uL (1.2-6.7); Bands % 1 %; Diff Comment Manual Differential; RBC Morphology Normal
== END 2024-10-09 15:48 | disposition home or self-care (01) ==
LOC: LBO 15:47
PROVIDERS: PCP Family Medicine; Visit Provider Internal Medicine Hematology & Oncology
DX: N18.30 Chronic kidney disease, stage 3 unspecified (principal); D63.1 Anemia in chronic kidney disease
CPT/HCPCS: 36415; 85025

== ENCOUNTER 2024-10-16 03:06 | Outpatient (CLI) | payer OTHER, SELFPAY ==
[2024-10-16 12:02] LABS: Absolute Basophil Count 0.08 10^3/uL (0.0-0.2); Absolute Eosinophil Count 0.08 10^3/uL (0.0-0.7); Absolute Lymphocyte Count 0.54 10^3/uL (1.2-3.4); Absolute Monocyte Count 0.18 10^3/uL (0.1-0.8); Absolute Neutrophil Count 1.27 10^3/uL (1.2-6.7); Basophils % 3.7 %; Eosinophils % 3.7 %; HCT 32.6 % (36.0-46.0); HGB 11.1 g/dL (11.2-15.7); Lymphocytes % 25.1 %; MCH 35.2 pg (27.0-33.0); MCV 104 fL (80-95); MPV 10.1 fL (8.0-11.0); Monocytes % 8.4 %; Neutrophils % 59.1 %; Platelet Count 183 10^3/uL (130-400); RBC 3.15 10^6/uL (3.93-5.22); WBC 2.15 10^3/uL (4.4-10.8)
[2024-10-16 12:41] LABS: ALT 14 U/L (14-59); AST 29 U/L (15-37); Albumin 3.7 g/dL (3.4-5.0); Alkaline Phosphatase 125 U/L (46-116); Anion Gap 6.5 mmol/L (3-11); BUN 29 mg/dL (7-18); Bilirubin, Total 0.74 mg/dL (0.2-1.0); CO2 24.5 mmol/L (21.0-32.0); CREATININE 2.7 mg/dL (0.55-1.02); Calcium 9.3 mg/dL (8.5-10.1); Chloride 106 mmol/L (98-107); Estimated GFR 18.87 (mL/min/1.73m2); Glucose 118 mg/dL (74-106); Potassium 3.4 mmol/L (3.5-5.1); Sodium 137 mmol/L (136-145); Total Protein 7.5 g/dL (6.4-8.2)
== END 2024-10-16 03:07 | disposition home or self-care (01) ==
PROVIDERS: PCP Family Medicine; Visit Provider Nurse Practitioner Family
DX: C50.919 Malignant neoplasm of unspecified site of unspecified female breast (principal)
CPT/HCPCS: 36415; 80053; 85025

== ENCOUNTER 2024-10-30 02:11 | Outpatient (CLI) | payer OTHER, SELFPAY ==
[2024-10-30 10:41] LABS: Abs Immature Grans 0.01 10^3/uL (0.0-0.06); HCT 32.8 % (36.0-46.0); HGB 11.2 g/dL (11.2-15.7); MCH 35.7 pg (27.0-33.0); MCHC 34.1 % (32.0-36.0); MCV 105 fL (80-95); MPV 9.6 fL (8.0-11.0); Platelet Count 254 10^3/uL (130-400); RBC 3.14 10^6/uL (3.93-5.22); RDW 13.7 % (11.7-14.6); RDW-SD 51.6 fL; WBC 2.37 10^3/uL (4.4-10.8)
[2024-10-30 10:56] LABS: Absolute Basophil Count 0.09 10^3/uL (0.0-0.2); Absolute Eosinophil Count 0.17 10^3/uL (0.0-0.7); Absolute Lymphocyte Count 0.66 10^3/uL (1.2-3.4); Absolute Monocyte Count 0.02 10^3/uL (0.1-0.8); Absolute Neutrophil Count 1.42 10^3/uL (1.2-6.7); Atypical Lymphocytes % 0 %; Bands % 0 %; Diff Comment Manual Differential; Metamyelocytes % 0; Myelocytes % 0; Other Cells % 0; Promyelocytes % 0
[2024-10-30 11:17] LABS: ALT 17 U/L (14-59); AST 20 U/L (15-37); Albumin 3.8 g/dL (3.4-5.0); Alkaline Phosphatase 118 U/L (46-116); Anion Gap 7.2 mmol/L (3-11); BUN 31 mg/dL (7-18); Bilirubin, Total 0.69 mg/dL (0.2-1.0); CO2 28.8 mmol/L (21.0-32.0); CREATININE 3.3 mg/dL (0.55-1.02); Calcium 9.7 mg/dL (8.5-10.1); Chloride 106 mmol/L (98-107); Estimated GFR 14.83 (mL/min/1.73m2); Glucose 128 mg/dL (74-106); Potassium 4.6 mmol/L (3.5-5.1); Sodium 142 mmol/L (136-145); Total Protein 7.6 g/dL (6.4-8.2)
== END 2024-10-30 02:12 | disposition home or self-care (01) ==
PROVIDERS: PCP Family Medicine; Visit Provider Nurse Practitioner Family
DX: C50.919 Malignant neoplasm of unspecified site of unspecified female breast (principal)
CPT/HCPCS: 36415; 80053; 85025

== ENCOUNTER → 2024-11-07 09:29 | Outpatient (BNVA) | payer MEDICARE, SELFPAY | PROVIDERS: PCP Family Medicine; Visit Provider Nurse Practitioner Gerontology | DX: R33.8 Other retention of urine (principal) | CPT/HCPCS: 51705 ==

== ENCOUNTER 2024-11-14 02:53 | Outpatient (CLI) | payer MEDICARE, SELFPAY ==
[2024-11-14 13:53] LABS: Abs Immature Grans 0.01 10^3/uL (0.0-0.06); Absolute Basophil Count 0.06 10^3/uL (0.0-0.2); Absolute Eosinophil Count 0.09 10^3/uL (0.0-0.7); Absolute Lymphocyte Count 0.59 10^3/uL (1.2-3.4); Absolute Monocyte Count 0.19 10^3/uL (0.1-0.8); Absolute Neutrophil Count 1.62 10^3/uL (1.2-6.7); Basophils % 2.3 %; Eosinophils % 3.5 %; HGB 11.3 g/dL (11.2-15.7); Immature Grans % 0.4 %; MCH 35.5 pg (27.0-33.0); MCHC 34.2 % (32.0-36.0); MCV 104 fL (80-95); MPV 9.8 fL (8.0-11.0); Monocytes % 7.4 %; Neutrophils % 63.4 %; Platelet Count 158 10^3/uL (130-400); RBC 3.18 10^6/uL (3.93-5.22); RDW 13.3 % (11.7-14.6); RDW-SD 50.6 fL; WBC 2.56 10^3/uL (4.4-10.8)
[2024-11-14 14:09] LABS: ALT 18 U/L (14-59); AST 22 U/L (15-37); Albumin 3.7 g/dL (3.4-5.0); Alkaline Phosphatase 115 U/L (46-116); Anion Gap 7.5 mmol/L (3-11); BUN 28 mg/dL (7-18); Bilirubin, Total 0.75 mg/dL (0.2-1.0); CO2 28.5 mmol/L (21.0-32.0); CREATININE 2.6 mg/dL (0.55-1.02); Calcium 9.3 mg/dL (8.5-10.1); Chloride 107 mmol/L (98-107); Estimated GFR 19.74 (mL/min/1.73m2); Glucose 108 mg/dL (74-106); Potassium 3.4 mmol/L (3.5-5.1); Sodium 143 mmol/L (136-145); Total Protein 7.7 g/dL (6.4-8.2)
== END 2024-11-14 02:54 | disposition home or self-care (01) ==
PROVIDERS: Internal Medicine Hematology & Oncology; PCP Family Medicine; Visit Provider Nurse Practitioner Family
DX: C50.919 Malignant neoplasm of unspecified site of unspecified female breast (principal)
CPT/HCPCS: 36415; 80053; 85025

== ENCOUNTER → 2024-12-05 09:33 | Outpatient (BNVA) | payer MEDICARE, SELFPAY | PROVIDERS: PCP Family Medicine; Visit Provider Nurse Practitioner Gerontology | DX: R33.8 Other retention of urine (principal) | CPT/HCPCS: 51705 ==

== ENCOUNTER 2024-12-12 04:43 | Outpatient (CLI) | payer MEDICARE, SELFPAY ==
[2024-12-12 14:49] LABS: HCT 32.1 % (36.0-46.0); MCH 35.8 pg (27.0-33.0); MCHC 34.3 % (32.0-36.0); MCV 105 fL (80-95); MPV 10.4 fL (8.0-11.0); Platelet Count 156 10^3/uL (130-400); RBC 3.07 10^6/uL (3.93-5.22); RDW 13.4 % (11.7-14.6); RDW-SD 50.6 fL; WBC 2.74 10^3/uL (4.4-10.8)
[2024-12-12 14:59] LABS: ALT 23 U/L (14-59); AST 19 U/L (15-37); Albumin 3.8 g/dL (3.4-5.0); Alkaline Phosphatase 110 U/L (46-116); Anion Gap 8.5 mmol/L (3-11); BUN 34 mg/dL (7-18); CO2 28.5 mmol/L (21.0-32.0); CREATININE 2.9 mg/dL (0.55-1.02); Calcium 9.4 mg/dL (8.5-10.1); Chloride 102 mmol/L (98-107); Estimated GFR 17.32 (mL/min/1.73m2); Glucose 207 mg/dL (74-106); Sodium 139 mmol/L (136-145); Total Protein 7.5 g/dL (6.4-8.2)
[2024-12-12 15:18] LABS: Absolute Eosinophil Count 0.05 10^3/uL (0.0-0.7); Absolute Lymphocyte Count 0.63 10^3/uL (1.2-3.4); Absolute Monocyte Count 0.14 10^3/uL (0.1-0.8); Absolute Neutrophil Count 1.92 10^3/uL (1.2-6.7); Atypical Lymphocytes % 2 %; Bands % 1 %; Diff Comment Manual Differential; Macrocytosis 1+
== END 2024-12-12 04:44 | disposition home or self-care (01) ==
LOC: LBO 04:44
PROVIDERS: Nurse Practitioner Family; PCP Family Medicine; Visit Provider Internal Medicine Hematology & Oncology
DX: C50.919 Malignant neoplasm of unspecified site of unspecified female breast (principal)
CPT/HCPCS: 36415; 80053; 85025

== ENCOUNTER → 2025-01-02 09:54 | Outpatient (BNVA) | payer MEDICARE, SELFPAY | PROVIDERS: PCP Family Medicine; Visit Provider Nurse Practitioner Gerontology | DX: Z46.6 Encounter for fitting and adjustment of urinary device (principal); R33.8 Other retention of urine | CPT/HCPCS: 51705 ==

== ENCOUNTER 2025-01-09 04:25 | Outpatient (CLI) | payer MEDICARE, SELFPAY ==
[2025-01-09 15:07] LABS: Abs Immature Grans 0.01 10^3/uL (0.0-0.06); Absolute Basophil Count 0.07 10^3/uL (0.0-0.2); Absolute Eosinophil Count 0.09 10^3/uL (0.0-0.7); Absolute Lymphocyte Count 0.66 10^3/uL (1.2-3.4); Absolute Monocyte Count 0.13 10^3/uL (0.1-0.8); Absolute Neutrophil Count 1.29 10^3/uL (1.2-6.7); Basophils % 3.1 %; HGB 10.4 g/dL (11.2-15.7); Immature Grans % 0.4 %; Lymphocytes % 29.3 %; MCH 35.3 pg (27.0-33.0); MCHC 33.5 % (32.0-36.0); MCV 105 fL (80-95); MPV 10.3 fL (8.0-11.0); Monocytes % 5.8 %; Neutrophils % 57.4 %; Platelet Count 179 10^3/uL (130-400); RBC 2.95 10^6/uL (3.93-5.22); RDW 13.7 % (11.7-14.6); RDW-SD 52.6 fL; WBC 2.25 10^3/uL (4.4-10.8)
[2025-01-09 15:28] LABS: ALT 17 U/L (14-59); AST 20 U/L (15-37); Albumin 3.7 g/dL (3.4-5.0); Alkaline Phosphatase 115 U/L (46-116); Anion Gap 13.3 mmol/L (3-11); BUN 32 mg/dL (7-18); Bilirubin, Total 0.5 mg/dL (0.2-1.0); CO2 22.7 mmol/L (21.0-32.0); CREATININE 3.1 mg/dL (0.55-1.02); Calcium 9.4 mg/dL (8.5-10.1); Chloride 104 mmol/L (98-107); Estimated GFR 15.98 (mL/min/1.73m2); Glucose 234 mg/dL (74-106); Potassium 3.3 mmol/L (3.5-5.1); Sodium 140 mmol/L (136-145); Total Protein 7.7 g/dL (6.4-8.2)
[2025-01-11 18:07] LABS: Cancer Ag 15-3 48 U/mL (<30)
== END 2025-01-09 04:26 | disposition home or self-care (01) ==
LOC: LBO 04:25
PROVIDERS: Nurse Practitioner Family; PCP Family Medicine; Visit Provider Internal Medicine Hematology & Oncology
DX: C50.911 Malignant neoplasm of unspecified site of right female breast (principal)
CPT/HCPCS: 36415; 80053; 86300; 85025

== ENCOUNTER 2025-01-29 00:34 | Outpatient (CLI) | payer MEDICARE, SELFPAY ==
[2025-01-29] MEDS: Barium Sulfate 2% W/V-Berry Smoothie 450 ML BTL PO ×2 (07:26→07:27)
[2025-01-29 07:53] LABS: Abs Immature Grans 0.02 10^3/uL (0.0-0.06); Absolute Basophil Count 0.04 10^3/uL (0.0-0.2); Absolute Eosinophil Count 0.06 10^3/uL (0.0-0.7); Absolute Lymphocyte Count 0.33 10^3/uL (1.2-3.4); Absolute Monocyte Count 0.18 10^3/uL (0.1-0.8); Absolute Neutrophil Count 3.03 10^3/uL (1.2-6.7); Basophils % 1.1 %; Eosinophils % 1.6 %; HCT 37.2 % (36.0-46.0); HGB 12.4 g/dL (11.2-15.7); Immature Grans % 0.5 %; MCH 35.1 pg (27.0-33.0); MCHC 33.3 % (32.0-36.0); MCV 105 fL (80-95); Monocytes % 4.9 %; Neutrophils % 82.9 %; Platelet Count 199 10^3/uL (130-400); RBC 3.53 10^6/uL (3.93-5.22); RDW 14.3 % (11.7-14.6); RDW-SD 55.8 fL; WBC 3.66 10^3/uL (4.4-10.8)
[2025-01-29 08:09] LABS: ALT 21 U/L (14-59); AST 37 U/L (15-37); Albumin 3.4 g/dL (3.4-5.0); Alkaline Phosphatase 87 U/L (46-116); Anion Gap 18.6 mmol/L (3-11); Bilirubin, Total 1.2 mg/dL (0.2-1.0); CO2 18.4 mmol/L (21.0-32.0); Calcium 9.6 mg/dL (8.5-10.1); Chloride 101 mmol/L (98-107); Estimated GFR 9.01 (mL/min/1.73m2); Glucose 186 mg/dL (74-106); Potassium 4.6 mmol/L (3.5-5.1); Sodium 138 mmol/L (136-145); Total Protein 8.1 g/dL (6.4-8.2)
[2025-01-29 08:16] LABS: BUN 112 mg/dL (7-18)
--- NOTE | 2025-01-29 10:00 | DI.CT_ITS ---
Exam(s) CT CHEST/ABD/PEL WO EXAM: CT CHEST/ABD/PEL WO CLINICAL HISTORY: BREAST CA METS TO BONE, RESTAGING, C50.911 TECHNIQUE: Imaging Protocol: Axial computed tomography images with coronal and sagittal reformatted images were created and reviewed. Computer aided detection (CAD) was utilized. COMPARISON: CT CT CHEST/ABD/PEL WO from 08/11/[address] CHEST/ABD/PEL WO from 02/25/[address] CHEST/ABD/PEL WO from 08/14/2024 FINDINGS: Contrast was not administered secondary to the patient's renal function. CHEST: Tracheobronchial tree: Patent where visualized. No bronchiectasis. Pulmonary parenchyma: Calcified granulomas are seen in the right lower lobe. There is a stable 4 mm nodule in the right lower lobe (series 2, image 98). There is a new reticular nodular infiltrate in the right lower lobe. A smaller similar infiltrate is seen in the left lower lobe. No focal consoli dating infiltrates are seen. There are no new pulmonary nodules. Mediastinum and [place]: No dominant adenopathy or fluid collection. The esophagus is unremarkable. Pleura: No effusion or pneumothorax. Heart: The heart is not dilated. Two vessel coronary artery calcification is present. No pericardial effusion. Aorta: Thoracic aorta non-dilated. Atherosclerotic calcification is present. Lymph nodes: Within normal limits. Bones:Within normal limits for the patient's age. Soft tissues: The patient is status post right mastectomy. There is again seen a 2.7 x 1.6 cm subcut aneous cystic lesion in the right back soft tissues. This likely reflects a sebaceous cyst. Lack of IV contrast does limit evaluation of the abdominal pelvic organs. ABDOMEN: Liver: Normal density. No measurable mass. Gallbladder and Biliary Tract: Cholelithiasis. No biliary ductal dilatation. Pancreas: Normal density, no abnormal calcifications or inflammatory process. Spleen: Normal. Adrenals: No masses seen. Kidneys: Normal size, contour and axis. No radiodense stones or obstructive uropathy. No masses seen. Abdominal Aorta: Abdominal portion non-dilated. Atherosclerotic calcification is present. Bowel: There is diverticulosis of the colon without evidence of acute diverticulitis. There is no ev idence of bowel wall thickening or bowel obstruction. Appendix is unremarkable. Peritoneal Cavity: No ascites, collection or mesenteric inflammatory response. No free air. Lymph Nodes: Within normal limits. Bones: Within normal limits for the patient's age. Soft Tissues: Unremarkable. PELVIS: Bladder: There is persistent diffuse thickening of the wall of the urinary bladder. The patient has a suprapubic catheter in place. There is some air seen within the urinary bladder likely reflecting th e presence of a catheter. Reproductive Organs: Unremarkable as visualized. Lymph Nodes: Within normal limits. Bones: There is again seen sclerotic metastatic disease. IMPRESSION: 1. Interval development of bilateral predominantly basilar reticular nodular infiltrates. Infection s hould be considered. Metastatic disease cannot be entirely excluded. Please correlate clinically. 2. Findings again seen of diffuse osseous metastatic disease. 3. Stable right lower lobe pulmonary nodule. RADIATION DOSE DELIVERED: 510.15mGy.cm Total DLP 510.15mGy.cm Total DLP DATA REPOSITORY: All CT scans at this facility are submitted to the National Radiology Data Registry (NRDR) Dose Index Registry (DIR) with the [employer] (A[employer]). RADIATION OPTIMIZATION: All CT scans at this facility use at least one of these dose optimization te chniques: automated exposure control; mA and/or kV adjustment per patient size (includes targeted exa ms where dose is matched to clinical indication); or iterative reconstruction.
== END 2025-01-29 00:54 ==
PROVIDERS: Nurse Practitioner Family; PCP Family Medicine; Visit Provider Internal Medicine Hematology & Oncology
DX: C50.811 Malignant neoplasm of overlapping sites of right female breast (principal)
CPT/HCPCS: 71250; 80053; 74176; 85025

== ENCOUNTER 2025-01-29 09:47 | Inpatient (IN) | payer MEDICARE, SELFPAY ==
[2025-01-29] VITALS (52 sets, daily range): BP systolic 124–173; BP diastolic 56–117; PULSE 70–90; RESP 11–29; TEMP 35.9–37.1; O2SAT 96–100
--- NOTE | 2025-01-29 09:58 | ED.GENADUL_ITS ---
Discharge Plan Discharge Details Chief Complaint: GenMedical Clinical Impression: Acute uremia, RAMYA (acute kidney injury), Acute UTI Admit Date/Time: 01/29/25 13:07 Admit Provider: Loco Segundo Attending Provider: Loco Segundo Primary Care Provider: Jesse Feliz ED Provider: Bhanu Cortes General Date/Time Provider Initiated Documentation: 01/29/25 09:56 . HPI Narrative: MDM This is an overall well-appearing normothermic and not tachycardic 64-year-old female with confusion found to be markedly uremic with a significant RAMYA. This is likely secondary to decreased p.o. intake. She is a diabetic. She does have ketones. Will order venous blood gas to assess for acidemia which could be consistent with DKA as she is on glipizide. She is still making urine. Her vitals are not consistent with sepsis. CBC with persistent leukopenia. No anemia. No thrombocytopenia. No hyperkalemia however given marked RAMYA will obtain ECG and provide calcium gluconate in addition to IV fluids in the event that she develops hyperkalemia as she is on losartan. She does have anion gap and mild decreased bicarbonate. She has not an uric so I feel she is appropriate for local hospitalization. Will repeat labs following 1 L fluid bolus. I considered CVA however the patient has no focal neurological deficits. As a result I do not feel that the patient is a tPA candidate. No tonic-clonic activity to suggest seizure send indication for EEG. No fevers to suggest meningitis no indication for lumbar puncture. No pain out of proportion to suggest necrotizing soft tissue infection. Soft nontender abdomen so not suspicious for intra-abdominal infection. 1:04 PM I was in touch with Dr. Segundo from the hospitalist team who graciously agreed to accept the patient for hospitalization. 1:28 PM Venous pH showing low bicarbonate but normal pH??not consistent with DKA. 2 PM Repeat chemistry showing improved RAMYA. HPI This is a 64-year-old female with a history of diabetes mild cognitive impairment CKD and breast cancer with bony metastasis arriving to emergency department via private vehicle following abnormal labs. Patient reportedly had elevated BUN and creatinine. She has a suprapubic catheter in place but also makes urine normally. She denies routine tobacco, ethanol, and illicits. She has not taken any of her home medications yet today. She has had decreased p.o. for the past several days but has been urinating twice so far today. He has had some increasing confusion per her . She denies nausea vomiting abdominal pain chest pain shortness of breath. She also denies dysuria. She reports feeling low energy. Exam General: Elderly-appearing in no acute distress speaking in complete sentences. Head: Normocephalic, atraumatic. Eye: Extraocular eye movements intact. No conjunctival injection. No scleral icterus. Ear, nose, mouth, throat: Grossly normal inspection. Normal voice, handling secretions normally. Neck: Trachea midline. Cardiovascular: Well-perfused distal extremities. Regular rate and rhythm Respiratory: Nonlabored respiration. Clear lungs bilaterally. Gastrointestinal: Nondistended abdomen. Soft nontender. Suprapubic catheter in place. No bag. No erythema around catheter insertion site. Musculoskeletal: No edema. Moving all 4 extremities spontaneously. Skin: Normal for age and race, grossly normal temperature and turgor. No acute rash. Neurologic: Alert to person and place but not time. Cranial nerves II through XII intact grossly. 5 out of 5 bilateral lower and upper extremity strength. No pronator drift. Related Data Home Medications ?Medication ?Instructions ?Recorded ?Confirmed Lancets 1 ea miscellaneous DAILY #100 ea 02/15/13 01/29/25 blood sugar diagnostic (Blood ##100 02/15/13 01/29/25 Glucose Test strips) blood sugar diagnostic (Blood #100 ea 12/15/21 01/29/25 Glucose Test strips) blood-glucose meter #1 ea 12/15/21 01/29/25 palbociclib 100 mg capsule 75 mg PO DAILY 08/03/22 01/29/25 ([facility]) anastrozole 1 mg tablet 1 mg PO DAILY #90 tabs 08/24/23 01/29/25 glipizide 5 mg tablet 10 mg (2 x 5 mg) PO DAILY #180 05/02/24 01/29/25 tab-caps losartan 100 mg tablet 100 mg PO DAILY #90 tabs 05/08/24 01/29/25 allopurinol 100 mg tablet 100 mg PO DAILY #90 tabs 08/08/24 01/29/25 levothyroxine 100 mcg tablet 100 mcg PO DAILY #90 tabs 10/01/24 01/29/25 amitriptyline 10 mg tablet 10 mg PO QHS #30 tabs 12/04/24 01/29/25 atorvastatin 80 mg tablet 80 mg PO DAILY #90 tabs 12/04/24 01/29/25 cholecalciferol (vitamin D3) 25 50 mcg (2 x 25 mcg (1,000 unit)) 12/11/24 01/29/25 mcg (1,000 unit) capsule PO DAILY vitamin D deficiency #180 caps famotidine 40 mg tablet 40 mg PO DAILY #90 tabs 01/04/25 01/29/25 Previous Rx's ?Medication ?Instructions ?Recorded blood sugar diagnostic (Blood #100 ea 12/15/21 Glucose Test strips) blood-glucose meter #1 ea 12/15/21 anastrozole 1 mg tablet 1 mg PO DAILY #90 tabs 08/24/23 glipizide 5 mg tablet 10 mg (2 x 5 mg) PO DAILY #180 05/02/24 tab-caps losartan 100 mg tablet 100 mg PO DAILY #90 tabs 05/08/24 allopurinol 100 mg tablet 100 mg PO DAILY #90 tabs 08/08/24 levothyroxine 100 mcg tablet 100 mcg PO DAILY #90 tabs 10/01/24 amitriptyline 10 mg tablet 10 mg PO QHS #30 tabs 12/04/24 atorvastatin 80 mg tablet 80 mg PO DAILY #90 tabs 12/04/24 cholecalciferol (vitamin D3) 25 50 mcg (2 x 25 mcg (1,000 unit)) 12/11/24 mcg (1,000 unit) capsule PO DAILY vitamin D deficiency #180 caps famotidine 40 mg tablet 40 mg PO DAILY #90 tabs 01/04/25 Allergies Allergy/AdvReac Type Severity Reaction Status Date / Time amoxicillin (From Augmentin) AdvReac Intermediate Severe Verified 01/29/25 10:02 dry mouth clavulanic acid (From AdvReac Intermediate Severe Verified 01/29/25 10:02 Augmentin) dry mouth Sulfa (Sulfonamide AdvReac Intermediate SLURRED Verified 01/29/25 10:02 Antibiotics) SPEECH, DIZZY General XUAN: 2 Medical Decision Making Quality:SDOH Health Related Social Needs: No Data to Display PFSH All Active Problems (Updated 01/29/25 @ 14:06 by Bhanu Cortes MD) Acute UTI (Acute) RAMYA (acute kidney injury) (Acute) Acute uremia (Acute) Elevated blood pressure reading (Acute) Claudication (Acute) MCI (mild cognitive impairment) (Acute) Dental caries (Acute) Elevated CA-125 (Acute) 05/21- followed by Olvin Whittaker [facility] [place] Type 2 diabetes mellitus with diabetic nephropathy (Acute) Leukopenia (Acute) 09/2021 Gastric ulcer (Acute) 07/2021-all ulcer associate with gastritis and duodenitis. Patient hospitalized for GI bleed. Presumed source Repeat EGD 09/2021 improvement with resolution of ulcer Hypothyroidism (Chronic) 2017-status post thyroidectomy for multinodular goiter, on thyroid replacement Breast cancer (Chronic) 2017-right breast status mastectomy, status post radiation and chemotherapy, on anastrazole, followed by oncology at [facility] 07/2021-probable bony metastatic disease to the ribs and hip area-by imaging CT and bone scan Chronic kidney disease, stage 4 (severe) (Acute) Anemia (Chronic) 09/2021, likely due to CKD Sepsis due to gram-negative UTI (Acute) 09/2021, hospitalized at [facility] Coagulopathy (Acute) Acute on chronic blood loss anemia (Acute) Acute renal failure superimposed on chronic kidney disease (Acute 02/04/17) Diabetes mellitus (Acute) Erythromelalgia (Acute 01/09/15) excellent response to asa 325mg Gout (Acute) History of tobacco use (Acute) Hyperlipidemia (Acute 02/21/13) Urinary retention (Acute 02/08/17) Suprapubic tube, followed by urology at [facility] Medical History (Updated 01/29/25 @ 14:06 by Bhanu Cortes MD) Esophagitis Gastritis Hepatic steatosis Inflammatory polyps (~07/2021) Hypothyroidism Vitamin D deficiency CKD (chronic kidney disease) stage 4, GFR 15-29 ml/min Multinodular goiter (02/26/18) [facility] [place] 02-16-2018 / tx= total thyroidectomy to be scheduled after tx of breast cancer - one nodule displaces left cartotid and causes tracheal compression (pt is as ymptomatic) Malignant neoplasm of right breast in female, estrogen receptor positive [facility] biopsy: invasive ductal carcinoma/ductal carcinoma in situ - Intramural leiomyoma of uterus (05/05/17) Essential hypertension Urinary retention Chronic kidney disease Hyperlipidemia Erythromelalgia Gout Diabetes Leiomyoma of uterus Surgical History (Updated 10/27/21 @ 10:14 by Jeannie Barba RN) History of esophagogastroduodenoscopy (EGD) (~09/2021) History of colonoscopy (~07/2021) Hx of thyroidectomy History of suprapubic catheter Hx of breast lump removal R , entire breast Family History (Updated 01/28/24 @ 13:20 by Simran Collins) Mother , 86 age Diabetes Hypertension Dementia Father , 67 age Cancer Sister , 63 Heart disease Sister , 55 age Dementia Brother , 59 age Cancer Lung Cancer Brother , 69 age Diabetes Heart disease Hypertension Daughter No problems noted. Daughter No problems noted. Social History (Updated 01/28/24 @ 13:18 by Simran Collins) Smoking/Tobacco Use Status: Former Tobacco Use tobacco type: cigarettes Quit Date: 05/31/11 Second Hand Exposure: Yes Smoking risk assessment performed?: Yes Alcohol Intake: never Drug use: Never Substance use type: does not use Adopted: No Caregiver/Support person: No Household members: spouse Housing: other Number of Children: 4 Communication Needs: Corrective Lenses Education Level: high school Do you need help understanding health information?: Never current occupation: Retired Pets and animals: No Sexually active: No Do you think of yourself as: straight/heterosexual Current gender identity: female What is your relationship status?: How often do you talk on the phone with friends or family?: twice per week How often do you get together with friends or relatives?: once per week Do you belong to any clubs or organized social groups?: no Panel score (0-1 are the most socially isolated patients): 2 What type of physical activity do you participate in: none Special lori needs: No Seatbelt use: always Helmet use: No 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
[2025-01-29 11:01] LABS: Bilirubin Negative (Negative); Blood Small (Negative); Clarity Sl Cloudy (Clear); Glucose Negative (Negative); Ketones Trace mg/dL (Negative); Leukocyte Esterase Moderate (Negative); Nitrite Positive (Negative); Specific Gravity 1.015 (1.005-1.025); Urobilinogen 0.2 mg/dL (Up to 0.2); pH 5.5 (5-8)
[2025-01-29 11:09] LABS: Bacteria Many HPF (Negative); Crystals Few Amorphous HPF (Negative); Epithelial Cells Many HPF (Negative)
[2025-01-29 11:10] LABS: C & S Indicated? No/Sq. Contamination; Casts 3-5 Fine Granular LPF (Negative); Mucus Moderate (Negative)
[2025-01-29] MEDS: Normal Saline 1,000 ML 1000 ML IV (11:20)
[2025-01-29 11:27] LABS: Abs Immature Grans 0.03 10^3/uL (0.0-0.06); Absolute Basophil Count 0.03 10^3/uL (0.0-0.2); Absolute Eosinophil Count 0.11 10^3/uL (0.0-0.7); Absolute Lymphocyte Count 0.33 10^3/uL (1.2-3.4); Absolute Monocyte Count 0.18 10^3/uL (0.1-0.8); Absolute Neutrophil Count 3.12 10^3/uL (1.2-6.7); Basophils % 0.8 %; Eosinophils % 2.9 %; HCT 37.3 % (36.0-46.0); HGB 12.6 g/dL (11.2-15.7); Immature Grans % 0.8 %; Lymphocytes % 8.7 %; MCH 35.3 pg (27.0-33.0); MCHC 33.8 % (32.0-36.0); MCV 105 fL (80-95); MPV 11.2 fL (8.0-11.0); Monocytes % 4.7 %; Neutrophils % 82.1 %; RBC 3.57 10^6/uL (3.93-5.22); RDW 14.2 % (11.7-14.6); RDW-SD 54.9 fL
[2025-01-29] MEDS: cefTRIAXone 1 GM/50 ML BAG IVPB (11:33)
[2025-01-29 11:44] LABS: Anion Gap 17.9 mmol/L (3-11); CO2 20.1 mmol/L (21.0-32.0); Calcium 9.9 mg/dL (8.5-10.1); Chloride 99 mmol/L (98-107); Estimated GFR 8.59 (mL/min/1.73m2); Glucose 177 mg/dL (74-106); Potassium 4.1 mmol/L (3.5-5.1); Sodium 137 mmol/L (136-145)
[2025-01-29 11:45] LABS: BUN 118 mg/dL (7-18)
--- NOTE | 2025-01-29 11:45 | RT.EKG_ITS ---
APPROVED REPORT Exam: Resting ECG Reason for Exam: Hyperkalemia Patient Location: E HR:77 bpm ECG Measurements Heart Rate 77 AXIS WA 209 P 60 QRSd 82 QRS 70 QT 397 T 60 QTc 450 Conclusion Sinus rhythm...normal P axis, V-rate 60- 99 Low voltage, precordial leads...precordial leads <1.0mV No STEMI
[2025-01-29 11:46] LABS: CREATININE 5.2 mg/dL (0.55-1.02)
[2025-01-29 11:48] LABS: Diff Comment Manual Differential; Platelet Count 213 10^3/uL (130-400); RBC Morphology Normal
[2025-01-29] MEDS: Calcium Gluconate 4.65 MEQ/10 ML VIAL 4.65 MG IVP (12:16)
[2025-01-29 12:17] LABS: Sodium, Urine 21 mmol/L
--- NOTE | 2025-01-29 13:09 | W.PM.HP.N ---
Date of service: 01/29/25 Time of Service: 13:10 Assessment and Plan Assessment and plan (1) Acute uremia: Status: Acute Assessment and plan: -In the setting of poor p.o. intake with acute on chronic kidney disease -Baseline creatinine between 2.9-3.1, found to be 5.0 prior to arrival to the emergency department -Potassium 4.1 though patient was still given calcium gluconate, EKG was also without acute findings -sodium also within normal limits at 138 -Status post 1 L normal saline in the emergency department with relatively unchanged creatinine and BUN -Given the patient continues to make urine we will attempt to rehydrate given that this was likely secondary to recent poor p.o. intake -Normal saline at 100 mL/h -Q4hr BMP -On my exam patient already states that she is feeling better and is no longer confused/experiencing delusions -if patient's confusion significantly worsens or BUN and creatinine continues to significantly elevate will reach out to tertiary care center for consideration of dialysis (2) Acute renal failure superimposed on chronic kidney disease: Status: Acute Assessment and plan: - Likely secondary to recent poor p.o. intake in combination with can continued administration of losartan -Fluid resuscitation as noted above -Holding home losartan (3) Acute UTI: Status: Acute Assessment and plan: - Urinalysis with positive nitrate, leuk esterase and many bacteria -Was started on ceftriaxone in the emergency department, will continue (4) Hypothyroidism: Status: Chronic Assessment and plan: - Continue home Synthroid (5) Diabetes mellitus: Status: Acute Assessment and plan: - [id number] on glipizide -Hold home glipizide (6) Breast cancer: Status: Chronic Assessment and plan: - Apparently with bony metastasis -Recommend follow-up with oncologist at discharge History of Present Illness History of Present Illness Chief Complaint: abnormal labs Narrative: 65-year-old female with past medical history of NIDDM, mild cognitive impairment, CKD, breast cancer with bony metastasis who presented the emergency department for further evaluation of abnormal labs. Patient was told to present to the emergency department as she had elevated BUN and creatinine. She has a suprapubic catheter in place and does make urine. Her states she has not taken any of her home medications yet today, but that the patient has had significant decrease in p.o. intake over the last several days but has urinated twice prior to arrival to the emergency department. Per her she is also noted as having some mild increase in confusion but denies any fever, lightheadedness, dizziness, chest pain, nausea vomiting or diarrhea. In the emergency department patient was noted as having a normal physical exam and CBC but on CMP was noted to have a creatinine of 5.0 (baseline 2.9-3.1), BUN of 112 and anion gap of 18.6, glucose of 186, potassium of 4.6 and a sodium of 138. Patient was given 1 L normal saline bolus and repeat labs showed creatinine of 5.2, BUN of 118, anion gap of 17.9, potassium 4.1. Patient was also given calcium gluconate, and EKG was without any acute findings. VBG was also done and did not show acidemia. Additionally, patient's urine was noted as being positive for nitrates, leuk esterase and bacteria for which she was started on ceftriaxone. Given that the patient is still making urine and felt that dialysis was not immediately required. Therefore, emergency room physician paged hospitalist for admission for patient with poor p.o. intake and acute on chronic kidney disc function with uremia requiring IV fluid resuscitation. Review of Systems All systems reviewed & are unremarkable except as noted in HPI and below PFSH All Active Problems (Updated 01/29/25 @ 14:06 by Bhanu Cortes MD) Acute UTI (Acute) RAMYA (acute kidney injury) (Acute) Acute uremia (Acute) Elevated blood pressure reading (Acute) Claudication (Acute) MCI (mild cognitive impairment) (Acute) Dental caries (Acute) Elevated CA-125 (Acute) 05/21- [place] Olvin Whitt[place] [facility] [place] 2 diabetes mellitus with diabetic nephropathy (Acute) Leukopenia (Acute) 09/2021 Gastric ulcer (Acute) 07/2021-all ulcer associate with gastritis and duodenitis. Patient hospitalized for GI bleed. Presumed source Repeat EGD 09/2021 improvement with resolution of ulcer Hypothyroidism (Chronic) 2017-status post thyroidectomy for multinodular goiter, on thyroid replacement Breast cancer (Chronic) 2017-right breast status mastectomy, status post radiation and chemotherapy, on anastrazole, followed by oncology at [facility] 07/2021-probable bony metastatic disease to the ribs and hip area-by imaging CT and bone scan Chronic kidney disease, stage 4 (severe) (Acute) Anemia (Chronic) 09/2021, likely due to CKD Sepsis due to gram-negative UTI (Acute) 09/2021, hospitalized at [facility] Coagulopathy (Acute) Acute on chronic blood loss anemia (Acute) Acute renal failure superimposed on chronic kidney disease (Acute 02/04/17) Diabetes mellitus (Acute) Erythromelalgia (Acute 01/09/15) excellent response to asa 325mg Gout (Acute) History of tobacco use (Acute) Hyperlipidemia (Acute 02/21/13) Urinary retention (Acute 02/08/17) Suprapubic tube, followed by urology at [facility] Medical History (Updated 01/29/25 @ 14:06 by Bhanu Cortes MD) Esophagitis Gastritis Hepatic steatosis Inflammatory polyps (~07/2021) Hypothyroidism Vitamin D deficiency CKD (chronic kidney disease) stage 4, GFR 15-29 ml/min Multinodular goiter (02/26/18) [facility] [place] tx= total thyroidectomy to be scheduled after tx of breast cancer - one nodule displaces left cartotid and causes tracheal compression (pt is asymptomatic) Malignant neoplasm of right breast in female, estrogen receptor positive [facility] [place]: invasive ductal carcinoma/ductal carcinoma in situ - Intramural leiomyoma of uterus (05/05/17) Essential hypertension Urinary retention Chronic kidney disease Hyperlipidemia Erythromelalgia Gout Diabetes Leiomyoma of uterus Surgical History (Updated 10/27/21 @ 10:14 by Jeannie Barba RN) History of esophagogastroduodenoscopy (EGD) (~09/2021) History of colonoscopy (~07/2021) Hx of thyroidectomy History of suprapubic catheter Hx of breast lump removal R , entire breast Family History (Updated 01/28/24 @ 13:20 by Simran Collins) Mother , 86 age Diabetes Hypertension Dementia Father , 67 age Cancer Sister , 63 Heart disease Sister , 55 age Dementia Brother , 59 age Cancer Lung Cancer Brother , 69 age Diabetes Heart disease Hypertension Daughter No problems noted. Daughter No problems noted. Social History (Updated 01/28/24 @ 13:18 by Simran Collins) Smoking/Tobacco Use Status: Former Tobacco Use tobacco type: cigarettes Quit Date: 05/31/11 Second Hand Exposure: Yes Smoking risk assessment performed?: Yes Alcohol Intake: never Drug use: Never Substance use type: does not use Adopted: No Caregiver/Support person: No Household members: spouse Housing: house Number of Children: 4 Communication Needs: Corrective Lenses Education Level: high school Do you need help understanding health information?: Never current occupation: Retired Pets and animals: No Sexually active: No Do you think of yourself as: straight/heterosexual Current gender identity: female What is your relationship status?: How often do you talk on the phone with friends or family?: twice per week How often do you get together with friends or relatives?: once per week Do you belong to any clubs or organized social groups?: no Panel score (0-1 are the most socially isolated patients): 2 What type of physical activity do you participate in: none Special lori needs: No Seatbelt use: always Helmet use: No Drive intox or ride w/intox driver license agent: No Firearms in home: Yes Firearms unloaded and locked: Yes Do you feel safe at home: Yes Do you feel safe in your relationship?: Yes Victim of physical abuse: No Victim of emotional abuse: No Victim of sexual abuse: No Would you like helpful sources: No Meds Allergies and Home Medications Allergies Allergy/AdvReac Type Severity Reaction Status Date / Time amoxicillin (From Augmentin) AdvReac Intermediate Severe Verified 01/29/25 10:02 dry mouth clavulanic acid (From AdvReac Intermediate Severe Verified 01/29/25 10:02 Augmentin) dry mouth Sulfa (Sulfonamide AdvReac Intermediate SLURRED Verified 01/29/25 10:02 Antibiotics) SPEECH, DIZZY Home Medications ?Medication ?Instructions ?Recorded ?Confirmed ?Type Lancets 1 ea miscellaneous DAILY #100 ea 02/15/13 01/29/25 History blood sugar diagnostic (Blood ##100 02/15/13 01/29/25 History Glucose Test strips) blood sugar diagnostic (Blood #100 ea 12/15/21 01/29/25 Rx Glucose Test strips) blood-glucose meter #1 ea 12/15/21 01/29/25 Rx palbociclib 100 mg capsule 75 mg PO DAILY 08/03/22 01/29/25 History (Ibrance) anastrozole 1 mg tablet 1 mg PO DAILY #90 tabs 08/24/23 01/29/25 Rx glipizide 5 mg tablet 10 mg (2 x 5 mg) PO DAILY #180 05/02/24 01/29/25 Rx tab-caps losartan 100 mg tablet 100 mg PO DAILY #90 tabs 05/08/24 01/29/25 Rx allopurinol 100 mg tablet 100 mg PO DAILY #90 tabs 08/08/24 01/29/25 Rx levothyroxine 100 mcg tablet 100 mcg PO DAILY #90 tabs 10/01/24 01/29/25 Rx amitriptyline 10 mg tablet 10 mg PO QHS #30 tabs 12/04/24 01/29/25 Rx atorvastatin 80 mg tablet 80 mg PO DAILY #90 tabs 12/04/24 01/29/25 Rx cholecalciferol (vitamin D3) 25 50 mcg (2 x 25 mcg (1,000 unit)) 12/11/24 01/29/25 Rx mcg (1,000 unit) capsule PO DAILY vitamin D deficiency #180 caps famotidine 40 mg tablet 40 mg PO DAILY #90 tabs 01/04/25 01/29/25 Rx Exam Narrative Exam Narrative: Well-appearing older female sitting up in the edge of the bed in no acute distress, ANO x 4, endorses that she is no longer experiencing delusions since she has been in the hospital receiving IV fluids, heart regular rhythm, lungs clear to auscultation bilaterally, abdomen soft, nontender, nondistended Results Labs 01/29/25 11:15 01/29/25 13:24 Labs: Laboratory Results - last 24 hr 01/29/25 01/29/25 01/29/25 10:49 11:15 13:00 WBC 3.80 L RBC 3.57 L Hgb 12.6 Hct 37.3 MCV 105 H MCH 35.3 H MCHC 33.8 RDW 14.2 Plt Count 213 MPV 11.2 H Immature Gran % 0.8 Neutrophils % 82.1 Lymphocytes % 8.7 Monocytes % 4.7 Eosinophils % 2.9 Basophils % 0.8 Nucleated RBC % 0.0 Absolute Neutrophils 3.12 Absolute Lymphocytes 0.33 L Absolute Monocytes 0.18 Absolute Eosinophils 0.11 Absolute Basophils 0.03 RBC Morphology Normal VBG pH Cancelled VBG pCO2 Cancelled VBG pO2 Cancelled VBG HCO3 Cancelled VBG Total CO2 Cancelled VBG O2 Saturation Cancelled VBG Base Excess Cancelled Sodium 137 Potassium 4.1 Chloride 99 Carbon Dioxide 20.1 L Anion Gap 17.9 H BUN 118 H* Creatinine 5.2 H* Est GFR (CKD-EPI 2020) 8.59 Glucose 177 H Calcium 9.9 Urine Color Yellow Urine Clarity Sl Cloudy Urine pH 5.5 Ur Specific [place] 1.015 Urine Protein 100 H Urine Ketones Trace H Urine Blood Small H Urine Nitrite Positive H Urine Bilirubin Negative Urine Urobilinogen 0.2 Ur Leukocyte Esterase Moderate H Urine RBC 5-10 H Urine WBC 10-20 H Ur Epithelial Cells Many Urine Crystals Few Amorphous Urine Bacteria Many Urine Casts 3-5 Fine Granular Urine Mucus Moderate Ur Culture Indicated? No/Sq. Contamination Ur Random Creatinine 110.30 Ur Random Sodium 21 Urine Glucose Negative Last Vital Signs Temp 97.7 F 01/29/25 12:41 Pulse 75 01/29/25 13:01 Resp 17 01/29/25 13:01 BP 172/71 H 01/29/25 13:01 Pulse Ox 97 01/29/25 13:01 Time Spent Time spent with Patient: >75 minutes Time was spent: preparing to see the patient(eg.review tests), obtaining and/or reviewing separately otained hiistory, ordering medications,tests, procedures, referring, communicating with other health healthcare project manager, indepentently interpreting results, counseling the patient and care coordination
[2025-01-29 13:17] LABS: BE (Venous) -11 mmol/L (-2-3); HCO3 (Venous) 14 mmol/L (23-28); O2 Sat (Venous) 90 %; TCO2 (Venous) 15 mmol/L (24-29); pCO2 (Venous) 25 mmHg (41-51); pH (Venous) 7.37 (7.31-7.41); pO2 (Venous) 58 mmHg
--- NOTE | 2025-01-29 13:48 | PHA.REVIEW2 ---
Pharmacy Admission Review Admission Clinical Review Admission Pharmacy Review: Acute UTI (Acute) Acute hyperkalemia (Acute) RAMYA (acute kidney injury) (Acute) Acute uremia (Acute) Acute renal failure superimposed on chronic kidney disease (Acute 02/04/17) Diabetes mellitus (Acute) amoxicillin (From Augmentin) Adverse Reaction (Intermediate, Verified 01/29/25 10:02) Severe dry mouth clavulanic acid (From Augmentin) Adverse Reaction (Intermediate, Verified 01/29/25 10:02) Severe dry mouth Sulfa (Sulfonamide Antibiotics) Adverse Reaction (Intermediate, Verified 01/29/25 10:02) SLURRED SPEECH, DIZZY Resuscitation Status Full Code Height 5 ft 4 in Weight 68.7 kg Pharmacy Admission Review Renal Dosing Renal Dosing: BUN 118 01/29/25 11:15 Creatinine 5.2 01/29/25 11:15 Medications needing adjustments: Intervened (CrCl 10.12 mL/min - repeat labs pending) List of meds needing interventions: Changed famotidine dose from 40mg daily to 10mg daily Anticoagulation Anticoagulation: Hgb 12.6 g/dL (11.2-15.7) 01/29/25 11:15 Hct 37.3 % (36.0-46.0) 01/29/25 11:15 Plt Count 213 10^3/uL (130-400) 01/29/25 11:15 Creatinine Cancelled 01/29/25 13:00 DVT Prophylaxis: Intervened (Initial order was put in for enoxaparin 40mg daily. Reached out to provider as best option would most likely be heparin given patients severe kidney impairment. Provider asked that order be changed to heparin q8h) Medications: Heparin (q8h) Relevant Labs Relevant Labs: Sodium 137 01/29/25 11:15 Potassium 4.1 01/29/25 11:15 Chloride 99 01/29/25 11:15 Electrolytes, C-Reactive P, ESR: Reviewed (repeat labs pending) DM Control DM Control: Glucose 177 01/29/25 11:15 DM Control: Reviewed Insulin Dosing, Diabetic Medication: No orders at this time Cardiac Review Cardiac Review: Blood Pressure 172/71 1301 Blood Pressure 161/78 1256 Blood Pressure 173/75 1251 Blood Pressure 159/67 1247 Blood Pressure 127/63 1101 Blood Pressure 162/56 1056 Blood Pressure 124/66 1031 Blood Pressure 167/78 0959 Blood Pressure 167/78 0955 BP, HR, EF%: Reviewed (HR WNL) QTc Review QTc: Reviewed (EKG report pending) IV to PO Switch IV Medications: Reviewed Home Meds Home Med List reviewed: Intervened Relevent Home Meds Not ordered & why?: allopurinol, anastrozole, vitamin D3, glipizide, losartan and Ibrance Spoke with provider and verified that these home meds are all currently on hold Current Meds Current Medication Order Review: Intervened Comments: Changed timing of levothyroxine from 0830 to 0600 per pharmacy protocol
[2025-01-29 13:57] LABS: Calcium 8.8 mg/dL (8.5-10.1); Chloride 104 mmol/L (98-107); Estimated GFR 10.79 (mL/min/1.73m2); Glucose 134 mg/dL (74-106); Potassium 3.8 mmol/L (3.5-5.1); Sodium 139 mmol/L (136-145)
[2025-01-29 14:02] LABS: BUN 105 mg/dL (7-18); CREATININE 4.3 mg/dL (0.55-1.02)
--- NOTE | 2025-01-29 14:07 | W.PC.ACHO ---
Registration Status: Primary Language: Preferred Language: ED Information & Data Chief Complaint GenMedical 01/29/25 10:00 Chief Complaint GenMedical 01/29/25 09:55 Triage Note Pt just came from having 01/29/25 09:55 bone scan. Has breast ca w/ mets to bone. Lab draw this morning showed elevated BUN and Cr+. Medical / Surgical History (Last Updated 10/27/21 @ 10:14 by Jeannie Barba RN) Esophagitis Gastritis Hepatic steatosis Inflammatory polyps (~07/2021) Hypothyroidism Vitamin D deficiency CKD (chronic kidney disease) stage 4, GFR 15-29 ml/min Multinodular goiter (02/26/18) Malignant neoplasm of right breast in female, estrogen receptor positive Intramural leiomyoma of uterus (05/05/17) Essential hypertension Urinary retention Chronic kidney disease Hyperlipidemia Erythromelalgia Gout Diabetes Leiomyoma of uterus (Last Updated 10/27/21 @ 10:14 by Jeannie Barba RN) History of esophagogastroduodenoscopy (EGD) (~09/2021) History of colonoscopy (~07/2021) Hx of thyroidectomy History of suprapubic catheter Hx of breast lump removal Most Recent Vital Signs Temperature 36.5 C 01/29/25 12:41 Temperature Source Oral 01/29/25 12:41 Pulse 75 01/29/25 13:01 Pulse 74 01/29/25 13:01 Respiratory Rate 17 01/29/25 13:01 Respiratory Effort Normal, Non-Labored 01/29/25 11:55 Respiratory Depth Normal 01/29/25 11:55 Respiratory Pattern Normal 01/29/25 11:55 Blood Pressure 172/71 H 01/29/25 13:01 Blood Pressure Mean 110 01/29/25 13:01 Blood Pressure Position Sitting 01/29/25 09:55 Pulse Oximetry 97 01/29/25 13:01 Oxygen Delivery Method Room Air 01/29/25 12:41 Oxygen Flow Rate 0 01/29/25 09:55 Pain Level 0 01/29/25 09:55 Allergies amoxicillin (From Augmentin) Adverse Reaction (Intermediate, Verified 01/29/25 10:02) Severe dry mouth clavulanic acid (From Augmentin) Adverse Reaction (Intermediate, Verified 01/29/25 10:02) Severe dry mouth Sulfa (Sulfonamide Antibiotics) Adverse Reaction (Intermediate, Verified 01/29/25 10:02) SLURRED SPEECH, DIZZY Precautions Isolation Standard precaution 01/29/25 10:00 IV IV Catheter Type [Left Peripheral IV Antecubital] IV Catheter Gauge [Left 18 Antecubital] Diet Orders Category Date Time Status Diabetes Consistent CHO [DIET] Nutrition 01/29/25 Dinner Active Diagnostics 01/29/25 01/29/25 01/29/25 Range/Units 13:24 13:00 11:15 WBC 3.80 L (4.4-10.8) 10^3/uL RBC 3.57 L (3.93-5.22) 10^6/uL Hgb 12.6 (11.2-15.7) g/dL Hct 37.3 (36.0-46.0) % MCV 105 H (80-95) fL MCH 35.3 H (27.0-33.0) pg MCHC 33.8 (32.0-36.0) % RDW 14.2 (11.7-14.6) % Plt Count 213 (130-400) 10^3/uL MPV 11.2 H (8.0-11.0) fL Immature Gran % 0.8 % Neutrophils % 82.1 % Lymphocytes % 8.7 % Monocytes % 4.7 % Eosinophils % 2.9 % Basophils % 0.8 % Nucleated RBC % 0.0 (0.0-0.3) % Absolute Neutrophils 3.12 (1.2-6.7) 10^3/uL Absolute Lymphocytes 0.33 L (1.2-3.4) 10^3/uL Absolute Monocytes 0.18 (0.1-0.8) 10^3/uL Absolute Eosinophils 0.11 (0.0-0.7) 10^3/uL Absolute Basophils 0.03 (0.0-0.2) 10^3/uL RBC Morphology Normal VBG pH 7.37 (7.31-7.41) VBG pCO2 25 L (41-51) mmHg VBG pO2 58 mmHg VBG HCO3 14 L (23-28) mmol/L VBG Total CO2 15 L (24-29) mmol/L VBG O2 Saturation 90 % VBG Base Excess -11 L (-2-3) mmol/L Sodium 139 Cancelled 137 (136-145) mmol/L Potassium 3.8 Cancelled 4.1 (3.5-5.1) mmol/L Chloride 104 Cancelled 99 (98-107) mmol/L Carbon Dioxide 21.0 Cancelled 20.1 L (21.0-32.0) mmol/L Anion Gap 14.0 H Cancelled 17.9 H (3-11) mmol/L BUN 105 H* Cancelled 118 H* (7-18) mg/dL Creatinine 4.3 H* Cancelled 5.2 H* (0.55-1.02) mg/dL Est GFR (CKD-EPI 2020) 10.79 Cancelled 8.59 (mL/min/1.73m2) Glucose 134 H Cancelled 177 H (74-106) mg/dL Calcium 8.8 Cancelled 9.9 (8.5-10.1) mg/dL Urine Color (Yellow) Urine Clarity (Clear) Urine pH (5-8) Ur Specific [place] (1.005-1.025) Urine Protein (Neg-Trace) mg/dL Urine Ketones (Negative) mg/dL Urine Blood (Negative) Urine Nitrite (Negative) Urine Bilirubin (Negative) Urine Urobilinogen (Up to 0.2) mg/dL Ur Leukocyte Esterase (Negative) Urine RBC (0-2) HPF Urine WBC (0-5) HPF Ur Epithelial Cells (Negative) HPF Urine Crystals (Negative) HPF Urine Bacteria (Negative) HPF Urine Casts (Negative) LPF Urine Mucus (Negative) Ur Culture Indicated? Ur Random Creatinine mg/dL Ur Random Sodium mmol/L Urine Glucose (Negative) mg/dL 01/29/25 Range/Units 10:49 WBC (4.4-10.8) 10^3/uL RBC (3.93-5.22) 10^6/uL Hgb (11.2-15.7) g/dL Hct (36.0-46.0) % MCV (80-95) fL MCH (27.0-33.0) pg MCHC (32.0-36.0) % RDW (11.7-14.6) % Plt Count (130-400) 10^3/uL MPV (8.0-11.0) fL Immature Gran % % Neutrophils % % Lymphocytes % % Monocytes % % Eosinophils % % Basophils % % Nucleated RBC % (0.0-0.3) % Absolute Neutrophils (1.2-6.7) 10^3/uL Absolute Lymphocytes (1.2-3.4) 10^3/uL Absolute Monocytes (0.1-0.8) 10^3/uL Absolute Eosinophils (0.0-0.7) 10^3/uL Absolute Basophils (0.0-0.2) 10^3/uL RBC Morphology VBG pH (7.31-7.41) VBG pCO2 (41-51) mmHg VBG pO2 mmHg VBG HCO3 (23-28) mmol/L VBG Total CO2 (24-29) mmol/L VBG O2 Saturation % VBG Base Excess (-2-3) mmol/L Sodium (136-145) mmol/L Potassium (3.5-5.1) mmol/L Chloride (98-107) mmol/L Carbon Dioxide (21.0-32.0) mmol/L Anion Gap (3-11) mmol/L BUN (7-18) mg/dL Creatinine (0.55-1.02) mg/dL Est GFR (CKD-EPI 2020) (mL/min/1.73m2) Glucose (74-106) mg/dL Calcium (8.5-10.1) mg/dL Urine Color Yellow (Yellow) Urine Clarity Sl Cloudy (Clear) Urine pH 5.5 (5-8) Ur Specific [place] 1.015 (1.005-1.025) Urine Protein 100 H (Neg-Trace) mg/dL Urine Ketones Trace H (Negative) mg/dL Urine Blood Small H (Negative) Urine Nitrite Positive H (Negative) Urine Bilirubin Negative (Negative) Urine Urobilinogen 0.2 (Up to 0.2) mg/dL Ur Leukocyte Esterase Moderate H (Negative) Urine RBC 5-10 H (0-2) HPF Urine WBC 10-20 H (0-5) HPF Ur Epithelial Cells Many (Negative) HPF Urine Crystals Few Amorphous (Negative) HPF Urine Bacteria Many (Negative) HPF Urine Casts 3-5 Fine Granular (Negative) LPF Urine Mucus Moderate (Negative) Ur Culture Indicated? No/Sq. Contamination Ur Random Creatinine 110.30 mg/dL Ur Random Sodium 21 mmol/L Urine Glucose Negative (Negative) mg/dL Intake and Output - 24 Hour Total 01/29/25 09:47 thru 01/29/25 13:03 Intake Total 50 Balance 50 Weight 68.7 kg Intake: IV 50 Falls Risk Assessment History of Falls Previous History 01/29/25 11:55 Contributing Factors Impairments,Incontinence, 01/29/25 11:55 Medications Ambulatory Aids Uses ambulatory device 01/29/25 11:55 Tubes/Lines None 01/29/25 11:55 Gait Evaluation No gait disturbance 01/29/25 11:55 Cognition No cognitive impairment 01/29/25 11:55 Fall Total Score 39 01/29/25 11:55 Level of Risk Moderate Risk 01/29/25 11:55 Problems (Last Updated 10/27/21 @ 10:14 by Jeannie Barba RN) Acute UTI (Acute) RAMYA (acute kidney injury) (Acute) Acute uremia (Acute) Hypothyroidism (Chronic) Breast cancer (Chronic) Acute renal failure superimposed on chronic kidney disease (Acute 02/04/17) Diabetes mellitus (Acute) v v v v v v v v v Sending and/or Receiving Nurses: Please use comment section below to note any information pertinent to the patient hand-off not included above. Information / Comments: Coming from ED to room 210 Report received from:[facility] ED at 14:06
[2025-01-29] MEDS: Heparin 5,000 UNITS/ML VIAL 5000 UNITS SC ×2 (15:20→22:15)
[2025-01-29] MEDS: Normal Saline 1,000 ML 100 ML IV (15:20)
[2025-01-29 18:44] LABS: Anion Gap 13.5 mmol/L (3-11); CO2 21.5 mmol/L (21.0-32.0); Calcium 8.9 mg/dL (8.5-10.1); Chloride 105 mmol/L (98-107); Estimated GFR 11.43 (mL/min/1.73m2); Glucose 141 mg/dL (74-106); Potassium 3.9 mmol/L (3.5-5.1); Sodium 140 mmol/L (136-145)
[2025-01-29 18:46] LABS: BUN 98 mg/dL (7-18); CREATININE 4.1 mg/dL (0.55-1.02)
[2025-01-29] MEDS: Normal Saline Flush 10 ML SYR IVP (20:28)
[2025-01-29] MEDS: Amitriptyline 10 MG TAB PO (20:28)
[2025-01-29 22:25] LABS: Anion Gap 13.5 mmol/L (3-11); CO2 19.5 mmol/L (21.0-32.0); Calcium 8.8 mg/dL (8.5-10.1); Chloride 108 mmol/L (98-107); Estimated GFR 11.77 (mL/min/1.73m2); Glucose 95 mg/dL (74-106); Potassium 4.2 mmol/L (3.5-5.1); Sodium 141 mmol/L (136-145)
[2025-01-29 22:28] LABS: BUN 96 mg/dL (7-18)
[2025-01-30] MEDS: Normal Saline 1,000 ML 100 ML IV (00:10)
[2025-01-30 02:04] LABS: Anion Gap 14.1 mmol/L (3-11); CO2 18.9 mmol/L (21.0-32.0); Calcium 8.8 mg/dL (8.5-10.1); Chloride 110 mmol/L (98-107); Estimated GFR 12.93 (mL/min/1.73m2); Glucose 91 mg/dL (74-106); Potassium 3.7 mmol/L (3.5-5.1); Sodium 143 mmol/L (136-145)
[2025-01-30 02:10] LABS: BUN 91 mg/dL (7-18); CREATININE 3.7 mg/dL (0.55-1.02)
[2025-01-30 03:28] VITALS: BP 168/80; PULSE 94; RESP 19; TEMP 36.2; O2SAT 97
[2025-01-30] MEDS: Heparin 5,000 UNITS/ML VIAL 5000 UNITS SC (06:13)
[2025-01-30] MEDS: Levothyroxine 100 MCG TAB PO (06:13)
[2025-01-30 07:01] LABS: HCT 31.9 % (36.0-46.0); HGB 10.7 g/dL (11.2-15.7); MCH 35.5 pg (27.0-33.0); MCHC 33.5 % (32.0-36.0); MCV 106 fL (80-95); Platelet Count 159 10^3/uL (130-400); RBC 3.01 10^6/uL (3.93-5.22); RDW 14.2 % (11.7-14.6); RDW-SD 55.7 fL; WBC 2.93 10^3/uL (4.4-10.8)
[2025-01-30 07:07] LABS: Magnesium 2.3 mg/dL (1.8-2.4)
[2025-01-30 07:10] LABS: Anion Gap 13.5 mmol/L (3-11); CO2 19.5 mmol/L (21.0-32.0); CREATININE 3.5 mg/dL (0.55-1.02); Chloride 111 mmol/L (98-107); Estimated GFR 13.82 (mL/min/1.73m2); Glucose 92 mg/dL (74-106); Potassium 3.8 mmol/L (3.5-5.1); Sodium 144 mmol/L (136-145)
[2025-01-30 07:19] LABS: BUN 86 mg/dL (7-18)
[2025-01-30 07:33] VITALS: BP 143/69; PULSE 76; RESP 14; TEMP 36.5; O2SAT 98
[2025-01-30] MEDS: Atorvastatin 40 MG TAB 80 MG PO (07:58)
[2025-01-30] MEDS: Famotidine 20 MG TAB 10 MG PO (07:58)
[2025-01-30] MEDS: Normal Saline Flush 10 ML SYR IVP (07:59)
--- NOTE | 2025-01-30 08:48 | DSE_ITS ---
Date of service: 01/30/25 Time of Service: 08:48 DS: Diagnosis Discharge Diagnosis (1) Acute uremia: Status: Acute (2) Acute renal failure superimposed on chronic kidney disease: Status: Acute (3) Acute UTI: Status: Acute (4) Hypothyroidism: Status: Chronic (5) Diabetes mellitus: Status: Acute (6) Breast cancer: Status: Chronic Discharge Plan Disposition Patient Disposition: Home Condition: Good Discharge Details Reason For Visit: UTI, RAMYA, Uremia Admit Date/Time: 01/29/25 13:07 Admit Provider: Loco Segundo Attending Provider: Loco Segundo Primary Care Provider: Jesse Feliz Hospital Course Hospital Course: Patient initially presented to the hospital and was admitted for acute kidney injury on chronic kidney disease secondary to poor p.o. intake. Patient was found to have creatinine as high as 5.2 and a BUN of 118 (baseline creatinine between 2.9-3.1), and this was all secondary to patient reported poor p.o. intake for the last 5 days to a week prior to arrival. She was aggressively fluid resuscitated with IV fluids as well as encouragement of increased p.o. intake and had significant improvement of her labs, with her BUN decreasing down to 86 and her creatinine down to 3.7. Patient showed significant improvement in her fluid intake, and stated that she felt completely back to her baseline functional status. Given that the patient's symptoms and labs significantly improved, it was determined that she was stable for discharge home was instructed to continue to increase her fluid intake. PCP follow-up: -Recommend follow-up BMP in 1 week -Losartan on hold, recommend blood pressure check and consideration of restarting medication Home Meds and New Rx's Prescriptions: Continued Ibrance 100 mg capsule 75 mg PO DAILY Patient Comments: 100mg x21 days Off x7 Days And alternate Rx Instructions: administer on days 1 through 21 of a 28-day treatment cycle anastrozole 1 mg tablet 1 mg PO DAILY Qty: 90 3RF Rx Instructions: oncology glipizide 5 mg tablet 10 mg PO DAILY Qty: 180 4RF LANCETS 1 EACH EACH 1 ea Miscellaneous DAILY Qty: 100 Rx Instructions: DX: 250.0 allopurinol 100 mg tablet 100 mg PO DAILY Qty: 90 2RF levothyroxine 100 mcg tablet 100 mcg PO DAILY Qty: 90 4RF amitriptyline 10 mg tablet 10 mg PO QHS Qty: 30 11RF Rx Instructions: dose change atorvastatin 80 mg tablet 80 mg PO DAILY Qty: 90 0RF cholecalciferol (vitamin D3) 25 mcg (1,000 unit) capsule 50 mcg PO DAILY Qty: 180 0RF famotidine 40 mg tablet 40 mg PO DAILY Qty: 90 3RF Held losartan 100 mg tablet 100 mg PO DAILY Qty: 90 3RF Hold Instructions: Resume on 02/13/25. hold until seen by PCP No Action (DME) blood-glucose meter Misc See Rx Instructions .ROUTE .MEDSUPPLY Qty: 1 0RF Rx Instructions: As directed (DME) Blood Glucose Test Strip See Rx Instructions .ROUTE .MEDSUPPLY Qty: 100 3RF Rx Instructions: As directed , once a day (DME) Blood Glucose Test 1 EACH strip 1 ea Miscellaneous DAILY Qty: 100 Rx Instructions: DX:250.0 Discharge Instructions Stand Alone Forms: Nursing Discharge Form Referrals: Jesse Feliz MD [Primary Care Provider] - 01/31/25 11:10 am Activity:: Activity as Tolerated Equipment/Supplies:: No Equipment Needed Diet:: As Tolerated Discharge Orders Discharge Orders: Discharge Order (Routine); Ordered 01/30/25 Ordered By: Loco Segundo Discharge Data Discharge Date/Time-TO BE ENTERED AT DEPARTURE: 01/30/25 11:14 DS: Summary Time Spent with Patient providing and/or coordinating discharge services: Greater than 30 minutes Status at Discharge Functional status at discharge: independent ambulation Overall status at discharge: patient is back to baseline Mental Status: mental status grossly normal Speech and Movement: speech and movement normal Mood: congruent mood Affect: normal affect Quality:SDOH Health Related Social Needs: Health related social needs housing instability, house d, with risk of homelessness (Z59.811) Exam Narrative Exam Narrative: Well-appearing older female sitting up in the edge of the bed in no acute distress, ANO x 4, endorses that she is no longer experiencing delusions since she has been in the hospital receiving IV fluids, heart regular rhythm, lungs clear to auscultation bilaterally, abdomen soft, nontender, nondistended Psych Mental Status: mental status grossly normal Speech and Movement: speech and movement normal Mood: congruent mood Affect: normal affect DS: Data Vitals/I&O Vitals and I&O: Vital Signs Temperature 97.7 F 01/30/25 07:33 Temperature Source Temporal Artery Scan 01/30/25 07:33 Pulse 76 01/30/25 07:33 Pulse Rhythm Regular 01/29/25 14:26 Pulse 79 01/29/25 14:01 Respiratory Rate 14 01/30/25 07:33 Respiratory Effort Normal, Non-Labored 01/29/25 14:26 Respiratory Depth Normal 01/29/25 14:26 Respiratory Pattern Normal 01/29/25 14:26 Blood Pressure 143/69 H 01/30/25 07:33 Blood Pressure Mean 95 01/29/25 14:01 Blood Pressure Position Sitting 01/29/25 09:55 Pulse Oximetry 98 01/30/25 07:33 Oxygen Delivery Method Room Air 01/30/25 07:33 Oxygen Flow Rate 0 01/30/25 07:33 Pain Level 0 01/29/25 14:26 Intake & Output 01/29/25 01/30/25 01/30/25 17:59 05:59 17:59 Intake Total 1050 / 1050 883.333 / 1933.333 Balance 1050 / 1050 883.333 / 1933.333 Weight 151 lb 7.321 oz Intake: IV 1050 / 1050 883.333 / 1933.333 Other: Urine Color Yellow Urine Appearance Clear Urine Odor Normal Comment pT voided 1x in toliet/ pT drained suprapubic catheter 1x Stool Size Moderate Stool Characteristics Soft Liquid Brown Data Completed and Pending Labs on day of discharge: Labs from last 24 hours 01/30/25 01/30/25 01/29/25 06:36 01:43 21:45 WBC 2.93 L RBC 3.01 L Hgb 10.7 L Hct 31.9 L MCV 106 H MCH 35.5 H MCHC 33.5 RDW 14.2 Plt Count 159 MPV 11.0 Immature Gran % Neutrophils % Lymphocytes % Monocytes % Eosinophils % Basophils % Nucleated RBC % Absolute Neutrophils Absolute Lymphocytes Absolute Monocytes Absolute Eosinophils Absolute Basophils RBC Morphology VBG pH VBG pCO2 VBG pO2 VBG HCO3 VBG Total CO2 VBG O2 Saturation VBG Base Excess Sodium 144 143 141 Potassium 3.8 3.7 4.2 Chloride 111 H 110 H 108 H Carbon Dioxide 19.5 L 18.9 L 19.5 L Anion Gap 13.5 H 14.1 H 13.5 H BUN 86 H* 91 H* 96 H* Creatinine 3.5 H 3.7 H* 4.0 H* Est GFR (CKD-EPI 2020) 13.82 12.93 11.77 Glucose 92 91 95 Calcium 9.0 8.8 8.8 Magnesium 2.3 Urine Color Urine Clarity Urine pH Ur Specific [place] Urine Protein Urine Ketones Urine Blood Urine Nitrite Urine Bilirubin Urine Urobilinogen Ur Leukocyte Esterase Urine RBC Urine WBC Ur Epithelial Cells Urine Crystals Urine Bacteria Urine Casts Urine Mucus Ur Culture Indicated? Ur Random Creatinine Ur Random Sodium Urine Glucose 01/29/25 01/29/25 01/29/25 16:20 13:24 13:00 WBC RBC Hgb Hct MCV MCH MCHC RDW Plt Count MPV Immature Gran % Neutrophils % Lymphocytes % Monocytes % Eosinophils % Basophils % Nucleated RBC % Absolute Neutrophils Absolute Lymphocytes Absolute Monocytes Absolute Eosinophils Absolute Basophils RBC Morphology VBG pH 7.37 VBG pCO2 25 L VBG pO2 58 VBG HCO3 14 L VBG Total CO2 15 L VBG O2 Saturation 90 VBG Base Excess -11 L Sodium 140 139 Cancelled Potassium 3.9 3.8 Cancelled Chloride 105 104 Cancelled Carbon Dioxide 21.5 21.0 Cancelled Anion Gap 13.5 H 14.0 H Cancelled BUN 98 H* 105 H* Cancelled Creatinine 4.1 H* 4.3 H* Cancelled Est GFR (CKD-EPI 2020) 11.43 10.79 Cancelled Glucose 141 H 134 H Cancelled Calcium 8.9 8.8 Cancelled Magnesium Urine Color Urine Clarity Urine pH Ur Specific [place] Urine Protein Urine Ketones Urine Blood Urine Nitrite Urine Bilirubin Urine Urobilinogen Ur Leukocyte Esterase Urine RBC Urine WBC Ur Epithelial Cells Urine Crystals Urine Bacteria Urine Casts Urine Mucus Ur Culture Indicated? Ur Random Creatinine Ur Random Sodium Urine Glucose 01/29/25 01/29/25 11:15 10:49 WBC 3.80 L RBC 3.57 L Hgb 12.6 Hct 37.3 MCV 105 H MCH 35.3 H MCHC 33.8 RDW 14.2 Plt Count 213 MPV 11.2 H Immature Gran % 0.8 Neutrophils % 82.1 Lymphocytes % 8.7 Monocytes % 4.7 Eosinophils % 2.9 Basophils % 0.8 Nucleated RBC % 0.0 Absolute Neutrophils 3.12 Absolute Lymphocytes 0.33 L Absolute Monocytes 0.18 Absolute Eosinophils 0.11 Absolute Basophils 0.03 RBC Morphology Normal VBG pH VBG pCO2 VBG pO2 VBG HCO3 VBG Total CO2 VBG O2 Saturation VBG Base Excess Sodium 137 Potassium 4.1 Chloride 99 Carbon Dioxide 20.1 L Anion Gap 17.9 H BUN 118 H* Creatinine 5.2 H* Est GFR (CKD-EPI 2020) 8.59 Glucose 177 H Calcium 9.9 Magnesium Urine Color Yellow Urine Clarity Sl Cloudy Urine pH 5.5 Ur Specific [place] 1.015 Urine Protein 100 H Urine Ketones Trace H Urine Blood Small H Urine Nitrite Positive H Urine Bilirubin Negative Urine Urobilinogen 0.2 Ur Leukocyte Esterase Moderate H Urine RBC 5-10 H Urine WBC 10-20 H Ur Epithelial Cells Many Urine Crystals Few Amorphous Urine Bacteria Many Urine Casts 3-5 Fine Granular Urine Mucus Moderate Ur Culture Indicated? No/Sq. Contamination Ur Random Creatinine 110.30 Ur Random Sodium 21 Urine Glucose Negative PFSH All Active Problems (Updated 01/29/25 @ 14:06 by Bhanu Cortes MD) Acute UTI (Acute) RAMYA (acute kidney injury) (Acute) Acute uremia (Acute) Elevated blood pressure reading (Acute) Claudication (Acute) MCI (mild cognitive impairment) (Acute) Dental caries (Acute) Elevated CA-125 (Acute) 05/21- followed by Olvin Whittaker [facility] Type 2 diabetes mellitus with diabetic nephropathy (Acute) Leukopenia (Acute) 09/2021 Gastric ulcer (Acute) 07/2021-all ulcer associate with gastritis and duodenitis. Patient hospitalized for GI bleed. Presumed source Repeat EGD 09/2021 improvement with resolution of ulcer Hypothyroidism (Chronic) 2017-status post thyroidectomy for multinodular goiter, on thyroid replacement Breast cancer (Chronic) 2017-right breast status mastectomy, status post radiation and chemotherapy, on anastrazole, followed by oncology at [facility] 07/2021-probable bony metastatic disease to the ribs and hip area-by imaging CT and bone scan Chronic kidney disease, stage 4 (severe) (Acute) Anemia (Chronic) 09/2021, likely due to CKD Sepsis due to gram-negative UTI (Acute) 09/2021, hospitalized at [facility] Coagulopathy (Acute) Acute on chronic blood loss anemia (Acute) Acute renal failure superimposed on chronic kidney disease (Acute 02/04/17) Diabetes mellitus (Acute) Erythromelalgia (Acute 01/09/15) excellent response to asa 325mg Gout (Acute) History of tobacco use (Acute) Hyperlipidemia (Acute 02/21/13) Urinary retention (Acute 02/08/17) Suprapubic tube, followed by urology at [facility] H Medical History (Updated 01/29/25 @ 14:06 by Bhanu Cortes MD) Esophagitis Gastritis Hepatic steatosis Inflammatory polyps (~07/2021) Hypothyroidism Vitamin D deficiency CKD (chronic kidney disease) stage 4, GFR 15-29 ml/min Multinodular goiter (02/26/18) [facility] 02-16-2018 / tx= total thyroidectomy to be scheduled after tx of breast cancer - one nodule displaces left cartotid and causes tracheal compression (pt is asymptomatic) Malignant neoplasm of right breast in female, estrogen receptor positive [facility] biopsy: invasive ductal carcinoma/ductal carcinoma in situ - Intramural leiomyoma of uterus (05/05/17) Essential hypertension Urinary retention Chronic kidney disease Hyperlipidemia Erythromelalgia Gout Diabetes Leiomyoma of uterus Surgical History (Updated 10/27/21 @ 10:14 by Jeannie Barba RN) History of esophagogastroduodenoscopy (EGD) (~09/2021) History of colonoscopy (~07/2021) Hx of thyroidectomy History of suprapubic catheter Hx of breast lump removal R , entire breast Family History (Updated 01/28/24 @ 13:20 by Simran Collins) Mother , 86 age Diabetes Hypertension Dementia Father , 67 age Cancer Sister , 63 Heart disease Sister , 55 age Dementia Brother , 59 age Cancer Lung Cancer Brother , 69 age Diabetes Heart disease Hypertension Daughter No problems noted. Daughter No problems noted. Social History (Updated 01/28/24 @ 13:18 by Simran Collins) Smoking/Tobacco Use Status: Former Tobacco Use tobacco type: cigarettes Quit Date: 05/31/11 Second Hand Exposure: Yes Smoking risk assessment performed?: Yes Alcohol Intake: never Drug use: Never Substance use type: does not use Adopted: No Caregiver/Support person: No Household members: spouse Housing: other Number of Children: 4 Communication Needs: Corrective Lenses Education Level: high school Do you need help understanding health information?: Never current occupation: Retired Pets and animals: No Sexually active: No Do you think of yourself as: straight/heterosexual Current gender identity: female What is your relationship status?: How often do you talk on the phone with friends or family?: twice per week How often do you get together with friends or relatives?: once per week Do you belong to any clubs or organized social groups?: no Panel score (0-1 are the most socially isolated patients): 2 What type of physical activity do you participate in: none Special lori needs: No Seatbelt use: always Helmet use: No Drive intox or ride w/intox 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: No Firearms in home: Yes Firearms unloaded and locked: Yes Do you feel safe at home: Yes Do you feel safe in your relationship?: Yes Victim of physical abuse: No Victim of emotional abuse: No Victim of sexual abuse: No Would you like helpful sources: No Time Spent with Patient Time Spent with Patient: <45 minutes Time was spent: preparing to see the patient(eg.review tests), obtaining and/or reviewing separately otained hiistory, ordering medications,tests, procedures, referring, communicating with other health multi care technician, indepentently interpreting results, counseling the patient and care coordination
--- NOTE | 2025-01-30 09:48 | PDOC.CMPRO ---
Date of service: 01/30/25 Time of Service: 09:48 Care Management Progress Note Progress Note Text Progress Note Text: Olinda was admitted through the ED yesterday when she presented with confusion, marked uremia and significant RAMYA. This was believed to be secondary to decreased PO intake over the last 5 days prior to arrival to the ED. She was aggressively fluid resuscitated with IV fluids as well as encouragement of increased p.o. intake and had significant improvement of her labs. Olinda stated feeling much better, back to baseline this morning and is being discharged home. Olinda was up in the chair when CM met with her today. She looked well, and stated that she feels ready for discharge. She is independent at baseline, and requires no home health services. Discharge Potential Discharge Needs: PCP F/U Appt (will f/u with PCP, tomorrow, 01/31) Anticipated Barriers to Discharge: None Identified Patient/Family Education Needs: Review discharge instructions, discuss Ask Me Three Transportation: Private vehicle (with her ) Plan: Olinda was discharged this morning with no new services. She has been strongly encouraged to increase her fluid intake. Olinda will f/u with her PCP on 01/31 and continue per her plan of care. She will transport home in a private vehicle. Social Determinants of Health Screening Social Determinants of Health last assessed: 01/30/25 Will the Patient Participate in the Screening?: Yes Do you worry about having a steady place to live?: yes What is your living situation today?: I have housing today, but am worried about losing it Problems where you live: no known problems In the past 12 months, have you had to go without electric, gas, oil or water in your home?: no Have you or anyone in your house had to go without enough food to eat?: no Has lack of transportation kept you from medical appointments or from doing things needed for daily living?: no Has anyone in your life made you feel unsafe or unsupported?: no How hard is it for you to pay for the very basics like food, housing, medical care, and heating? Would you say it is:: Not hard at all Do you want help finding or keeping work or a job?: I do not need or want help If for any reason you need help with day-to-day activities such as bathing, preparing meals, shopping, managing finances, etc., do you get the help you need?: I get all the help I need How often do you feel lonely or isolated from those around you?: Never Do you speak a language other than [place] at home?: No Does the patient want assistance with any of the above?: No Health Related Social Needs Health related social needs: housing instability, housed, with risk of homelessness (Z59.811)
== END 2025-01-30 11:14 | disposition home or self-care (01) | DRG 683 ==
LOC: ER 10:18 → MS 14:12
PROVIDERS: Admitting Provider Family Medicine; Emergency Provider Emergency Medicine; PCP Family Medicine; Responsible Provider Family Medicine; Visit Provider Family Medicine
DX: N17.9 Acute kidney failure, unspecified (principal); C79.51 Secondary malignant neoplasm of bone; N39.0 Urinary tract infection, site not specified; E11.22 Type 2 diabetes mellitus with diabetic chronic kidney disease; D72.819 Decreased white blood cell count, unspecified; Z79.84 Long term (current) use of oral hypoglycemic drugs; G31.84 Mild cognitive impairment of uncertain or unknown etiology; Z93.51 Cutaneous-vesicostomy status; Z87.11 Personal history of peptic ulcer disease; E89.0 Postprocedural hypothyroidism; Z85.3 Personal history of malignant neoplasm of breast; N18.4 Chronic kidney disease, stage 4 (severe); D63.1 Anemia in chronic kidney disease; Z87.891 Personal history of nicotine dependence; E78.5 Hyperlipidemia, unspecified; E55.9 Vitamin D deficiency, unspecified; I12.9 Hypertensive chronic kidney disease with stage 1 through stage 4 chronic kidney disease, or unspecified chronic kidney disease; I73.81 Erythromelalgia; K76.0 Fatty (change of) liver, not elsewhere classified
CPT/HCPCS: 00123; 36415; 80048; 82805; 85027; 93005; 96361; 96365; 96375; 99285; 81003; 81015; 82565; 82607; 83735; 84300; 85025; 86592; 93010; 99223; 99239; J0612; J0696; J1644

== ENCOUNTER 2025-02-06 01:55 | Outpatient (CLI) | payer MEDICARE, SELFPAY ==
[2025-02-06 08:43] LABS: Abs Immature Grans 0.05 10^3/uL (0.0-0.06); Absolute Basophil Count 0.06 10^3/uL (0.0-0.2); Absolute Eosinophil Count 0.05 10^3/uL (0.0-0.7); Absolute Lymphocyte Count 0.41 10^3/uL (1.2-3.4); Absolute Monocyte Count 0.47 10^3/uL (0.1-0.8); Absolute Neutrophil Count 5.66 10^3/uL (1.2-6.7); Basophils % 0.9 %; Eosinophils % 0.7 %; HCT 32.7 % (36.0-46.0); HGB 10.8 g/dL (11.2-15.7); Immature Grans % 0.7 %; Lymphocytes % 6.1 %; MCH 34.7 pg (27.0-33.0); MCV 105 fL (80-95); MPV 10.6 fL (8.0-11.0); Neutrophils % 84.6 %; Platelet Count 210 10^3/uL (130-400); RBC 3.11 10^6/uL (3.93-5.22); RDW 14.3 % (11.7-14.6); RDW-SD 55.4 fL
[2025-02-06 09:02] LABS: ALT 138 U/L (14-59); AST 202 U/L (15-37); Albumin 2.4 g/dL (3.4-5.0); Alkaline Phosphatase 196 U/L (46-116); Anion Gap 16.8 mmol/L (3-11); BUN 36 mg/dL (7-18); Bilirubin, Total 1.3 mg/dL (0.2-1.0); CO2 18.2 mmol/L (21.0-32.0); CREATININE 2.4 mg/dL (0.55-1.02); Calcium 9.5 mg/dL (8.5-10.1); Chloride 102 mmol/L (98-107); Glucose 152 mg/dL (74-106); Potassium 3.9 mmol/L (3.5-5.1); Sodium 137 mmol/L (136-145); Total Protein 8.1 g/dL (6.4-8.2)
[2025-02-06 09:30] LABS: Vitamin B12 714 pg/mL (193-986)
[2025-02-07 09:45] LABS: Syphilis Serology (RPR) Negative (Negative)
== END 2025-02-06 01:56 | disposition home or self-care (01) ==
LOC: LBO 01:55
PROVIDERS: PCP Family Medicine; Visit Provider Nurse Practitioner Family
DX: R41.3 Other amnesia (principal); D64.9 Anemia, unspecified; N18.4 Chronic kidney disease, stage 4 (severe)
CPT/HCPCS: 36415; 80048; 80053; 81003; 82607; 85025; 86592

== ENCOUNTER 2025-02-08 00:15 | Outpatient (CLI) | payer MEDICARE, SELFPAY ==
--- NOTE | 2025-02-08 | DI.MRI_ITS ---
Exam(s) MR BRAIN WO/W EXAM: MR BRAIN WO/W CLINICAL HISTORY: CA OF BREAST METS TO BONE, C50.919, C79.51. TECHNIQUE: Multiplanar multisequence MRI of the brain was performed. CONTRAST MATERIAL: IV Contrast: 13 ML of Dotarem contrast administered. COMPARISON: CT CT HEAD WO from 08/11/2021 MR MR BRAIN WO from 08/12/2021 NM NM BONE SCAN WHOLE BODY GRP from 08/14/2024 FINDINGS: Exam is mildly limited by motion. VENTRICLES AND EXTRA AXIAL SPACES: Normal in size and morphology for the patient's age. HEMORRHAGE: None. CEREBRAL PARENCHYMA: No focus of restricted diffusion to suggest acute infarct. No space-occupying le alonzo identified. Mild atrophy. There are several high signal foci in the white matter of the fronta l lobes which are nonenhancing likely reflect microvascular changes. BRAINSTEM/CEREBELLUM: Normal. CALVARIUM: Hyperostosis frontalis interna ENHANCEMENT: No suspicious enhancement identified. VISUALIZED PARANASAL SINUSES/MASTOIDS: Clear. Orbits: Unremarkable. Pituitary: Not enlarged. Vasculature: Normal flow voids. IMPRESSION: No evidence of metastatic disease. DATA REPOSITORY:
[2025-02-08] MEDS: Normal Saline Flush 10 ML SYR IVP (11:00)
[2025-02-08] MEDS: Gadoterate meglumine 20 ML SYRINGE 13 ML IVP (11:00)
== END 2025-02-08 00:35 ==
PROVIDERS: PCP Family Medicine; Visit Provider Internal Medicine Hematology & Oncology
DX: C50.919 Malignant neoplasm of unspecified site of unspecified female breast (principal); C79.51 Secondary malignant neoplasm of bone
CPT/HCPCS: 70553

== ENCOUNTER 2025-02-13 02:17 | Outpatient (CLI) | payer MEDICARE, SELFPAY ==
[2025-02-13 07:49] LABS: Abs Immature Grans 0.14 10^3/uL (0.0-0.06); Absolute Basophil Count 0.07 10^3/uL (0.0-0.2); Absolute Eosinophil Count 0.11 10^3/uL (0.0-0.7); Absolute Monocyte Count 0.55 10^3/uL (0.1-0.8); Absolute Neutrophil Count 4.68 10^3/uL (1.2-6.7); Basophils % 1.2 %; Eosinophils % 1.8 %; HCT 29.4 % (36.0-46.0); HGB 9.7 g/dL (11.2-15.7); Immature Grans % 2.3 %; Lymphocytes % 8.3 %; MCH 34.4 pg (27.0-33.0); MCV 104 fL (80-95); MPV 9.6 fL (8.0-11.0); Monocytes % 9.1 %; Neutrophils % 77.3 %; Platelet Count 337 10^3/uL (130-400); RBC 2.82 10^6/uL (3.93-5.22); RDW 14.1 % (11.7-14.6); RDW-SD 54.3 fL; WBC 6.05 10^3/uL (4.4-10.8)
[2025-02-13 08:07] LABS: ALT 175 U/L (14-59); AST 212 U/L (15-37); Albumin 2.1 g/dL (3.4-5.0); Alkaline Phosphatase 194 U/L (46-116); Anion Gap 10.4 mmol/L (3-11); BUN 32 mg/dL (7-18); Bilirubin, Total 0.8 mg/dL (0.2-1.0); CO2 23.6 mmol/L (21.0-32.0); CREATININE 3.3 mg/dL (0.55-1.02); Calcium 9.8 mg/dL (8.5-10.1); Chloride 101 mmol/L (98-107); Estimated GFR 14.74 (mL/min/1.73m2); Glucose 132 mg/dL (74-106); Potassium 3.8 mmol/L (3.5-5.1); Sodium 135 mmol/L (136-145); Total Protein 8.3 g/dL (6.4-8.2)
== END 2025-02-13 02:18 | disposition home or self-care (01) ==
PROVIDERS: PCP Family Medicine; Visit Provider Nurse Practitioner Family
DX: C50.919 Malignant neoplasm of unspecified site of unspecified female breast (principal); C79.51 Secondary malignant neoplasm of bone
CPT/HCPCS: 36415; 80053; 85025

== ENCOUNTER 2025-02-20 13:53 | Outpatient (REF) | payer MEDICARE, SELFPAY | END 2025-02-20 13:54 | disposition home or self-care (01) | LOC: LBN 13:53 | PROVIDERS: PCP Family Medicine; Visit Provider Nurse Practitioner Family | DX: L89.119 Pressure ulcer of right upper back, unspecified stage (principal) | CPT/HCPCS: 87070; 87205 ==

== ENCOUNTER → 2025-02-21 11:07 | Outpatient (BNVA) | payer MEDICARE, SELFPAY | PROVIDERS: PCP Family Medicine; Referring Provider Family Medicine; Visit Provider Physical Therapy Assistant | DX: L72.3 Sebaceous cyst (principal) | CPT/HCPCS: 99214 ==

== ENCOUNTER 2025-02-26 10:44 | Emergency (ER) | payer MEDICARE, SELFPAY ==
[2025-02-26 10:48] VITALS: BP 172/84; PULSE 97; RESP 20; TEMP 37; O2SAT 97
[2025-02-26 10:53] VITALS: BP 172/84; PULSE 97; RESP 20; TEMP 37; O2SAT 97
--- NOTE | 2025-02-26 11:18 | W.ED.GENAD ---
Discharge Plan Disposition Patient Disposition: Home Discharge Details Clinical Impression: Encounter for replacement of urinary catheter Primary Care Provider: Jesse Feliz ED Provider: Chastity Leon Home Meds and New Rx's Prescriptions: No Action Ibrance 100 mg capsule 75 mg PO DAILY Patient Comments: 100mg x21 days Off x7 Days And alternate Rx Instructions: administer on days 1 through 21 of a 28-day treatment cycle (DME) blood-glucose meter Misc See Rx Instructions .ROUTE .MEDSUPPLY Qty: 1 0RF Rx Instructions: As directed (DME) Blood Glucose Test Strip See Rx Instructions .ROUTE .MEDSUPPLY Qty: 100 3RF Rx Instructions: As directed , once a day anastrozole 1 mg tablet 1 mg PO DAILY Qty: 90 3RF Rx Instructions: oncology glipizide 5 mg tablet 10 mg PO DAILY Qty: 180 4RF (DME) Blood Glucose Test 1 EACH strip 1 ea Miscellaneous DAILY Qty: 100 Rx Instructions: DX:250.0 LANCETS 1 EACH EACH 1 ea Miscellaneous DAILY Qty: 100 Rx Instructions: DX: 250.0 losartan 100 mg tablet 100 mg PO DAILY Qty: 90 3RF allopurinol 100 mg tablet 100 mg PO DAILY Qty: 90 2RF levothyroxine 100 mcg tablet 100 mcg PO DAILY Qty: 90 4RF amitriptyline 10 mg tablet 10 mg PO QHS Qty: 30 11RF Rx Instructions: dose change atorvastatin 80 mg tablet 80 mg PO DAILY Qty: 90 0RF cholecalciferol (vitamin D3) 25 mcg (1,000 unit) capsule 50 mcg PO DAILY Qty: 180 0RF famotidine 40 mg tablet 40 mg PO DAILY Qty: 90 3RF Discharge Instructions Additional Instructions: Please follow-up with [facility] urology next month as scheduled. Your suprapubic catheter was replaced without difficulty. Return to emergency care if you develop new catheter issues, severe abdominal pain/fever, drainage from catheter site, or if you are very worried you need to be rechecked again immediately Referrals: [facility] [Provider Group] HPI General Date/Time Provider Initiated Documentation: 02/26/25 10:57. HPI Narrative: Olinda is a 65year old female who presents to the emergency department today for replacement of suprapubic catheter. She reports that she has it replaced monthly, has had it in place for 3 years. Denies fever/chills, abdominal pain, nausea/vomiting, change in p.o. intake, change in bowel function. It has been draining normally, no hematuria or foul odor to urine. No swelling/redness/drainage around site. Overall says she is feeling well, just needed to be replaced and did not want to wait until tomorrow until her urology appointment. Brought the replacement catheter supplies with her. Past medical history is significant for urinary retention treated with suprapubic catheter, CKD stage IV, T2DM. Physical exam reassuring. Abdomen is soft, nondistended, nontender to palpation. Suprapubic catheter is in place, site appears healthy, no drainage or erythema surrounding. Patient is alert and oriented, no acute distress, well-appearing. Catheter was replaced by Fernando SALAS. Discussed case with Huyen Urbina, urology DOCTOR OF NURSE ANESTHESIA. No additional recommendations, patient will follow-up as scheduled next month. History presentation consistent with uncomplicated catheter replacement. No red flags concerning for acute systemic illness or complications requiring further evaluation/management. Reviewed discharge instructions with patient, including symptomatic management and red flags indicating need for return to emergency care Related Data Home Medications ?Medication ?Instructions ?Recorded ?Confirmed Lancets 1 ea miscellaneous DAILY #100 ea 02/15/13 02/26/25 blood sugar diagnostic (Blood ##100 02/15/13 02/26/25 Glucose Test strips) blood sugar diagnostic (Blood #100 ea 12/15/21 02/26/25 Glucose Test strips) blood-glucose meter #1 ea 12/15/21 02/26/25 palbociclib 100 mg capsule 75 mg PO DAILY 08/03/22 02/26/25 ([facility]) anastrozole 1 mg tablet 1 mg PO DAILY #90 tabs 08/24/23 02/26/25 glipizide 5 mg tablet 10 mg (2 x 5 mg) PO DAILY #180 05/02/24 02/26/25 tab-caps losartan 100 mg tablet 100 mg PO DAILY #90 tabs 05/08/24 02/26/25 allopurinol 100 mg tablet 100 mg PO DAILY #90 tabs 08/08/24 02/26/25 levothyroxine 100 mcg tablet 100 mcg PO DAILY #90 tabs 10/01/24 02/26/25 amitriptyline 10 mg tablet 10 mg PO QHS #30 tabs 12/04/24 02/26/25 atorvastatin 80 mg tablet 80 mg PO DAILY #90 tabs 12/04/24 02/26/25 cholecalciferol (vitamin D3) 25 50 mcg (2 x 25 mcg (1,000 unit)) 12/11/24 02/26/25 mcg (1,000 unit) capsule PO DAILY vitamin D deficiency #180 caps famotidine 40 mg tablet 40 mg PO DAILY #90 tabs 01/04/25 02/26/25 Previous Rx's ?Medication ?Instructions ?Recorded blood sugar diagnostic (Blood #100 ea 12/15/21 Glucose Test strips) blood-glucose meter #1 ea 12/15/21 anastrozole 1 mg tablet 1 mg PO DAILY #90 tabs 08/24/23 glipizide 5 mg tablet 10 mg (2 x 5 mg) PO DAILY #180 05/02/24 tab-caps losartan 100 mg tablet 100 mg PO DAILY #90 tabs 05/08/24 allopurinol 100 mg tablet 100 mg PO DAILY #90 tabs 08/08/24 levothyroxine 100 mcg tablet 100 mcg PO DAILY #90 tabs 10/01/24 amitriptyline 10 mg tablet 10 mg PO QHS #30 tabs 12/04/24 atorvastatin 80 mg tablet 80 mg PO DAILY #90 tabs 12/04/24 cholecalciferol (vitamin D3) 25 50 mcg (2 x 25 mcg (1,000 unit)) 12/11/24 mcg (1,000 unit) capsule PO DAILY vitamin D deficiency #180 caps famotidine 40 mg tablet 40 mg PO DAILY #90 tabs 01/04/25 Allergies Allergy/AdvReac Type Severity Reaction Status Date / Time amoxicillin (From Augmentin) AdvReac Intermediate Severe Verified 02/26/25 10:55 dry mouth clavulanic acid (From AdvReac Intermediate Severe Verified 02/26/25 10:55 Augmentin) dry mouth Sulfa (Sulfonamide AdvReac Intermediate SLURRED Verified 02/26/25 10:55 Antibiotics) SPEECH, DIZZY General Stated Complaint: Urinary XUAN: 4 Review of Systems Narrative: see HPI Exam Const General: cooperative, healthy appearing, comfortable, no acute distress, well developed and well groomed Nutritional Appearance: average body habitus and well nourished Resp Effort & Inspection: normal respiratory effort and able to speak in complete sentences GI Inspection: normal to inspection, non-distended and other (suprapubic catheter in place) Palpation: soft, not firm, no guarding, not rigid, nontender and other Skin General skin exam: no rashes or lesions noted Trauma: no lacerations or abrasions Course Vital Signs Vital signs: Vital Signs Temperature 37.0 C 02/26/25 10:48 Pulse 97 H 02/26/25 10:48 Respiratory Rate 20 02/26/25 10:48 Blood Pressure 172/84 H 02/26/25 10:48 Pulse Oximetry 97 02/26/25 10:48 Temperature 37.0 C 02/26/25 10:53 Pulse 97 H 02/26/25 10:53 Respiratory Rate 20 02/26/25 10:53 Blood Pressure 172/84 H 02/26/25 10:53 Blood Pressure Position Sitting 02/26/25 10:53 Pulse Oximetry 97 02/26/25 10:53 Oxygen Delivery Method Room Air 02/26/25 10:53 Oxygen Flow Rate 0 02/26/25 10:53 Medical Decision Making Quality:SDOH Health Related Social Needs: Health related social needs housing instability, housed, with risk of homelessness (Z59.811) PFSH All Active Problems (Updated 02/26/25 @ 11:24 by Chastity Mina) Encounter for replacement of urinary catheter (Acute) Decubitus ulcer of right upper back (Acute) Memory impairment (Acute) Elevated blood pressure reading (Acute) Claudication (Acute) MCI (mild cognitive impairment) (Acute) Dental caries (Acute) Elevated CA-125 (Acute) 05/21- [place] Olvin Whitt[place] [facility] Type 2 diabetes mellitus with diabetic nephropathy (Acute) Leukopenia (Acute) 09/2021 Gastric ulcer (Acute) 07/2021-all ulcer associate with gastritis and duodenitis. Patient hospitalized for GI bleed. Presumed source Repeat EGD 09/2021 improvement with resolution of ulcer Hypothyroidism (Chronic) 2017-status post thyroidectomy for multinodular goiter, on thyroid replacement Breast cancer (Chronic) 2017-right breast status mastectomy, status post radiation and chemotherapy, on anastrazole, followed by oncology at [facility] 07/2021-probable bony metastatic disease to the ribs and hip area-by imaging CT and bone scan Chronic kidney disease, stage 4 (severe) (Acute) Anemia (Chronic) 09/2021, likely due to CKD Sepsis due to gram-negative UTI (Acute) 09/2021, hospitalized at [facility] Coagulopathy (Acute) Acute on chronic blood loss anemia (Acute) Diabetes mellitus (Acute) Erythromelalgia (Acute 01/09/15) excellent response to asa 325mg Gout (Acute) History of tobacco use (Acute) Hyperlipidemia (Acute 02/21/13) Urinary retention (Acute 02/08/17) Suprapubic tube, followed by urology at [facility] Medical History (Updated 02/26/25 @ 11:24 by Chastity Mina) Esophagitis Gastritis Hepatic steatosis Inflammatory polyps (~07/2021) Hypothyroidism Vitamin D deficiency CKD (chronic kidney disease) stage 4, GFR 15-29 ml/min Multinodular goiter (02/26/18) [facility] [place] / tx= total thyroidectomy to be scheduled after tx of breast cancer - one nodule displaces left cartotid and causes tracheal compression (pt is asymptomatic) Malignant neoplasm of right breast in female, estrogen receptor positive [facility]: invasive ductal carcinoma/ductal carcinoma in situ - Intramural leiomyoma of uterus (05/05/17) Essential hypertension Urinary retention Chronic kidney disease Hyperlipidemia Erythromelalgia Gout Diabetes Leiomyoma of uterus Surgical History (Updated 10/27/21 @ 10:14 by Jeannie Barba RN) History of esophagogastroduodenoscopy (EGD) (~09/2021) History of colonoscopy (~07/2021) Hx of thyroidectomy History of suprapubic catheter Hx of breast lump removal R , entire breast Family History (Updated 01/28/24 @ 13:20 by Simran Collins) Mother , 86 age Diabetes Hypertension Dementia Father , 67 age Cancer Sister , 63 Heart disease Sister , 55 age Dementia Brother , 59 age Cancer Lung Cancer Brother , 69 age Diabetes Heart disease Hypertension Daughter No problems noted. Daughter No problems noted. Social History (Updated 01/28/24 @ 13:18 by Simran Collins) Smoking/Tobacco Use Status: Former Tobacco Use tobacco type: cigarettes Quit Date: 05/31/11 Second Hand Exposure: Yes Smoking risk assessment performed?: Yes Alcohol Intake: never Drug use: Never Substance use type: does not use Adopted: No Caregiver/Support person: No Household members: spouse Housing: other Number of Children: 4 Communication Needs: Corrective Lenses Education Level: high school Do you need help understanding health information?: Never current occupation: Retired Pets and animals: No Sexually active: No Do you think of yourself as: straight/heterosexual Current gender identity: female What is your relationship status?: How often do you talk on the phone with friends or family?: twice per week How often do you get together with friends or relatives?: once per week Do you belong to any clubs or organized social groups?: no Panel score (0-1 are the most socially isolated patients): 2 What type of physical activity do you participate in: none Special lori needs: No Seatbelt use: always Helmet use: No Drive intox or ride w/intox 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
[2025-02-26 12:03] VITALS: BP 172/62; PULSE 90; RESP 18; O2SAT 99
== END 2025-02-26 12:05 | disposition home or self-care (01) ==
PROVIDERS: Emergency Provider Nurse Practitioner Family; PCP Family Medicine
DX: Z46.6 Encounter for fitting and adjustment of urinary device (principal); Z59.811 Housing instability, housed, with risk of homelessness
CPT/HCPCS: 99283 ×2; 51702

== ENCOUNTER → 2025-03-01 09:49 | Outpatient (BNVA) | payer MEDICARE, SELFPAY | PROVIDERS: PCP Family Medicine; Referring Provider Family Medicine; Visit Provider Physical Therapy Assistant | DX: L72.3 Sebaceous cyst (principal) | CPT/HCPCS: 11402 ==

== ENCOUNTER → 2025-03-08 14:42 | Outpatient (BNVA) | payer MEDICARE, SELFPAY | PROVIDERS: PCP Family Medicine; Referring Provider Family Medicine; Visit Provider Physical Therapy Assistant | DX: L72.3 Sebaceous cyst (principal) | CPT/HCPCS: 99213 ==

== ENCOUNTER 2025-03-20 02:57 | Outpatient (CLI) | payer MEDICARE, SELFPAY ==
[2025-03-20 09:53] LABS: Abs Immature Grans 0.02 10^3/uL (0.0-0.06); Absolute Basophil Count 0.04 10^3/uL (0.0-0.2); Absolute Eosinophil Count 0.07 10^3/uL (0.0-0.7); Absolute Lymphocyte Count 0.48 10^3/uL (1.2-3.4); Absolute Monocyte Count 0.11 10^3/uL (0.1-0.8); Absolute Neutrophil Count 1.55 10^3/uL (1.2-6.7); Basophils % 1.8 %; Eosinophils % 3.1 %; HCT 28.6 % (36.0-46.0); HGB 9.5 g/dL (11.2-15.7); Immature Grans % 0.9 %; Lymphocytes % 21.1 %; MCH 32.6 pg (27.0-33.0); MCHC 33.2 % (32.0-36.0); MCV 98 fL (80-95); Monocytes % 4.8 %; Neutrophils % 68.3 %; Platelet Count 148 10^3/uL (130-400); RBC 2.91 10^6/uL (3.93-5.22); RDW-SD 56.8 fL; WBC 2.27 10^3/uL (4.4-10.8)
[2025-03-20 10:23] LABS: ALT 24 U/L (14-59); AST 24 U/L (15-37); Albumin 3.5 g/dL (3.4-5.0); Alkaline Phosphatase 114 U/L (46-116); Anion Gap 10.6 mmol/L (3-11); BUN 29 mg/dL (7-18); Bilirubin, Total 0.9 mg/dL (0.2-1.0); CO2 26.4 mmol/L (21.0-32.0); CREATININE 2.6 mg/dL (0.55-1.02); Calcium 9.6 mg/dL (8.5-10.1); Chloride 102 mmol/L (98-107); Estimated GFR 19.62 (mL/min/1.73m2); Glucose 129 mg/dL (74-106); Sodium 139 mmol/L (136-145)
== END 2025-03-20 02:58 | disposition home or self-care (01) ==
LOC: LBO 02:57
PROVIDERS: PCP Family Medicine; Visit Provider Nurse Practitioner Family
DX: C50.919 Malignant neoplasm of unspecified site of unspecified female breast (principal); C79.51 Secondary malignant neoplasm of bone
CPT/HCPCS: 36415; 80053; 85025

== ENCOUNTER → 2025-03-27 08:57 | Outpatient (BNVA) | payer MEDICARE, SELFPAY | PROVIDERS: PCP Family Medicine; Visit Provider Nurse Practitioner Gerontology | DX: R33.9 Retention of urine, unspecified (principal); Z46.6 Encounter for fitting and adjustment of urinary device | CPT/HCPCS: 51705 ==

== ENCOUNTER 2025-04-16 08:04 | Outpatient (CLI) | payer MEDICARE, SELFPAY ==
[2025-04-16 07:49] LABS: HCT 31.3 % (36.0-46.0); HGB 10.4 g/dL (11.2-15.7); MCH 33.8 pg (27.0-33.0); MCHC 33.2 % (32.0-36.0); MCV 102 fL (80-95); MPV 10.3 fL (8.0-11.0); Platelet Count 201 10^3/uL (130-400); RBC 3.08 10^6/uL (3.93-5.22); RDW 16.8 % (11.7-14.6); RDW-SD 62.4 fL; WBC 2.25 10^3/uL (4.4-10.8)
[2025-04-16 08:25] LABS: ALT 15 U/L (14-59); AST 18 U/L (15-37); Albumin 3.7 g/dL (3.4-5.0); Alkaline Phosphatase 114 U/L (46-116); BUN 28 mg/dL (7-18); Bilirubin, Total 0.9 mg/dL (0.2-1.0); CREATININE 2.5 mg/dL (0.55-1.02); Calcium 9.8 mg/dL (8.5-10.1); Chloride 103 mmol/L (98-107); Estimated GFR 20.56 (mL/min/1.73m2); Glucose 147 mg/dL (74-106); Potassium 3.3 mmol/L (3.5-5.1); Sodium 143 mmol/L (136-145)
[2025-04-16 08:40] LABS: Absolute Basophil Count 0.09 10^3/uL (0.0-0.2); Absolute Eosinophil Count 0.05 10^3/uL (0.0-0.7); Absolute Monocyte Count 0.07 10^3/uL (0.1-0.8); Absolute Neutrophil Count 1.35 10^3/uL (1.2-6.7); Diff Comment Manual Differential; RBC Morphology Normal
[2025-04-17 09:16] LABS: Ferritin 220 ng/mL (8-252); Vitamin B12 288 pg/mL (193-986)
== END 2025-04-16 08:05 | disposition home or self-care (01) ==
LOC: LBO 08:06
PROVIDERS: PCP Family Medicine; Visit Provider Nurse Practitioner Family
DX: C50.919 Malignant neoplasm of unspecified site of unspecified female breast (principal); C79.51 Secondary malignant neoplasm of bone; N18.30 Chronic kidney disease, stage 3 unspecified; D63.1 Anemia in chronic kidney disease
CPT/HCPCS: 36415; 80053; 82607; 82728; 85025

== ENCOUNTER → 2025-04-29 10:03 | Outpatient (BNVA) | payer MEDICARE, SELFPAY | PROVIDERS: PCP Family Medicine; Referring Provider Family Medicine; Visit Provider Nurse Practitioner Gerontology | DX: Z46.6 Encounter for fitting and adjustment of urinary device (principal); R33.9 Retention of urine, unspecified | CPT/HCPCS: 51705 ==

== ENCOUNTER 2025-05-07 01:32 | Outpatient (CLI) | payer MEDICARE, SELFPAY ==
--- NOTE | 2025-05-07 | DI.NM_ITS ---
Exam(s) TN BONE SCAN WHOLE BODY GRP EXAM: TN BONE SCAN WHOLE BODY GRP CLINICAL HISTORY: CA R BREAST,ESTROGEN RECEPTOR +,C50.911, Z17.0,with bone mets. TECHNIQUE: Injected Dose: 26.5 mCi Tc-99m MDP Delayed Images: 2-3 hours. COMPARISON: [facility] BONE SCAN WHOLE BODY GRP from 02/28/2024 [facility] BONE SCAN WHOLE BODY GRP from 08/14/2024 FINDINGS: There is again no evidence to suggest osseous metastatic disease. Focus of uptake seen in the right-side of the cervical spine is again noted consistent with facet arthropathy. Some unchanged uptake in right and left facet joint regions in the lumbar spine is also unchanged. There is no new abnormal spine uptake nor new abnormal rib uptake. Some uptake in the lateral aspect of the right wrist is noted, this focal uptake consistent with degenerative change at the 1st carpometacarpal joint. IMPRESSION: 1. No evidence of osseous metastatic disease. 2. Unchanged foci of uptake in the right-side of the cervical spine and in the lower lumbar spine, unchanged from previous and most probably degenerative facet joint arthropathy related uptake. DATA REPOSITORY:
[2025-05-07 07:37] LABS: Abs Immature Grans 0.02 10^3/uL (0.0-0.06); HCT 30.8 % (36.0-46.0); HGB 10.4 g/dL (11.2-15.7); Immature Grans % 0.7 %; MCH 33.9 pg (27.0-33.0); MCHC 33.8 % (32.0-36.0); MCV 100 fL (80-95); MPV 10.0 fL (8.0-11.0); Platelet Count 308 10^3/uL (130-400); RBC 3.07 10^6/uL (3.93-5.22); RDW 16.1 % (11.7-14.6); RDW-SD 60.1 fL; WBC 2.80 10^3/uL (4.4-10.8)
[2025-05-07 07:54] LABS: RBC Morphology Normal
[2025-05-07 08:26] LABS: ALT 16 U/L (14-59); AST 19 U/L (15-37); Albumin 3.6 g/dL (3.4-5.0); Alkaline Phosphatase 112 U/L (46-116); Anion Gap 8.1 mmol/L (3-11); BUN 30 mg/dL (7-18); Bilirubin, Total 0.7 mg/dL (0.2-1.0); CO2 27.9 mmol/L (21.0-32.0); Calcium 9.5 mg/dL (8.5-10.1); Chloride 103 mmol/L (98-107); Estimated GFR 20.56 (mL/min/1.73m2); Glucose 131 mg/dL (74-106); Potassium 3.5 mmol/L (3.5-5.1); Sodium 139 mmol/L (136-145); Total Protein 7.6 g/dL (6.4-8.2); Vitamin B12 826 pg/mL (193-986)
== END 2025-05-07 01:52 ==
PROVIDERS: Nurse Practitioner Family; PCP Family Medicine; Visit Provider Internal Medicine Hematology & Oncology
DX: C50.912 Malignant neoplasm of unspecified site of left female breast (principal); D63.1 Anemia in chronic kidney disease; Z79.51 Long term (current) use of inhaled steroids; Z17.0 Estrogen receptor positive status [ER+]
CPT/HCPCS: 78306; 80053; 82607; 85025

== ENCOUNTER 2025-05-16 15:40 | Outpatient (REF) | payer MEDICARE, SELFPAY ==
[2025-05-16 20:54] LABS: COMMENT (LAB VIEW ONLY) 115.11 mg/dL
[2025-05-16 20:55] LABS: Microalb ug/mg Crea 734.0 ug/mg Cr
== END 2025-05-16 15:41 | disposition home or self-care (01) ==
LOC: LBN 15:40
PROVIDERS: PCP Family Medicine; Visit Provider Family Medicine
DX: E11.9 Type 2 diabetes mellitus without complications (principal)
CPT/HCPCS: 82043; 82570

== ENCOUNTER 2025-05-17 00:59 | Outpatient (CLI) | payer MEDICARE, SELFPAY ==
[2025-05-17 12:32] LABS: Abs Immature Grans 0.00 10^3/uL (0.0-0.06); HCT 30.3 % (36.0-46.0); HGB 10.1 g/dL (11.2-15.7); Immature Grans % 0.0 %; MCH 33.8 pg (27.0-33.0); MCHC 33.3 % (32.0-36.0); MCV 101 fL (80-95); MPV 10.5 fL (8.0-11.0); Platelet Count 177 10^3/uL (130-400); RBC 2.99 10^6/uL (3.93-5.22); RDW 15.9 % (11.7-14.6); RDW-SD 59.3 fL; WBC 3.34 10^3/uL (4.4-10.8)
[2025-05-17 12:45] LABS: ALT 18 U/L (14-59); AST 20 U/L (15-37); Albumin 3.7 g/dL (3.4-5.0); Alkaline Phosphatase 115 U/L (46-116); Anion Gap 12.2 mmol/L (3-11); BUN 34 mg/dL (7-18); Bilirubin, Total 0.6 mg/dL (0.2-1.0); CO2 24.8 mmol/L (21.0-32.0); Calcium 9.6 mg/dL (8.5-10.1); Chloride 103 mmol/L (98-107); Estimated GFR 21.60 (mL/min/1.73m2); Glucose 149 mg/dL (74-106); Potassium 3.9 mmol/L (3.5-5.1); Sodium 140 mmol/L (136-145); Total Protein 7.7 g/dL (6.4-8.2)
[2025-05-17 14:16] LABS: Vitamin B12 1057 pg/mL (193-986)
== END 2025-05-17 01:00 | disposition home or self-care (01) ==
LOC: LBO 00:59
PROVIDERS: PCP Family Medicine; Visit Provider Nurse Practitioner Family
DX: C50.919 Malignant neoplasm of unspecified site of unspecified female breast (principal)
CPT/HCPCS: 36415; 80053; 82607; 82728; 82746; 85025

== ENCOUNTER 2025-05-21 12:47 | Outpatient (CLI) | payer MEDICARE, SELFPAY ==
--- NOTE | 2025-05-21 | DI.MRI_ITS ---
Exam(s) MR BRAIN WO/W EXAM: MR BRAIN WO/W CLINICAL HISTORY: HX METS BREAST CANCER, ALTERED MENTAL STATUS. TECHNIQUE: Multiplanar multisequence MRI of the brain was performed. CONTRAST MATERIAL: IV Contrast: 13 ML of Dotarem contrast administered. COMPARISON: MR MR BRAIN WO/W from 02/08/2025 FINDINGS: VENTRICLES AND EXTRA AXIAL SPACES: Normal in size and morphology for the patient's age. HEMORRHAGE: None. CEREBRAL PARENCHYMA: No focus of restricted diffusion to suggest acute infarct. No space-occupying lesion identified. Mild atrophy. Stable bilateral scattered high T2 foci in the white matter, likely sequela microvascular disease. BRAINSTEM/CEREBELLUM: Normal. CALVARIUM: Normal. ENHANCEMENT: No suspicious enhancement identified. VISUALIZED PARANASAL SINUSES/MASTOIDS: Fluid within a few ethmoid air cells on the right. Orbits: Unremarkable. Pituitary: Not enlarged. Vasculature: Normal flow voids. IMPRESSION: No evidence of metastatic disease. Stable white matter changes consistent with microvascular disease. DATA REPOSITORY:
[2025-05-21] MEDS: Normal Saline Flush 10 ML SYR IVP (14:57)
[2025-05-21] MEDS: Gadoterate meglumine 20 ML SYRINGE 13 ML IVP (14:58)
== END 2025-05-21 13:07 ==
LOC: DI 12:48
PROVIDERS: PCP Family Medicine; Visit Provider Nurse Practitioner Family
DX: C50.911 Malignant neoplasm of unspecified site of right female breast (principal); C79.51 Secondary malignant neoplasm of bone; Z17.0 Estrogen receptor positive status [ER+]
CPT/HCPCS: 70553

== ENCOUNTER → 2025-05-22 09:31 | Outpatient (BNVA) | payer MEDICARE, SELFPAY | PROVIDERS: PCP Family Medicine; Referring Provider Family Medicine; Visit Provider Nurse Practitioner Gerontology | DX: Z46.6 Encounter for fitting and adjustment of urinary device (principal); R33.9 Retention of urine, unspecified | CPT/HCPCS: 51705 ==

== ENCOUNTER → 2025-06-26 12:53 | Outpatient (BNVA) | payer MEDICARE, SELFPAY | PROVIDERS: PCP Family Medicine; Referring Provider Family Medicine; Visit Provider Nurse Practitioner Gerontology | DX: Z43.5 Encounter for attention to cystostomy (principal) | CPT/HCPCS: 51705 ==

== ENCOUNTER 2025-07-02 07:03 | Outpatient (CLI) | payer MEDICARE, SELFPAY ==
--- NOTE | 2025-07-02 | DI.CT_ITS ---
Exam(s) CT CHEST/ABD/PEL WO EXAM: CT CHEST/ABD/PEL WO CLINICAL HISTORY: CA BREAST METASTATIC TO BONE,C50.919,C79.51,RT BREAST CA. TECHNIQUE: Imaging Protocol: Axial computed tomography images with coronal and sagittal reformatted images were created and reviewed. Computer aided detection (CAD) was utilized. CONTRAST MATERIAL: Intravenous: Omnipaque 350 Contrast volume:Not given due to poor renal function. Oral: yes / COMPARISON: CR XR HIP LT COMPLETE AP PELVIS from 08/14/2021 CR XR FEMUR RT from 08/14/2021 NM NM BONE SCAN WHOLE BODY GRP from 03/03/[address] CHEST/ABD/PEL WO from 01/29/2025 NM NM BONE SCAN WHOLE BODY GRP from 05/07/2025 FINDINGS: CHEST: Pulmonary parenchyma: No consolidation. No dominant measurable mass. Right basilar atelectasis. Previously noted reticular nodular infiltrate has cleared. Tracheobronchial tree: No bronchiectasis. No mucous plugging.No bronchial wall thickening. Pleura: No effusion or pneumothorax. Mediastinum: Within normal limits. Pulmonary arteries: No visible emboli. Cardiovascular: The heart size is normal. Severe coronary artery calcifications. No pericardial effusion. Thoracic aorta non-dilated. Bones: Vague areas of sclerosis again noted in multiple scoliosis. Thoracic vertebral bodies.. No compression fractures. Soft tissues: Right mastectomy. ABDOMEN and PELVIS: Liver: Normal density. No suspicious mass. Gallbladder and biliary tract: Cholelithiasis. No abnormal gallbladder distention or wall thickening. No biliary dilatation. Pancreas: Normal density, no abnormal calcifications or inflammatory process. Somewhat atrophic. Spleen: Normal. Kidneys: Somewhat atrophic. No radiodense stones. No obstructive uropathy. No suspicious masses seen. Adrenal glands: No masses seen. Aorta: Abdominal portion non-dilated. Atherosclerotic changes. Lymph nodes: Within normal limits. Soft tissues: Unremarkable. Bladder: suprapubic catheter. Bowel: No obstruction or bowel wall thickening. Extensive diverticulosis. Peritoneal cavity: No ascites. No focal collection. No mesenteric inflammatory response. No free air. Bones: Sclerotic areas again noted greatest at L2 and L5. Vague areas of sclerosis in both daniel. Reproductive organs: Posterior uterine fibroid. IMPRESSION: Stable appearance of sclerotic bony metastases in the spine and pelvis. Previously noted 4 millimeter right lower lobe nodule is not seen. There is now atelectasis posteriorly which may obscure the nodule. Previously noted infiltrate has cleared. RADIATION DOSE DELIVERED: 459.25mGy.cm Total DLP DATA REPOSITORY: All CT scans at this facility are submitted to the National Radiology Data Registry (NRDR) Dose Index Registry (DIR) with the [employer] ([employer]). RADIATION OPTIMIZATION: All CT scans at this facility use at least one of these dose optimization techniques: automated exposure control; mA and/or kV adjustment per patient size (includes targeted exams where dose is matched to clinical indication); or iterative reconstruction.
[2025-07-02 09:18] LABS: Abs Immature Grans 0.01 10^3/uL (0.0-0.06); HCT 31.2 % (36.0-46.0); HGB 10.4 g/dL (11.2-15.7); MCH 34.8 pg (27.0-33.0); MCHC 33.3 % (32.0-36.0); MCV 104 fL (80-95); MPV 9.5 fL (8.0-11.0); Platelet Count 304 10^3/uL (130-400); RBC 2.99 10^6/uL (3.93-5.22); RDW 14.7 % (11.7-14.6); RDW-SD 56.9 fL; WBC 2.70 10^3/uL (4.4-10.8)
[2025-07-02] MEDS: Barium Sulfate 2% W/V-Berry Smoothie 450 ML BTL PO (09:24)
[2025-07-02] MEDS: Barium Sulfate 2% W/V-Creamy Vanilla Smoothie 450 ML BTL PO (09:25)
[2025-07-02 09:45] LABS: ALT 14 U/L (14-59); AST 20 U/L (15-37); Albumin 3.7 g/dL (3.4-5.0); Alkaline Phosphatase 135 U/L (46-116); Anion Gap 10.4 mmol/L (3-11); BUN 37 mg/dL (7-18); Bilirubin, Total 0.5 mg/dL (0.2-1.0); CO2 26.6 mmol/L (21.0-32.0); Calcium 9.3 mg/dL (8.5-10.1); Chloride 104 mmol/L (98-107); Estimated GFR 15.88 (mL/min/1.73m2); Glucose 127 mg/dL (74-106); Potassium 4.1 mmol/L (3.5-5.1); Sodium 141 mmol/L (136-145); Total Protein 7.7 g/dL (6.4-8.2)
[2025-07-02 10:16] LABS: Immature Grans % 0.0 %
[2025-07-02 10:17] LABS: Anisocytosis 2+; Macrocytosis 1+
== END 2025-07-02 07:23 ==
LOC: DI 07:03
PROVIDERS: PCP Family Medicine; Visit Provider Nurse Practitioner Family
DX: N18.30 Chronic kidney disease, stage 3 unspecified (principal); C79.51 Secondary malignant neoplasm of bone; C50.911 Malignant neoplasm of unspecified site of right female breast; Z17.0 Estrogen receptor positive status [ER+]
CPT/HCPCS: 71250; 80053; 74176; 85025

== ENCOUNTER 2025-07-12 03:28 | Outpatient (CLI) | payer MEDICARE, SELFPAY ==
[2025-07-12 11:47] LABS: Abs Immature Grans 0.00 10^3/uL (0.0-0.06); HCT 31.5 % (36.0-46.0); HGB 10.5 g/dL (11.2-15.7); Immature Grans % 0.0 %; MCH 34.7 pg (27.0-33.0); MCHC 33.3 % (32.0-36.0); MCV 104 fL (80-95); MPV 10.4 fL (8.0-11.0); Platelet Count 213 10^3/uL (130-400); RBC 3.03 10^6/uL (3.93-5.22); RDW 14.4 % (11.7-14.6); RDW-SD 54.4 fL; WBC 3.15 10^3/uL (4.4-10.8)
[2025-07-12 12:34] LABS: ALT 17 U/L (14-59); AST 20 U/L (15-37); Albumin 3.9 g/dL (3.4-5.0); Alkaline Phosphatase 106 U/L (46-116); Anion Gap 9.1 mmol/L (3-11); BUN 50 mg/dL (7-18); Bilirubin, Total 0.7 mg/dL (0.2-1.0); CO2 28.9 mmol/L (21.0-32.0); Calcium 10.0 mg/dL (8.5-10.1); Chloride 107 mmol/L (98-107); Estimated GFR 15.29 (mL/min/1.73m2); Glucose 90 mg/dL (74-106); Potassium 4.3 mmol/L (3.5-5.1); Sodium 145 mmol/L (136-145); Total Protein 8.1 g/dL (6.4-8.2)
== END 2025-07-12 03:29 | disposition home or self-care (01) ==
LOC: LBO 03:28
PROVIDERS: PCP Family Medicine; Visit Provider Nurse Practitioner Family
DX: C50.919 Malignant neoplasm of unspecified site of unspecified female breast (principal)
CPT/HCPCS: 36415; 80053; 85025

== ENCOUNTER → 2025-07-17 09:28 | Outpatient (BNVA) | payer MEDICARE, SELFPAY | PROVIDERS: PCP Family Medicine; Referring Provider Family Medicine; Visit Provider Nurse Practitioner Gerontology | DX: Z43.5 Encounter for attention to cystostomy (principal); R33.9 Retention of urine, unspecified | CPT/HCPCS: 51705 ==

== ENCOUNTER 2025-08-07 07:44 | Outpatient (CLI) | payer MEDICARE, SELFPAY ==
[2025-08-07 07:48] LABS: Abs Immature Grans 0.00 10^3/uL (0.0-0.06); HCT 31.1 % (36.0-46.0); HGB 10.4 g/dL (11.2-15.7); Immature Grans % 0.0 %; MCH 35.0 pg (27.0-33.0); MCHC 33.4 % (32.0-36.0); MCV 105 fL (80-95); MPV 9.9 fL (8.0-11.0); Platelet Count 195 10^3/uL (130-400); RBC 2.97 10^6/uL (3.93-5.22); RDW 14.1 % (11.7-14.6); RDW-SD 54.4 fL; WBC 2.30 10^3/uL (4.4-10.8)
[2025-08-07 08:02] LABS: RBC Morphology Normal
[2025-08-07 08:08] LABS: ALT 21 U/L (14-59); AST 21 U/L (15-37); Albumin 3.7 g/dL (3.4-5.0); Alkaline Phosphatase 114 U/L (46-116); Anion Gap 14.2 mmol/L (3-11); BUN 38 mg/dL (7-18); Bilirubin, Total 0.8 mg/dL (0.2-1.0); CO2 22.8 mmol/L (21.0-32.0); Calcium 9.7 mg/dL (8.5-10.1); Chloride 103 mmol/L (98-107); Estimated GFR 15.29 (mL/min/1.73m2); Glucose 108 mg/dL (74-106); Potassium 3.9 mmol/L (3.5-5.1); Sodium 140 mmol/L (136-145); Total Protein 7.5 g/dL (6.4-8.2)
[2025-08-07 10:08] LABS: Vitamin B12 > 2000 pg/mL (193-986)
== END 2025-08-07 07:45 | disposition home or self-care (01) ==
LOC: LBO 07:44
PROVIDERS: PCP Family Medicine; Visit Provider Nurse Practitioner Family
DX: C50.919 Malignant neoplasm of unspecified site of unspecified female breast (principal)
CPT/HCPCS: 36415; 80053; 82607; 85025

== ENCOUNTER → 2025-08-14 09:21 | Outpatient (BNVA) | payer MEDICARE, SELFPAY | PROVIDERS: PCP Family Medicine; Referring Provider Family Medicine; Visit Provider Nurse Practitioner Gerontology | DX: Z43.5 Encounter for attention to cystostomy (principal); R33.9 Retention of urine, unspecified | CPT/HCPCS: 51705 ==

== ENCOUNTER 2025-09-04 03:21 | Outpatient (CLI) | payer MEDICARE, SELFPAY ==
[2025-09-04 14:43] LABS: Abs Immature Grans 0.01 10^3/uL (0.0-0.06); HCT 31.9 % (36.0-46.0); HGB 10.6 g/dL (11.2-15.7); Immature Grans % 0.4 %; MCH 34.9 pg (27.0-33.0); MCHC 33.2 % (32.0-36.0); MCV 105 fL (80-95); RBC 3.04 10^6/uL (3.93-5.22); RDW 13.6 % (11.7-14.6); RDW-SD 52.6 fL; WBC 2.64 10^3/uL (4.4-10.8)
[2025-09-04 15:00] LABS: ALT 21 U/L (14-59); AST 30 U/L (15-37); Albumin 3.8 g/dL (3.4-5.0); Alkaline Phosphatase 123 U/L (46-116); Anion Gap 11.7 mmol/L (3-11); BUN 35 mg/dL (7-18); Bilirubin, Total 0.5 mg/dL (0.2-1.0); CO2 25.3 mmol/L (21.0-32.0); Calcium 9.6 mg/dL (8.5-10.1); Chloride 106 mmol/L (98-107); Glucose 163 mg/dL (74-106); Potassium 4.3 mmol/L (3.5-5.1); Sodium 143 mmol/L (136-145); Total Protein 7.9 g/dL (6.4-8.2)
== END 2025-09-04 03:22 | disposition home or self-care (01) ==
LOC: LBO 03:21
PROVIDERS: PCP Family Medicine; Visit Provider Nurse Practitioner Family
DX: C50.919 Malignant neoplasm of unspecified site of unspecified female breast (principal); C79.51 Secondary malignant neoplasm of bone; N18.30 Chronic kidney disease, stage 3 unspecified; D63.1 Anemia in chronic kidney disease
CPT/HCPCS: 36415; 80053; 85025

== ENCOUNTER → 2025-09-11 08:52 | Outpatient (BNVA) | payer MEDICARE, SELFPAY | PROVIDERS: PCP Family Medicine; Referring Provider Family Medicine; Visit Provider Nurse Practitioner Gerontology | DX: Z43.5 Encounter for attention to cystostomy (principal); R33.9 Retention of urine, unspecified | CPT/HCPCS: 51705 ==

== ENCOUNTER 2025-10-02 01:28 | Outpatient (CLI) | payer MEDICARE, SELFPAY ==
[2025-10-02 07:54] LABS: Abs Immature Grans 0.01 10^3/uL (0.0-0.06); HCT 32.9 % (36.0-46.0); HGB 10.9 g/dL (11.2-15.7); Immature Grans % 0.4 %; MCH 35.2 pg (27.0-33.0); MCHC 33.1 % (32.0-36.0); MCV 106 fL (80-95); MPV 10.3 fL (8.0-11.0); Platelet Count 188 10^3/uL (130-400); RBC 3.10 10^6/uL (3.93-5.22); RDW 13.5 % (11.7-14.6); RDW-SD 53.1 fL; WBC 2.48 10^3/uL (4.4-10.8)
[2025-10-02 08:56] LABS: ALT 16 U/L (10-49); AST 25 U/L (<34); Albumin 4.4 g/dL (3.2-5.0); Alkaline Phosphatase 106 U/L (46-116); Anion Gap 9.9 mmol/L (3-11); BUN 46 mg/dL (9-23); Bilirubin, Total 0.70 mg/dL (0.2-1.2); CO2 26.1 mmol/L (20.0-31.0); Calcium 10.2 mg/dL (8.3-10.6); Chloride 107 mmol/L (98-107); Glucose 113 mg/dL (74-106); Potassium 4.3 mmol/L (3.5-5.1); Sodium 143 mmol/L (136-145); Total Protein 7.7 g/dL (5.7-8.2)
== END 2025-10-02 01:29 | disposition home or self-care (01) ==
LOC: LBO 01:28
PROVIDERS: PCP Family Medicine; Visit Provider Nurse Practitioner Family
DX: C50.919 Malignant neoplasm of unspecified site of unspecified female breast (principal); C79.51 Secondary malignant neoplasm of bone; N18.30 Chronic kidney disease, stage 3 unspecified; D63.1 Anemia in chronic kidney disease
CPT/HCPCS: 36415; 80053; 85025

== ENCOUNTER → 2025-10-09 09:15 | Outpatient (BNVA) | payer MEDICARE, SELFPAY | PROVIDERS: PCP Family Medicine; Referring Provider Family Medicine; Visit Provider Nurse Practitioner Gerontology | DX: R33.9 Retention of urine, unspecified (principal); Z43.5 Encounter for attention to cystostomy | CPT/HCPCS: 51705 ==

== ENCOUNTER 2025-10-30 02:31 | Outpatient (CLI) | payer MEDICARE, SELFPAY ==
[2025-10-30 07:18] LABS: Abs Immature Grans 0.01 10^3/uL (0.0-0.06); HCT 31.6 % (36.0-46.0); HGB 10.5 g/dL (11.2-15.7); Immature Grans % 0.3 %; MCH 35.2 pg (27.0-33.0); MCHC 33.2 % (32.0-36.0); MCV 106 fL (80-95); MPV 10.0 fL (8.0-11.0); Platelet Count 153 10^3/uL (130-400); RBC 2.98 10^6/uL (3.93-5.22); RDW 13.6 % (11.7-14.6); RDW-SD 52.9 fL; WBC 3.38 10^3/uL (4.4-10.8)
[2025-10-30 07:38] LABS: ALT 15 U/L (10-49); AST 23 U/L (<34); Albumin 4.3 g/dL (3.2-5.0); Alkaline Phosphatase 104 U/L (46-116); Anion Gap 11.7 mmol/L (3-11); BUN 38 mg/dL (9-23); Bilirubin, Total 0.8 mg/dL (0.2-1.2); CO2 24.3 mmol/L (20.0-31.0); Calcium 9.3 mg/dL (8.3-10.6); Chloride 106 mmol/L (98-107); Glucose 130 mg/dL (74-106); Potassium 3.6 mmol/L (3.5-5.1); Sodium 142 mmol/L (136-145); Total Protein 7.3 g/dL (5.7-8.2)
[2025-10-30 07:39] LABS: Ferritin 77 ng/mL (7-271)
== END 2025-10-30 02:32 | disposition home or self-care (01) ==
LOC: LBO 02:32
PROVIDERS: Internal Medicine Hematology & Oncology; PCP Family Medicine; Visit Provider Nurse Practitioner Family
DX: N18.4 Chronic kidney disease, stage 4 (severe) (principal); C50.919 Malignant neoplasm of unspecified site of unspecified female breast; C79.51 Secondary malignant neoplasm of bone; N18.30 Chronic kidney disease, stage 3 unspecified; D63.1 Anemia in chronic kidney disease
CPT/HCPCS: 36415; 80053; 82728; 85025